=== PATIENT | male | born 1945 | race Caucasian/White ===

== ENCOUNTER 2020-06-10 10:07 | Outpatient (CLI) | payer MEDICARE, SELFPAY ==
--- NOTE | ~2020-06-10 | MR_ITS ---
EXAMINATION: MR lumbar spine wo [facility] EXAM DATE: 06/10/2020 11:27 INDICATION: Chronic low back pain down right hip and leg. TECHNIQUE: Multi-sequential, multiplanar MR images of the lumbar spine were obtained without contrast . Sagittal T1, T2, T2 fat saturation images. Axial T2 weighted images. Comparison is made to prior examination from 06/20/2016. FINDINGS: There is moderate to severe disc disease at L4-5. Congenitally narrow L5-S1 disc height. Mo derate disc disease L1-L4. Mild compression fracture at the inferior endplate of L1, new compared to previous study. Could be subacute given the mild edema present. There is 2 mm retrolisthesis L1 on L2 , 3 mm retrolisthesis L2 on L3, 4 mm anterolisthesis L3 on L4. The conus medullaris terminates at the T12-L1 level and has normal signal intensity and morphology. Paraspinal soft tissue is unremarkable . Level by level evaluation: T12-L1: Disc does not extend beyond the endplate margin. Facet arthropathy: None. Neural foraminal stenosis: No stenosis. Central canal stenosis: No stenosis. L1-L2: There is a mild diffuse disc bulge. Facet arthropathy: Mild. Neural foraminal stenosis: Mild bilateral. Central canal stenosis: No stenosis. L2-L3: There is a moderate diffuse disc bulge. Facet arthropathy: Moderate . Ligamentum flavum enlargement. Neural foraminal stenosis: Mild to moderate bilateral. Central canal stenosis: Mild to moderate. L3-L4: There is a moderate diffuse disc bulge. Facet arthropathy: Severe . Ligamentum flavum enlargement. Neural foraminal stenosis: Mild to moderate right, mild left. Central canal stenosis: Severe. L4-L5: There is a mild to moderate diffuse disc bulge. Facet arthropathy: Mild to moderate. Neural foraminal stenosis: Mild to moderate left, mild right. Central canal stenosis: Mild. L5-S1: Disc does not extend beyond the endplate margin. Facet arthropathy: Mild. Neural foraminal stenosis: No stenosis. Central canal stenosis: No stenosis. There is mild interval progression in spondylosis compared to 2016. IMPRESSION: 1. L3-4 grade 1 anterolisthesis, severe facet arthropathy, moderate to severe central canal stenosis . 2. Lesser spondylosis at other levels. 3. Mild compression inferior endplate L1, could be subacute. Reviewed, dictated and finalized at location A. IMPRESSION: 1. L3-4 grade 1 anterolisthesis, severe facet arthropathy, moderate to severe central canal stenosis. 2. Lesser spondylosis at other levels. 3. Mild compression inferior endplate L1, could be subacute.
== END 2020-06-10 10:08 | disposition home or self-care (01) ==
PROVIDERS: PCP Internal Medicine; Visit Provider Orthopaedic Surgery
DX: M54.5 Low back pain (principal)
CPT/HCPCS: 72148

== ENCOUNTER 2021-02-01 07:58 | Outpatient (CLI) | payer MEDICARE, SELFPAY | END 2021-02-01 07:59 | disposition home or self-care (01) | LOC: ANHBWCAUD 08:01 | PROVIDERS: PCP Internal Medicine; Visit Provider Internal Medicine | DX: H91.93 Unspecified hearing loss, bilateral (principal) | CPT/HCPCS: 92557; 92567 ==

== ENCOUNTER 2021-03-01 10:00 | Outpatient (RCR) | payer SELFPAY | END 2021-05-16 23:59 | disposition home or self-care (01) | LOC: ANHBWCAUD 10:00 | PROVIDERS: PCP Internal Medicine; Visit Provider Internal Medicine | DX: Z46.1 Encounter for fitting and adjustment of hearing aid (principal) | CPT/HCPCS: 99199; V5255 ==

== ENCOUNTER 2022-06-27 14:30 | Outpatient (RCR) | payer MEDICARE, SELFPAY | END 2022-08-17 23:59 | disposition home or self-care (01) | LOC: ANHBWCAUD 14:30 | PROVIDERS: PCP Internal Medicine; Visit Provider Internal Medicine | DX: Z46.1 Encounter for fitting and adjustment of hearing aid (principal) | CPT/HCPCS: 99199 ==

== ENCOUNTER 2024-03-04 08:30 | Outpatient (RCR) | payer MEDICARE, SELFPAY | END 2024-05-13 23:59 | disposition home or self-care (01) | LOC: ANHBWCAUD 08:30 | PROVIDERS: PCP Internal Medicine; Visit Provider Internal Medicine | DX: Z46.1 Encounter for fitting and adjustment of hearing aid (principal) | CPT/HCPCS: 92579 ==

== ENCOUNTER 2024-03-21 11:51 | Outpatient (CLI) | payer MEDICARE, SELFPAY ==
--- NOTE | ~2024-03-21 | XR_ITS ---
Right Knee Technique: AP, lateral, and sunrise views were obtained. Clinical History: Osteoarthritis Findings: No fracture or dislocation is seen. There is lateral compartment narrowing. There is mild t o moderate patellar spurring. There is mild spurring throughout the remainder of the knee.. Soft tiss ues are unremarkable. No joint effusion is seen. Impression: Moderate tricompartmental degenerative change, worse in the lateral compartment. Reviewed, dictated and finalized at location M. Impression: Moderate tricompartmental degenerative change, worse in the lateral compartment .
--- NOTE | ~2024-03-21 | XR_ITS ---
Left Knee Technique: AP, lateral, and sunrise views were obtained. Clinical History: Osteoarthritis Findings: No fracture or dislocation is seen. Osseous alignment is anatomic. There is mild degenerati ve change of the knee. Soft tissues are unremarkable. No joint effusion is seen. Impression: Mild degenerative changes. Reviewed, dictated and finalized at location . Impression: Mild degenerative changes.
== END 2024-03-21 11:52 | disposition home or self-care (01) ==
PROVIDERS: PCP Internal Medicine; Visit Provider Physician Assistant Surgical
DX: M17.0 Bilateral primary osteoarthritis of knee (principal)
CPT/HCPCS: 73564

== ENCOUNTER 2024-05-07 10:51 | Outpatient (CLI) | payer MEDICARE, SELFPAY ==
--- NOTE | ~2024-05-07 | XR_ITS ---
XR hand LT min 3V Ordering provider: Tony Wilkinson MD History: . M79.642 - Pain in left hand . Comparison: None. FINDINGS: BONES: No acute fracture or dislocation. JOINT SPACES: Distal interphalangeal joint narrowing. Osteoarthritic changes of the second metacarpop halangeal joint. SOFT TISSUES: Unremarkable. IMPRESSION: No acute osseous abnormality left hand. Osteoarthritic changes in multiple joints. Reviewed, dictated and finalized at location A.
--- NOTE | ~2024-05-07 | XR_ITS ---
EXAMINATION: XR hand RT min 3V DATE: 05/07/2024 11:10 INDICATION: Left hand pain and trigger finger of the right fifth digit. TECHNIQUE: 1. Posteroanterior, oblique and lateral views of the left hand were obtained. 2. Posteroanterior, oblique and lateral views of the right hand were obtained. COMPARISON: None. FINDINGS: There is mild palmar subluxation at the bilateral second metacarpophalangeal joints with severe assoc iated osteoarthritis. Slight radial angulation at the right third distal interphalangeal joint with a dditional severe osteoarthritis. Bone alignment is otherwise normal at the bilateral hands and wrists . No fractures. Additional moderate severity osteoarthritis at the right distal radioulnar, right thi rd metacarpophalangeal, bilateral first interphalangeal and left second and third and right second di stal interphalangeal joints. Mild osteoarthritis at the left distal radioulnar, bilateral radiocarpal , triscaphe, first carpometacarpal and majority the remaining metacarpophalangeal and interphalangeal joints. No erosions to suggest inflammatory arthritis. IMPRESSION: 1. Moderate to severe polyarticular osteoarthritis at the bilateral hands and wrists. The prominence of the osteoarthritis at the second and third metacarpophalangeal joints raising possibility of secon [place] osteoarthritis related to calcium pyrophosphate deposition (CPPD) disease. Reviewed, dictated and finalized at location B. IMPRESSION: 1. Moderate to severe polyarticular osteoarthritis at the bilateral hands and w rists. The prominence of the osteoarthritis at the second and third metacarpoph alangeal joints raising possibility of secondary osteoarthritis related to calc ium pyrophosphate deposition (CPPD) disease.
== END 2024-05-07 10:52 | disposition home or self-care (01) ==
PROVIDERS: PCP Internal Medicine; Visit Provider Orthopaedic Surgery
DX: M65.351 Trigger finger, right little finger (principal); M19.042 Primary osteoarthritis, left hand; M19.041 Primary osteoarthritis, right hand; M19.032 Primary osteoarthritis, left wrist; M19.031 Primary osteoarthritis, right wrist
CPT/HCPCS: 73130

== ENCOUNTER 2024-06-10 09:44 | Outpatient (CLI) | payer MEDICARE, SELFPAY ==
--- NOTE | ~2024-06-10 | CT_ITS ---
EXAMINATION: CT LE RT wo con DATE: 06/10/2024 10:53 INDICATION: Unilateral primary osteoarthritis, right knee. TECHNIQUE: Computed tomography (CT) of the right lower limb was performed without intravenous contras t. Automated exposure control and iterative reconstruction technique were employed. The dose-length p roduct was 1956.10 mGy-cm. COMPARISON: Right knee radiographs 03/21/2024 FINDINGS: There is moderate right hip osteoarthritis. Right knee demonstrates severe osteoarthritis o f the lateral compartment and moderate osteoarthritis of the medial and patellofemoral compartments. There is a small knee joint effusion. There is a large Tracy's cyst. IMPRESSION: 1. Severe right knee osteoarthritis. 2. Small right knee joint effusion. 3. Large Tracy's cyst. 4. Moderate right hip osteoarthritis. Reviewed, dictated and finalized at location A.
== END 2024-06-10 09:45 | disposition home or self-care (01) ==
PROVIDERS: PCP Internal Medicine; Visit Provider Orthopaedic Surgery
DX: M17.11 Unilateral primary osteoarthritis, right knee (principal); M25.461 Effusion, right knee; M71.21 Synovial cyst of popliteal space [Baker], right knee; M16.11 Unilateral primary osteoarthritis, right hip
CPT/HCPCS: 73700

== ENCOUNTER 2024-08-27 10:03 | Outpatient (CLI) | payer MEDICARE, SELFPAY ==
--- NOTE | 2024-08-27 10:15 | ECG_ITS ---
Test Date: 2024-08-27 10:26:23 Measurements Intervals Ramsay Rate: 89 P: 93 WY: 156 QRS: 105 QRSD: 139 T: -6 QT: 364 QTc: 443 Interpretive Statements ELECTRONIC ATRIAL PACEMAKER ELECTRONIC VENTRICULAR PACEMAKER ATYPICAL ECG No previous ECG available for comparison Electronically Signed On 08-27-2024 13:48:22 CDT by Nathaniel Stahl M.D.
[2024-08-27 10:57] LABS: Albumin Level 4.3 g/dL (3.5-5.1); Estimated Glomerular Filt Rate 36
== END 2024-08-27 10:04 | disposition home or self-care (01) ==
LOC: ANHLAB 10:07
PROVIDERS: PCP Internal Medicine; Visit Provider Orthopaedic Surgery
DX: M17.11 Unilateral primary osteoarthritis, right knee (principal)
CPT/HCPCS: 36415; 82040; 82565; 93005

== ENCOUNTER 2024-12-03 09:49 | Outpatient (CLI) | payer MEDICARE, SELFPAY ==
--- NOTE | ~2024-12-03 | XR_ITS ---
EXAMINATION: XR knee RT min 4V DATE: 12/03/2024 10:27 INDICATION: Bilateral primary osteoarthritis of knee. Right knee pain. TECHNIQUE: 4 views of right knee including standing views were obtained. COMPARISON: Right knee radiographs 03/21/2024 FINDINGS: Alignment is normal. No fracture. There is severe osteoarthritis of lateral compartment and moderate osteoarthritis of medial and patellofemoral compartments. There is a small knee joint effus ion. IMPRESSION: 1. Severe right knee osteoarthritis. 2. Small right knee joint effusion. Reviewed, dictated and finalized at location A. [facility] [employer]
--- NOTE | ~2024-12-03 | XR_ITS ---
EXAMINATION: XR knee LT min 4V DATE: 12/03/2024 10:27 INDICATION: Unilateral primary osteoarthritis, left knee. TECHNIQUE: 4 views of left knee including standing views were obtained. COMPARISON: Left knee radiographs 03/21/2024 FINDINGS: Alignment is normal. No fracture. There is severe osteoarthritis of medial and lateral comp artments and mild osteoarthritis of patellofemoral compartment. No knee joint effusion. IMPRESSION: 1. Severe left knee osteoarthritis. Reviewed, dictated and finalized at location A. CHARGER
--- OUTSIDE RECORDS SUMMARY | 2024-12-03 10:42 | XMS_ITS | Referral Summary ---
Author Organization [facility] Address [address] [place] [address] Care Team Providers Care Shirt Finisher Name Role Phone Star Singh MD Primary Care Provider [phone] Source Comments [facility],non-owned Affiliates and Associated Physician Practices is amultiple site organization consisting of ambulatory clinics and hospital sitesin [place], [place], [place] and [place]. This disclosure is being madepursuant to the Care Everywhere program and may not contain all information available regarding this patient. Last updated 18.[facility] [employer] Allergies Active Allergy Reactions Criticality Noted Date Comments Hmg-Coa-R Inhibitors Myalgias 12/05/2022 locks my muscles up Medications * Be aware that medications may not be up to date on this document. Alwaysverify current medications with the patient. Medication Sig Dispensed Refills Start Date End Date Status irbesartan-hydroCHLORO thiazide (Avalide) 150-12.5 MG tablet Take 1 (one) tablet by mouth once daily Active ezetimibe (Zetia) 10 MG tablet Take 1 (one) tablet by mouth once daily Active Rivaroxaban (XARELTO PO) Take 1.5 mg by mouth at bedtime Active fenofibrate (Tricor) 145 MG tablet Take 1 (one) tablet by mouth once daily Active BUPROPION HCL PO Take 300 mg by mouth Active dicyclomine (Bentyl) 10 MG capsule Take 1 (one) capsule by mouth as needed Active Polyethylene Glycol 3350 (MIRALAX PO) Active loratadine (Claritin) 10 MG tablet Take 1 (one) tablet by mouth once daily Active GLUCOSAMINE-CHONDROITI N PO Active Multiple Vitamins-Minerals (MULTIVITAL [place] SILVER PO) Active clopidogrel (plaVIX) 75 MG tablet Take 1 (one) tablet by mouth once daily Active apixaban (Eliquis) 5 MG tablet Active rOPINIRole (Requip) 2 MG tablet Take 1 (one) tablet by mouth 3 times daily Active vitamin D3 (Cholecalciferol) 10 MCG (400 UNIT) tablet Take 1 (one) tablet by mouth once daily Active aspirin EC (Ecotrin) 81 MG tablet Take 1 (one) tablet by mouth once daily Active Social History Tobacco Use Types Packs/Day Years Used Date Smoking Tobacco: Former Cigarettes Smokeless Tobacco: Never Tobacco Cessation:Counseling Given: Not Answered Alcohol Use Standard Drinks/Week Comments Yes 1 (1 standard drink = 0.6 oz pur e alcohol) 1x month AUDIT-C Answer Date Recorded Q1: How often do you have a drink containing alc ohol? Monthly or less 07/08/2024 Q2: How many drinks containi ng alcohol do you have on a typical day when you are drinking? 1 or 2 07/08/2024 Q3: How often do you have si x or more drinks on one occasion? Never 07/08/2024 Sex and Gender Information Value Date Recorded Sex Assigned at Not on file Gender Identity Not on file Sexual Orientation Not on file Last Filed Vital Signs Vital Sign Reading Time Taken Comments Blood Pressure 141/70 07/08/2024 10:30 AM CDT Pulse 67 07/08/2024 10:35 AM CDT Temperature 36 ??C (96.8 ??F) 07/08/2024 9:54 AM CDT Respiratory Rate 18 07/08/2024 10:35 AM CDT Oxygen Saturation 99% 07/08/2024 10:35 AM CDT Inhaled Oxygen Concentration - - Weight 106.1 kg (234 lb) 07/08/2024 7:35 AM CDT Height 177.8 cm (5' 10 ) 07/01/2024 11:48 AM CDT Body Mass Index 33.58 07/01/2024 11:48 AM CDT Plan of Treatment Not on file Care Teams Shirt Finisher Relationship Specialty Start Date End Date Star Singh MD [address] [place] [address] PCP - General Internal Medicine 11/16/22
--- OUTSIDE RECORDS SUMMARY | 2024-12-03 10:42 | XMS_ITS | Patient Health Summary ---
Author Organization [facility] Address [address] [place] [address] Care Team Providers Care Extras Casting Director Name Role Phone Star Singh MD Primary Care Provider [phone] Note from [facility],non-owned Affiliates and Associated Physician Practices is amultiple site organization consisting of ambulatory clinics and hospital sitesin [place], [place], [place] and [place]. This disclosure is being madepursuant to the Care Everywhere program and may not contain all information available regarding this patient. Last updated 18.[facility] Allergies * Hmg-Coa-R Inhibitors(Myalgias) Medications * Be aware that medications may not be up to date on this document. Alwaysverify current medications with the patient. * irbesartan-hydroCHLOROthiazide (Avalide) 150-12.5 MG tablet Take 1 (one) tablet by mouth once daily * ezetimibe (Zetia) 10 MG tablet Take 1 (one) tablet by mouth once daily * Rivaroxaban (XARELTO PO) Take 1.5 mg by mouth at bedtime * fenofibrate (Tricor) 145 MG tablet Take 1 (one) tablet by mouth once daily * BUPROPION HCL PO Take 300 mg by mouth * dicyclomine (Bentyl) 10 MG capsule Take 1 (one) capsule by mouth as needed * Polyethylene Glycol 3350 (MIRALAX PO) * loratadine (Claritin) 10 MG tablet Take 1 (one) tablet by mouth once daily * GLUCOSAMINE-CHONDROITIN PO * Multiple Vitamins-Minerals (MULTIVITAL [place] SILVER PO) * clopidogrel (plaVIX) 75 MG tablet Take 1 (one) tablet by mouth once daily * apixaban (Eliquis) 5 MG tablet * rOPINIRole (Requip) 2 MG tablet Take 1 (one) tablet by mouth 3 times daily * vitamin D3 (Cholecalciferol) 10 MCG (400 UNIT) tablet Take 1 (one) tablet by mouth once daily * aspirin EC (Ecotrin) 81 MG tablet Take 1 (one) tablet by mouth once daily Social History Tobacco Use Types Packs/Day Years [...] Mass Index 33.58 07/01/2024 11:48 AM CDT Procedures * [place] PART REMV PHALANX OF TOE(Performed 07/08/2024) Performed for Osteophyte of left foot, Hammer toe of left foot * [place] INCISION SUBCUT TOE TENDON,>1(Performed 07/08/2024) Performed for Osteophyte of left foot, Hammer toe of left foot * [place] PART REMV PHALANX OF TOE(Performed 12/05/2022) Performed for Osteophyte of left foot Care Teams Extras Casting Director Relationship Specialty Start Date End Date Star Singh MD [facility] [address] [address] PCP - General Internal Medicine 11/16/22
--- OUTSIDE RECORDS SUMMARY | 2024-12-03 10:43 | XMS_ITS | Encounter Summary ---
Author Organization [facility] Address [address] [address] Care Team Providers Care Auto Clutch Rebuilder Name Role Phone Star Singh MD Primary Care Provider [phone] Chepe Hinton MD Unavailable [phone] Lizy Cai RN Unavailable [phone] Dada Morris MD Unavailable [phone] Encounter Details Date Type Department Care Team (Late st Contact Info) Description 03/13/2017 Orders Only [facility] ProviderJuan MD [address] [place] [address] Social History Tobacco Use Types Packs/Day Years Used Date Smoking Tobacco: Some Days Cigarettes Last attempted to quit: 11/05/1979 Alcohol Use Standard Drinks/Week Comments Yes 0 (1 standard drink = 0.6 oz pur e alcohol) Sex and Gender Information Value Date Recorded Sex Assigned at Not on file Legal Sex Male 11:56 PM STRIPPING CUTTER AND WINDER Gender Identity Not on file Sexual Orientation Not on file documented as of this encounter Plan of Treatment Upcoming Encounters Date Type Department Care Team (Latest Contact Info) Description 02/03/2025 7:30 AM CDT Hospital Encounter [facility] [address] [place] [address] [place] [address] [facility] [place] [address] 02/03/2025 7:30 AM CDT Anesthesia Event [facility] [id number] [place] [address] [place] [address] [facility] [address] [place] [address] 02/03/2025 7:30 AM CDT - 02/03/2025 11:00 AM CDT Surgery [facility] [address] [place] [address] [place] [address] [facility] [address] [place] [address] INSPIRE HYPOGLOSSAL NERVE STIMULATOR IMPLANT - INSERTION/150min Scheduled Procedures Name Priority Associated Diagnoses Date/Ti me INSPIRE HYPOGLOSSAL NERVE STIMULATOR IMPLANT - INSERTION CHLOE (obstructive sleep apnea) 02/03/2025 7:30 AM CDT INSERTION CHEST WALL RESPIRATORY SENSOR ELECTRODE ARRAY AND PULSE GENERATOR CHLOE (obstructive sleep apnea) 02/03/2025 7:30 AM CDT documented as of this encounter Procedures Procedure Name Priority Date/Time Associated Diagnosis Comments CARDIOLOGY REPORT 03/13/2017 documented in this encounter Results * CARDIOLOGY REPORT (03/13/2017) Anatomical Region Laterality Modality Other Narrative 03/13/2017 Ordered by an unspecified provider. us Historical Provider [facility] Final Result documented in this encounter Visit Diagnoses Not on filedocumented in this encounter Additional Health Concerns Infection Onset Date Last Indicated Resolved Time COVID: Suspected 02/10/2022 02/10/2022 02/10/2022 2:52 PM CDT COVID: Suspected 03/16/2022 03/17/2022 03/17/2022 3:05 AM CDT COVID: Suspected 01/05/2023 01/05/2023 01/05/2023 9:31 AM STRIPPING CUTTER AND WINDER COVID: Suspected 01/09/2023 01/09/2023 01/09/2023 2:34 PM STRIPPING CUTTER AND WINDER COVID: Suspected 10/25/2023 10/25/2023 10/25/2023 4:10 PM STRIPPING C[employer]TER AND WINDER documented as of this encounter Care Teams Auto Clutch Rebuilder Relationship Specialty Start Date End Date Star Singh MD PCP - General 02/05/17 Chepe Hinton MD Consulting Physician Cardiology 07/19/18 Lizy Cai, RN [address] [place] [address] Junction [employer] 07/22/18 08/28/18 Dada Morris MD [address] [place] [address] Anesthesiologist Pain Management 10/13/22 documented as of this encounter
--- OUTSIDE RECORDS SUMMARY | 2024-12-03 10:43 | XMS_ITS | Clinical Summary ---
Author Organization [facility] Address [address] [place] [address] Care Team Providers Care Apple Packing Header Name Role Phone Star Singh MD Primary Care Provider [phone] Source Comments [facility],non-owned Affiliates and Associated Physician Practices is amultiple site organization consisting of ambulatory clinics and hospital sitesin [place], [place], [place] and [place]. This disclosure is being madepursuant to the Care Everywhere program and may not contain all information available regarding this patient. Last updated 18.[facility] Allergies Active Allergy Reactions Criticality Noted Date [...] GLUCOSAMINE-CHONDROITI N PO Active Multiple Vitamins-Minerals (MULTIVITAL [place] SILVER PO) Active clopidogrel (plaVIX) 75 MG [...] 07/01/2024 11:48 AM CDT Plan of Treatment Health Maintenance Due Date Last Done Comments MEDICARE AWV ? 12 MONTHS 1945 DTAP/TDAP/TD VACCINES (1 - Tdap) 1963 PNEUMOCOCCAL VACCINE 50+ (1 of 1 - PCV) 1994 ZOSTER VACCINE (1 of 2) 1994 Respiratory Syncytial Virus (RSV) Vaccine Pt: or over 60 yrs (1 - 1-dose 75+ series) 2019 COVID-19 VACCINE ( season) 2024 08/15/2022, 11/21/2021 DEPRESSION SCREENING 11/05/2024 INFLUENZA VACCINE Completed 07/15/2024, , 08/01/2019, Additional history exists HEPATITIS B VACCINE Aged Out No longe r eligible based on patient's age to complete this topic HIB VACCINE Aged Out No longer eligi ble based on patient's age to complete this topic HPV VACCINE Aged Out No longer eligi ble based on patient's age to complete this topic MENINGOCOCCAL (Group B) VACCINE Aged Out No longer eligible based on patient's age to complete this topic MENINGOCOCCAL VACCINE Aged Out No vivien peter eligible based on patient's age to complete this topic Care Teams Apple Packing Header Relationship Specialty Start Date End Date Star Singh MD [address] [place] [id number] PCP - General Internal Medicine 11/16/22
--- OUTSIDE RECORDS SUMMARY | 2024-12-03 10:43 | XMS_ITS ---
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 Is my 1st hearing of this. I am going to proceed in get an ultrasound of his testicle and refer to Urology Muscle spasm of left lower extremity 01/09/2024 Assessment & Plan (01/09/2024 1:02 PM NATIONAL SALES EXECUTIVE): Patient is having a cramping feeling posterior approximal left thigh going on about a week is reproducible when going from sitting to standing getting better causes limp very briefly for the 1st 2-3 steps and resolves. Minimal tenderness on palpating. Recommendation observation at this time x-rays not clinically indicated. Patient's advised to give me a progress report in 1 week no improvement will get an x-ray of his thigh. He has not had any trauma to explain this pain. Benign skin lesion 12/28/2023 Assessment & Plan (12/28/2023 9:53 AM NATIONAL SALES EXECUTIVE): Lesion consistent with sebaceous cyst noted to left occiputal area just above hairline. No acute signs of infection. Will likely resolve on it's own. Keep skin clean and dry, no not squeeze or pick at it. Weak 10/28/2023 Assessment & Plan (10/28/2023 7:32 PM NATIONAL SALES EXECUTIVE): Patient tested COVID as well as flu results were negative mi respiratory symptoms I suggest utilizing Zyrtec. No fever no chills Tylenol p.r.n.. 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 See plan above. Open wound of right lower leg 06/20/2023 Assessment & Plan (06/20/2023 3:47 PM CDT): Wound present for approx 1 month, developed blister and started draining last week. Assessment as noted above with surrounding cellulitis. Rxd Keflex as directed. Keep follow with wound center next week. Personal history of colonic polyps 06/11/2023 Family history of colon cancer 06/11/2023 Lumbosacral radiculopathy 05/16/2023 Cellulitis of right lower extremity 04/04/2023 Assessment & Plan (09/14/2024 4:17 PM NATIONAL SALES EXECUTIVE): Sinusitis right lower leg is now resolved Assessment & Plan (04/16/2023 5:31 PM CDT): Patient's right leg is wrapped he has a follow-up visit with the wound clinic tomorrow 04/17/2023 Assessment & Plan (04/04/2023 12:17 PM CDT): Care facility was placed on back open wound in his right leg he complains of abdominal pain since starting Bactrim discontinuing this and replacing with Keflex has significant edema which is improving having him to follow-up with the wound clinic ensure this wound heals increase in diuretics patient's is very symptomatic in his blood pressure. Gait difficulty 02/01/2023 Assessment & Plan (03/12/2023 6:28 PM CDT): Patient completed physical therapy and gait training in his him much better in terms ability ambulate feels more confident he hears a cane when he is going to be away from the home and walking longer unusual distances Assessment & Plan (02/01/2023 6:46 PM CDT): Patient feels a bit insecure in his walking he uses a cane rarely referred him to [facility] physical therapy for further evaluation gait and balance Asthma 01/12/2023 Assessment & Plan (01/12/2023 4:39 PM NATIONAL SALES EXECUTIVE): Asthma not improving occasionally he will get some relief from albuterol does not last very long he feels like that the mucus has his blocking lost some of his inhalation.. Patient ambulating office without difficulty feel short of breath O2 saturation 97% patient talks in complete sentences no accessory muscle use wheezing over upper lobes bilaterally poor technique on trying to get a peak flow he did get a 300 on his best. Patient is given a nebulizer treatment here in office he felt much better and he has in 2 weeks plans made arrangements for him to get a nebulizer from the pharmacy here in the building as well as albuterol a solution and was given a sample of trilogy and taught how to use it. Been injection of Kenalog 80 mg and prednisone to start tomorrow patient is advised specifically if he gets worse he has to go to the emergency room have reached maximum therapy that can offer him on outpatient basis SOB (shortness of breath) 01/09/2023 Assessment & Plan (07/31/2023 6:43 PM CDT): Seems to be correlated to his atrial fibrillation he is had a discussion with this log operations coordinator. On recent visit Assessment & Plan (03/12/2023 6:30 PM CDT): Patient visit with Pulmonary he is breathing much better less shortness of breath improved/ comfortable at this time Assessment & Plan (02/01/2023 6:44 PM CDT): Patient is improved using albuterol through the nebulizer machine. He should be out of trilogy at this time I did not refill it. A follow-up appointment in 6 weeks or so with Pulmonary. Recently diagnosed with pneumonia at [facility] Emergency Room and is improving Assessment & Plan (01/09/2023 4:05 PM NATIONAL SALES EXECUTIVE): Patient continues to have some shortness of breath despite aggressive cardiac therapy Silvia consult with Pulmonary which is very reasonable he has atrial fibrillation hypertension sleep apnea he is a very large man which all may be contributing factors to his progressive dyspnea CHLOE (obstructive sleep apnea) 01/09/2023 Assessment & Plan (03/10/2024 9:36 AM CDT): Patient continues use CPAP and benefits followed by the sleep Clinic Assessment & Plan (01/09/2023 4:04 PM NATIONAL SALES EXECUTIVE): Patient uses CPAP machine for many years with benefits once he retired no longer worked he start using his CPAP machine. Having shortness of breath some fatigue he would like resume treatment for sleep apnea. Patient is 77 years old he is referred to sleep Clinic for further evaluation including asleep study. Paroxysmal atrial fibrillation (CMS/HCC) 023 Assessment & Plan (07/31/2023 6:42 PM CDT): Has been in his last visit with Cardiology he will be referred to Dr. Jean-Baptiste at [facility] treatment for atrial fibrillation Assessment & Plan (12/01/2022 1:03 PM NATIONAL SALES EXECUTIVE): Recent atrial fibrillation managed by Cardiology he is now on Xarelto TIA (transient ischemic attack) 11/16/2022 Assessment & Plan (12/01/2022 12:44 PM NATIONAL SALES EXECUTIVE): No further symptoms of TIA /temporary vision change. This is thought to be secondary to recent onset of atrial fibrillation. Patient is now on Xarelto Assessment & Plan (11/16/2022 6:05 PM NATIONAL SALES EXECUTIVE): Patient recently had a TIA expressed in the form of loss of vision right eye for several minutes. 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 Monitor comes off on . Patient is asymptomatic. Patient's visit was scheduled for today preoperative clearance. He has foot surgery coming up 05 of November. I will see this patient back on December 01 review the monitor results. Results very good proceed with foot surgery not will need to have further evaluation by Cardiology. 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 Rx sent for tablets 11 refill Major depressive disorder with single episode Assessment & Plan (09/14/2024 4:12 PM NATIONAL SALES EXECUTIVE): Patient's mood is excellent with medication no complaints of side effects patient would like to remain on medications Assessment & Plan (01/30/2024 5:59 PM CDT): Patient is here to discuss depression and mood enjoys life . He is concerned he has lots of things to do which he does complete task other things he does not complete or feel like completing. The jobs are that he fails to complete are absolutely essential harmful if did not completed by deadlines.. Has some guilt in question whether not he is depressed because he has not as active he is was years ago. Advised patient I thought he was doing excellent given his age of 78 no dementia his pain levels of being controlled well and he still has interested in things I would recommend he remain on his Wellbutrin is working effectively for him Assessment & Plan (03/12/2023 6:31 PM CDT): Mood is stable continue Wellbutrin 300 mg daily Assessment & Plan (09/06/2021 12:20 PM CDT): Patient has noticed improvement with the Wellbutrin 300 mg. Patient's had an accident a fall broke her hip intracerebral bleed she is now on hospice anticipation that she will not survive the next 10 days. Patient requested anti anxiety medicine is needed around the time. He was given Xanax 0.25 mg t.i.d. p.r.n. total 12 tablets Assessment & Plan (08/18/2021 10:48 AM CDT): Patient has noticed some improvement with the Wellbutrin. Is uncertain how much is a of his improvement from Medicaid versus S in circumstance regarding his 's illness. This time I am going to increase his Wellbutrin to 300 mg daily . He has an appointment in 2 weeks will see if he is having any side effects from the increased dose. He has an appetite sleep patterns about the same is been for several years. He does have interest in doing things Assessment & Plan (05/12/2021 6:09 PM CDT): Patient's major depression is been talking with a counselor lays out that his advised Tena to his speak with this primary care physician regarding medication. He has been seeing a counselor at [facility] psychological services.. He has 3 relatives/daughters who in the medical fill also advised to seek help on her depression.. Patient PHQ-9 score was 10. Patient's has Alzheimer's disease schizoaffective disorder.. Patient started on Wellbutrin 100 mg once a day I will see him back in 1 month. Discussed side effects in anticipation for the medications. 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 Left hip pain 05/27/2020 Assessment & Plan (05/27/2020 4:26 PM CDT): Patient complains of right hip pain is getting progressively worse for the past several weeks he has to walk several miles a day NyQuil walk 1/4 mi he has pain. Also gets pain going from sitting to standing. Pain is in the posterior hip and lateral hip. X-rays a shows evidence of hip impingement. Patient patient notified he can follow-up with his orthopedic surgeon did place him on prednisone temporarily. He takes meloxicam routinely he is going to hold that at this time Chronic renal failure, stage 3 (moderate) 2019 Assessment & Plan (09/11/2024 12:54 PM NATIONAL SALES EXECUTIVE): Will refer this patient to nephrology orthopedic surgeon would like to do a total knee on this gentleman. Patient has been advised by his orthopedic surgeon Dr. Wilkinson has requested a Nephrology consult prior to surgery. Patient is 79 years old 20+ year history of hypertension known atherosclerotic heart disease and peripheral vascular disease. For last 4 years his EGFR has been mid 33-52. Referral was made eGFR Latest Ref Rng mL/min/1.73 m2 04/05/2020 46 10/08/2020 46 03/18/2021 35 09/06/2021 38 03/09/2022 40 09/11/2022 52 04/24/2023 37 05/17/2023 37 09/25/2023 33 01/04/2024 42 Assessment & Plan (09/12/2022 5:22 PM NATIONAL SALES EXECUTIVE): Non steroidal anti-inflammatory/meloxicam discontinued patient utilizing Tylenol at this time. Patient's EGFR has improved. Will continue to monitor no change in therapy. Component eGFR Latest Ref Rng & Units mL/min/1.73 m2 03/25/2019 56 04/05/2020 46 10/08/2020 46 03/18/2021 35 09/06/2021 38 03/09/2022 40 09/11/2022 52 Assessment & Plan (03/09/2022 5:09 PM CDT): Discontinue meloxicam patient advised to try arthritis Tylenol will get an updated arm BMP today Assessment & Plan (10/04/2020 6:15 PM NATIONAL SALES EXECUTIVE): Laboratory results from is almost 6 months ago reviewed GFR was 50. Update lipid profile and BMP today. Assessment & Plan (03/30/2020 6:34 PM CDT): Patient is in flor[place] considering get a knee replacement he had preop lab done and his creatinine came back at 1.38 and his estimated GFR was 58. This is consistent with chronic renal failure stage IIIA. This lab was done in December 2019 estimated GFR was above 60. Patient is 74 years old and has hypertension 20+ years. Plans at this time repeat BMP/creatinine and estimated GFR within the next 3-7 days. Hypertension 10/14/2019 Assessment & Plan (09/14/2024 4:11 PM NATIONAL SALES EXECUTIVE): Blood pressure remains well controlled patient takes Avalide HCTZ 150/12.51 tablet daily tolerates the medications. Assessment & Plan (07/31/2023 6:42 PM CDT): Pressure well controlled patient is tolerating medications no change in therapy Assessment & Plan (12/01/2022 1:03 PM NATIONAL SALES EXECUTIVE): Blood pressure well control no change in therapy Medicare annual wellness visit, subsequent 10/03 Assessment & Plan (03/10/2024 6:16 PM CDT): History and physical completed patient's health risk assessment health maintenance reviewed in addressed. Patient has not had any hospitalizations since his last annual exam. Continues follow-up with nephrology chronic renal failure stage III, cardiology atrial fibula pain clinic because of chronic osteoarthritis problems all his conditions stable including his depression. Immunizations laboratory studies are monitored on a frequent basis as indicated Assessment & Plan (03/12/2023 6:29 PM CDT): History and physical completed patient's health risk assessment health maintenance reviewed in addressed. Patient has had 2 hospitalizations in the past year he is recovered from recent pneumonias feeling much better. He is also followed by Pulmonary for his chronic lung disease. 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 Patient advised me that he had his shingles shot July 09, 2021 Assessment & Plan (03/09/2022 5:09 PM CDT): History and physical completed patient's health risk assessment health maintenance reviewed in addressed. Patient has no new health problems since his last visit. Acute bronchitis has resolved Assessment & Plan (09/06/2021 12:13 PM CDT): History and physical completed patient's health risk assessment health maintenance reviewed in addressed. Patient advised me he has had his shingles vaccine at [facility]. This is not recorded in our records at this time he is aware of her need for Tdap. Flu vaccine is current have within the past few days. Assessment & Plan (06/13/2021 11:34 AM CDT): Month follow-up visit regarding depression. Patient has noticed improved sleep with medication. Still has sadness in grieving. No adverse response to medication increase Wellbutrin to 150 mg. Progress report in 3-4 weeks see him back in 2 months. Assessment & Plan (10/04/2020 6:14 PM NATIONAL SALES EXECUTIVE): Health risk assessment health maintenance reviewed in addressed. Patient aware of immunization recommendations. Patient continues in the care of Pain Clinic he recently had evaluation regarding is back per Neurosurgery recommendations continue physical therapy. Assessment & Plan (10/03/2019 5:06 PM NATIONAL SALES EXECUTIVE): Patient is a history and physical completed on abnormalities a pain and in limping secondary to his right knee pain. Patient may me aware to fact he has completed his shingles vaccine through his local pharmacy will get a release of records to document this in his electronic medical records. Other components with health risk assessment health maintenance reviewed in addressed. Lipids are excellent is keeping his appointments Cardiology. Chronic pain of right knee 06/23/2019 Assessment & Plan (10/03/2019 5:02 PM NATIONAL SALES EXECUTIVE): Patient continues to have significant knee pain is 90% certain he is going to go ahead and follow through with knee replacement which is been rib suggestive eyes orthopedic surgeon in the past. Assessment & Plan (06/23/2019 12:31 PM CDT): Patient's osteoarthritis multiple sites has had his right knee to given pain when going from standing to sitting. Contact his orthopedic surgeon were unable to see him this morning and referred him to his primary care physician.. Patient has pain over the proximal fibula. Some posterior knee pain no fluid present no redness no swelling.. He has had this experience 4 to times this summer. His exam otherwise unremarkable. He cannot get in to see his orthopedic surgeon to late July.. Possible get an injection week of July. At this time I am going to give him a trial of prednisone 20 mg twice a day x5 days. X-ray of right knee requested. Restless leg 06/23/2019 Assessment & Plan (06/23/2019 12:30 PM CDT): Patient describing restless leg symptoms have been present for years less than once a week sometimes less than once a month for several years recently he has been getting 2 more times per week. Patient was started on Requip/ropinirole 0.5 mg 1-2 to 3 hours prior to bedtime. He is advised how to titrate himself up to 3 tablets before bedtime if he does not get relief. He is to contact me after reaching 3 tablets if it has not worked. Chronic low back pain without sciatica 7 Assessment & Plan (07/31/2023 6:41 PM CDT): Patient advised me the pain clinic at has discussed with him getting a implant controlling his pain in his back putting a temporary implant at 1st which is standard procedure he is willing to have this done. Every wants to get his cardiac problems taken care 1st Assessment & Plan (09/12/2022 5:23 PM NATIONAL SALES EXECUTIVE): Patient continues with the pain clinic and benefits from the therapy. Assessment & Plan (10/03/2019 5:02 PM NATIONAL SALES EXECUTIVE): Patient's notice has knee pain gets worse he needs just to walking his back pain is gives him more pain. This may be an overuse syndrome causing his back pain to increase. Assessment & Plan (02/19/2018 10:12 AM CDT): Low back pain continues to be a problem meloxicam did help however he is on blood thinners at this time which she cannot take the meloxicam. Assessment & Plan (09/01/2017 3:14 PM CDT): Patient has been going to pain clinic also given physical therapy is improved in his symptoms and stents is a chronic disorder least appears to be satisfied with his progress. Essential hypertension, benign 08/21/2017 Assessment & Plan (01/30/2024 6:00 PM CDT): Blood pressure is acceptable patient is doing well no change in therapy Assessment & Plan (12/28/2023 9:53 AM NATIONAL SALES EXECUTIVE): BP stable in office today on current therapy. No acute findings on exam. Continue current regimen and low salt diet. Assessment & Plan (10/28/2023 7:32 PM NATIONAL SALES EXECUTIVE): Pressure is excellent continue present therapy Assessment & Plan (04/16/2023 5:31 PM CDT): Flour Broker notes reviewed. His back on a diuretic Lasix 40 mg daily blood pressure is well controlled at this time he is not having adverse reactions to the medication. I will see him in the fall no changes added Assessment & Plan (04/04/2023 12:33 PM CDT): Hypertension well controlled patient does have some edema . He is on irbesartan hydrochlorothiazide 150/12.5. Attempts to give him additional diuretics for edema is not is benefit. Patient's not feel well when his blood pressure drops any lower even though it may be in therapeutic range. Assessment & Plan (01/09/2023 4:09 PM NATIONAL SALES EXECUTIVE): Blood pressure reasonably control no change in therapy Assessment & Plan (09/12/2022 5:20 PM NATIONAL SALES EXECUTIVE): Hypertension remains very well controlled patient is tolerating medications no change in therapy Assessment & Plan (05/22/2022 6:24 PM CDT): Blood pressure remains very well controlled patient tolerating medications no change in therapy Assessment & Plan (09/06/2021 12:13 PM CDT): Hypertension remains well control no change in therapy Assessment & Plan (06/13/2021 11:38 AM CDT): Blood pressure remains well controlled patient is tolerating medications no change in therapy. Assessment & Plan (03/09/2021 8:39 AM CDT): Attention remains well controlled patient is tolerating medications. No symptoms referable to his hypertension at this time will continue present therapy. Update patient's BMP as well as fasting lipid profile. Assessment & Plan (03/30/2020 6:34 PM CDT): Hypertension remains well controlled patient is tolerating medications no change in therapy. Assessment & Plan (10/03/2019 5:02 PM NATIONAL SALES EXECUTIVE): Blood pressure well controlled patient tolerating medications no change in therapy Assessment & Plan (04/01/2019 9:47 AM CDT): Time patient's medicine Avapro and hydrochlorothiazide is now going to take Avalide 150/12.51 tablet daily. Back patient tells me takes a half a tablet. When he is taking the Avapro and HCTZ because his blood pressure go too low.. Go to do the same with Avalide. Assessment & Plan (10/06/2018 6:02 PM NATIONAL SALES EXECUTIVE): Blood pressure 148/80 on this visit blood pressures away from the office have been much better he has no symptoms referable to his hypertension. No change in therapy at this time Assessment & Plan (07/27/2018 6:40 PM CDT): Patient was taken off his blood pressure medications while in the hospital as blood pressures running low. Blood pressure today is 132/84 this is 1 of his higher blood pressure readings since being home. Patient is on no blood pressure medicine he will continue to monitor his blood pressure. He understands if he starts running blood pressure consistently elevated above 150 systolic or 90 diastolic he is to resume his medications and contact me. Assessment & Plan (02/19/2018 10:13 AM CDT): Hypertension is unchanged. Continue current treatment regimen. Dietary sodium restriction. Weight loss. Regular aerobic exercise. Continue current medications. Blood pressure will be reassessed at the next regular appointment. Patient lost 30 lb on purpose the blood pressure is well controlled. Body mass index remains at 34.58 Assessment & Plan (09/01/2017 3:07 PM CDT): Hypertension is unchanged. Continue current treatment regimen. Dietary sodium restriction. Weight loss. Regular aerobic exercise. Continue current medications. Blood pressure will be reassessed at the next regular appointment. Coronary artery disease involving capitan grande coronar y artery 06/28/2017 Assessment & Plan (09/06/2021 12:13 PM CDT): Flour Broker notes reviewed Assessment & Plan (06/13/2021 11:39 AM CDT): Flour Broker notes reviewed. Patient remains asymptomatic with respect coronary artery disease. Assessment & Plan (03/09/2021 8:42 AM CDT): Estimated GFR remains stable BMP on this visit. 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 Assessment & Plan (03/30/2020 6:35 PM CDT): Patient is stable at this time he has a follow-up visit with Cardiology in the next 10-20 days. Lipid profile is requested today and BMP will be available log operations coordinator reviewed Assessment & Plan (10/03/2019 5:04 PM NATIONAL SALES EXECUTIVE): Patient free of chest pain no evidence of congestive heart failure patient is under care cardiology he will have a follow-up visit in the next 30 days lipid profile ordered today to have available for his next cardiology visit. Assessment & Plan (04/01/2019 9:47 AM CDT): . Patient is doing well is no chest pain no significant shortness of breath he has appointment Cardiology in the next 30-60 days. Assessment & Plan (10/06/2018 6:13 PM NATIONAL SALES EXECUTIVE): Coronary artery disease is unchanged. Continue current treatment regimen. Dietary sodium restriction. Weight loss. Regular aerobic exercise. Continue current medications. Cardiac status will be reassessed in 6 months. Patient sees log operations coordinator once a twice per year. 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 Will continues routine medications for his heart. Assessment & Plan (02/19/2018 10:12 AM CDT): . Patient's appointment Cardiology next week will give fasting lipid profile performed care to his log operations coordinator patient is asymptomatic at this time. Status post stent placement. Assessment & Plan (06/29/2017 10:23 AM CDT): Coronary artery disease is improving with treatment. Continue current treatment regimen. Regular aerobic exercise. Continue current medications. Cardiac status will be reassessed in 6 months. Patient had stent placement in the last 90 days at [facility]. Doing very well. He will follow up with log operations coordinator in next 3 months. He is on the medicine Effient. Irritable bowel syndrome 03/21/2014 Overview (02/09/2017): IBS (irritable bowel syndrome) Assessment & Plan (10/06/2018 6:04 PM NATIONAL SALES EXECUTIVE): Patient has not had any recent problems with irritable bowel in the past 12 months. Hyperlipidemia 03/21/2014 Overview (02/09/2017): Hyperlipidemia Assessment & Plan (10/03/2019 5:03 PM NATIONAL SALES EXECUTIVE): Current lipid profile is very good no change in therapy patient is tolerating medications. Assessment & Plan (04/01/2019 9:46 AM CDT): Lipid profile excellent results HDL however is 39 a discuss the the patient he was concerned a regarding the meaning of this. History in getting injections of the cholesterol medicine referring to the medication Repatha which was discussed with his log operations coordinator the year ago.. His appointment Cardiology coming up in the near future. Assessment & Plan (10/06/2018 6:03 PM NATIONAL SALES EXECUTIVE): Patient's lipid profile up in within therapeutic range his medications Zetia he is intolerant to statins. Will do a follow-up lipid profile on this visit. Assessment & Plan (02/19/2018 10:14 AM CDT): Repeat lipid profile today patient has lost 30 lb in past year. be interesting to see how much more improvement he has made with the weight loss. Assessment & Plan (09/01/2017 3:11 PM CDT): Lipid abnormalities are unchanged. Pharmacotherapy as ordered. Lipids will be reassessed in 6 months. Patient's lipid profile is running in the 180s previously running around 258. Recheck a refill lipid profile today. No change in medications. Reason status post stent placement. Osteoarthritis 03/21/2014 Overview (02/09/2017): Osteoarthritis Assessment & Plan (03/09/2021 8:42 AM CDT): Arthritis no progression symptoms patient reasonably stable. In terms of level pain as as well as mobility no change in therapy Assessment & Plan (04/01/2019 9:48 AM CDT): No change osteoarthritis. Patient has no significant limitations on his routine activities. Assessment & Plan (10/06/2018 6:11 PM NATIONAL SALES EXECUTIVE): Patient osteoarthritis seems to be doing better he does go to pain clinic for his back pain. He has been maintain on meloxicam 15 mg daily. His knee pain has improved Assessment & Plan (06/29/2017 10:24 AM CDT): Patient goes to pain clinic at [facility]. He has been treated Mobic/meloxicam several years which helps back pain. I had been prescribed meloxicam. At this time does have risk factors with any non steroidal anti-inflammatory medication and the blood thinner Effient. Patient is advised this is unavoidable potential drug interaction. Patient does not want to be on narcotic will continue Tylenol as needed and continue with the pain clinic with injections as indicated. Abdominal aortic aneurysm without rupture 2011 Current Oncology Plans No current plan information found. Past Plans No past plan information found. Radiation Treatments * No radiation treatments are documented for this patient in [facility]. Treatments may have been administered in another system. Lifetime Dose Tracking * Chemical Lifetime Dose Automatic Entry Manual Entr y Fluoro Time 118.983 minutes 118.983 minutes 0 minutes Air kerma at the reference point (Ka,r) 572.403 mGy 5 72.403 mGy 0 mGy Resolved Problems Problem Noted Date Diagnosed Date Resolved Date Morbid (severe) obesity due to excess calories 02/16/2023 09/14/2024 Community acquired pneumonia 02/01/2023 03/12/2023 Assessment & Plan (02/01/2023 6:45 PM CDT): Seen [facility] room few days ago because of increased shortness of breath at night he was diagnosed with pneumonia based on CT scan results. Patient was paced on a Z-Clint and he is improving. Has pretty much returned to baseline he has no fever no chills no chest pain and he is in no distress at this time Preoperative clearance 12/01/202201/09 Assessment & Plan (12/01/2022 1:04 PM NATIONAL SALES EXECUTIVE): Patient is stable doing well he feels well vitals excellent. Scheduled for excision of his 2nd on 12/05 2022. Will stop Xarelto this evening he is clear for surgery. He however cardiovascular clearance is still pending. Incisional hernia 10/02/2022 07/31/2023 Hermann of toe 03/27/2022 01/09/2023 Upper respiratory tract infection 03/17/2022 07/31/2023 Assessment & Plan (01/09/2023 4:06 PM NATIONAL SALES EXECUTIVE): Patient now is feeling much better in the past 18 hours he is using the albuterol inhaler with correct technique feeling much better he still having wheezing still having some shortness of breath. I have no additional changes to make. He is to follow-up pulmonary in the future at his request he has chronic components of dyspnea. Assessment & Plan (01/05/2023 9:29 AM NATIONAL SALES EXECUTIVE): Acute problem, present times about 3-4 days Physical examination as documented - no signs/symptoms of serious illness noted COVID 19 and influenza A/B in office - ALL negative Suspect likely viral etiology Recommended steroids and albuterol for the wheezing and shortness of breath and continued symptoms monitoring/management - patient agreeable to plan Orders for AMS STAFF to arrange None at this time Orders for Chepe Cervantes to arrange Start prednisone as prescribed - complete course, take with food in the morning to prevent stomach upset and insomnia Start albuterol inhaler as prescribed for cough, wheezing, shortness of breath, chest tightness Continue Mucinex and saline nasal spray Consider adding daily allergy medication - cetirizine (Zyrtec), fexofenadine (Edna), or loratadine (Claritin) Consider adding intranasal steroid - Flonase or Nasacort Stay hydrated, eat well, rest as needed Continue monitoring symptoms - report persistent or worsening symptoms to the office or go to ER Follow up as scheduled with Dr. Singh or sooner if necessary Assessment & Plan (03/17/2022 5:09 PM CDT): Patient returns with sinus congestion, post nasal drip and cough. He did a sinus rinse yesterday and felt much better after. He was tested for flu and covid which were negative. No acute exam findings suggestive of bacterial infection. Symptom management encouraged as outlined in AVS. Patient is to call or return with worsening or persistent symptoms. Cough 03/17/2022 07/31/2023 Assessment & Plan (05/22/2022 6:23 PM CDT): Patient cough is considerably better than was a few months ago.. Talking with him he has occasional wheezing with the coughing. He is absolutely not short of breath and not in distress when he has a coughing at this time. PFT results reviewed . Abnormalities on the results could suggest could be secondary to asthma.. Given the patient's level comfort no medications prescribed at this time for asthma. Is very comfortable coughing is 80-90% improved. Assessment & Plan (03/17/2022 5:06 PM CDT): Patient is reporting persistent cough since February of this year after being treated for acute bronchitis. He reports cough is associated with wheezing and occasional SOB. On exam today lungs are clear and oxygen saturation in 99%. Cough may be related to post nasal drip which we will manage with sinus care. I am however, concerned that may be another underlying etiology as it persists. He has history of tobacco abuse and workplace exposure. He did have a CXR last month that was reviewed with Dr. Singh. It did show some suggestion of scarring. We will have him do PFT to r/o any reversible or obstructive airway disease. Will follow up post testing or sooner if needed. Right leg swelling 10/14/2021 Assessment & Plan (10/14/2021 2:31 PM NATIONAL SALES EXECUTIVE): Patient concerned about right leg swelling on exam his right leg is large in the left not on the calf but also on the thigh. Asked patient to look at his hand and his right hand is larger than left.. Has no pain or discomfort in any extremity. My opinion is a matter of of asymmetry of his body right legs is low bit larger than left his right hand on arms low bit larger than left no treatment indicated. Finger pain, left 07/04/2021 05/22/2022 Assessment & Plan (07/04/2021 2:05 PM CDT): Hx of old injury with trauma to left pointer fingerpad over this past summer. Possible foreign body, cyst or scar tissue that has formed on the fingerpad now. He would like this removed as it is causing him pain. Offered both x-ray and/or sonogram of the fingerpad so we have a reason for the pain, but patient prefers to wait and see the surgeon before doing any tests. Refer to gen surgery--pt would like Dr. Wright. Boil of buttock 05/19/2021 10/14/2021 Assessment & Plan (05/19/2021 4:00 PM CDT): Patient is a pollen buttocks started in the past 12 hours.. This is an aggravation to him similar problem several years ago did not requiring antibiotics.. On exam is about a boil on his buttocks is tender to touch is red. This time warts T2 area patient's advised him calling in a prescription in the event he develops more problems with we can Keflex 500 mg t.i.d. x5 days this time I do not think he needs antibiotics. Adjustment disorder with depressed mood 04/14/2021 01/29/2024 Hospital discharge follow-up 07/27/2018 04/01/2019 Assessment & Plan (07/27/2018 6:39 PM CDT): Patient admitted to hospital on July 17 for abdominal pain. His evaluation showed a small bowel obstruction. Patient did not need any surgical intervention. He is not return to full diet but he is not total on a liquid diet he is feeling better he is eating slower is some pain about 0.5 hr after eating this pain is less than 15 min in duration . This pain is improving he has a follow-up appointment with Gastroenterology on August 07, 2018 exam of his abdomen day mild tenderness in right upper quadrant. Otherwise unremarkable exam. Acute bronchitis 04/05/2018 03/09/2022 Assessment & Plan (02/10/2022 3:28 PM CDT): The patient came in today for cough and wheezing. He was diagnosed with acute bronchitis in [place] and was given an antibiotic, steroid, and cough medication for which he has since completed. Upon assessment the patient has bilateral lower lobe wheezing. The patient was given an albuterol treatment in office, with improvement in wheezing. He will complete a CXR today to rule out pneumonia or any other acute cardiopulmonary process. He will be prescribed an albuterol inhaler to use at home for the cough and wheezing as well as another round of steroids. He will follow up in one to two weeks to make sure his symptoms are improving or sooner if needed Assessment & Plan (04/05/2018 10:03 AM CDT): Patient seen on 03/05/2018 for bronchitis symptoms and head congestion going on for few weeks. No fever no chills no night sweats no nausea vomiting. Patient is treated with Xyzal or congestion. Diverticulitis of colon 10/23/201409/06 Overview (02/09/2017): DVRTCLI COLON W/O HMRHG Lesion of tongue 10/22/2014 02/24/2018 Overview (02/09/2017): Tongue lesion Diverticulitis of intestine 03/21/2014 01/30/2024 Overview (02/09/2017): Diverticulitis Male erectile disorder 03/21/201410/14 Overview (02/10/2017): Erectile dysfunction Abdominal mass 04/09/2012 10/06/2018 Overview (02/09/2017): ABDMNAL MASS UNSPCF SITE Small bowel obstruction, partial (CMS/HCC) 09/30/2019 Assessment & Plan (10/06/2018 6:12 PM NATIONAL SALES EXECUTIVE): Patient appears to have recovered from his his small-bowel obstructions not had any further problems since being discharged from hospital. Acute kidney injury 10/06/20 18
--- OUTSIDE RECORDS SUMMARY | 2024-12-03 10:43 | XMS_ITS | Referral Summary ---
Author Organization [facility] Address [address] [place] [address] Care Team Providers Care Payroll Director Name Role Phone Star Singh MD Primary Care Provider [phone] Chepe Hinton MD Unavailable [phone] Dada Morris MD Unavailable [phone] Encounters Date Type Department Care Team Description 11/19/2024 10:11 AM 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 Anesthesia Event [address] [id number] Deepak Castillo MD 11/19/2024 9:30 AM 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 - 11/19/2024 10:00 AM 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 Surgery [address] [address] Imtiaz Reyez MD COLON REMOVAL SNARE 11/19/2024 8:29 AM 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 - 11/19/2024 11:27 AM 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 Hospital Encounter [address] [address] Imtiaz Reyez MD Personal history of colonic polyps; Family history of colon cancer in father; Encounter for screening colonoscopy; History of colonic polyps Discharge Disposition: Discharge to home or self care 11/13/2024 9:15 AM 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 Office Visit [facility] Surgery [address] [facility] [address] [place] [address] Dixie Parra NP Squamous cell carcinoma in situ (Primary Dx); Skin nodule; Hand arthritis 10/13/2024 Telephone [facility] [address] [place] [address] Star Singh MD 09/15/2024 Telephone [facility]) - [facility] ENT [address] [facility] 11th [place] [address] [place] [address] [place], [place], 09/11/2024 9:30 AM 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 Office Visit [facility] [address] [place] [address] Star Singh MD Skin cancer, basal cell (Primary Dx); Primary osteoarthritis of right knee; Chronic renal failure, stage 3 (moderate), unspecified whether stage 3a or 3b CKD (HCC); CHLOE (obstructive sleep apnea); Cellulitis of right lower extremity; Primary hypertension; Current mild episode of major depressive disorder without prior episode (HCC); Class 2 severe obesity due to excess calories with serious comorbidity in adult, unspecified BMI (HCC); Spinal stenosis of lumbar region without neurogenic claudication 09/09/2024 9:30 AM 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 Office Visit [facility] Surgery [address] [place] [address] [address] [place] [address] Dixie Parra NP Squamous cell carcinoma in situ (Primary Dx); Skin neoplasm from Last 3 Months Allergies Active Allergy Reactions Criticality Noted Date Comments Atorvastatin Other (See comments) Low Muscles lock up Sulfamethoxazole-Trimeth oprim Stomach upset Low 04/03/2023 Pravastatin Other (See comments) Low Muscles lock up Rosuvastatin Other (See comments) Low Muscles lock up Vdviihz-Fec-Vih Reductase Inhibitors Other (See comments) Low Muscles lock up Sulfa (Sulfonamide Antibiotics) Other (See comments) Low 04/16/2023 Stomach pain Medications glucosamine-chondroi tn sulf.Na 750-600 mg tablet take 2 daily. 0 0 10/26/20 14 Active qbugyqknbhrm-zavo-yz lic acid (MULTI-YVONNE) 18-400 mg-mcg tablet take 1 tablet by oral route every day with food 0 0 10/26/20 14 Active loratadine 10 mg capsule Take 1 capsule by mouth daily. Active cholecalciferol (VITAMIN D-3) 2000 unit tablet Take 2 tablets (4,000 Units total) by mouth daily Active fluticasone propionate (FLONASE) 50 mcg/actuation nasal sprayIndications:Vir al URI with cough Administer 2 sprays into each nostril daily 3 each 4 03/17/20 22 Active albuterol HFA (PROVENTIL HFA,VENTOLIN HFA,PROAIR HFA) 90 mcg/actuation inhalerIndications:U pper respiratory tract infection, unspecified type Inhale 2 puffs every 6 (six) hours as needed for wheezing 1 each 2 01/06/20 23 Active albuterol 2.5 mg /3 mL (0.083 %) nebulizer solutionIndications: Acute Asthma Attack Take 3 mL (2.5 mg total) by nebulization every 4 (four) hours as needed for wheezing DX J45.909 360 mL 01/27/20 23 Active cyclobenzaprine (FLEXERIL) 10 mg tablet Take 1 tablet (10 mg total) by mouth daily as needed for muscle spasms 30 tablet 2 07/31/20 23 Active polyethylene glycol (MIRALAX) 17 gram/dose bulk powder Take 17 g by mouth daily Active albuterol-budesonide 90-80 mcg/actuation HFA aerosol inhaler Inhale 1 Inhalation as needed (as needed) 10 g 04/03/20 24 Active apixaban (Eliquis) 5 mg tablet TAKE 1 TABLET BY MOUTH TWICE A DAY 60 tablet 11 04/07/20 24 Active ezetimibe (ZETIA) 10 mg tablet TAKE 1 TABLET BY MOUTH EVERY DAY 90 tablet 3 04/10/20 24 Active fenofibrate nanocrystallized (TRICOR) 145 mg tablet TAKE 1 TABLET BY MOUTH EVERY DAY 90 tablet 3 06/04/20 24 Active clopidogreL (PLAVIX) 75 mg tablet Take 1 tablet (75 mg total) by mouth daily 90 tablet 3 06/25/20 24 025 Active irbesartan-hydrochlo rothiazide (AVALIDE) 150-12.5 mg per tablet TAKE 1 TABLET BY MOUTH EVERY DAY 90 tablet 3 07/10/20 24 Active buPROPion XL (WELLBUTRIN XL) 300 mg 24 hr tabletIndications:Cu rrent mild episode of major depressive disorder without prior episode (HCC) TAKE 1 TABLET (300 MG TOTAL) BY MOUTH EVERY MORNING. 90 tablet 1 08/18/20 24 Active dicyclomine (BENTYL) 20 mg tabletIndications:Ir ritable bowel syndrome with diarrhea TAKE 1 TABLET BY MOUTH EVERY DAY 90 tablet 1 10/27/20 24 Active Additional Information Patient taking differently:20 mg oralDaily PRN, Reported on 11/18/2024 Hospital, Clinic, or Other Facility Administered Medication Ordered Dose Route Frequency Start Date End Date Status lidocaine (XYLOCAINE) 10 mg/mL (1 %) injection 10 mgIndications:Administ ration of Local Anesthesia 10 mg infiltrate Once 11/13/2024 11/13/2024 Ended triamcinolone (KENALOG) 40 mg/mL injection 40 mgIndications:Hand arthritis 40 mg OTHER Once 11/13/2024 11/13/2024 Ended Active Problems Problem Noted Date Diagnosed Date Class 2 severe obesity due t o excess calories with serious comorbidity in adult 09/14/2024 Assessment & Plan (09/14/2024 4:15 PM 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): Patient no longer has a BMI 40 [...] 01/09/2024 Assessment & Plan (01/09/2024 1:03 PM 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): Recurrent pain in his testicles getting progressively worse. Is my 1st hearing of this. I am going to proceed in get an ultrasound of his testicle and refer to Urology Muscle spasm of left lower extremity 01/09/2024 Assessment & Plan (01/09/2024 1:02 PM 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): Patient is having a cramping feeling posterior [...] 12/28/2023 Assessment & Plan (12/28/2023 9:53 AM 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): Lesion consistent with sebaceous cyst noted to left occiputal area just above hairline. No acute signs of infection. Will likely resolve on it's own. Keep skin clean and dry, no not squeeze or pick at it. Weak 10/28/2023 Assessment & Plan (10/28/2023 7:32 PM 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): Patient tested COVID as well as flu results were negative mi respiratory symptoms I suggest utilizing Zyrtec. No fever no chills Tylenol p.r.n.. 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 06/29/2023 Cellulitis 06/20/2023 Assessment & Plan (10/28/2023 7:32 PM 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): Cellulitis resolved his right lower extremity no [...] 04/04/2023 Assessment & Plan (09/14/2024 4:17 PM 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): Sinusitis right lower leg is now resolved [...] uses a cane rarely referred him to [facility] physical therapy for further evaluation gait and balance Asthma 01/12/2023 Assessment & Plan (01/12/2023 4:39 PM 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): Asthma not improving occasionally he will get [...] he is had a discussion with this distillery manager. On recent visit Assessment & Plan (03/12/2023 [...] with Pulmonary. Recently diagnosed with pneumonia at [facility] and is improving Assessment & Plan (01/09/2023 4:05 PM 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): Patient continues to have some shortness of [...] Clinic Assessment & Plan (01/09/2023 4:04 PM 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): Patient uses CPAP machine for many years [...] will be referred to [facility] Jean[facility]Baptiste at [facility] for [facility] treatment for atrial fibrillation Assessment & Plan (12/01/2022 1:03 PM 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): Recent atrial fibrillation managed by Cardiology he is now on Xarelto TIA (transient ischemic attack) 11/16/2022 Assessment & Plan (12/01/2022 12:44 PM 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): No further symptoms of TIA /temporary vision change. This is thought to be secondary to recent onset of atrial fibrillation. Patient is now on Xarelto Assessment & Plan (11/16/2022 6:05 PM 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): Patient recently had a TIA expressed in the form of loss of vision right eye for several minutes. He did see his social media editor 1st exam was benign he followed up with Cardiology who now has him on a 2 week chrome polisher. Monitor comes off on . Patient is [...] request Assessment & Plan (10/14/2021 2:29 PM 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): 76-year-old gentleman who was given medication Viagra in the past he never tried it is now he would like to try consider using this I discussed with the side effects. Rx sent for tablets 11 refill Major depressive disorder with single episode Assessment & Plan (09/14/2024 4:12 PM 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): Patient's mood is excellent with medication no [...] He has been seeing a counselor at [facility] psychological services.. He has 3 relatives/daughters who [...] 10/12/20 20 Degenerative lumbar spinal stenosis 10/12/2020 shelter current use of anticoagulant 0 Lumbar radiculopathy [...] 2019 Assessment & Plan (09/11/2024 12:54 PM 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): Will refer this patient to nephrology orthopedic [...] 41 Assessment & Plan (09/12/2022 5:22 PM 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): Non steroidal anti-inflammatory/meloxicam discontinued patient utilizing Tylenol [...] today Assessment & Plan (10/04/2020 6:15 PM 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): Laboratory results from is almost 6 months [...] 10/14/2019 Assessment & Plan (09/14/2024 4:11 PM 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): Blood pressure remains well controlled patient takes Avalide HCTZ 150/12.51 tablet daily tolerates the medications. Assessment & Plan (07/31/2023 6:42 PM CDT): Pressure well controlled patient is tolerating medications no change in therapy Assessment & Plan (12/01/2022 1:03 PM 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): Blood pressure well control no change in [...] by Pulmonary for his chronic lung disease. [place] for coronary artery disease in his very [...] he has had his shingles vaccine at [facility]. This is not recorded in our records [...] months. Assessment & Plan (10/04/2020 6:14 PM 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): Health risk assessment health maintenance reviewed in addressed. Patient aware of immunization recommendations. Patient continues in the care of Pain Clinic he recently had evaluation regarding is back per Neurosurgery recommendations continue physical therapy. Assessment & Plan (10/03/2019 5:06 PM 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): Patient is a history and physical completed [...] 06/23/2019 Assessment & Plan (10/03/2019 5:02 PM 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): Patient continues to have significant knee pain [...] to late July.. Possible get an injection 1st week of July. At this time I [...] 1st Assessment & Plan (09/12/2022 5:23 PM 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): Patient continues with the pain clinic and benefits from the therapy. Assessment & Plan (10/03/2019 5:02 PM 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): Patient's notice has knee pain gets worse [...] therapy Assessment & Plan (12/28/2023 9:53 AM 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): BP stable in office today on current therapy. No acute findings on exam. Continue current regimen and low salt diet. Assessment & Plan (10/28/2023 7:32 PM 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): Pressure is excellent continue present therapy Assessment & Plan (04/16/2023 5:31 PM CDT): [place] notes reviewed. His back on a diuretic [...] range. Assessment & Plan (01/09/2023 4:09 PM 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): Blood pressure reasonably control no change in therapy Assessment & Plan (09/12/2022 5:20 PM 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): Hypertension remains very well controlled patient is [...] therapy. Assessment & Plan (10/03/2019 5:02 PM 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): Blood pressure well controlled patient tolerating medications [...] Avalide. Assessment & Plan (10/06/2018 6:02 PM 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): Blood pressure 148/80 on this visit blood [...] next regular appointment. Coronary artery disease involving [place] coronar y artery 06/28/2017 Assessment & Plan (09/06/2021 12:13 PM CDT): [place] notes reviewed Assessment & Plan (06/13/2021 11:39 AM CDT): [place] notes reviewed. Patient remains asymptomatic with respect coronary artery disease. Assessment & Plan (03/09/2021 8:42 AM CDT): Estimated GFR remains stable BMP on this visit. Assessment & Plan (10/04/2020 6:14 PM 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): Patient's keeping his current appointments with cardiology stable no new health problems identified with respect to cardiology. Assessment & Plan (03/30/2020 6:35 PM CDT): Patient is stable at this time he has a follow-up visit with Cardiology in the next 10-20 days. Lipid profile is requested today and BMP will be available distillery manager reviewed Assessment & Plan (10/03/2019 5:04 PM 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): Patient free of chest pain no evidence [...] days. Assessment & Plan (10/06/2018 6:13 PM 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): Coronary artery disease is unchanged. Continue current treatment regimen. Dietary sodium restriction. Weight loss. Regular aerobic exercise. Continue current medications. Cardiac status will be reassessed in 6 months. Patient sees distillery manager once a twice per year. 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 Will continues routine medications for his heart. Assessment & Plan (02/19/2018 10:12 AM CDT): . Patient's appointment Cardiology next week will give fasting lipid profile performed care to his distillery manager patient is asymptomatic at this time. Status post stent placement. Assessment & Plan (06/29/2017 10:23 AM CDT): Coronary artery disease is improving with treatment. Continue current treatment regimen. Regular aerobic exercise. Continue current medications. Cardiac status will be reassessed in 6 months. Patient had stent placement in the last 90 days at [facility]. Doing very well. He will follow up with distillery manager in next 3 months. He is on the medicine Effient. Irritable bowel syndrome 03/21/2014 Overview (02/09/2017): IBS (irritable bowel syndrome) Assessment & Plan (10/06/2018 6:04 PM 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): Patient has not had any recent problems with irritable bowel in the past 12 months. Hyperlipidemia 03/21/2014 Overview (02/09/2017): Hyperlipidemia Assessment & Plan (10/03/2019 5:03 PM 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): Current lipid profile is very good no change in therapy patient is tolerating medications. Assessment & Plan (04/01/2019 9:46 AM CDT): Lipid profile excellent results HDL however is 39 a discuss the the patient he was concerned a regarding the meaning of this. History in getting injections of the cholesterol medicine referring to the medication Repatha which was discussed with his distillery manager the year ago.. His appointment Cardiology coming up in the near future. Assessment & Plan (10/06/2018 6:03 PM 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): Patient's lipid profile up in within therapeutic [...] activities. Assessment & Plan (10/06/2018 6:11 PM 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): Patient osteoarthritis seems to be doing better he does go to pain clinic for his back pain. He has been maintain on meloxicam 15 mg daily. His knee pain has improved Assessment & Plan (06/29/2017 10:24 AM CDT): Patient goes to pain clinic at [facility]. He has been treated Mobic/meloxicam several years [...] indicated. Abdominal aortic aneurysm without rupture 2011 Resolved Problems Problem Noted Date Diagnosed Date Resolved Date Morbid (severe) obesity due to excess calories 02/16/2023 09/14/2024 Community acquired pneumonia 02/01/2023 03/12/2023 Assessment & Plan (02/01/2023 6:45 PM CDT): Seen [facility] room few days ago because of [...] 12/01/202201/09 Assessment & Plan (12/01/2022 1:04 PM 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): Patient is stable doing well he feels well vitals excellent. Scheduled for excision of his 2nd on 12/05 2022. Will stop Xarelto this evening he is clear for surgery. He however cardiovascular clearance is still pending. Incisional hernia 10/02/2022 07/31/2023 [place] of toe 03/27/2022 01/09/2023 Upper respiratory tract infection 03/17/2022 07/31/2023 Assessment & Plan (01/09/2023 4:06 PM 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): Patient now is feeling much better in the past 18 hours he is using the albuterol inhaler with correct technique feeling much better he still having wheezing still having some shortness of breath. I have no additional changes to make. He is to follow-up pulmonary in the future at his request he has chronic components of dyspnea. Assessment & Plan (01/05/2023 9:29 AM 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): Acute problem, present times about 3-4 days [...] arrange None at this time Orders for Pepe Cervantes to arrange Start prednisone as prescribed [...] 10/14/2021 Assessment & Plan (10/14/2021 2:31 PM 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): Patient concerned about right leg swelling on [...] He was diagnosed with acute bronchitis in [place] and was given an antibiotic, steroid, and [...] 09/30/2019 Assessment & Plan (10/06/2018 6:12 PM 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): Patient appears to have recovered from his his small-bowel obstructions not had any further problems since being discharged from hospital. Acute kidney injury 10/06/20 18 Immunizations Name Administration Dates Next Due COVID-19 mRNA (SecureNet) 0.3 m L (30 mcg) vaccine (12 years and up) 07/15/2024,09/26/2023 DTP 10/06/2008 Influenza, Quad, Adjuvantate d, Intramuscular 07/19/2023,08/06/2020 Influenza, Quadrivalent, Hig h Dose, Preservative Free, Intrr 07/15/2022,07/12/2021 Influenza, Trivalent, High D ose, Split, Preservative Free, Intramuscular 08/01/2019,08/08/2018,08/07/2018,07/29,08/02/2016 Influenza, Unspecified 07/15/2024,2021,08/01/2019,08/08 Moderna SARS-CoV-2 Monovalen t Vaccination (12+ YRS) 11/21/2021 Moderna Sars-cov-2 Bivalent Vaccine 50 Mcg/0.5 mL (12+ YRS)-Blue/Licea 08/15/2022 Pneumococcal Conjugate PCV 13 03/13/2017 Pneumococcal Polysaccharide PPV23 09/30/2018 RSV Vaccine, Pref, Recombina nt, Subunit, Adjuvanted, PF, IM (Arexvy) 09/26/2023 Tdap 03/26/2024 ZOSTER Recombinant 07/21/2021,07/09/2021, 021 Social History Tobacco Use Types Packs/Day Years Used Date Smoking Tobacco: Former Cigarettes 3 15 1 963 - 1977 Smokeless Tobacco: Never Tobacco Cessation:Counseling Given: Not Answered Alcohol Use Standard Drinks/Week Comments Yes 0 (1 standard drink = 0.6 oz pur e alcohol) very occassionally AUDIT-C Answer Date Recorded Q1: How often do you have a drink containing alc ohol? Monthly or less 11/18/2024 Q2: How many drinks containi ng alcohol do you have on a typical day when you are drinking? 1 or 2 11/18/2024 Q3: How often do you have si x or more drinks on one occasion? Never 11/18/2024 PHQ-2 Answer Date Recorded PHQ-2 Total Score (If total score is 3 or more points, staff should administer the PHQ-9) 0 03/10/2024 Personal Safety Answer Date Recorded Have you ever been in or are you currently in a harmful physical or emotional relationship or is someone making you feel afraid or unsafe? Denies 11/19/2024 Sex and Gender Information Value Date Recorded Sex Assigned at Not on file Legal Sex Male 11:56 PM 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 Gender Identity Not on file Sexual Orientation Not on file Last Filed Vital Signs Vital Sign Reading Time Taken Comments Blood Pressure 129/78 11/19/2024 11:13 AM 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 Pulse 71 11/19/2024 11:13 AM 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 Temperature 36.8 ??C (98.2 ??F) 11/19/2024 11:[address] Respiratory Rate 16 11/19/2024 11:13 AM 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 Oxygen Saturation 98% 11/19/2024 11:13 AM 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 Inhaled Oxygen Concentration - - Weight 102.1 kg (225 lb) 11/19/2024 9:03 AM 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 Height 177.8 cm (5' 10 ) 11/19/2024 9:03 AM 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 Body Mass Index 32.28 11/19/2024 9:03 AM 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 Plan of Treatment Upcoming Encounters Date Type Department Care Team (Latest Contact Info) Description 02/03/2025 7:30 AM CDT Hospital Encounter [facility] Operating Room [address] [place] [address] [place] [id number] [facility] [address] [place] [address] 02/03/2025 7:30 AM CDT Anesthesia Event [facility] Operating Room [address] [place] [address] [place] [address] [facility] [address] [place] [address] 02/03/2025 7:30 AM CDT - 02/03/2025 11:00 AM CDT Surgery [facility] Operating Room [address] [place] [address] [place] [address] [facility] [address] [place] [address] INSPIRE HYPOGLOSSAL NERVE STIMULATOR IMPLANT - INSERTION/150min Scheduled Procedures Name Priority Associated Diagnoses Date/Ti ia INSPIRE HYPOGLOSSAL NERVE STIMULATOR IMPLANT - INSERTION CHLOE (obstructive sleep apnea) 02/03/2025 7:30 AM CDT INSERTION CHEST WALL RESPIRATORY SENSOR ELECTRODE ARRAY AND PULSE GENERATOR CHLOE (obstructive sleep apnea) 02/03/2025 7:30 AM CDT Goals Goal Patient Goal Type Associated Problems Recent Progress Patient-Stated? Author [facility] No Reyna Colón RN Note: Patient will establish a comfort-function goal and identify the pain level that will allow the patient to perform desired activities and achieve an acceptable quality of life. Medical Devices Implanted Type Area Supervisor Typesetting Device Identifier Shelf Expiration Date Model / Serial / Lot TerTUKZ Undergarments Angio-Seal Vip 6fr Closere Device [id number] - [id number] Implanted:Qty: 1 on 12/04/2022 by Farooq Astudillo MD at [facility] [employer] Alessandro 09/04/2023 [id number] / / [id number] [employer] Vectris 5mm 60cm 1x8 Electrode Mri Lead Neurostimulator [id number] - [id number] Implanted:Qty: 1 on 10/16/2023 by William Jay MD at [facility] Left: Back [employer] 09/04/2027 [id number] / / [id number] [employer] Vectris 5mm 60cm 1x8 Electrode Mri Lead Neurostimulator [id number] - [id number] Implanted:Qty: 1 on 10/16/2023 by William Jay MD at [facility] Left: Back [employer] 09/04/2027 [id number] / / [id number] [employer] Envelope Absrb 2.7x2.5in Antibacterial Tyrx Medium Strl [id number] - [id number] Implanted:Qty: 1 on 10/16/2023 by William Jay MD at [facility] Left: Back [employer] 07/07/2024 [id number] / / [id number] [employer] Neurostimulator Implantable Chronic Pain [id number] - [id number] - [id number] Implanted:Qty: 1 on 10/16/2023 by William Jay MD at [facility] Left: Back [employer] 08/02/2024 [id number] / [id number] / [employer] Zilver Ptx 8mm 60mm 125cm Otw Drug Elute Delivery System [id number] - [id number] Implanted:Qty: 1 on 06/25/2024 at [facility] [employer] [id number] 10/16/2025 [id number] / / [id number] [employer] Device 6fr Closure Celt Acd Vascular Sterile Latex Free Disposable Carrie Kclt-06 - [id number] Implanted:Qty: 1 on 06/25/2024 at [facility] [employer] 01/15/2027 KCLT-06 / / [id number] Procedures Procedure Name Priority Date/Time Associated Diagnosis Comments SURGICAL PATHOLOGY STAT 11/19/2024 1: 43 PM 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 History of colonic polyps Family history of colon cancer in father Encounter for screening colonoscopy ENDO ADD ON COLON BIOPSY 11/19/2024 9:57 AM 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 Personal history of colonic polyps Family history of colon cancer in father Encounter for screening colonoscopy COLON REMOVAL SNARE 11/19/2024 9 :57 AM 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 Personal history of colonic polyps Family history of colon cancer in father Encounter for screening colonoscopy COLONOSCOPY 11/19/2024 8:31 AM 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 CTA ABDOMINAL AORTA AND BILATERAL ILIOFEMORAL RUNOFF Schedule Routine, Read Routine (OP Routine) 11/30/2022 3:51 PM 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 PAD (peripheral artery disease) (CMS/HCC) (HCC) from Last 3 Months or Most Recently Relevant to Health Maintenance Results * Surgical pathology (11/19/2024 1:43 PM 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) Tissue (Polyp(s), colon/colorectal, esophageal, gastric) 11/19/2024 10:36 AM 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 Tissue (Polyp(s), colon/colorectal, esophageal, gastric) 11/19/2024 10:36 AM 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 Narrative PATHOLOGY [facility] - 11/20/2024 2:49 PM 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 EPIC results best viewed via link to PDF [facility] Department of Pathology [address] [place] [address] Note to Patients: This report may contain a detailed description of human tissue sent by a health care provider to the laboratory for pathologic evaluation. The content of this report is essential for diagnosis and may provide important critical findings. This information may be unfamiliar to patients to review without a medical professional present. It is advised that the patient review this report in the presence of a health care provider who can answer questions and explain the details. Final Report Patient Name: ??PEPE CERVANTESAlfreda Address: ??[facility] [address] [facility], ??[place], [place] ??[address] Gender: ??M : ??1945 (Age: 79) Service: ??Gastro Location: ??[facility] Hospital #: ??[id number] Patient Type: ??[facility] Accession # ?[id number] Taken: ??11/19/2024 Received: ??11/19/2024 Accessioned: ??11/19/2024 Reported: ??11/20/2024 Physician(s):Dr. Imtiaz Reyez M.D. Diagnosis: A. ??Ascending colon polyp x4, biopsy: ? - Tubular adenoma x3; negative for high-grade dysplasia. ? - Hyperplastic polyp x1. B. ??Sigmoid colon polyp x2, biopsy: ? - Hyperplastic polyp. Rasheed Brewer M.D. Report Electronically Reviewed and Signed Out By ??Rasheed Brewer M.D. ??11/20/2024 14:49:30 Specimen(s) Received: A: Ascending polyp x 4 B: Sigmoid polyp x 2 Microscopic Description: A. Sections show a tubular adenoma x3 and a hyperplastic polyp x1. ??There is no evidence of high-grade dysplasia or invasive carcinoma. B. Sections show a hyperplastic polyp. ??No features of a sessile serrated adenoma are seen. ??There is no evidence of dysplasia or malignancy. Clinical History: Personal history of colonic polyps. ??Family history of colon cancer in father. ??Screening colonoscopy. Gross Description: The specimen is submitted in two formalin containers labeled PEPE CERVANTES . A. ??The first container is labeled ascending polyp x4 . It is 4 fragments of manrique tissue between 2 and 4 mm. All in A. B. ??The second container is labeled sigmoid polyp x2 . It is one manrique 2 mm fragment. All in B. T.A. Shanta Ledesma., P.Keven./Liana Sy M.D. REPORT IMAGES AND SCANNED DOCUMENTS, IF INCLUDED, ONLY VIEWABLE IN PDF VERSION OF REPORT The performance characteristics of some immunohistochemical stains, fluorescence in-situ hybridization tests and immunophenotyping by flow cytometry cited in this report (if any) were determined by the Surgical Pathology Department at [facility] as part of an ongoing quality assurance clerk program and in compliance with federally mandated regulations drawn from the Clinical Laboratory Improvement Act of 1988 (CLIA '88). ??Some of these tests rely on the use of analyte specific reagents and are subject to specific labeling requirements by the US Food and Drug Administration. ??Such diagnostic tests may only be performed in a facility that is certified by the Department of Health and Human Services as a high complexity laboratory under CLIA '88. The FDA has determined that such clearance or approval is not necessary. ??This test is used for clinical purposes. ??It should not be regarded as investigational or for research. ??Nevertheless, federal rules concerning the medical use of analyte specific reagents require that the following disclaimer be attached to the report: This test was developed and its performance characteristics determined by the Surgical Pathology Department [facility]. ??It has not been cleared or approved by the U. S. Food and Drug Administration. Note for decalcified specimens: This assay has not been validated on decalcified tissues. Results should be interpreted with caution given the possibility of false negativity on decalcified specimens Imtiaz Reyez MD LAB PATHOLOGY ORDERABLES F inal Result PATHOLOGY [facility]) [address] [place] [address] * Colonoscopy (11/19/2024 8:31 AM 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) Anatomical Region Laterality Modality Other Narrative Procedure Note Imtiaz Reyez MD - 11/19/2024 8:31 AM CST [facility] Patient Name: Pepe Cervantes Procedure Date: 11/19/2024 8:31 AM Date of : 1945 Admit Type: Outpatient Age: 79 Gender: Male Attending MD: Imtiaz Reyez M.D. Room: [facility] ENDOSCOPY ROOM 1 Note Status: Finalized Patient Profile: This is an 79 year old male. History of colonpolyps. Father had colon cancer Procedure: Colonoscopy Indications: Screening in patient at increased risk: Familyhistory of 1st-degree relative with colorectal cancer, High risk colon cancer surveillance: Personal history of colonic polyps, Last colonoscopy: September 2023 Referring MD: Star Singh M.D. Providers: Imtiaz Reyez M.D. Impression: - Four 4 to 6 mm polyps in the ascending colon, removed with a cold snare. Resected andretrieved. - Diverticulosis in the entire examined colon. - Two 2 to 3 mm polyps in the sigmoid colon,removed with a jumbo cold forceps. Resected andretrieved. - Internal hemorrhoids. Recommendation: - Await pathology results. - Repeat colonoscopy in 3 years for surveillance. - Continue present medications. Medicines: Monitored Anesthesia Care Complications: No immediate complications. Estimated Blood Loss: Estimated blood loss: none. Procedure: Pre-Anesthesia Assessment: - Prior to the procedure, a History and Physicalwas performed, and patient medications and allergieswere reviewed. The patient's tolerance of previous anesthesia was also reviewed. The risks andbenefits of the procedure and the sedation options and risks were discussed with the patient. All questions were answered, and informed consent was obtained. Prior Anticoagulants: The patient has taken noanticoagulant or antiplatelet agents. ASA Grade Assessment: Per anesthesia note and evaluation. After reviewing the risks and benefits, the patient was deemed in satisfactory condition to undergo the procedure. The benefits, risks and alternatives of theprocedure and sedation were discussed and informed consentwas obtained. All questions were answered. Please referto the signed informed consent document in the medical record. The bowel preparation used was Miralax and bisacodyl tablets via split dose instruction. The scope was passed under direct vision. The Pediatric Colonoscope PCF-[id number] was introducedthrough the anus and advanced to the the ileocecal valve.The quality of the bowel preparation was good. Bowelprep was administered using a split dose. Findings: The perianal and digital rectal examinations were normal. The cecum appeared normal. Four sessile polyps were found in the ascending colon. The polypswere 4 to 6 mm in size. These polyps were removed with a cold snare.Resection and retrieval were complete. The transverse colon and ascending colon appeared unremarkable withno polyps Many small and large-mouthed diverticula were found in the entirecolon. Two semi-sessile polyps were found in the sigmoid colon. The polypswere 2 to 3 mm in size. These polyps were removed with a jumbo coldforceps. Resection and retrieval were complete. Internal hemorrhoids were found during retroflexion. The hemorrhoids were medium-sized. Electronically signed by Imtiaz Reyez M.D. Imtiaz Reyez M.D. 11/19/2024 10:52:38 AM Number of Addenda: 0 Note Initiated On: 11/19/2024 8:31 AM Procedure Code(s): --- Professional --- 50128, Colonoscopy, flexible; with removal of tumor(s), polyp(s), or other lesion(s) by snare technique 50517, 59, Colonoscopy, flexible; with biopsy, single or multiple Diagnosis Code(s): --- Professional --- Z80.0, Family history of malignant neoplasm of digestive organs Z86.010, Personal history of colonic polyps K64.8, Other hemorrhoids D12.2, Benign neoplasm of ascending colon D12.5, Benign neoplasm of sigmoid colon K57.30, Diverticulosis of large intestine without perforation orabscess without bleeding CPT copyright 2020 [employer]. All rights reserved. The codes documented in this report are preliminary and upon technical support associate reviewmay be revised to meet current compliance requirements. Recognized by the [employer] for promoting quality in endoscopy Imtiaz Reyez MD ENDOSCOPY PROCEDURES Final Result * CTA Abdominal Aorta And Bilateral Iliofemoral Runoff (11/30/2022 3:51 PM 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) Anatomical Region Laterality Modality Body Bilateral Computed Tomogra phy 11/30/2022 4:02 PM 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 Impressions 11/30/2022 4:02 PM 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 1. ??ATHEROSCLEROTIC CHANGES IN THE ABDOMINAL AORTA WITHOUT ANEURYSM, DISSECTION OR STENOSIS. 2. ??BRANCHES OF THE ABDOMINAL AORTA ARE WIDELY PATENT. 3. ??THE COMMON ILIAC, EXTERNAL ILIAC AND COMMON FEMORAL ARTERIES ARE WIDELY PATENT BILATERALLY. 4. ??THE SUPERFICIAL FEMORAL AND POPLITEAL ARTERIES ARE DIFFUSELY DISEASED BUT PATENT. ??THERE IS A MILD STENOSIS OF THE DISTAL LEFT SFA.. 5. ??TWO-VESSEL RUNOFF IN BOTH CALVES. 6. ??BILATERAL POPLITEAL CYSTS, LARGER ON THE RIGHT. Electronically signed by: Uziel Roger M.D. Narrative 11/30/2022 4:02 PM 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 EXAMINATION: CTA ABDOMINAL AORTA AND BILATERAL ILIOFEMORAL RUNOFF DATE: 11/30/2022 2:30 PM HISTORY: Peripheral arterial disease. ??Claudication or ischemia. COMPARISON: CT abdomen/pelvis from 07/17/2018. TECHNIQUE: Transaxial computed tomographic images of the abdomen, pelvis, and lower extremities were obtained after the administration of 100 mL Optiray 350 intravenously using an AIF protocol. Multiplanar coronal and sagittal images were reformatted. 3D volumetric analysis with VRT and MIP images were created on a dedicated workstation. FINDINGS: Vascular Findings: There are atherosclerotic changes in the abdominal aorta. ??No evidence of an aneurysm or dissection. ??Branches of the abdominal aorta are widely patent. ??The common iliac, external iliac and common femoral arteries are widely patent bilaterally. Right Lower Extremity: The superficial femoral and popliteal arteries are diffusely diseased without focal stenosis.. ??There is two-vessel runoff in the calf with patent posterior tibial and peroneal arteries. Left Lower Extremity: The superficial femoral and popliteal arteries are diffusely diseased. ??There is a mild stenosis in the distal superficial femoral artery. ??There is two-vessel runoff in the calf with patent posterior tibial and peroneal arteries. Nonvascular Findings: The liver, gallbladder, spleen, pancreas and adrenal glands appear normal within the limits of this angiographic examination. ??There are bilateral renal cysts. ??No evidence of bowel obstruction. ??No inflammatory lesion is seen. ??The urinary bladder is normal. ??There are bilateral popliteal cysts, right larger than left. Procedure Note Uziel Roger MD - 11/30/2022 EXAMINATION: CTA ABDOMINAL AORTA AND BILATERAL ILIOFEMORAL RUNOFF DATE: 11/30/2022 2:30 PM HISTORY: Peripheral arterial disease. Claudication or ischemia. COMPARISON: CT abdomen/pelvis from 07/17/2018. TECHNIQUE: Transaxial computed tomographic images of the abdomen, pelvis, and lower extremities were obtained after the administration of 100 mL Optiray 350 intravenously using an AIF protocol. Multiplanar coronal and sagittal images were reformatted. 3D volumetric analysis with VRT and MIP images were created on a dedicated workstation. FINDINGS: Vascular Findings: There are atherosclerotic changes in the abdominal aorta. No evidence of an aneurysm or dissection. Branches of the abdominal aorta are widely patent. The common iliac, external iliac and common femoral arteries are widely patent bilaterally. Right Lower Extremity: The superficial femoral and popliteal arteries are diffusely diseased without focal stenosis.. There is two-vessel runoff in the calf with patent posterior tibial and peroneal arteries. Left Lower Extremity: The superficial femoral and popliteal arteries are diffusely diseased. There is a mild stenosis in the distal superficial femoral artery. There is two-vessel runoff in the calf with patent posterior tibial and peroneal arteries. Nonvascular Findings: The liver, gallbladder, spleen, pancreas and adrenal glands appear normal within the limits of this angiographic examination. There are bilateral renal cysts. No evidence of bowel obstruction. No inflammatory lesion is seen. The urinary bladder is normal. There are bilateral popliteal cysts, right larger than left. IMPRESSION: 1. ATHEROSCLEROTIC CHANGES IN THE ABDOMINAL AORTA WITHOUT ANEURYSM, DISSECTION OR STENOSIS. 2. BRANCHES OF THE ABDOMINAL AORTA ARE WIDELY PATENT. 3. THE COMMON ILIAC, EXTERNAL ILIAC AND COMMON FEMORAL ARTERIES ARE WIDELY PATENT BILATERALLY. 4. THE SUPERFICIAL FEMORAL AND POPLITEAL ARTERIES ARE DIFFUSELY DISEASED BUT PATENT. THERE IS A MILD STENOSIS OF THE DISTAL LEFT SFA.. 5. TWO-VESSEL RUNOFF IN BOTH CALVES. 6. BILATERAL POPLITEAL CYSTS, LARGER ON THE RIGHT. Electronically signed by: Uziel Roger M.D. Farooq Astudillo MD IMG CT PROCEDURES Final Result from Last 3 Months or Most Recently Relevant to Health Maintenance [place] [address] [employer] [facility] [email or web address] [address] MEDICARE [employer] Advance Directives For more information, please contact: [phone] * Full Code (Latest Code Status on File) Date Activated Date Inactivated Comments 11/19/2024 8:44 AM 11/19/2024 3:27 PM * Full Code Date Activated Date Inactivated Comments 11/19/2024 8:44 AM 11/19/2024 8:44 AM * Full Code Date Activated Date Inactivated Comments 09/05/2023 7:29 AM 09/05/2023 2:09 PM * Full Code Date Activated Date Inactivated Comments 09/05/2023 7:29 AM 09/05/2023 7:29 AM * Full Code Date Activated Date Inactivated Comments 08/07/2018 9:33 AM 08/07/2018 1:33 PM Care Teams Payroll Director Relationship Specialty Start Date End Date Star Singh MD PCP - General 02/05/17 Chepe Hinton MD Consulting Physician Cardiology 07/19/18 Dada Morris MD [address] [place] [address] [address] Anesthesiologist Pain Management 10/13/22
--- OUTSIDE RECORDS SUMMARY | 2024-12-03 10:43 | XMS_ITS | Data Portability ---
Author Organization [employer], [facility] Address [address] [address] Assessment No assessment recorded. Plan of Treatment Reminders Order Date Submit Date Provider Last Modified By Organization Details Last Modified Time Details Appointments None recorded. Lab PSA, serum or plasma 2020 021 [email or web address] Not available 16:33:59 CBC w/ auto diff 2020 021 [email or web address] Not available 16:33:59 vitamin D, 25-hydroxy, total, serum 2020 021 [email or web address] Not available 16:33:59 testosteron e, free, serum 2020 021 Not available 16:33:59 testosteron e, total, serum 2020 021 [email or web address] Not available 16:33:59 HbA1c (hemoglobin A1c), blood 2020 021 Not available 16:33:59 CRP, high sensitivity , serum or plasma 2020 021 [email or web address] Not available 16:33:59 Referral None recorded. Procedures None recorded. Surgeries None recorded. Imaging None recorded. Medication Orders cephalexin 500 mg capsule 2020 021 Not available 16:33:59 Patient TargetsNo targets recorded. Patient InstructionsNo instructions recorded. Reason for Referral None Reported. Results Created Date Observation Date Name Description Value Unit Range Abnormal Flag Note LastModifiedBy Organization Detail LastModifiedTime Result Notes None recorded. Problems No Known Problems Procedures Surgical History Date Name Laterality Status Provider Name and Address Organization Details Recorded Time 1 Generic Procedure completed LINH ESCOBAR [address] [facility] [address], [place], [address], [facility], [facility] 07/07/2021 10:46:05 7 Heart Surgery completed Lester Lozano [facility], [facility] 07/06/2021 15:17:37 4 Hernia Repair completed Lester Lozano [facility] 07/06/2021 15:18:46 2 Hernia Repair completed Lester Lozano [facility], [facility] 07/06/2021 15:18:38 2 Hernia Repair completed Lester Lozano [facility], [facility] 07/06/2021 15:18:41 1 partial resection of colon completed Lesterjazzy Lozano [facility], [facility] 07/06/2021 15:18:26 5 Xcapsl ctrc rmvl cplx wo ecp completed Lester [facility] 07/06/2021 15:18:08 Imaging Results None recorded. Procedure Notes None recorded. Medical Equipment None Reported. Allergies Allergen ID Allergen Name Allergen Category Reaction Reaction Severity Criticality Documentation Date Start Date Code Code System Note Provider Name and Address Organization Details Recorded Time 08409 Product containin g 3-hydroxy -3-methyl glutaryl- coenzyme A reductase inhibitor (product) medicatio n Not available Not available Not available 07/06/2021 84838 009 SNOMED Lester Lozano [facility], [facility] 15:16:58 Medications Name Sig Start Date Stop Date Status Note LastModified by Organization Details LastModified Time hydrocodon e 5 mg-acetami nophen 325 mg tablet Take 1 tablet every 6 hours by oral route as needed for 7 days. 2021 active Not Available Not Available Not Avai lable cephalexin 500 mg capsule Take 4 capsules (total of 2g) po one hour prior to procedure . One time dose. 2021 active DO NOT use if PCN and Cephalosp eulalia Allergies are indicated . Not Available Not Available Not Available diazepam 10 mg tablet Take 1 tablet(s) 30 mins PRIOR to appointme nt PRN and repeat as directed by physician . 2021 active Not Available Not Available Not Avai lable meloxicam active Not Available Not Georgette ilable Not Available ropinirole active Not Available Not Av ailable Not Available irbesartan active Not Available Not Av ailable Not Available dicyclomin e active Not Available Not Available Not Available Zetia active Not Available Not Availa ble Not Available fenofibrat e active Not Available Not Available Not Available bupropion HBr active Not Available Not Available Not Available Vitals Date Recorded Body height Body mass index (BMI) Body weight Heart rate Systolic blood pressure Diastolic blood pressure Provider Name and Address Organization Details Last Updated DateTime 1 177.8 cm 33 kg/m2 649677. 25 g 72 /min 164 mm[Hg] 75 mm[Hg] Lester Lozano [facility] [employer] [facility] [employer] [facility] 1 15:15:00 Social History None recorded. Functional Status None recorded. Mental Status None recorded. Family History Nothing Reported. Medical History Condition Response Arthritis Y High Cholesterol Y Heart Problems Y Heart Disease Y Hypertension Y Past Encounters Encounter ID Performer Location Encounter Start Date Encounter Closed Date Diagnosis/Indication Diagnosis SNOMED-CT Code Diagnosis ICD10 Code Diagnosis Note [id number] LINH ESCOBAR [facility] [address] [facility] [address] [place] [address] 07/06/2021 14:54:13 07/14/2021 12:04:29 Bilateral osteoarthritis of knees 2598240268 34151 M17.0 At today's office visit the patient's diagnosis and treatment options were discussed in great detail. The patient was provided with informatio n to make an informativ e decision on the next steps for treatment. The patient has tried several conservati ve measures including but not limited to PT, rest, ice, and NSAIDs with no beneficial relief. Given the imaging results and the duration of the patient's symptoms I would recommend BMAC with fat as they are an excellent candidate. We discussed the need for PRP at [facility] the 12-week jonathan. The risk and benefits were discussed with the patient as well as functional and pain improvemen t outcomes. The procedure was discussed in detail as well as the recovery period. We discussed screening with R3 and its importance . We also discussed obtaining labs to ensure the patient is optimized for maximal results. I also discussed other conservati ve options. The patients case and treatment plan were reviewed in detail with Dr. Mcnulty. PLAN: [facility]/fat to Both knees with decompress ion of the lateral and anterior compartmen t on the right and medial and anterior compartmen t on the left All questions were answered, the patient understood the treatment plan. Greater than 45 minutes face-to-fa ce visit with more than 50% of my time spent counseling the patient about their diagnosis including pathophysi ology and treatment options. Screening procedure 2012 5006 Z13.9 R53.83 M89.9 M94.9 Z12.5 Z01.812 E55.9 Z13.228 Z13.1 Antibiotic prophylaxis indicated [id number] Z78.9 Health Concerns Section Related Observation LastModified by Organization Detai ls LastModified Time None Recorded Concern Status LastModified by Organization Details LastModified Time None Recorded Advance Directives Directive None Recorded Payers Encounter Date Sequence Insurance Name Policy Number Policy Nogueira Covered Member ID Nogueira Member ID Guarantor Name 07/06/2021 1 [place] S Chepe Goodwin Helen [id number] Chepe Cervantes 07/06/2021 2 [employer] (MEDICARE SUPPLEMENT) Chepe Helen [id number] Chepe Cervantes Notes Date Note Type Note Provider Name and Address Organization Details Recorded Time 07/06/2021 text/html 76-year-old male who comes in today complaining of pain and discomfort in both of his knees right greater than left. It has been ongoing for years. His pain is progressively getting worse. He describes his pain as intermittent sharp. He has catching, popping and giving way. When working or walking he experiences pain the most. Rest does help. He has tried nonsteroidal anti-inflammatories corticosteroid injections and Synvisc injections. Patient states that his last HLA injection was 07/04/2021. he does get approximately 6 months relief out of HLA injections. He rates his pain anywhere from a 4 to 5/10 depending on his activity level. LINH ESCOBAR [address], [place], [address], [facility] 07/07/2021 10:46:10
--- OUTSIDE RECORDS SUMMARY | 2024-12-03 10:43 | XMS_ITS | Clinical Summary ---
Author Organization [facility] Address [address] [place] [address] Care Team Providers Care Rehabilitation Assistant Name Role Phone Star Singh MD Primary Care Provider [phone] Chepe Hinton MD Unavailable [phone] Dada Morris MD Unavailable [phone] Allergies Active Allergy Reactions Criticality Noted Date Comments Atorvastatin Other (See comments) Low Muscles lock up Sulfamethoxazole-Trimeth oprim Stomach upset Low 04/03/2023 Pravastatin Other (See comments) Low Muscles lock up Rosuvastatin Other (See comments) Low Muscles lock up Rmyecdt-Ucf-Lww Reductase Inhibitors Other (See comments) Low Muscles lock up Sulfa (Sulfonamide Antibiotics) Other (See comments) Low 04/16/2023 Stomach pain Medications glucosamine-chondroi tn sulf.Na 750-600 mg tablet take 2 daily. 0 0 10/26/20 14 Active hkirlyzprcgl-mbug-hy lic acid (MULTI-YVONNE) 18-400 mg-mcg tablet take [...] 09/14/2024 Assessment & Plan (09/14/2024 4:15 PM REAL ESTATE SALES MANAGER): Patient no longer has a BMI 40 [...] 01/09/2024 Assessment & Plan (01/09/2024 1:03 PM REAL ESTATE SALES MANAGER): Recurrent pain in his testicles getting progressively worse. Is my 1st hearing of this. I am going to proceed in get an ultrasound of his testicle and refer to Urology Muscle spasm of left lower extremity 01/09/2024 Assessment & Plan (01/09/2024 1:02 PM REAL ESTATE SALES MANAGER): Patient is having a cramping feeling posterior [...] 12/28/2023 Assessment & Plan (12/28/2023 9:53 AM REAL ESTATE SALES MANAGER): Lesion consistent with sebaceous cyst noted to left occiputal area just above hairline. No acute signs of infection. Will likely resolve on it's own. Keep skin clean and dry, no not squeeze or pick at it. Weak 10/28/2023 Assessment & Plan (10/28/2023 7:32 PM REAL ESTATE SALES MANAGER): Patient tested COVID as well as flu results were negative mi respiratory symptoms I suggest utilizing Zyrtec. No fever no chills Tylenol p.r.n.. 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 On recent visit Assessment & Plan (03/12/2023 [...] with Pulmonary. Recently diagnosed with pneumonia at [facility] and is improving Assessment & Plan (01/09/2023 4:05 PM REAL ESTATE SALES MANAGER): Patient continues to have some shortness of [...] Clinic Assessment & Plan (01/09/2023 4:04 PM REAL ESTATE SALES MANAGER): Patient uses CPAP machine for many years [...] referred to [facility] Jean[facility]Baptiste [facility] for [facility] Assessment & Plan (12/01/2022 1:03 PM REAL ESTATE SALES MANAGER): Recent atrial fibrillation managed by Cardiology he is now on Xarelto TIA (transient ischemic attack) 11/16/2022 Assessment & Plan (12/01/2022 12:44 PM REAL ESTATE SALES MANAGER): No further symptoms of TIA /temporary vision change. This is thought to be secondary to recent onset of atrial fibrillation. Patient is now on Xarelto Assessment & Plan (11/16/2022 6:05 PM REAL ESTATE SALES MANAGER): Patient recently had a TIA expressed in the form of loss of vision right eye for several minutes. He did see his apron trimmer 1st exam was benign he followed up with Cardiology who now has him on a 2 week jelly maker. Monitor comes off on . Patient is [...] request Assessment & Plan (10/14/2021 2:29 PM REAL ESTATE SALES MANAGER): 76-year-old gentleman who was given medication Viagra in the past he never tried it is now he would like to try consider using this I discussed with the side effects. Rx sent for tablets 11 refill Major depressive disorder with single episode Assessment & Plan (09/14/2024 4:12 PM REAL ESTATE SALES MANAGER): Patient's mood is excellent with medication no [...] He has been seeing a counselor at [facility] psychological services.. 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 0 Lumbar radiculopathy [...] 2019 Assessment & Plan (09/11/2024 12:54 PM REAL ESTATE SALES MANAGER): Will refer this patient to nephrology orthopedic [...] 41 Assessment & Plan (09/12/2022 5:22 PM REAL ESTATE SALES MANAGER): Non steroidal anti-inflammatory/meloxicam discontinued patient utilizing Tylenol [...] today Assessment & Plan (10/04/2020 6:15 PM REAL ESTATE SALES MANAGER): Laboratory results from is almost 6 months [...] 10/14/2019 Assessment & Plan (09/14/2024 4:11 PM REAL ESTATE SALES MANAGER): Blood pressure remains well controlled patient takes Avalide HCTZ 150/12.51 tablet daily tolerates the medications. Assessment & Plan (07/31/2023 6:42 PM CDT): Pressure well controlled patient is tolerating medications no change in therapy Assessment & Plan (12/01/2022 1:03 PM REAL ESTATE SALES MANAGER): Blood pressure well control no change in [...] by Pulmonary for his chronic lung disease. 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 This is not recorded in our records [...] months. Assessment & Plan (10/04/2020 6:14 PM REAL ESTATE SALES MANAGER): Health risk assessment health maintenance reviewed in addressed. Patient aware of immunization recommendations. Patient continues in the care of Pain Clinic he recently had evaluation regarding is back per Neurosurgery recommendations continue physical therapy. Assessment & Plan (10/03/2019 5:06 PM REAL ESTATE SALES MANAGER): Patient is a history and physical completed [...] 06/23/2019 Assessment & Plan (10/03/2019 5:02 PM REAL ESTATE SALES MANAGER): Patient continues to have significant knee pain [...] 1st Assessment & Plan (09/12/2022 5:23 PM REAL ESTATE SALES MANAGER): Patient continues with the pain clinic and benefits from the therapy. Assessment & Plan (10/03/2019 5:02 PM REAL ESTATE SALES MANAGER): Patient's notice has knee pain gets worse [...] therapy Assessment & Plan (12/28/2023 9:53 AM REAL ESTATE SALES MANAGER): BP stable in office today on current therapy. No acute findings on exam. Continue current regimen and low salt diet. Assessment & Plan (10/28/2023 7:32 PM REAL ESTATE SALES MANAGER): Pressure is excellent continue present therapy Assessment & Plan (04/16/2023 5:31 PM CDT): Homicide Squad Sergeant notes reviewed. His back on a diuretic [...] range. Assessment & Plan (01/09/2023 4:09 PM REAL ESTATE SALES MANAGER): Blood pressure reasonably control no change in therapy Assessment & Plan (09/12/2022 5:20 PM REAL ESTATE SALES MANAGER): Hypertension remains very well controlled patient is [...] therapy. Assessment & Plan (10/03/2019 5:02 PM REAL ESTATE SALES MANAGER): Blood pressure well controlled patient tolerating medications [...] Avalide. Assessment & Plan (10/06/2018 6:02 PM REAL ESTATE SALES MANAGER): Blood pressure 148/80 on this visit blood [...] appointment. Coronary artery disease involving capitan grande band coronar y artery 06/28/2017 Assessment & Plan (09/06/2021 12:13 PM CDT): Homicide Squad Sergeant notes reviewed Assessment & Plan (06/13/2021 11:39 AM CDT): Homicide Squad Sergeant notes reviewed. Patient remains asymptomatic with respect coronary artery disease. Assessment & Plan (03/09/2021 8:42 AM CDT): Estimated GFR remains stable BMP on this visit. Assessment & Plan (10/04/2020 6:14 PM REAL ESTATE SALES MANAGER): Patient's keeping his current appointments with cardiology stable no new health problems identified with respect to cardiology. Assessment & Plan (03/30/2020 6:35 PM CDT): Patient is stable at this time he has a follow-up visit with Cardiology in the next 10-20 days. Lipid profile is requested today and BMP will be available bat person reviewed Assessment & Plan (10/03/2019 5:04 PM REAL ESTATE SALES MANAGER): Patient free of chest pain no evidence [...] days. Assessment & Plan (10/06/2018 6:13 PM REAL ESTATE SALES MANAGER): Coronary artery disease is unchanged. Continue current treatment regimen. Dietary sodium restriction. Weight loss. Regular aerobic exercise. Continue current medications. Cardiac status will be reassessed in 6 months. Patient sees bat person once a twice per year. Assessment & Plan (07/27/2018 6:40 PM CDT): Patient having instrumentation technologist of cardiac discomfort with chest pain shortness of breath with tightness. Will continues routine medications for his heart. Assessment & Plan (02/19/2018 10:12 AM CDT): . Patient's appointment Cardiology next week will give fasting lipid profile performed care to his bat person patient is asymptomatic at this time. Status post stent placement. Assessment & Plan (06/29/2017 10:23 AM CDT): Coronary artery disease is improving with treatment. Continue current treatment regimen. Regular aerobic exercise. Continue current medications. Cardiac status will be reassessed in 6 months. Patient had stent placement in the last 90 days at [facility]. Doing very well. He will follow up with bat person in next 3 months. He is on the medicine Effient. Irritable bowel syndrome 03/21/2014 Overview (02/09/2017): IBS (irritable bowel syndrome) Assessment & Plan (10/06/2018 6:04 PM REAL ESTATE SALES MANAGER): Patient has not had any recent problems with irritable bowel in the past 12 months. Hyperlipidemia 03/21/2014 Overview (02/09/2017): Hyperlipidemia Assessment & Plan (10/03/2019 5:03 PM REAL ESTATE SALES MANAGER): Current lipid profile is very good no change in therapy patient is tolerating medications. Assessment & Plan (04/01/2019 9:46 AM CDT): Lipid profile excellent results HDL however is 39 a discuss the the patient he was concerned a regarding the meaning of this. History in getting injections of the cholesterol medicine referring to the medication Repatha which was discussed with his bat person the year ago.. His appointment Cardiology coming up in the near future. Assessment & Plan (10/06/2018 6:03 PM REAL ESTATE SALES MANAGER): Patient's lipid profile up in within therapeutic [...] activities. Assessment & Plan (10/06/2018 6:11 PM REAL ESTATE SALES MANAGER): Patient osteoarthritis seems to be doing better he does go to pain clinic for his back pain. He has been maintain on meloxicam 15 mg daily. His knee pain has improved Assessment & Plan (06/29/2017 10:24 AM CDT): Patient goes to pain clinic at [facility]. He has been treated Mobic/meloxicam several [...] 12/01/202201/09 Assessment & Plan (12/01/2022 1:04 PM REAL ESTATE SALES MANAGER): Patient is stable doing well he feels well vitals excellent. Scheduled for excision of his 2nd on 12/05 2022. Will stop Xarelto this evening he is clear for surgery. He however cardiovascular clearance is still pending. Incisional hernia 10/02/2022 07/31/2023 Lutz of toe 03/27/2022 01/09/2023 Upper respiratory tract infection 03/17/2022 07/31/2023 Assessment & Plan (01/09/2023 4:06 PM REAL ESTATE SALES MANAGER): Patient now is feeling much better in the past 18 hours he is using the albuterol inhaler with correct technique feeling much better he still having wheezing still having some shortness of breath. I have no additional changes to make. He is to follow-up pulmonary in the future at his request he has chronic components of dyspnea. Assessment & Plan (01/05/2023 9:29 AM REAL ESTATE SALES MANAGER): Acute problem, present times about 3-4 days [...] 10/14/2021 Assessment & Plan (10/14/2021 2:31 PM REAL ESTATE SALES MANAGER): Patient concerned about right leg swelling on [...] He was diagnosed with acute bronchitis in [place] and was given an antibiotic, steroid, and [...] 09/30/2019 Assessment & Plan (10/06/2018 6:12 PM REAL ESTATE SALES MANAGER): Patient appears to have recovered from his his small-bowel obstructions not had any further problems since being discharged from hospital. Acute kidney injury 10/06/20 18 Encounters Date Type Department Care Team Description 11/19/2024 10:11 AM REAL ESTATE SALES MANAGER Anesthesia Event [address] [address] Deepak Castillo MD 11/19/2024 9:30 AM REAL ESTATE SALES MANAGER - 11/19/2024 10:00 AM REAL ESTATE SALES MANAGER Surgery [address] [address] Imtiaz Reyez MD COLON REMOVAL SNARE 11/19/2024 8:29 AM REAL ESTATE SALES MANAGER - 11/19/2024 11:27 AM REAL ESTATE SALES MANAGER Hospital Encounter [address] [address] Imtiaz Reyez MD Personal history of colonic polyps; Family history of colon cancer in father; Encounter for screening colonoscopy; History of colonic polyps Discharge Disposition: Discharge to home or self care 11/13/2024 9:15 AM REAL ESTATE SALES MANAGER Office Visit [facility] [address] [facility] [address] [place] [address] Dixie Parra NP Squamous cell carcinoma in situ (Primary Dx); Skin nodule; Hand arthritis 10/13/2024 Telephone [facility] [address] [place] [address] Star Singh MD 09/15/2024 Telephone [facility] ([facility] - [facility]NT [address] [facility] Advanced Medicine 11th [place] [address] [place] [address] Orquidea Pulido, 09/11/2024 9:30 AM REAL ESTATE SALES MANAGER [facility] [address] [place] [address] Star Singh MD Skin cancer, basal cell [...] region without neurogenic claudication 09/09/2024 9:30 AM REAL ESTATE SALES MANAGER Office Visit [facility] [address] [place] [address] [address] [place] [address] Dixie Parra, DIMA Squamous cell carcinoma in situ (Primary Dx); Skin neoplasm from Last 3 Months Immunizations Name Administration Dates Next Due COVID-19 mRNA ([employer]) 0.3 m L (30 mcg) vaccine (12 [...] 09/26/2023 Tdap 03/26/2024 ZOSTER Recombinant 07/21/2021,07/09/2021, 021 Surgical History Surgery Date Site/Laterality Comments CATARACT EXTRACTION Cataract extraction OTHER SURGICAL HISTORY surgery / left thumb OTHER SURGICAL HISTORY 11/05/2010 - 11/04/2011 sig. colectomy / repair epigastric ventral hernia OTHER SURGICAL HISTORY 11/05/2011 - 11/04/2012 repair incisional ventral hernia with mesh OTHER SURGICAL HISTORY 11/05/2011 - 11/04/2012 repair recurrent incisional ventral hernia COLONOSCOPY 05/02/2012 POLYPECTOMY COLON SURGERY resection HERNIA REPAIR ESOPHAGOGASTRODUODENOSCOPY COLONOSCOPY 05/05/2018 - 06/04/2018 COLONOSCOPY 09/05/2023 FLUORO GUIDED ASPIRATION OR INJECTION INTERMEDIATE JOINT RIGHT 09/18/2023 Right CARDIAC PACEMAKER PLACEMENT CORONARY ANGIOPLASTY WITH ST ENT PLACEMENT OTHER SURGICAL HISTORY 07/08/2024 RIGHT NUMBER FIVE TOE PERCUTANEOUS TENOTOMY, RIGHT NUMBER FIVE TOE EXOSTECTOMY LUMBAR NERVE STIMLATOR INSERTION nerve stimulator CARDIAC STENT PLACEMENT 11/05/2016 - 11/04/2017 states has 5 stents FOOT SURGERY Bilateral bone spur surgery COLONOSCOPY 11/19/2024 Medical History Medical History Date Comments Hx Other Medical diverticulitis Hx Other Medical colon resection Colon polyp Arthritis Hypertension Abdominal pain GERD (gastroesophageal reflux disease) Sleep apnea Arrhythmia A-fib (CMS/HCC) (HCC) Skin cancer Delayed emergence from general anesthesia Hyperlipidemia Family History Medical History Relation Name Comments Colon cancer Father Cancer, colon; /Cancer, colon; Cause of : Cancer, colon Cancer Mother Relation Name Status Comments Father (Age 65) Mother Social History Tobacco Use Types Packs/Day Years Used Date Smoking Tobacco: Former Cigarettes 3 15 1 1977 Smokeless Tobacco: Never Tobacco Cessation:Counseling Given: [...] on file Legal Sex Male 11:56 PM REAL ESTATE SALES MANAGER Gender Identity Not on file Sexual Orientation Not on file Obstetrics History Last Filed Vital Signs Vital Sign Reading Time Taken Comments Blood Pressure 129/78 11/19/2024 11:13 AM REAL ESTATE SALES MANAGER Pulse 71 11/19/2024 11:13 AM REAL ESTATE SALES MANAGER Temperature 36.8 ??C (98.2 ??F) 11/19/2024 11:[address] Respiratory Rate 16 11/19/2024 11:13 AM REAL ESTATE SALES MANAGER Oxygen Saturation 98% 11/19/2024 11:13 AM REAL ESTATE SALES MANAGER Inhaled Oxygen Concentration - - Weight 102.1 kg (225 lb) 11/19/2024 9:03 AM REAL ESTATE SALES MANAGER Height 177.8 cm (5' 10 ) 11/19/2024 9:03 AM REAL ESTATE SALES MANAGER Body Mass Index 32.28 11/19/2024 9:03 AM REAL ESTATE SALES MANAGER Plan of Treatment Upcoming Encounters Date Type Department Care Team (Latest Contact Info) Description 02/03/2025 7:30 AM CDT Hospital Encounter [facility] [address] [place] [address] [place] [address] [address] 02/03/2025 7:30 AM CDT Anesthesia Event [facility] [address] [place] [address] [place] [address] [address] 02/03/2025 7:30 AM CDT - 02/03/2025 11:00 AM CDT Surgery [facility] [address] [place] [address] [place] [address] [address] INSPIRE HYPOGLOSSAL NERVE STIMULATOR IMPLANT - INSERTION/150min Scheduled Procedures Name Priority Associated Diagnoses Date/Ti ca INSPIRE HYPOGLOSSAL NERVE STIMULATOR IMPLANT - INSERTION CHLOE (obstructive sleep apnea) 02/03/2025 7:30 AM CDT INSERTION CHEST WALL RESPIRATORY SENSOR ELECTRODE ARRAY AND PULSE GENERATOR CHLOE (obstructive sleep apnea) 02/03/2025 7:30 AM CDT Health Maintenance Due Date Last Done Comments Depression Screening 03/10/2025 03/10/2024, 03/06/2024, 03/06/2024, Additional history exists Well Visit 65+ 03/10/2025 03/10/2024, 06/2023, 03/09/2022, Additional history exists Fall Risk Assessment 11/19/2025 11/19/2024, 03/10/2024, 03/12/2023, Additional history exists DTaP/Tdap/Td Vaccine (3 - Td or Tdap) 03/26/2034 03/26/2024, 10/06/2008 Pneumococcal vaccine 65+ Completed 09/30/2018, 0 07/2017 Zoster Vaccine Discontinued 07/21/2021, 02/2021, 05/20/2021 Abdominal Aortic Aneurysm (A AA) Screen Completed 11/09/2023, 07/18/2023, 04/11/2023, Additional history exists Covid-19 Vaccine Completed 07/15/2024, , 08/15/2022, Additional history exists Influenza Vaccine Completed 07/15/2024, , 07/16/2022, Additional history exists Hepatitis B Screening Discontinued Goals Goal Patient Goal Type Associated Problems Recent Progress Patient-Stated? Author [facility] No Reyna Colón, NAIN Note: Patient will establish a comfort-function goal and identify the pain level that will allow the patient to perform desired activities and achieve an acceptable quality of life. Medical Devices Implanted Type Area Funeral Director/Embalmer Device Identifier Shelf Expiration Date Model / Serial / Lot viaCycle Alessandro Angio-Seal Vip 6fr Closere Device [id number] - [id number] Implanted:Qty: 1 on 12/04/2022 by Farooq Astudillo MD at [facility] viaCycle Alessandro 09/04/2023 [id number] / / [id number] Medtronic Inc Vectris 5mm 60cm 1x8 Electrode Mri Lead Neurostimulator [id number] - [id number] Implanted:Qty: 1 on 10/16/2023 by William Jay MD at [facility] Left: Back Med[employer]onic Inc 09/04/2027 [id number] / / [id number] Med[employer]onic Inc Vectris 5mm 60cm 1x8 Electrode Mri Lead Neurostimulator [id number] - [id number] Implanted:Qty: 1 on 10/16/2023 by William Jay MD at [facility] Left: Back Med[employer] Inc 09/04/2027 [id number] / / [id number] Medtronic Inc Envelope Absrb 2.7x2.5in Antibacterial Tyrx Medium Strl [id number] - [id number] Implanted:Qty: 1 on 10/16/2023 by William Jay MD at [facility] Left: Back Med[employer]onic Inc 07/07/2024 [id number] / / [id number] Med[employer]onic Inc Neurostimulator Implantable Chronic Pain Rs2 [id number] - [id number] - [id number] Implanted:Qty: 1 on 10/16/2023 by William Jay MD at [facility] Left: Back Medtronic Inc 08/02/2024 [id number] / [id number] / [employer] Zilver Ptx 8mm 60mm 125cm Otw Drug Elute Delivery System [id number] - [id number] Implanted:Qty: 1 on 06/25/[address] [facility] [employer] [id number] 10/16/2025 [id number] / / [id number] [employer] Device 6fr Closure Celt Acd Vascular Sterile Latex Free Disposable Carrie Kclt-06 - [id number] Implanted:Qty: 1 on 06/25/[address] [facility] [employer] 01/15/2027 [facility] / [id number] Procedures Procedure Name Priority Date/Time Associated Diagnosis Comments SURGICAL PATHOLOGY STAT 11/19/2024 1: 43 PM REAL ESTATE SALES MANAGER History of colonic polyps Family history of colon cancer in father Encounter for screening colonoscopy ENDO ADD ON COLON BIOPSY 11/19/2024 9:57 AM REAL ESTATE SALES MANAGER Personal history of colonic polyps Family history of colon cancer in father Encounter for screening colonoscopy COLON REMOVAL SNARE 11/19/2024 9 :57 AM REAL ESTATE SALES MANAGER Personal history of colonic polyps Family history of colon cancer in father Encounter for screening colonoscopy COLONOSCOPY 11/19/2024 8:31 AM REAL ESTATE SALES MANAGER CTA ABDOMINAL AORTA AND BILATERAL ILIOFEMORAL RUNOFF Schedule Routine, Read Routine (OP Routine) 11/30/2022 3:51 PM REAL ESTATE SALES MANAGER PAD (peripheral artery disease) (CMS/HCC) (HCC) from Last 3 Months or Most Recently Relevant to Health Maintenance Results * Surgical pathology (11/19/2024 1:43 PM REAL ESTATE SALES MANAGER) Tissue (Polyp(s), colon/colorectal, esophageal, gastric) 11/19/2024 10:36 AM REAL ESTATE SALES MANAGER Tissue (Polyp(s), colon/colorectal, esophageal, gastric) 11/19/2024 10:36 AM REAL ESTATE SALES MANAGER Narrative PATHOLOGY [facility] - 11/20/2024 2:49 PM REAL ESTATE SALES MANAGER EPIC results best viewed via link to PDF [facility] Department of Pathology [address] [place] [address] Note to Patients: This report may contain [...] Final Report Patient Name: ??PEPE CERVANTESAlfreda Address: ??[address] [place] [address], ??[place], [place] ??[address] Gender: ??M : ??1945 (Age: 79) Service: ??Gastro Location: ??[facility] Hospital #: ??[id number] Patient Type: ??[facility] Accession # ?[id number] Taken: ??11/19/2024 Received: ??11/19/2024 Accessioned: ??11/19/2024 Reported: [...] fragment. All in B. T.A. Shanta Ledesma., P.A./Liana Sy M.D. REPORT IMAGES AND SCANNED DOCUMENTS, IF INCLUDED, ONLY VIEWABLE IN PDF VERSION OF REPORT The performance characteristics of some immunohistochemical stains, fluorescence in-situ hybridization tests and immunophenotyping by flow cytometry cited in this report (if any) were determined by the Surgical Pathology Department at [facility] as part of an ongoing quality compliance coordinator program and in compliance with federally mandated [...] characteristics determined by the Surgical Pathology Department [facility]. ??It has not been cleared or approved by the U. S. Food and Drug Administration. Note for decalcified specimens: This assay has not been validated on decalcified tissues. Results should be interpreted with caution given the possibility of false negativity on decalcified specimens Imtiaz Reyez MD LAB PATHOLOGY ORDERABLES F inal Result PATHOLOGY [facility] [place]) [address] [place] [address] * Colonoscopy (11/19/2024 8:31 AM REAL ESTATE SALES MANAGER) Anatomical Region Laterality Modality Other Narrative Procedure Note Imtiaz Reyez MD - 11/19/2024 8:31 AM CST [facility] Patient Name: Pepe Cervantes Procedure Date: 11/19/2024 8:31 AM Date of : 1945 Admit Type: Outpatient Age: 79 Gender: Male Attending MD: Imtiaz Reyez M.D. Room: [facility] ENDOSCOPY ROOM 1 Note Status: Finalized Patient [...] under direct vision. The Pediatric Colonoscope [id number]-H190L [id number] was introducedthrough the anus and advanced to [...] 8:31 AM Procedure Code(s): --- Professional --- 55491, Colonoscopy, flexible; with removal of tumor(s), polyp(s), or other lesion(s) by snare technique 59662, 59, Colonoscopy, flexible; with biopsy, single or multiple Diagnosis Code(s): --- Professional --- Z80.0, Family history of malignant neoplasm of digestive organs Z86.010, Personal history of colonic polyps K64.8, Other hemorrhoids D12.2, Benign neoplasm of ascending colon D12.5, Benign neoplasm of sigmoid colon K57.30, Diverticulosis of large intestine without perforation orabscess without bleeding CPT copyright 2020 [employer]. All rights reserved. The codes documented in this report are preliminary and upon information coder reviewmay be revised to meet current compliance requirements. Recognized by the [employer] for promoting quality in endoscopy us Imtiaz Reyez MD ENDOSCOPY PROCEDURES Final Result * CTA Abdominal Aorta And Bilateral Iliofemoral Runoff (11/30/2022 3:51 PM REAL ESTATE SALES MANAGER) Anatomical Region Laterality Modality Body Bilateral Computed Tomogra phy 11/30/2022 4:02 PM REAL ESTATE SALES MANAGER Impressions 11/30/2022 4:02 PM REAL ESTATE SALES MANAGER 1. ??ATHEROSCLEROTIC CHANGES IN THE ABDOMINAL AORTA [...] Uziel Roger M.D. Narrative 11/30/2022 4:02 PM REAL ESTATE SALES MANAGER EXAMINATION: CTA ABDOMINAL AORTA AND BILATERAL ILIOFEMORAL [...] by: Uziel Roger M.D. Farooq Astudillo MD IM CT PROCEDURES Final Result from Last 3 Months or Most Recently Relevant to Health Maintenance Insurance MEDICARE linkedFA linkedFA MEDICARE MEDICARE linkedFA MEDICARE linkedFA Advance Directives For more information, please contact: [phone] * Full Code (Latest Code Status on [...] 9:33 AM 08/07/2018 1:33 PM Care Teams Rehabilitation Assistant Relationship Specialty Start Date End Date Star Singh MD PCP - General 02/05/17 Chepe Hinton MD Consulting Physician Cardiology 07/19/18 Dada Morris MD [address] [place] [address] DR DUVALL [address] [place] [id number] Anesthesiologist Pain Management 10/13/22
--- OUTSIDE RECORDS SUMMARY | 2024-12-03 10:43 | XMS_ITS | Encounter Summary ---
Author Organization [facility] Address [address] [place] [address] Care Team Providers Care Refrigerator Cabinetmaker Name Role Phone Star Singh MD Primary Care Provider [phone] Chepe Hinton MD Unavailable [phone] Dada Morris MD Unavailable [phone] Encounter Details Date Type Department Care Team (Late st Contact Info) Description 12/01/2022 Telephone [facility] [address] [place] [id number] Macey Pascual, RT Social History Tobacco Use Types Packs/Day Years Used Date Smoking Tobacco: Former Smokeless Tobacco: Never Alcohol Use Standard Drinks/Week Comments Yes 0 (1 standard drink = 0.6 oz pur e alcohol) very occassionally AUDIT-C Answer Date Recorded Q1: How often do you have a drink containing alc ohol? Monthly or less 12/04/2022 Q2: How many drinks containi ng alcohol do you have on a typical day when you are drinking? 1 or 2 12/04/2022 Q3: How often do you have si x or more drinks on one occasion? Never 12/04/2022 PHQ-2 Answer Date Recorded PHQ-2 Total Score (If total score is 3 or more points, staff should administer the PHQ-9) 0 03/09/2022 Sex and Gender Information Value Date Recorded Sex Assigned at Not on file Legal Sex Male 11:56 PM LEATHER STRETCHER Gender Identity Not on file Sexual Orientation Not on file documented as of this encounter Plan of Treatment Upcoming Encounters Date Type Department Care Team (Latest Contact Info) Description 02/03/2025 7:30 AM CDT Hospital Encounter [facility] Operating Room [id number] [place] [id number] [place] [address] [facility] [address] [place] [address] 02/03/2025 7:30 AM CDT Anesthesia Event [facility] Operating Room [address] [place] [id number] [place] [phone] [facility] [address] [place] [address] 02/03/2025 7:30 AM CDT - 02/03/2025 11:00 AM CDT Surgery [facility] Operating Room [address] [place] [address] [place] [id number] [id number] INSPIRE HYPOGLOSSAL NERVE STIMULATOR IMPLANT - INSERTION/150min Scheduled Procedures Name Priority Associated Diagnoses Date/Ti ma INSPIRE HYPOGLOSSAL NERVE STIMULATOR IMPLANT - INSERTION CHLOE (obstructive sleep apnea) 02/03/2025 7:30 AM CDT INSERTION CHEST WALL RESPIRATORY SENSOR ELECTRODE ARRAY AND PULSE GENERATOR CHLOE (obstructive sleep apnea) 02/03/2025 7:30 AM CDT documented as of this encounter Goals Goal Patient Goal Type Associated Problems Recent Progress Patient-Stated? Author [facility] Reyna Jimenez, NAIN Note: Patient will establish a comfort-function goal and identify the pain level that will allow the patient to perform desired activities and achieve an acceptable quality of life. documented as of this encounter Visit Diagnoses Not on filedocumented in this encounter Additional Health Concerns Infection Onset Date Last Indicated Resolved Time COVID: Suspected 01/05/2023 01/05/2023 01/05/2023 9:31 AM LEATHER STRETCHER COVID: Suspected 01/09/2023 01/09/2023 01/09/2023 2:34 PM LEATHER STRETCHER COVID: Suspected 10/25/2023 10/25/2023 10/25/2023 4:10 PM LEATHER STRETCHER documented as of this encounter Care Teams Refrigerator Cabinetmaker Relationship Specialty Start Date End Date Star Singh MD PCP - General 02/05/17 Chepe Hinton MD Consulting Physician Cardiology 07/19/18 Dada Morris MD [address] [place] [address] Anesthesiologist Pain Management 10/13/22 documented as of this encounter
--- OUTSIDE RECORDS SUMMARY | 2024-12-03 10:43 | XMS_ITS | Clinical Summary ---
Author Organization [facility] Address [address] [place] [address] Phone Care Team Providers Care Clinical Laboratory Aide Name Role Phone Star Singh MD Primary Care Provider [phone] Allergies Active Allergy Reactions Criticality Noted Date Comments Bqacawz-Pkq-Mnn Reductase Inhibitors Unknown 01/09/2023 Medications irbesartan (AVAPRO) 150 mg tablet Take 150 mg by mouth daily at bedtime. Active ezetimibe (ZETIA) 10 mg tablet Take 10 mg by mouth daily. Active fenofibrate nanocrystallized (TRICOR) 145 mg tablet Take 145 mg by mouth daily. Active meloxicam (MOBIC) 15 mg tablet Take 15 mg by mouth daily. Active dicyclomine (BENTYL) 20 mg tablet Take 20 mg by mouth 4 times daily. Active rOPINIRole (REQUIP) 0.5 mg tablet Take 0.5 mg by mouth 3 times daily. Active polyethylene glycol 3350 (MIRALAX) 17 gram/dose Powder Take 17 Grams by mouth daily. Dissolve in 8 ounces of fluid and drink entire liquid Active calcium carbonate (CALCIUM 600 ORAL) Take 1 Tablet by mouth daily. Active loratadine (CLARITIN) 10 mg tablet Take 10 mg by mouth daily. Active glucosamine HCl/chondroitin tierney (glucosamine-chondro itin) 750-600 mg Tablet, Chewable Take 2 Tablets by mouth daily. Active aspirin (ECOTRIN EC) 81 mg Tablet, Delayed Release (E.C.) Take 81 mg by mouth daily. Active Potassium 99 mg Tablet Take 1 Tablet by mouth daily. Active multivitamin (DAILY-YVONNE) tablet Take 1 Tablet by mouth daily. Active cholecalciferol, vitamin D3, 5,000 unit Take 400 Units by mouth daily. Active irbesartan-hydroCHLO ROthiazide (AVALIDE) 150-12.5 mg tablet TAKE 1 TABLET BY MOUTH EVERY DAY 0 Active rivaroxaban (XARELTO ORAL) Take by mouth. Active amiodarone (CORDARONE) 200 mg tablet Take 200 mg by mouth daily. 2 a day Active clopidogreL (PLAVIX) 75 mg Tablet Take 75 mg by mouth. 8 Active buPROPion HCL (WELLBUTRIN XL) 300 mg Extended Release 24 hour tablet Take 300 mg by mouth daily in the morning. Active multivitamins-minera ls-lutein (Centrum Silver) Tablet Indications: once a day Active HYDROcodone 5 mg-acetaminophen 325 mg tablet Take 1 Tablet by mouth every 4 hours as needed for Pain, Moderate. Active apixaban 5 mg tablet Take by mouth 2 times daily. Active Active Problems No known active problems Family History Medical History Relation Name Comments Colon Cancer Father Other Father tobacco use Other Mother tobacco use Colon Cancer Sister Other Sister tobacco use Relation Name Status Comments Father Mother Sister Social History Tobacco Use Types Packs/Day Years Used Date Smoking Tobacco: Former Cigarettes Q uit: 1979 Smokeless Tobacco: Never Tobacco Cessation:Counseling Given: Not Answered Alcohol Use Standard Drinks/Week Comments Yes 0 (1 standard drink = 0.6 oz pur e alcohol) Sex and Gender Information Value Date Recorded Sex Assigned at Not on file Legal Sex Male 1:15 PM BAT LATHE OPERATOR Gender Identity Not on file Sexual Orientation Not on file Last Filed Vital Signs Vital Sign Reading Time Taken Comments Blood Pressure 144/79 03/13/2023 8:54 AM CDT Pulse 67 03/13/2023 8:54 AM CDT Temperature 36.2 ??C (97.2 ??F) 03/13/2023 8:54 AM CD T Respiratory Rate - - Oxygen Saturation - - Inhaled Oxygen Concentration - - Weight 110.2 kg (243 lb) 03/13/2023 8:54 AM CDT Height 177.8 cm (5' 10 ) 03/13/2023 8:54 AM CDT Body Mass Index 34.87 03/13/2023 8:54 AM CDT Plan of Treatment Health Maintenance Due Date Last Done Comments DTAP/TDAP/TD VACCINES (2 - Tdap) 10/06/2018 10/06/20 08 RSV VACCINE (60+ or ) (1 - 1-dose 75+ series) 2019 ZOSTER VACCINE (2 of 2) 09/03/2021 07/09/2021 INFLUENZA VACCINE (#1) 2024 0, 08/01/2019, 08/08/2018, Additional history exists COVID-19 Vaccine (3 - 2023-2 5 season) 2024 08/15/2022, 11/21/2021 COLORECTAL SCREENING Discontinued 05/14/2018, 05/02/20 12 Colorectal Cancer Screening Discontinued PNEUMOCOCCAL VACCINE 65+ YEARS Completed 09/30/2018 , 03/13/2017 FIT-DNA Q 3 years Discontinued FIT/FOBT Q 1 year Discontinued Flex Sig/CT Colonography Q 5 years Discontinued Insurance MEDICARE PART A AND B [employer] Care Teams Clinical Laboratory Aide Relationship Specialty Start Date End Date Star Singh MD [address] [place] [address] PCP - General Internal Medicine 09/24/20
--- OUTSIDE RECORDS SUMMARY | 2024-12-03 10:43 | XMS_ITS | Clinical Summary ---
Author Organization [facility] Address [address] [place] [address] Phone Care Team Providers Care Emc Storage Architect Name Role Phone Star Singh MD Primary Care Provider [phone] Allergies Active Allergy Reactions Criticality Noted Date Comments Fentanyl Unknown Medications aspirin (ASPIRIN CHILDRENS) 81 MG Chewable TabletIndication s:once a day Indications : once a day Active multiple vitamin with minerals (CENTRUM SILVER) TabletIndication s:once a day Indications : once a day Active Chelated Potassium 99 MG TabletIndication s:once a day Indications : once a day Active Cholecalciferol ([employer] VITAMIN D) 2000 UNIT CapsuleIndicatio ns:once a day Indications : once a day Active Glucosamine Sulfate 750 MG Capsule 2 Caps daily. Active loratadine (CLARITIN) 10 MG TabletIndication s:once a day Indications : once a day Active irbesartan-hydro CHLOROthiazide (AVALIDE) 150-12.5 MG Tablet Take 1 Tab by mouth daily. Active clopidogrel (PLAVIX) 75 MG Tablet Take 75 mg by mouth daily. Active ezetimibe (ZETIA) 10 MG Tablet Take 10 mg by mouth daily. Active fenofibrate (TRICOR) 145 MG Tablet Take 145 mg by mouth daily. Active rOPINIRole (REQUIP) 0.5 MG Tablet Take 0.5 mg by mouth daily. Active Calcium Carbonate (CALCIUM 600 PO) Take by mouth. Active Active Problems Problem Noted Date Diagnosed Date Adjustment disorder with depressed mood 04/14/20 21 Hyperlipidemia 10/16/2019 Osteoarthritis 10/16/2019 CAD (coronary artery disease) 10/16/2019 Partial small bowel obstruction 10/14/2019 Acute renal failure (ARF) 10/14/2019 Hypertension 10/14/2019 Incisional hernia, recurrent Family History Relation Name Status Comments Father Mother Social History Tobacco Use Types Packs/Day Years Used Date Smoking Tobacco: Former Cigarettes Smokeless Tobacco: Never Alcohol Use Standard Drinks/Week Comments Not Currently 0 (1 standard drink = 0.6 oz pur e alcohol) rare PHQ-2 Answer Date Recorded Total Score - Questions 1-9 0 07/07 Sexually Active Control Partners Comments Not Currently Female Sex and Gender Information Value Date Recorded Sex Assigned at Not on file Legal Sex Male 10:07 PM CDT Gender Identity Not on file Sexual Orientation Not on file Last Filed Vital Signs Vital Sign Reading Time Taken Comments Blood Pressure 161/86 01/27/2023 7:21 AM CDT Pulse 77 01/27/2023 7:21 AM CDT Temperature 36.8 ??C (98.2 ??F) 01/27/2023 7:21 AM CD T Respiratory Rate 18 01/27/2023 7:21 AM CDT Oxygen Saturation 94% 01/27/2023 7:21 AM CDT Inhaled Oxygen Concentration - - Weight 106.6 kg (235 lb) 01/27/2023 2:34 AM CDT Height 177.8 cm (5' 10 ) 01/27/2023 2:34 AM CDT Body Mass Index 33.72 01/27/2023 2:34 AM CDT Plan of Treatment Health Maintenance Due Date Last Done Comments Hepatitis C Virus (HCV) Screening 1945 TdaP Immunization 1945 Respiratory Syncytial Virus (RSV) Immunization (Adult) (1 - 1-dose 75+ series) 2019 Influenza Immunization (#1) 07/06/202407/06, 07/15/2022, 07/12/2021, Additional history exists SARS-COV-2 Immunization ( season) 2024 08/15/2022, 11/21/2021, 02/09/2021, Additional history exists DTaP/Tdap/Td Immunization Discontinued 10/06/2008 Pneumococcal Immunization (50+ years) Completed 09/30/2018, 03/13/2017 Pneumococcal Immunization Combined Discontinued 09/30/2018, 03/13/2017 Zoster Immunization Completed 07/21/2021, 07/09/2021, 05/20/2021 Hepatitis B Immunization Aged Out No longer eligible based on patient's age to complete this topic Meningococcal Immunization (ACWY) Aged Out No longer eligible based on patient's age to complete this topic Rotavirus Immunization Aged Out No lo nger eligible based on patient's age to complete this topic Goals Goal Patient Goal Type Associated Problems Recent Progress Patient-Stated? Author Behavioral Health Behavioral Health On track(2020 11:09 AM BOX PULLER) Yes Colt Locke LCSW Note: I want to be able to have less guilt and more acceptance of my situation with my , within the next six months Goal Reviewed today with: patient Readiness to change: Ready to change Department associated with goal: [facility] Steps to achieve goal: Patient counseled on caring for the caregiver. during his 30-45 min individual therapy sessions, 1-2 times per month Patient counseled on recognizing and challenging unrealistic guilt during his 30-45 min individual therapy sessions, 1-2 times per month Behavioral Health Behavioral Health On track(2020 11:09 AM BOX PULLER) No Colt Locke LCSW Note: Goal: Patient will be able to report improve mood/adjustment to spouse's jail placement and their changed relationship, to an acceptable level, within the next six months Goal Reviewed today with: patient Readiness to change: Ready to change Department associated with goal: [facility] Steps to achieve goal: Patient counseled on heathy self-care, including importance of a healthy daily routine during his 30-45 min individual therapy sessions, 1-2 times per month Patient counseled on importance of exercise and socialization during his 30-45 min individual therapy sessions, 1-2 times per month Insurance MEDICARE [facility] & FIN isotope hydrologist Advance Directives * Full Code (Latest Code Status on File) Date Activated Date Inactivated Comments 10/13/2019 11:31 PM 10/16/2019 1:56 PM CPR-Full T reatment: FULL ARREST: Attempt Resuscitation/CPR wit intubation and mechanical ventilation. PRE-ARREST: Use entire range of life support measures to stabilize the patient. Care Teams Emc Storage Architect Relationship Specialty Start Date End Date Star Singh MD [address] [place] [address] PCP - General Internal Medicine 10/13/19
--- OUTSIDE RECORDS SUMMARY | 2024-12-03 10:43 | XMS_ITS | Encounter Summary ---
Author Organization [facility] Address [address] [facility] [place] [place] [address] Phone Care Team Providers Care Paper Guillotine Operator Name Role Phone Star Singh MD Primary Care Provider [phone] Encounter Details Date Type Department Care Team (Late st Contact Info) Description 06/16/2021 Lab Requisition [facility] Laboratory Services [address] [place] [address] Uziel Cifuentes MD [address] [place] [address] Encounter for screening for malignant neoplasm of prostate Social History Tobacco Use Types Packs/Day Years Used Date Smoking Tobacco: Former Cigarettes Smokeless Tobacco: Never Alcohol Use Standard Drinks/Week Comments Not Currently 0 (1 standard drink = 0.6 oz pur e alcohol) rare PHQ-2 Answer Date Recorded Total Score - Questions 1-9 0 04/05 Sexually Active Control Partners Comments Not Currently Female Sex and Gender Information Value Date Recorded Sex Assigned at Not on file Legal Sex Male 10:07 PM CDT Gender Identity Not on file Sexual Orientation Not on file COVID-19 Exposure Response Date Recorded In the last month, have you been in contact with someone who was confirmed or suspected to have Coronavirus / COVID-19? No / Unsure 06/03/2021 11:02 AM CDT documented as of this encounter Plan of Treatment Not on file documented as of this encounter Goals Goal Patient Goal Type Associated Problems Recent Progress Patient-Stated? Author Behavioral Health Behavioral Health On track(2020 11:09 AM CHILD CARE ASSOCIATE TEACHER) Yes Colt Locke LCSW Note: I want to be able to have less guilt and more acceptance of my situation with my , within the next six months Goal Reviewed today with: patient Readiness to change: Ready to change Department associated with goal: [facility] Steps to achieve goal: Patient counseled on caring for the caregiver. during his 30-45 min individual therapy sessions, 1-2 times per month Patient counseled on recognizing and challenging unrealistic guilt during his 30-45 min individual therapy sessions, 1-2 times per month Behavioral Health Behavioral Health On track(2020 11:09 AM CHILD CARE ASSOCIATE TEACHER) No Colt Locke LCSW Note: Goal: Patient will be able to report improve mood/adjustment to spouse's retirement placement and their changed relationship, to an acceptable level, within the next six months Goal Reviewed today with: patient Readiness to change: Ready to change Department associated with goal: [facility] Steps to achieve goal: Patient counseled on heathy self-care, including importance of a healthy daily routine during his 30-45 min individual therapy sessions, 1-2 times per month Patient counseled on importance of exercise and socialization during his 30-45 min individual therapy sessions, 1-2 times per month documented as of this encounter Procedures Procedure Name Priority Date/Time Associated Diagnosis Comments PSA SCREEN Routine 06/16/2021 4:00 PM CDT Encounter for screening for malignant neoplasm of prostate documented in this encounter Results * PSA SCREEN (06/16/2021 4:00 PM CDT) PSA SCREEN, TOTAL 1.06 <=4.00 ng/mL 06/16/2021 6:01 PM CDT [facility] Blood Venipuncture / Unknown 06/16/2021 4:00 PM CDT 06/16/2021 5:31 PM CDT Narrative [facility] - 06/16/2021 6:01 PM CDT PSA NOTE: The PSA value should be used in conjunction with information available from clinical evaluation and other diagnostic procedures. us Uziel Cifuentes MD CHEMISTRY ORDERABLES Fi nal Result [facility] [address] [facility] [place] [address] documented in this encounter Visit Diagnoses Diagnosis Encounter for screening for malignant neoplasm of prostate Special screening for malignant neoplasm of prostate documented in this encounter Additional Health Concerns Infection Onset Date Last Indicated Resolved Time COVID - 19 01/27/2023 01/27/2023 02/06/2023 12:1 6 AM CDT Assessment Noted Time PHQ-9 Depression Total Score: 0 04/22/20 21 11:00 AM CDT documented as of this encounter Care Teams Paper Guillotine Operator Relationship Specialty Start Date End Date Star Singh MD [address] [place] [address] PCP - General Internal Medicine 10/13/19 documented as of this encounter
--- OUTSIDE RECORDS SUMMARY | 2024-12-03 10:43 | XMS_ITS | Encounter Summary ---
Author Organization [facility] Address [address] [place] [address] Phone Care Team Providers Care Dairy Bar Manager Name Role Phone Star Singh MD Primary Care Provider [phone] Chepe Hinton MD Unavailable [phone] Dada Morris MD Unavailable [phone] Encounter Details Date Type Department Care Team (Late st Contact Info) Description 06/27/2021 Orders Only [facility] [address] [place] [address] Scanning, Provider Social History Tobacco Use Types Packs/Day Years Used Date Smoking Tobacco: Former Smokeless Tobacco: Never Alcohol Use Standard Drinks/Week Comments Yes 0 (1 standard drink = 0.6 oz pur e alcohol) very occassionally PHQ-2 Answer Date Recorded PHQ-2 Total Score (If total score is 3 or more points, staff should administer the PHQ-9) 4 05/12/2021 Sex and Gender Information Value Date Recorded Sex Assigned at Not on file Legal Sex Male 11:56 PM DATA COMMUNICATIONS TECHNICIAN Gender Identity Not on file Sexual Orientation Not on file documented as of this encounter Plan of Treatment Upcoming Encounters Date Type Department Care Team (Latest Contact Info) Description 02/03/2025 7:30 AM CDT Hospital Encounter [facility] Operating Room [address] [place] [address] [place] [address] [facility] [address] [place] [address] 02/03/2025 7:30 AM CDT Anesthesia Event [facility] Operating Room [address] [place] [address] [place] [address] [facility] [address] [place] [address] 02/03/2025 7:30 AM CDT - 02/03/2025 11:00 AM CDT Surgery [facility] Operating Room [address] [place] [address] [place] [address] [facility] [address] [place] [address] INSPIRE HYPOGLOSSAL NERVE STIMULATOR IMPLANT - INSERTION/150min Scheduled Procedures Name Priority Associated Diagnoses Date/Ti me INSPIRE HYPOGLOSSAL NERVE STIMULATOR IMPLANT - INSERTION CHLOE (obstructive sleep apnea) 02/03/2025 7:30 AM CDT INSERTION CHEST WALL RESPIRATORY SENSOR ELECTRODE ARRAY AND PULSE GENERATOR CHLOE (obstructive sleep apnea) 02/03/2025 7:30 AM CDT documented as of this encounter Procedures Procedure Name Priority Date/Time Associated Diagnosis Comments SCAN - RADIOLOGY/IMAGING 06/27/2021 documented in this encounter Results * SCAN - RADIOLOGY/IMAGING (06/27/2021) Anatomical Region Laterality Modality Other us Provider Scanning Final Result documented in this encounter Visit Diagnoses Not on filedocumented in this encounter Additional Health Concerns Infection Onset Date Last Indicated Resolved Time COVID: Suspected 02/10/2022 02/10/2022 02/10/2022 2:52 PM CDT COVID: Suspected 03/16/2022 03/17/2022 03/17/2022 3:05 AM CDT COVID: Suspected 01/05/2023 01/05/2023 01/05/2023 9:31 AM DATA COMMUNICATIONS TECHNICIAN COVID: Suspected 01/09/2023 01/09/2023 01/09/2023 2:34 PM DATA COMMUNICATIONS TECHNICIAN COVID: Suspected 10/25/2023 10/25/2023 10/25/2023 4:10 PM DATA COMMUNICATIONS TECHNICIAN documented as of this encounter Care Teams Dairy Bar Manager Relationship Specialty Start Date End Date Star Singh MD PCP - General 02/05/17 Chepe Hinton MD Consulting Physician Cardiology 07/19/18 Dada Morris MD [address] [place] [address] Anesthesiologist Pain Management 10/13/22 documented as of this encounter
== END 2024-12-03 09:50 | disposition home or self-care (01) ==
PROVIDERS: PCP Internal Medicine; Visit Provider Physician Assistant Surgical
DX: Z01.818 Encounter for other preprocedural examination (principal); M17.0 Bilateral primary osteoarthritis of knee
CPT/HCPCS: 73564

== ENCOUNTER 2024-12-10 12:47 | Outpatient (CLI) | payer MEDICARE, SELFPAY ==
--- OUTSIDE RECORDS SUMMARY | 2024-12-10 13:43 | XMS_ITS | Referral Summary ---
Author Organization [facility] Address [address] [place] [address] Care Team Providers Care Returned Goods Sorter Name Role Phone Star Singh MD Primary Care Provider [phone] [facility],non-owned Affiliates and Associated Physician Practices is amultiple site organization consisting of ambulatory clinics and hospital sitesin [place], [place], [place] and [place]. This disclosure is being madepursuant to the Care Everywhere program and may not contain all information available regarding this patient. Last updated 18.[facility] [employer] Allergies Active Allergy Reactions Criticality Noted Date [...] GLUCOSAMINE-CHONDROITI N PO Active Multiple Vitamins-Minerals (MULTIVITAL [place] SILVER PO) Active clopidogrel (plaVIX) 75 MG [...] 67 07/08/2024 10:35 AM CDT Temperature 36 C (96.8 F) 07/08/2024 9:54 AM CDT Respiratory Rate 18 07/08/2024 10:35 AM CDT Oxygen Saturation 99% 07/08/2024 10:35 AM CDT Inhaled Oxygen Concentration - - Weight 106.1 kg (234 lb) 07/08/2024 7:35 AM CDT Height 177.8 cm (5' 10 ) 07/01/2024 11:48 AM CDT Body Mass Index 33.58 07/01/2024 11:48 AM CDT Plan of Treatment Not on file Care Teams Returned Goods Sorter Relationship Specialty Start Date End Date Star Singh MD [address] [place] [address] PCP - General Internal Medicine 11/16/22
--- OUTSIDE RECORDS SUMMARY | 2024-12-10 13:43 | XMS_ITS | Encounter Summary ---
Author Organization [facility] Address [address] [place] [address] Care Team Providers Care Banking Attorney Name Role Phone Star Singh MD Primary Care Provider [phone] Chepe Hinton MD Unavailable [phone] Dada Morris MD Unavailable [phone] Encounter Details Date Type Department Care Team (Late st Contact Info) Description 12/01/2022 Telephone [facility] [address] [place] [address] Macey Pascual, RT Social History Tobacco [...] on file Legal Sex Male 11:56 PM SCALLOPER Gender Identity Not on file Sexual Orientation Not on file documented as of this encounter Plan of Treatment Upcoming Encounters Date Type Department Care Team (Latest Contact Info) Description 02/03/2025 7:30 AM CDT Hospital Encounter [facility] Operating Room [address] [place] [address] [place] [address] [address] 02/03/2025 7:30 AM CDT Anesthesia Event [facility] Operating Room [address] [place] [address] [place] [address] [facility] [address] [place] [address] 02/03/2025 7:30 AM CDT - 02/03/2025 10:30 AM CDT Surgery [facility] Operating Room [address] [place] [address] [place] [address] [id number] INSPIRE HYPOGLOSSAL NERVE STIMULATOR IMPLANT - INSERTION/150min [...] COVID: Suspected 01/05/2023 01/05/2023 01/05/2023 9:31 AM SCALLOPER COVID: Suspected 01/09/2023 01/09/2023 01/09/2023 2:34 PM SCALLOPER COVID: Suspected 10/25/2023 10/25/2023 10/25/2023 4:10 PM SCALLOPER documented as of this encounter Care Teams Banking Attorney Relationship Specialty Start Date End Date Star Singh MD PCP - General 02/05/17 Chepe Hinton MD Consulting Physician Cardiology 07/19/18 Dada Morris MD [address] [place] [address] [address] Anesthesiologist Pain Management 10/13/22 documented as of this encounter
--- OUTSIDE RECORDS SUMMARY | 2024-12-10 13:43 | XMS_ITS | Patient Health Summary ---
Author Organization [facility] Address [address] [place] [address] Care Team Providers Care Steam Tunnel Feeder Name Role Phone Star Singh MD Primary Care Provider [phone] Note from [facility],non-owned Affiliates and Associated Physician Practices is amultiple site organization consisting of ambulatory clinics and hospital sitesin [place], [place], [place] and [place]. This disclosure is being madepursuant to the Care Everywhere program and may not contain all information available regarding this patient. Last updated 18.[facility] Allergies * Hmg-Coa-R Inhibitors(Myalgias) Medications * Be [...] * GLUCOSAMINE-CHONDROITIN PO * Multiple Vitamins-Minerals (MULTIVITAL [place] SILVER PO) * clopidogrel (plaVIX) 75 MG [...] 33.58 07/01/2024 11:48 AM CDT Procedures * NC PART REMV PHALANX OF TOE(Performed 07/08/2024) Performed for Osteophyte of left foot, Hammer toe of left foot * NC INCISION SUBCUT TOE TENDON,>1(Performed 07/08/2024) Performed for Osteophyte of left foot, Hammer toe of left foot * NC PART REMV PHALANX OF TOE(Performed 12/05/2022) Performed for Osteophyte of left foot Care Teams Steam Tunnel Feeder Relationship Specialty Start Date End Date Star Singh MD [address] [phone] PCP - General Internal Medicine 11/16/22
--- OUTSIDE RECORDS SUMMARY | 2024-12-10 13:43 | XMS_ITS | Clinical Summary ---
Author Organization [facility] Address [address] [place] [address] Care Team Providers Care Side Stitching Machine Operator Name Role Phone Star Singh MD Primary Care Provider [phone] Source Comments [facility],non-owned Affiliates and Associated Physician Practices is amultiple site organization consisting of ambulatory clinics and hospital sitesin [place], [place], [place] and [place]. This disclosure is being madepursuant to the Care Everywhere program and may not contain all information available regarding this patient. Last updated 18.[facility] [employer] Allergies Active Allergy Reactions Criticality Noted Date [...] GLUCOSAMINE-CHONDROITI N PO Active Multiple Vitamins-Minerals (MULTIVITAL [place] SILVER PO) Active clopidogrel (plaVIX) 75 MG [...] Due Date Last Done Comments MEDICARE AWV 12 MONTHS 1945 DTAP/TDAP/TD VACCINES (1 - [...] age to complete this topic Care Teams Side Stitching Machine Operator Relationship Specialty Start Date End Date Star Singh MD [address] [place] [address] PCP - General Internal Medicine 11/16/22
--- OUTSIDE RECORDS SUMMARY | 2024-12-10 13:43 | XMS_ITS | Encounter Summary ---
Author Organization [facility] Address [address] [place] [address] Phone Care Team Providers Care Yardage Caller Name Role Phone Star Singh MD Primary Care Provider [phone] Chepe Hinton MD Unavailable [phone] Dada Morris MD Unavailable [phone] Encounter Details Date Type Department Care Team (Late st Contact Info) Description 06/27/2021 Orders Only [facility] [address] [place] [address] Scanning, Provider Social History Tobacco [...] on file Legal Sex Male 11:56 PM DISTRIBUTED ENERGY SYSTEMS CONSULTANT Gender Identity Not on file Sexual Orientation Not on file documented as of this encounter Plan of Treatment Upcoming Encounters Date Type Department Care Team (Latest Contact Info) Description 02/03/2025 7:30 AM CDT Hospital Encounter [facility] Operating Room [address] [place] [address] [place] [address] [facility] [address] [place] [address] 02/03/2025 7:30 AM CDT Anesthesia Event [facility] Operating Room [address] [place] [address] [place] [address] [facility] [address] [place] [address] 02/03/2025 7:30 AM CDT - 02/03/2025 10:30 AM CDT Surgery [facility] Operating Room [address] [place] [address] [place] [address] [facility] [address] [place] [address] INSPIRE HYPOGLOSSAL NERVE STIMULATOR IMPLANT - INSERTION/150min [...] COVID: Suspected 01/05/2023 01/05/2023 01/05/2023 9:31 AM DISTRIBUTED ENERGY SYSTEMS CONSULTANT COVID: Suspected 01/09/2023 01/09/2023 01/09/2023 2:34 PM DISTRIBUTED ENERGY SYSTEMS CONSULTANT COVID: Suspected 10/25/2023 10/25/2023 10/25/2023 4:10 PM DISTRIBUTED ENERGY SYSTEMS CONSULTANT documented as of this encounter Care Teams Yardage Caller Relationship Specialty Start Date End Date Star Singh MD PCP - General 02/05/17 Chepe Hinton MD Consulting Physician Cardiology 07/19/18 Dada Morris MD [address] [facility] [address] [address] Anesthesiologist Pain Management 10/13/22 documented as of this encounter
--- OUTSIDE RECORDS SUMMARY | 2024-12-10 13:44 | XMS_ITS | Encounter Summary ---
Author Organization [facility] Address [address] [address] Care Team Providers Care Order Filler Name Role Phone Star Singh MD Primary Care Provider [phone] Chepe Hinton MD Unavailable [phone] Lizy Cai RN Unavailable [phone] Dada Morris MD Unavailable Encounter Details Date Type Department Care Team (Late st Contact Info) Description 03/13/2017 Orders Only [facility] ProviderJuan MD [address] [place] [address] Social History Tobacco Use Types Packs/Day Years Used Date Smoking Tobacco: Some Days Cigarettes Last attempted to quit: 11/05/1979 Alcohol Use Standard Drinks/Week Comments Yes 0 (1 standard drink = 0.6 oz pur e alcohol) Sex and Gender Information Value Date Recorded Sex Assigned at Not on file Legal Sex Male 11:56 PM WANT AD CLERK Gender Identity Not on file Sexual Orientation Not on file documented as of this encounter Plan of Treatment Upcoming Encounters Date Type Department Care Team (Latest Contact Info) Description 02/03/2025 7:30 AM CDT Hospital Encounter [facility] Operating Room [address] [place] [address] [place] [address] [facility] [address] [place] [address] 02/03/2025 7:30 AM CDT Anesthesia Event [facility] Operating Room [address] [place] [address] [place] [address] [facility] [address] [place] [address] 02/03/2025 7:30 AM CDT - 02/03/2025 10:30 AM CDT Surgery [facility] Operating Room [address] [place] [address] [place] [address] [facility] [address] [place] [address] INSPIRE HYPOGLOSSAL NERVE STIMULATOR IMPLANT - INSERTION/150min [...] Narrative 03/13/2017 Ordered by an unspecified provider. Historical Provider [facility] Final Result documented in this encounter Visit Diagnoses Not on filedocumented in this encounter Additional Health Concerns Infection Onset Date Last Indicated Resolved Time COVID: Suspected 02/10/2022 02/10/2022 02/10/2022 2:52 PM CDT COVID: Suspected 03/16/2022 03/17/2022 03/17/2022 3:05 AM CDT COVID: Suspected 01/05/2023 01/05/2023 01/05/2023 9:31 AM WANT AD CLERK COVID: Suspected 01/09/2023 01/09/2023 01/09/2023 2:34 PM WANT AD CLERK COVID: Suspected 10/25/2023 10/25/2023 10/25/2023 4:10 PM WANT AD CLERK documented as of this encounter Care Teams Order Filler Relationship Specialty Start Date End Date Star Singh MD PCP - General 02/05/17 Chepe Hinton MD Consulting Physician Cardiology 07/19/18 Lizy Cai, RN [address] [place] [address] Upsetter Helper 07/22/18 08/28/18 Dada Morris MD [address] [place] [address] [address] Anesthesiologist Pain Management 10/13/22 documented as of this encounter
--- OUTSIDE RECORDS SUMMARY | 2024-12-10 13:44 | XMS_ITS | Clinical Summary ---
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 Name Role Phone Star Singh MD Primary Care Provider [phone] Chepe Hinton MD Unavailable [phone] Dada Morris MD Unavailable Allergies Active Allergy Reactions Criticality Noted Date Comments Atorvastatin Other (See comments) Low Muscles lock up Sulfamethoxazole-Trimeth oprim Stomach upset Low 04/03/2023 Pravastatin Other (See comments) Low Muscles lock up Rosuvastatin Other (See comments) Low Muscles lock up Gcessyl-Bso-Hmg Reductase Inhibitors Other (See comments) Low Muscles lock up Sulfa (Sulfonamide Antibiotics) Other (See comments) Low 04/16/2023 Stomach pain Medications glucosamine-chondroi tn sulf.Na 750-600 mg tablet take 2 daily. 0 0 10/26/20 14 Active yfcsnogdbjxa-mgqs-ha lic acid (MULTI-YVONNE) 18-400 mg-mcg tablet take [...] 09/14/2024 Assessment & Plan (09/14/2024 4:15 PM DAY TRADER): Patient no longer has a BMI 40 [...] 01/09/2024 Assessment & Plan (01/09/2024 1:03 PM DAY TRADER): Recurrent pain in his testicles getting progressively worse. Is my 1st hearing of this. I am going to proceed in get an ultrasound of his testicle and refer to Urology Muscle spasm of left lower extremity 01/09/2024 Assessment & Plan (01/09/2024 1:02 PM DAY TRADER): Patient is having a cramping feeling posterior [...] 12/28/2023 Assessment & Plan (12/28/2023 9:53 AM DAY TRADER): Lesion consistent with sebaceous cyst noted to left occiputal area just above hairline. No acute signs of infection. Will likely resolve on it's own. Keep skin clean and dry, no not squeeze or pick at it. Weak 10/28/2023 Assessment & Plan (10/28/2023 7:32 PM DAY TRADER): Patient tested COVID as well as flu results were negative mi respiratory symptoms I suggest utilizing Zyrtec. No fever no chills Tylenol p.r.n.. 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 On recent visit Assessment & Plan (03/12/2023 [...] with Pulmonary. Recently diagnosed with pneumonia at [facility] and is improving Assessment & Plan (01/09/2023 4:05 PM DAY TRADER): Patient continues to have some shortness of [...] Clinic Assessment & Plan (01/09/2023 4:04 PM DAY TRADER): Patient uses CPAP machine for many years [...] will be referred to [facility] Assessment & Plan (12/01/2022 1:03 PM DAY TRADER): Recent atrial fibrillation managed by Cardiology he is now on Xarelto TIA (transient ischemic attack) 11/16/2022 Assessment & Plan (12/01/2022 12:44 PM DAY TRADER): No further symptoms of TIA /temporary vision change. This is thought to be secondary to recent onset of atrial fibrillation. Patient is now on Xarelto Assessment & Plan (11/16/2022 6:05 PM DAY TRADER): Patient recently had a TIA expressed in the form of loss of vision right eye for several minutes. He did see his intake rn 1st exam was benign he followed up with Cardiology who now has him on a 2 week clinical research monitor. Monitor comes off on . Patient is [...] request Assessment & Plan (10/14/2021 2:29 PM DAY TRADER): 76-year-old gentleman who was given medication Viagra in the past he never tried it is now he would like to try consider using this I discussed with the side effects. Rx sent for tablets 11 refill Major depressive disorder with single episode Assessment & Plan (09/14/2024 4:12 PM DAY TRADER): Patient's mood is excellent with medication no [...] He has been seeing a counselor at [facility] psychological services.. He has 3 relatives/daughters [...] 10/12/20 20 Degenerative lumbar spinal stenosis 10/12/2020 long term care pharmacist current use of anticoagulant 0 Lumbar radiculopathy [...] 2019 Assessment & Plan (09/11/2024 12:54 PM DAY TRADER): Will refer this patient to nephrology orthopedic surgeon would like to do a total knee on this gentleman. Patient has been advised by his orthopedic surgeon Dr. iWlkinson has requested a Nephrology consult prior to [...] 41 Assessment & Plan (09/12/2022 5:22 PM DAY TRADER): Non steroidal anti-inflammatory/meloxicam discontinued patient utilizing Tylenol [...] today Assessment & Plan (10/04/2020 6:15 PM DAY TRADER): Laboratory results from is almost 6 months [...] 10/14/2019 Assessment & Plan (09/14/2024 4:11 PM DAY TRADER): Blood pressure remains well controlled patient takes Avalide HCTZ 150/12.51 tablet daily tolerates the medications. Assessment & Plan (07/31/2023 6:42 PM CDT): Pressure well controlled patient is tolerating medications no change in therapy Assessment & Plan (12/01/2022 1:03 PM DAY TRADER): Blood pressure well control no change in [...] by Pulmonary for his chronic lung disease. 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 This is not recorded in our [...] months. Assessment & Plan (10/04/2020 6:14 PM DAY TRADER): Health risk assessment health maintenance reviewed in addressed. Patient aware of immunization recommendations. Patient continues in the care of Pain Clinic he recently had evaluation regarding is back per Neurosurgery recommendations continue physical therapy. Assessment & Plan (10/03/2019 5:06 PM DAY TRADER): Patient is a history and physical completed [...] 06/23/2019 Assessment & Plan (10/03/2019 5:02 PM DAY TRADER): Patient continues to have significant knee pain [...] 1st Assessment & Plan (09/12/2022 5:23 PM DAY TRADER): Patient continues with the pain clinic and benefits from the therapy. Assessment & Plan (10/03/2019 5:02 PM DAY TRADER): Patient's notice has knee pain gets worse [...] therapy Assessment & Plan (12/28/2023 9:53 AM DAY TRADER): BP stable in office today on current therapy. No acute findings on exam. Continue current regimen and low salt diet. Assessment & Plan (10/28/2023 7:32 PM DAY TRADER): Pressure is excellent continue present therapy Assessment & Plan (04/16/2023 5:31 PM CDT): Vacuum Repairer notes reviewed. His back on a diuretic [...] range. Assessment & Plan (01/09/2023 4:09 PM DAY TRADER): Blood pressure reasonably control no change in therapy Assessment & Plan (09/12/2022 5:20 PM DAY TRADER): Hypertension remains very well controlled patient is [...] therapy. Assessment & Plan (10/03/2019 5:02 PM DAY TRADER): Blood pressure well controlled patient tolerating medications [...] Avalide. Assessment & Plan (10/06/2018 6:02 PM DAY TRADER): Blood pressure 148/80 on this visit blood [...] next regular appointment. Coronary artery disease involving [facility] coronar y artery 06/28/2017 Assessment & Plan (09/06/2021 12:13 PM CDT): Vacuum Repairer notes reviewed Assessment & Plan (06/13/2021 11:39 AM CDT): Vacuum Repairer notes reviewed. Patient remains asymptomatic with respect coronary artery disease. Assessment & Plan (03/09/2021 8:42 AM CDT): Estimated GFR remains stable BMP on this visit. Assessment & Plan (10/04/2020 6:14 PM DAY TRADER): Patient's keeping his current appointments with cardiology stable no new health problems identified with respect to cardiology. Assessment & Plan (03/30/2020 6:35 PM CDT): Patient is stable at this time he has a follow-up visit with Cardiology in the next 10-20 days. Lipid profile is requested today and BMP will be available survey engineer reviewed Assessment & Plan (10/03/2019 5:04 PM DAY TRADER): Patient free of chest pain no evidence [...] days. Assessment & Plan (10/06/2018 6:13 PM DAY TRADER): Coronary artery disease is unchanged. Continue current treatment regimen. Dietary sodium restriction. Weight loss. Regular aerobic exercise. Continue current medications. Cardiac status will be reassessed in 6 months. Patient sees survey engineer once a twice per year. Assessment & Plan (07/27/2018 6:40 PM CDT): Patient having sprue knocker of cardiac discomfort with chest pain shortness of breath with tightness. Will continues routine medications for his heart. Assessment & Plan (02/19/2018 10:12 AM CDT): . Patient's appointment Cardiology next week will give fasting lipid profile performed care to his survey engineer patient is asymptomatic at this time. Status post stent placement. Assessment & Plan (06/29/2017 10:23 AM CDT): Coronary artery disease is improving with treatment. Continue current treatment regimen. Regular aerobic exercise. Continue current medications. Cardiac status will be reassessed in 6 months. Patient had stent placement in the last 90 days at [facility]. Doing very well. He will follow up with survey engineer in next 3 months. He is on the medicine Effient. Irritable bowel syndrome 03/21/2014 Overview (02/09/2017): IBS (irritable bowel syndrome) Assessment & Plan (10/06/2018 6:04 PM DAY TRADER): Patient has not had any recent problems with irritable bowel in the past 12 months. Hyperlipidemia 03/21/2014 Overview (02/09/2017): Hyperlipidemia Assessment & Plan (10/03/2019 5:03 PM DAY TRADER): Current lipid profile is very good no change in therapy patient is tolerating medications. Assessment & Plan (04/01/2019 9:46 AM CDT): Lipid profile excellent results HDL however is 39 a discuss the the patient he was concerned a regarding the meaning of this. History in getting injections of the cholesterol medicine referring to the medication Repatha which was discussed with his survey engineer the year ago.. His appointment Cardiology coming up in the near future. Assessment & Plan (10/06/2018 6:03 PM DAY TRADER): Patient's lipid profile up in within therapeutic [...] activities. Assessment & Plan (10/06/2018 6:11 PM DAY TRADER): Patient osteoarthritis seems to be doing better he does go to pain clinic for his back pain. He has been maintain on meloxicam 15 mg daily. His knee pain has improved Assessment & Plan (06/29/2017 10:24 AM CDT): Patient goes to pain clinic at [facility]. He has been treated Mobic/meloxicam several [...] 12/01/202201/09 Assessment & Plan (12/01/2022 1:04 PM DAY TRADER): Patient is stable doing well he feels well vitals excellent. Scheduled for excision of his 2nd on 12/05 2022. Will stop Xarelto this evening he is clear for surgery. He however cardiovascular clearance is still pending. Incisional hernia 10/02/2022 07/31/2023 Widen of toe 03/27/2022 01/09/2023 Upper respiratory tract infection 03/17/2022 07/31/2023 Assessment & Plan (01/09/2023 4:06 PM DAY TRADER): Patient now is feeling much better in the past 18 hours he is using the albuterol inhaler with correct technique feeling much better he still having wheezing still having some shortness of breath. I have no additional changes to make. He is to follow-up pulmonary in the future at his request he has chronic components of dyspnea. Assessment & Plan (01/05/2023 9:29 AM DAY TRADER): Acute problem, present times about 3-4 days [...] 10/14/2021 Assessment & Plan (10/14/2021 2:31 PM DAY TRADER): Patient concerned about right leg swelling on [...] He was diagnosed with acute bronchitis in [place] and was given an antibiotic, steroid, and [...] 09/30/2019 Assessment & Plan (10/06/2018 6:12 PM DAY TRADER): Patient appears to have recovered from his his small-bowel obstructions not had any further problems since being discharged from hospital. Acute kidney injury 10/06/20 18 Encounters Date Type Department Care Team Description 12/04/2024 9:20 AM DAY TRADER Lab [address] [address] 12/03/2024 Telephone [facility] [address] [facility] [address] [place] [address] Star Singh MD Referral Request 11/19/2024 10:11 AM DAY TRADER Anesthesia Event [address] [address] Deepak Castillo MD 11/19/2024 9:30 AM DAY TRADER - 11/19/2024 10:00 AM DAY TRADER Surgery [address] [address] Imtiaz Reyez MD COLON REMOVAL SNARE 11/19/2024 8:29 AM DAY TRADER - 11/19/2024 11:27 AM DAY TRADER Hospital Encounter [address] [address] Imtiaz Reyez MD Personal history of colonic polyps; Family history of colon cancer in father; Encounter for screening colonoscopy; History of colonic polyps Discharge Disposition: Discharge to home or self care 11/13/2024 9:15 AM DAY TRADER Office Visit [facility] Surgery [address] [facility] [address] [place] [address] Dixie Parra, DIMA Squamous cell carcinoma in situ (Primary Dx); Skin nodule; Hand arthritis 10/13/2024 Telephone [facility] [address] [facility] [address] [place] [address] Star Singh MD 09/15/2024 Telephone [facility] ENT [address] [facility] 11th [place] [address] [place] [address] Orquidea Pulido [place] 09/11/2024 9:30 AM DAY TRADER Office Visit [facility] [address] [facility] [address] [place] [phone] Star Singh MD Skin cancer, basal cell [...] region without neurogenic claudication 09/09/2024 9:30 AM DAY TRADER Office Visit [facility] Surgery [address] [place] [address] [address] [place] [address] Dixie Parra, DIMA Squamous cell carcinoma in situ (Primary Dx); Skin neoplasm from Last 3 Months Immunizations Name Administration Dates Next Due COVID-19 mRNA ([employer]) 0.3 m L (30 mcg) vaccine (12 [...] on file Legal Sex Male 11:56 PM DAY TRADER Gender Identity Not on file Sexual Orientation Not on file Obstetrics History Last Filed Vital Signs Vital Sign Reading Time Taken Comments Blood Pressure 129/78 11/19/2024 11:13 AM DAY TRADER Pulse 71 11/19/2024 11:13 AM DAY TRADER Temperature 36.8 C (98.2 F) 11/19/2024 11:13 AM DAY TRADER Respiratory Rate 16 11/19/2024 11:13 AM DAY TRADER Oxygen Saturation 98% 11/19/2024 11:13 AM DAY TRADER Inhaled Oxygen Concentration - - Weight 102.1 kg (225 lb) 11/19/2024 9:03 AM DAY TRADER Height 177.8 cm (5' 10 ) 11/19/2024 9:03 AM DAY TRADER Body Mass Index 32.28 11/19/2024 9:03 AM DAY TRADER Plan of Treatment Upcoming Encounters Date Type Department Care Team (Latest Contact Info) Description 02/03/2025 7:30 AM CDT Hospital Encounter [facility] Operating Room [address] [place] [address] [place] [address] [place] [id number] 02/03/2025 7:30 AM CDT Anesthesia Event [facility] Operating Room [address] [place] [address] [place] [address] [address] 02/03/2025 7:30 AM CDT - 02/03/2025 10:30 AM CDT Surgery [facility] Operating Room [address] [place] [address] [place] [id number] [address] INSPIRE HYPOGLOSSAL NERVE STIMULATOR IMPLANT - INSERTION/150min Scheduled Procedures Name Priority Associated Diagnoses Date/Ti ks INSPIRE HYPOGLOSSAL NERVE STIMULATOR IMPLANT - INSERTION [...] 03/26/2024, 10/06/2008 Pneumococcal vaccine 65+ Completed 09/30/2018, 07/2017 Zoster Vaccine Discontinued 07/21/2021, 02/2021, 05/20/2021 Abdominal Aortic Aneurysm (A AA) Screen Completed 11/09/2023, 07/18/2023, 04/11/2023, Additional history exists Covid-19 Vaccine Completed 07/15/2024, , 08/15/2022, Additional history exists Influenza Vaccine Completed 07/15/2024, , 07/16/2022, Additional history exists Hepatitis B Screening Discontinued Goals Goal Patient Goal Type Associated Problems Recent Progress Patient-Stated? Author [facility] No Reyna Colón, RN Note: Patient will establish a comfort-function goal and identify the pain level that will allow the patient to perform desired activities and achieve an acceptable quality of life. Medical Devices Implanted Type Area Golf Course Manager Device Identifier Shelf Expiration Date Model / Serial / Lot Placeword Angio-Seal Vip 6fr Closere Device [id number] - [id number] Implanted:Qty: 1 on 12/04/2022 by Farooq Astudillo MD at [facility] Place[employer] 09/04/2023 [id number] / / [id number] Med[employer] Vectris 5mm 60cm 1x8 Electrode Mri Lead Neurostimulator [id number] - [id number] Implanted:Qty: 1 on 10/16/2023 by William Jay MD at [facility] Left: Back [employer] 09/04/2027 [id number] / / [id number] [employer] Inc Vectris 5mm 60cm 1x8 Electrode Mri Lead Neurostimulator [id number] - [id number] Implanted:Qty: 1 on 10/16/2023 by William Jay MD at [facility] Left: Back [employer] 09/04/2027 [id number] / / [id number] [employer] Inc Envelope Absrb 2.7x2.5in Antibacterial Tyrx Medium Strl [id number] - [id number] Implanted:Qty: 1 on 10/16/2023 by William Jay MD at [facility] Left: Back Med[employer] Inc 07/07/2024 [id number] / / [id number] Med[employer]onic Inc Neurostimulator Implantable Chronic Pain Rs2 [id number] - [id number] - [id number] Implanted:Qty: 1 on 10/16/2023 by William Jay MD at [facility] Left: Back Med[employer]onic Inc 08/02/2024 [id number] / [id number] / [employer] Zilver Ptx 8mm 60mm 125cm Otw Drug Elute Delivery System [id number] - [id number] Implanted:Qty: 1 on 06/25/2024 at [facility] [employer] [id number] 10/16/2025 [id number] / / [id number] [employer] Device 6fr Closure Celt Acd Vascular Sterile Latex Free Disposable Carrie Kclt-06 - [id number] Implanted:Qty: 1 on 06/25/2024 at [facility] [employer] 01/15/2027 [id number]-06 / / [id number] Procedures Procedure Name Priority Date/Time Associated Diagnosis Comments EGFR Routine 12/04/2024 9:42 AM DAY TRADER DIFFERENTIAL AUTO Routine 12/04/2024 9:4 2 AM DAY TRADER CBC WITH AUTO DIFFERENTIAL Routine 12/04/2024 9:42 AM DAY TRADER BASIC METABOLIC PANEL Routine 12/04/2024 9:42 AM DAY TRADER SURGICAL PATHOLOGY STAT 11/19/2024 1: 43 PM DAY TRADER History of colonic polyps Family history of colon cancer in father Encounter for screening colonoscopy ENDO ADD ON COLON BIOPSY 11/19/2024 9:57 AM DAY TRADER Personal history of colonic polyps Family history of colon cancer in father Encounter for screening colonoscopy COLON REMOVAL SNARE 11/19/2024 9 :57 AM DAY TRADER Personal history of colonic polyps Family history of colon cancer in father Encounter for screening colonoscopy COLONOSCOPY 11/19/2024 8:31 AM DAY TRADER CTA ABDOMINAL AORTA AND BILATERAL ILIOFEMORAL RUNOFF Schedule Routine, Read Routine (OP Routine) 11/30/2022 3:51 PM DAY TRADER PAD (peripheral artery disease) (CMS/HCC) (HCC) from Last 3 Months or Most Recently Relevant to Health Maintenance Results * (ABNORMAL) eGFR (12/04/2024 9:42 AM DAY TRADER) eGFR 52(L) >=60 mL/min/1. 73 m2 Comment: Interpretive Data Reference Interval Normal >/= 90 mL/min/1.73m2 Mildly decreased* 60 - 89 mL/min/1.73m2 Mildly to moderately decreased 45 - 59 mL/min/1.73m2 Moderately to severely decreased 30 - 44 mL/min/1.73m2 Severely decreased 15 - 29 mL/min/1.73m2 Kidney Failure < 15 mL/min/1.73m2 *Relative to young adult level Estimated glomerular filtration rate is determined by the 2020 CKD-EPI equation recommended by the National Kidney Foundation (A Unifying Approach to GFR Estimation: Recommendations of the NKF-ASK Task Force on Reassessing the Inclusion of Race in Diagnosing Kidney Disease, JASN 2020). The CKD-EPI equation should not be used for patients with unstable renal function and has not been validated in children and those over 70. Current interpretive data was last reviewed 2021. Blood 12/04/2024 9:42 AM DAY TRADER 12/04/2024 10:04 AM DAY TRADER us Bruce Jean-Baptiste MD LAB BLOOD ORDERABLES Fi nal Result [facility] ([place] [address] [facility] [place] [address] * Differential, auto (12/04/2024 9:42 AM DAY TRADER) Neutrophil abs 4.6 1.5 - 6.5 K/cumm Imm gran abs 0.0 0.0 - 0.1 K/cumm [facility] Lymphocyte abs 1.2 0.8 - 3.3 K/cumm [facility] Monocyte abs 0.6 0.2 - 0.8 K/cumm [facility] Eosinophil abs 0.1 0.0 - 0.5 K/cumm [facility] Basophil abs 0.1 0.0 - 0.1 K/cumm [facility] Neutrophil pct 70.1 % [facility] Comment: Interpretive Data Percent cell count reference ranges are not reported, since discordance with absolute values may lead to misinterpretation of CBC data. Current Interpretive Data was last revised on 2018. Imm gran pct 0.3 % [facility] Comment: Interpretive Data Percent cell count reference ranges are not reported, since discordance with absolute values may lead to misinterpretation of CBC data. Current Interpretive Data was last revised on 2018. Lymphocyte pct 18.8 % [facility] Comment: Interpretive Data Percent cell count reference ranges are not reported, since discordance with absolute values may lead to misinterpretation of CBC data. Current Interpretive Data was last revised on 2018. Monocyte pct 8.8 % [facility] Comment: Interpretive Data Percent cell count reference ranges are not reported, since discordance with absolute values may lead to misinterpretation of CBC data. Current Interpretive Data was last revised on 2018. Eosinophil pct 1.2 % [facility] Comment: Interpretive Data Percent cell count reference ranges are not reported, since discordance with absolute values may lead to misinterpretation of CBC data. Current Interpretive Data was last revised on 2018. Basophil pct 0.8 % [facility] Comment: Interpretive Data Percent cell count reference ranges are not reported, since discordance with absolute values may lead to misinterpretation of CBC data. Current Interpretive Data was last revised on 2018. Blood 12/04/2024 9:42 AM DAY TRADER 12/04/2024 10:04 AM DAY TRADER Bruce Jean-Baptiste MD LAB BLOOD ORDERABLES Fi nal Result Performing Organization Address City/[facility]/ZIP Co de Phone Number [facility] [address] [facility] [place] [address] * (ABNORMAL) CBC with auto differential (12/04/2024 9:42 AM DAY TRADER) WBC 6.6 3.8 - 9.9 K/cumm Hgb 12.8(L) 13.0 - 17.5 g/dL [facility] Hct 39.1 38.9 - 50.3 % [facility] Plt 175 150 - 400 K/cumm [facility] MPV 9.7 9.1 - 12.3 fL [facility] RBC 4.41 4.30 - 5.80 M/cumm [facility] MCV 88.7 81.3 - 96.4 fL [facility] MCH 29.0 27.1 - 33.3 pg [facility] MCHC 32.7 32.3 - 35.7 g/dL [facility] RDW CV 13.7 11.1 - 14.9 % [facility] RDW SD 44.8 35.7 - 48.1 fL [facility] NRBC abs 0.00 0.00 - 0.01 K/cumm [facility] Blood 12/04/2024 9:42 AM DAY TRADER 12/04/2024 10:04 AM DAY TRADER us Bruce Jean-Baptiste MD LAB BLOOD ORDERABLES Fi nal Result [facility] [place] [address] * (ABNORMAL) Basic metabolic panel (12/04/2024 9:42 AM DAY TRADER) Sodium 141 135 - 145 mmol/L Potassium, pl 4.1 3.3 - 4.9 mmol/L [facility] Chloride 104 97 - 110 mmol/L [facility] CO2 28 22 - 32 mmol/L [facility] Anion gap 9 2 - 15 mmol/L [facility] BUN 29(H) 6 - 25 mg/dL [facility] Creatinine 1.38(H) 0.80 - 1.30 mg/dL [facility] Glucose 98 70 - 199 mg/dL [facility] Comment: Interpretive Data Fasting glucose >/= 126 mg/dl is diagnostic for diabetes. Fasting is defined as no caloric intake for at least 8 hours. Fasting glucose between 100 mg/dl to 125 mg/dl is diagnostic of prediabetes. In a patient with classic symptoms of hyperglycemia or hyperglycemic crisis, a random glucose >/= 200 mg/dl is diagnostic for diabetes. In the absence of unequivocal hyperglycemia, results should be confirmed by repeat testing. The classification and Diagnosis of Diabetes Diabetes Care 202; 46: S19-S40. Current interpretive data was last revised 2022. Calcium 10.3 8.5 - 10.3 mg/dL [facility] ([facility]) Blood 12/04/2024 9:42 AM DAY TRADER 12/04/2024 10:04 AM DAY TRADER us Bruce Jean-Baptiste MD LAB BLOOD ORDERABLES Fi nal Result BRODY JOSHI (ARLEEN) 1 [facility] [place] [address] * Surgical pathology (11/19/2024 1:43 PM DAY TRADER) Tissue (Polyp(s), colon/colorectal, esophageal, gastric) 11/19/2024 10:36 AM DAY TRADER Tissue (Polyp(s), colon/colorectal, esophageal, gastric) 11/19/2024 10:36 AM DAY TRADER Narrative PATHOLOGY [facility] - 11/20/2024 2:49 PM DAY TRADER EPIC results best viewed via link to PDF [facility] Department of Pathology [address] [place] [address] Note to Patients: This report may contain [...] explain the details. Final Report Patient Name: PEPE CERVANTES Address: [address] [place] [id number] Gender: M : 1945 (Age: 79) Service: Gastro Location: [facility] Hospital #: [id number] Patient Type: [facility] Taken: 11/19/2024 Received: 11/19/2024 Accessioned: 11/19/2024 Reported: 11/20/2024 Physician(s):Dr. Imtiaz Reyez M.D. Diagnosis: A. Ascending colon polyp x4, biopsy: - Tubular adenoma x3; negative for high-grade dysplasia. - Hyperplastic polyp x1. B. Sigmoid colon polyp x2, biopsy: - Hyperplastic polyp. Rasheed Brewer M.D. Report Electronically Reviewed and Signed Out By Rasheed Brewer M.D. 11/20/2024 14:49:30 Specimen(s) Received: A: Ascending polyp x 4 B: Sigmoid polyp x 2 Microscopic Description: A. Sections show a tubular adenoma x3 and a hyperplastic polyp x1. There is no evidence of high-grade dysplasia or invasive carcinoma. B. Sections show a hyperplastic polyp. No features of a sessile serrated adenoma are seen. There is no evidence of dysplasia or malignancy. Clinical History: Personal history of colonic polyps. Family history of colon cancer in father. Screening colonoscopy. Gross Description: The specimen is submitted in two formalin containers labeled PEPE CERVANTES . A. The first container is labeled ascending polyp x4 . It is 4 fragments of manrique tissue between 2 and 4 mm. All in A. B. The second container is labeled sigmoid polyp x2 . It is one manrique 2 mm fragment. All in B. T.A. Shanta Ledesma., PAllyson./Liana Sy M.D. REPORT IMAGES AND SCANNED DOCUMENTS, IF INCLUDED, ONLY VIEWABLE IN PDF VERSION OF REPORT The performance characteristics of some immunohistochemical stains, fluorescence in-situ hybridization tests and immunophenotyping by flow cytometry cited in this report (if any) were determined by the Surgical Pathology Department at [facility] as part of an ongoing software quality test engineer program and in compliance with federally mandated regulations drawn from the Clinical Laboratory Improvement Act of 1988 (CLIA '88). Some of these tests rely on the use of analyte specific reagents and are subject to specific labeling requirements by the US Food and Drug Administration. Such diagnostic tests may only be performed in a facility that is certified by the Department of Health and Human Services as a high complexity laboratory under CLIA '88. The FDA has determined that such clearance or approval is not necessary. This test is used for clinical purposes. It should not be regarded as investigational or for research. Nevertheless, federal rules concerning the medical use of analyte specific reagents require that the following disclaimer be attached to the report: This test was developed and its performance characteristics determined by the Surgical Pathology Department [facility]. It has not been cleared or approved by the U. S. Food and Drug Administration. Note for decalcified specimens: This assay has not been validated on decalcified tissues. Results should be interpreted with caution given the possibility of false negativity on decalcified specimens us Imtiaz Reyez MD LAB PATHOLOGY ORDERABLES F inal Result PATHOLOGY [facility] [place] [address] [place] [address] * Colonoscopy (11/19/2024 8:31 AM DAY TRADER) Anatomical Region Laterality Modality Other Narrative Procedure Note Imtiaz Reyez MD - 11/19/2024 8:31 AM CST [facility] Patient Name: Pepe Cervantes Procedure Date: 11/19/2024 8:31 AM Date of : 1945 Admit Type: Outpatient Age: 79 Gender: Male Attending MD: Imtiaz Reyez M.D. Room: [facility] ENDOSCOPY ROOM 1 Note Status: Finalized Patient [...] under direct vision. The Pediatric Colonoscope PCF-H190L [id number] was introducedthrough the anus and advanced to [...] 8:31 AM Procedure Code(s): --- Professional --- 73457, Colonoscopy, flexible; with removal of tumor(s), polyp(s), or other lesion(s) by snare technique 43386, 59, Colonoscopy, flexible; with biopsy, single or multiple Diagnosis Code(s): --- Professional --- Z80.0, Family history of malignant neoplasm of digestive organs Z86.010, Personal history of colonic polyps K64.8, Other hemorrhoids D12.2, Benign neoplasm of ascending colon D12.5, Benign neoplasm of sigmoid colon K57.30, Diverticulosis of large intestine without perforation orabscess without bleeding CPT copyright 2020 [employer]. All rights reserved. The codes documented in this report are preliminary and upon technical operations manager reviewmay be revised to meet current compliance requirements. Recognized by the [employer] for promoting quality in endoscopy Imtiaz Reyez MD ENDOSCOPY PROCEDURES Final Result * CTA Abdominal Aorta And Bilateral Iliofemoral Runoff (11/30/2022 3:51 PM DAY TRADER) Anatomical Region Laterality Modality Body Bilateral Computed Tomogra phy 11/30/2022 4:02 PM DAY TRADER Impressions 11/30/2022 4:02 PM DAY TRADER 1. ATHEROSCLEROTIC CHANGES IN THE ABDOMINAL AORTA [...] Uziel Roger M.D. Narrative 11/30/2022 4:02 PM DAY TRADER EXAMINATION: CTA ABDOMINAL AORTA AND BILATERAL ILIOFEMORAL [...] Recently Relevant to Health Maintenance Insurance [place]IC[place] [address] MEDICARE MEDICARE [place] MED[place]ARE [place] Advance Directives For more information, please contact: [phone] * Full Code (Latest Code Status on [...] 9:33 AM 08/07/2018 1:33 PM Care Teams Boil Off Machine Operator Cloth Relationship Specialty Start Date End Date Star Singh MD PCP - General 02/05/17 Chepe Hinton MD Consulting Physician Cardiology 07/19/18 Dada Morris MD [address] [place] [id number] Anesthesiologist Pain Management 10/13/22
--- OUTSIDE RECORDS SUMMARY | 2024-12-10 13:44 | XMS_ITS | Clinical Summary ---
Author Organization [facility] Address [address] [place] [address] Phone Care Team Providers Care Program Manufacturing Leader Name Role Phone Star Singh MD Primary Care Provider [phone] Allergies Active Allergy Reactions Criticality Noted Date [...] 77 01/27/2023 7:21 AM CDT Temperature 36.8 C (98.2 F) 01/27/2023 7:21 AM CDT Respiratory Rate 18 01/27/2023 7:21 AM CDT [...] Health Behavioral Health On track(2020 11:09 AM QUARRY SUPERVISOR DIMENSION STONE) Yes Colt Locke LCSW Note: I want to be able to have less guilt and more acceptance of my situation with my , within the next six months Goal Reviewed today with: patient Readiness to change: Ready to change Department associated with goal: [facility] Steps to achieve goal: Patient counseled on caring for the caregiver. during his 30-45 min individual therapy sessions, 1-2 times per month Patient counseled on recognizing and challenging unrealistic guilt during his 30-45 min individual therapy sessions, 1-2 times per month Behavioral Health Behavioral Health On track(2020 11:09 AM QUARRY SUPERVISOR [employer]IMENSION STONE) No Colt oLcke LCSW Note: Goal: Patient will be able to report improve mood/adjustment to spouse's senior care placement and their changed relationship, to an acceptable level, within the next six months Goal Reviewed today with: patient Readiness to change: Ready to change Department associated with goal: [facility] Steps to achieve goal: Patient counseled on heathy self-care, including importance of a healthy daily routine during his 30-45 min individual therapy sessions, 1-2 times per month Patient counseled on importance of exercise and socialization during his 30-45 min individual therapy sessions, 1-2 times per month Insurance MEDICARE [facility] [employer] part maker Advance Directives * Full Code (Latest Code Status on File) Date Activated Date Inactivated Comments 10/13/2019 11:31 PM 10/16/2019 1:56 PM CPR-Full T reatment: FULL ARREST: Attempt Resuscitation/CPR wit intubation and mechanical ventilation. PRE-ARREST: Use entire range of life support measures to stabilize the patient. Care Teams Program Manufacturing Leader Relationship Specialty Start Date End Date Star Singh MD [address] [place] [address] PCP - General Internal Medicine 10/13/19
--- OUTSIDE RECORDS SUMMARY | 2024-12-10 13:44 | XMS_ITS ---
Author Organization [facility] Address [address] [place] [address] Care Team Providers Care Director Statistical Programming Name Role Phone Star Singh MD Primary Care Provider [phone] Chepe Hinton MD Unavailable [phone] Dada Morris MD Unavailable [phone] Active Problems Problem Noted Date Diagnosed Date Class 2 severe obesity due t o excess calories with serious comorbidity in adult 09/14/2024 Assessment & Plan (09/14/2024 4:15 PM INSULATION BOARD CALENDER OPERATOR): Patient no longer has a BMI 40 [...] 01/09/2024 Assessment & Plan (01/09/2024 1:03 PM INSULATION BOARD CALENDER OPERATOR): Recurrent pain in his testicles getting progressively worse. Is my 1st hearing of this. I am going to proceed in get an ultrasound of his testicle and refer to Urology Muscle spasm of left lower extremity 01/09/2024 Assessment & Plan (01/09/2024 1:02 PM INSULATION BOARD CALENDER OPERATOR): Patient is having a cramping feeling posterior [...] 12/28/2023 Assessment & Plan (12/28/2023 9:53 AM INSULATION BOARD CALENDER OPERATOR): Lesion consistent with sebaceous cyst noted to left occiputal area just above hairline. No acute signs of infection. Will likely resolve on it's own. Keep skin clean and dry, no not squeeze or pick at it. Weak 10/28/2023 Assessment & Plan (10/28/2023 7:32 PM INSULATION BOARD CALENDER OPERATOR): Patient tested COVID as well as flu results were negative mi respiratory symptoms I suggest utilizing Zyrtec. No fever no chills Tylenol p.r.n.. 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 06/29/2023 Cellulitis 06/20/2023 Assessment & Plan (10/28/2023 7:32 PM INSULATION BOARD CALENDER OPERATOR): Cellulitis resolved his right lower extremity no [...] 04/04/2023 Assessment & Plan (09/14/2024 4:17 PM INSULATION BOARD CALENDER OPERATOR): Sinusitis right lower leg is now resolved [...] a cane rarely referred him to [facility] physical therapy for further evaluation gait and balance Asthma 01/12/2023 Assessment & Plan (01/12/2023 4:39 PM INSULATION BOARD CALENDER OPERATOR): Asthma not improving occasionally he will get [...] he is had a discussion with this informix developer. On recent visit Assessment & Plan (03/12/2023 [...] Recently diagnosed with pneumonia at [facility] and is improving Assessment & Plan (01/09/2023 4:05 PM INSULATION BOARD CALENDER OPERATOR): Patient continues to have some shortness of [...] Clinic Assessment & Plan (01/09/2023 4:04 PM INSULATION BOARD CALENDER OPERATOR): Patient uses CPAP machine for many years [...] will be referred to Dr. Jean-Baptiste at [facility] for [facility] treatment for atrial fibrillation Assessment & Plan (12/01/2022 1:03 PM INSULATION BOARD CALENDER OPERATOR): Recent atrial fibrillation managed by Cardiology he is now on Xarelto TIA (transient ischemic attack) 11/16/2022 Assessment & Plan (12/01/2022 12:44 PM INSULATION BOARD CALENDER OPERATOR): No further symptoms of TIA /temporary vision change. This is thought to be secondary to recent onset of atrial fibrillation. Patient is now on Xarelto Assessment & Plan (11/16/2022 6:05 PM INSULATION BOARD CALENDER OPERATOR): Patient recently had a TIA expressed in the form of loss of vision right eye for several minutes. He did see his computer tape librarian 1st exam was benign he followed up with Cardiology who now has him on a 2 week radiation monitor. Monitor comes off on . Patient [...] request Assessment & Plan (10/14/2021 2:29 PM INSULATION BOARD CALENDER OPERATOR): 76-year-old gentleman who was given medication Viagra in the past he never tried it is now he would like to try consider using this I discussed with the side effects. Rx sent for tablets 11 refill Major depressive disorder with single episode Assessment & Plan (09/14/2024 4:12 PM INSULATION BOARD CALENDER OPERATOR): Patient's mood is excellent with medication no [...] He has been seeing a counselor at [facility] psychological services.. 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 operator current use of anticoagulant 0 Lumbar radiculopathy [...] 2019 Assessment & Plan (09/11/2024 12:54 PM INSULATION BOARD CALENDER OPERATOR): Will refer this patient to nephrology orthopedic [...] 41 Assessment & Plan (09/12/2022 5:22 PM INSULATION BOARD CALENDER OPERATOR): Non steroidal anti-inflammatory/meloxicam discontinued patient utilizing Tylenol [...] today Assessment & Plan (10/04/2020 6:15 PM INSULATION BOARD CALENDER OPERATOR): Laboratory results from is almost 6 months [...] 10/14/2019 Assessment & Plan (09/14/2024 4:11 PM INSULATION BOARD CALENDER OPERATOR): Blood pressure remains well controlled patient takes Avalide HCTZ 150/12.51 tablet daily tolerates the medications. Assessment & Plan (07/31/2023 6:42 PM CDT): Pressure well controlled patient is tolerating medications no change in therapy Assessment & Plan (12/01/2022 1:03 PM INSULATION BOARD CALENDER OPERATOR): Blood pressure well control no change in [...] by Pulmonary for his chronic lung disease. Inspector Watch Parts for coronary artery disease in his very [...] he has had his shingles vaccine at [facility]. This is not recorded in our [...] months. Assessment & Plan (10/04/2020 6:14 PM INSULATION BOARD CALENDER OPERATOR): Health risk assessment health maintenance reviewed in addressed. Patient aware of immunization recommendations. Patient continues in the care of Pain Clinic he recently had evaluation regarding is back per Neurosurgery recommendations continue physical therapy. Assessment & Plan (10/03/2019 5:06 PM INSULATION BOARD CALENDER OPERATOR): Patient is a history and physical completed [...] 06/23/2019 Assessment & Plan (10/03/2019 5:02 PM INSULATION BOARD CALENDER OPERATOR): Patient continues to have significant knee pain [...] 1st Assessment & Plan (09/12/2022 5:23 PM INSULATION BOARD CALENDER OPERATOR): Patient continues with the pain clinic and benefits from the therapy. Assessment & Plan (10/03/2019 5:02 PM INSULATION BOARD CALENDER OPERATOR): Patient's notice has knee pain gets worse [...] therapy Assessment & Plan (12/28/2023 9:53 AM INSULATION BOARD CALENDER OPERATOR): BP stable in office today on current therapy. No acute findings on exam. Continue current regimen and low salt diet. Assessment & Plan (10/28/2023 7:32 PM INSULATION BOARD CALENDER OPERATOR): Pressure is excellent continue present therapy Assessment & Plan (04/16/2023 5:31 PM CDT): Inspector Watch [employer] notes reviewed. His back on a diuretic [...] range. Assessment & Plan (01/09/2023 4:09 PM INSULATION BOARD CALENDER OPERATOR): Blood pressure reasonably control no change in therapy Assessment & Plan (09/12/2022 5:20 PM INSULATION BOARD CALENDER OPERATOR): Hypertension remains very well controlled patient is [...] therapy. Assessment & Plan (10/03/2019 5:02 PM INSULATION BOARD CALENDER OPERATOR): Blood pressure well controlled patient tolerating medications [...] Avalide. Assessment & Plan (10/06/2018 6:02 PM INSULATION BOARD CALENDER OPERATOR): Blood pressure 148/80 on this visit blood [...] next regular appointment. Coronary artery disease involving bishop paiute coronar y artery 06/28/2017 Assessment & Plan (09/06/2021 12:13 PM CDT): Inspector Watch [employer] notes reviewed Assessment & Plan (06/13/2021 11:39 AM CDT): Inspector Watch [employer] notes reviewed. Patient remains asymptomatic with respect coronary artery disease. Assessment & Plan (03/09/2021 8:42 AM CDT): Estimated GFR remains stable BMP on this visit. Assessment & Plan (10/04/2020 6:14 PM INSULATION BOARD CALENDER OPERATOR): Patient's keeping his current appointments with cardiology stable no new health problems identified with respect to cardiology. Assessment & Plan (03/30/2020 6:35 PM CDT): Patient is stable at this time he has a follow-up visit with Cardiology in the next 10-20 days. Lipid profile is requested today and BMP will be available informix developer reviewed Assessment & Plan (10/03/2019 5:04 PM INSULATION BOARD CALENDER OPERATOR): Patient free of chest pain no evidence [...] days. Assessment & Plan (10/06/2018 6:13 PM INSULATION BOARD CALENDER OPERATOR): Coronary artery disease is unchanged. Continue current treatment regimen. Dietary sodium restriction. Weight loss. Regular aerobic exercise. Continue current medications. Cardiac status will be reassessed in 6 months. Patient sees informix developer once a twice per year. Assessment & Plan (07/27/2018 6:40 PM CDT): Patient having medical imaging technologist of cardiac discomfort with chest pain shortness of breath with tightness. Will continues routine medications for his heart. Assessment & Plan (02/19/2018 10:12 AM CDT): . Patient's appointment Cardiology next week will give fasting lipid profile performed care to his informix developer patient is asymptomatic at this time. Status post stent placement. Assessment & Plan (06/29/2017 10:23 AM CDT): Coronary artery disease is improving with treatment. Continue current treatment regimen. Regular aerobic exercise. Continue current medications. Cardiac status will be reassessed in 6 months. Patient had stent placement in the last 90 days at [facility]. Doing very well. He will follow up with informix developer in next 3 months. He is on the medicine Effient. Irritable bowel syndrome 03/21/2014 Overview (02/09/2017): IBS (irritable bowel syndrome) Assessment & Plan (10/06/2018 6:04 PM INSULATION BOARD CALENDER OPERATOR): Patient has not had any recent problems with irritable bowel in the past 12 months. Hyperlipidemia 03/21/2014 Overview (02/09/2017): Hyperlipidemia Assessment & Plan (10/03/2019 5:03 PM INSULATION BOARD CALENDER OPERATOR): Current lipid profile is very good no change in therapy patient is tolerating medications. Assessment & Plan (04/01/2019 9:46 AM CDT): Lipid profile excellent results HDL however is 39 a discuss the the patient he was concerned a regarding the meaning of this. History in getting injections of the cholesterol medicine referring to the medication Repatha which was discussed with his informix developer the year ago.. His appointment Cardiology coming up in the near future. Assessment & Plan (10/06/2018 6:03 PM INSULATION BOARD CALENDER OPERATOR): Patient's lipid profile up in within therapeutic [...] activities. Assessment & Plan (10/06/2018 6:11 PM INSULATION BOARD CALENDER OPERATOR): Patient osteoarthritis seems to be doing better he does go to pain clinic for his back pain. He has been maintain on meloxicam 15 mg daily. His knee pain has improved Assessment & Plan (06/29/2017 10:24 AM CDT): Patient goes to pain clinic at [facility]. He has been treated Mobic/meloxicam several [...] treatments are documented for this patient in [facility]. Treatments may have been administered in another [...] & Plan (02/01/2023 6:45 PM CDT): Seen [facility] Emergency room few days ago because of [...] 12/01/202201/09 Assessment & Plan (12/01/2022 1:04 PM INSULATION BOARD CALENDER OPERATOR): Patient is stable doing well he feels well vitals excellent. Scheduled for excision of his 2nd on 12/05 2022. Will stop Xarelto this evening he is clear for surgery. He however cardiovascular clearance is still pending. Incisional hernia 10/02/2022 07/31/2023 [place] of toe 03/27/2022 01/09/2023 Upper respiratory tract infection 03/17/2022 07/31/2023 Assessment & Plan (01/09/2023 4:06 PM INSULATION BOARD CALENDER OPERATOR): Patient now is feeling much better in the past 18 hours he is using the albuterol inhaler with correct technique feeling much better he still having wheezing still having some shortness of breath. I have no additional changes to make. He is to follow-up pulmonary in the future at his request he has chronic components of dyspnea. Assessment & Plan (01/05/2023 9:29 AM INSULATION BOARD CALENDER OPERATOR): Acute problem, present times about 3-4 days [...] 10/14/2021 Assessment & Plan (10/14/2021 2:31 PM INSULATION BOARD CALENDER OPERATOR): Patient concerned about right leg swelling on [...] He was diagnosed with acute bronchitis in [place] and was given an antibiotic, steroid, and [...] 09/30/2019 Assessment & Plan (10/06/2018 6:12 PM INSULATION BOARD CALENDER OPERATOR): Patient appears to have recovered from his his small-bowel obstructions not had any further problems since being discharged from hospital. Acute kidney injury 10/06/20 18
--- OUTSIDE RECORDS SUMMARY | 2024-12-10 13:44 | XMS_ITS | Referral Summary ---
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 [address] [facility] [address] [place] [phone] Star Singh MD Referral Request 11/19/2024 10:11 AM EXCEL VBA DEVELOPER Anesthesia Event [address] [address] Deepak Castillo MD 11/19/2024 9:30 AM EXCEL VBA DEVELOPER - 11/19/2024 10:00 AM EXCEL VBA DEVELOPER Surgery [address] [address] Imtiaz Reyez MD COLON REMOVAL SNARE 11/19/2024 8:29 AM EXCEL VBA DEVELOPER - 11/19/2024 11:27 AM EXCEL VBA DEVELOPER Hospital Encounter [facility] [address] [place] [address] Imtiaz Reyez MD Personal history of colonic polyps; Family history of colon cancer in father; Encounter for screening colonoscopy; History of colonic polyps Discharge Disposition: Discharge to home or self care 11/13/2024 9:15 AM EXCEL VBA DEVELOPER Office Visit [facility] [address] [facility] [address] [place] [address] Dixie Parra NP Squamous cell carcinoma in situ (Primary Dx); Skin nodule; Hand arthritis 10/13/2024 Telephone [facility] [address] [place] [address] Star Singh MD 09/15/2024 Telephone [facility]) - [facility] ENT [address] [facility] 11th [place] [address] [place] [address] Orquidea Pulido PA 09/11/2024 9:30 AM EXCEL VBA DEVELOPER Office Visit [facility] [address] [place] [address] Star Singh MD Skin cancer, basal cell [...] region without neurogenic claudication 09/09/2024 9:30 AM EXCEL VBA DEVELOPER Office Visit [facility] Surgery [address] [place] [address] [address] [place] [address] Dixie Parra NP Squamous cell carcinoma in situ (Primary Dx); Skin neoplasm from Last 3 Months Allergies Active Allergy Reactions Criticality Noted Date Comments Atorvastatin Other (See comments) Low Muscles lock up Sulfamethoxazole-Trimeth oprim Stomach upset Low 04/03/2023 Pravastatin Other (See comments) Low Muscles lock up Rosuvastatin Other (See comments) Low Muscles lock up Xkaoxez-Oml-Pbj Reductase Inhibitors Other (See comments) Low Muscles lock up Sulfa (Sulfonamide Antibiotics) Other (See comments) Low 04/16/2023 Stomach pain Medications glucosamine-chondroi tn sulf.Na 750-600 mg tablet take 2 daily. 0 0 10/26/20 14 Active fiazpcrbujlt-tgln-pn lic acid (MULTI-YVONNE) 18-400 mg-mcg tablet take [...] 09/14/2024 Assessment & Plan (09/14/2024 4:15 PM EXCEL VBA DEVELOPER): Patient no longer has a BMI 40 [...] 01/09/2024 Assessment & Plan (01/09/2024 1:03 PM EXCEL VBA DEVELOPER): Recurrent pain in his testicles getting progressively worse. Is my 1st hearing of this. I am going to proceed in get an ultrasound of his testicle and refer to Urology Muscle spasm of left lower extremity 01/09/2024 Assessment & Plan (01/09/2024 1:02 PM EXCEL VBA DEVELOPER): Patient is having a cramping feeling posterior [...] 12/28/2023 Assessment & Plan (12/28/2023 9:53 AM EXCEL VBA DEVELOPER): Lesion consistent with sebaceous cyst noted to left occiputal area just above hairline. No acute signs of infection. Will likely resolve on it's own. Keep skin clean and dry, no not squeeze or pick at it. Weak 10/28/2023 Assessment & Plan (10/28/2023 7:32 PM EXCEL VBA DEVELOPER): Patient tested COVID as well as flu results were negative mi respiratory symptoms I suggest utilizing Zyrtec. No fever no chills Tylenol p.r.n.. 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 On recent visit Assessment & Plan (03/12/2023 [...] with Pulmonary. Recently diagnosed with pneumonia at [facility] Room and is improving Assessment & Plan (01/09/2023 4:05 PM EXCEL VBA DEVELOPER): Patient continues to have some shortness of [...] Clinic Assessment & Plan (01/09/2023 4:04 PM EXCEL VBA DEVELOPER): Patient uses CPAP machine for many years [...] will be referred to Dr. Jean-Baptiste at [facility] treatment for atrial fibrillation Assessment & Plan (12/01/2022 1:03 PM EXCEL VBA DEVELOPER): Recent atrial fibrillation managed by Cardiology he is now on Xarelto TIA (transient ischemic attack) 11/16/2022 Assessment & Plan (12/01/2022 12:44 PM EXCEL VBA DEVELOPER): No further symptoms of TIA /temporary vision change. This is thought to be secondary to recent onset of atrial fibrillation. Patient is now on Xarelto Assessment & Plan (11/16/2022 6:05 PM EXCEL VBA DEVELOPER): Patient recently had a TIA expressed in the form of loss of vision right eye for several minutes. 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 Monitor comes off on . Patient is [...] request Assessment & Plan (10/14/2021 2:29 PM EXCEL VBA DEVELOPER): 76-year-old gentleman who was given medication Viagra in the past he never tried it is now he would like to try consider using this I discussed with the side effects. Rx sent for tablets 11 refill Major depressive disorder with single episode Assessment & Plan (09/14/2024 4:12 PM EXCEL VBA DEVELOPER): Patient's mood is excellent with medication no [...] He has been seeing a counselor at [facility] psychological services.. 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 0 Lumbar radiculopathy [...] 2019 Assessment & Plan (09/11/2024 12:54 PM EXCEL VBA DEVELOPER): Will refer this patient to nephrology orthopedic [...] 41 Assessment & Plan (09/12/2022 5:22 PM EXCEL VBA DEVELOPER): Non steroidal anti-inflammatory/meloxicam discontinued patient utilizing Tylenol [...] today Assessment & Plan (10/04/2020 6:15 PM EXCEL VBA DEVELOPER): Laboratory results from is almost 6 months [...] 10/14/2019 Assessment & Plan (09/14/2024 4:11 PM EXCEL VBA DEVELOPER): Blood pressure remains well controlled patient takes Avalide HCTZ 150/12.51 tablet daily tolerates the medications. Assessment & Plan (07/31/2023 6:42 PM CDT): Pressure well controlled patient is tolerating medications no change in therapy Assessment & Plan (12/01/2022 1:03 PM EXCEL VBA DEVELOPER): Blood pressure well control no change in [...] by Pulmonary for his chronic lung disease. Cafeteria Aide for coronary artery disease in his very [...] he has had his shingles vaccine at [facility]. This is not recorded in our [...] months. Assessment & Plan (10/04/2020 6:14 PM EXCEL VBA DEVELOPER): Health risk assessment health maintenance reviewed in addressed. Patient aware of immunization recommendations. Patient continues in the care of Pain Clinic he recently had evaluation regarding is back per Neurosurgery recommendations continue physical therapy. Assessment & Plan (10/03/2019 5:06 PM EXCEL VBA DEVELOPER): Patient is a history and physical completed [...] 06/23/2019 Assessment & Plan (10/03/2019 5:02 PM EXCEL VBA DEVELOPER): Patient continues to have significant knee pain [...] 1st Assessment & Plan (09/12/2022 5:23 PM EXCEL VBA DEVELOPER): Patient continues with the pain clinic and benefits from the therapy. Assessment & Plan (10/03/2019 5:02 PM EXCEL VBA DEVELOPER): Patient's notice has knee pain gets worse [...] therapy Assessment & Plan (12/28/2023 9:53 AM EXCEL VBA DEVELOPER): BP stable in office today on current therapy. No acute findings on exam. Continue current regimen and low salt diet. Assessment & Plan (10/28/2023 7:32 PM EXCEL VBA DEVELOPER): Pressure is excellent continue present therapy Assessment & Plan (04/16/2023 5:31 PM CDT): Cafeteria Aide notes reviewed. His back on a diuretic [...] range. Assessment & Plan (01/09/2023 4:09 PM EXCEL VBA DEVELOPER): Blood pressure reasonably control no change in therapy Assessment & Plan (09/12/2022 5:20 PM EXCEL VBA DEVELOPER): Hypertension remains very well controlled patient is [...] therapy. Assessment & Plan (10/03/2019 5:02 PM EXCEL VBA DEVELOPER): Blood pressure well controlled patient tolerating medications [...] Avalide. Assessment & Plan (10/06/2018 6:02 PM EXCEL VBA DEVELOPER): Blood pressure 148/80 on this visit blood [...] next regular appointment. Coronary artery disease involving [place] coronar y artery 06/28/2017 Assessment & Plan (09/06/2021 12:13 PM CDT): Cafeteria Aide notes reviewed Assessment & Plan (06/13/2021 11:39 AM CDT): Cafeteria Aide notes reviewed. Patient remains asymptomatic with respect coronary artery disease. Assessment & Plan (03/09/2021 8:42 AM CDT): Estimated GFR remains stable BMP on this visit. Assessment & Plan (10/04/2020 6:14 PM EXCEL VBA DEVELOPER): Patient's keeping his current appointments with cardiology stable no new health problems identified with respect to cardiology. Assessment & Plan (03/30/2020 6:35 PM CDT): Patient is stable at this time he has a follow-up visit with Cardiology in the next 10-20 days. Lipid profile is requested today and BMP will be available assistant drafter reviewed Assessment & Plan (10/03/2019 5:04 PM EXCEL VBA DEVELOPER): Patient free of chest pain no evidence [...] days. Assessment & Plan (10/06/2018 6:13 PM EXCEL VBA DEVELOPER): Coronary artery disease is unchanged. Continue current treatment regimen. Dietary sodium restriction. Weight loss. Regular aerobic exercise. Continue current medications. Cardiac status will be reassessed in 6 months. Patient sees assistant drafter once a twice per year. 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 Will continues routine medications for his heart. Assessment & Plan (02/19/2018 10:12 AM CDT): . Patient's appointment Cardiology next week will give fasting lipid profile performed care to his assistant drafter patient is asymptomatic at this time. Status post stent placement. Assessment & Plan (06/29/2017 10:23 AM CDT): Coronary artery disease is improving with treatment. Continue current treatment regimen. Regular aerobic exercise. Continue current medications. Cardiac status will be reassessed in 6 months. Patient had stent placement in the last 90 days at [facility]. Doing very well. He will follow up with assistant drafter in next 3 months. He is on the medicine Effient. Irritable bowel syndrome 03/21/2014 Overview (02/09/2017): IBS (irritable bowel syndrome) Assessment & Plan (10/06/2018 6:04 PM EXCEL VBA DEVELOPER): Patient has not had any recent problems with irritable bowel in the past 12 months. Hyperlipidemia 03/21/2014 Overview (02/09/2017): Hyperlipidemia Assessment & Plan (10/03/2019 5:03 PM EXCEL VBA DEVELOPER): Current lipid profile is very good no change in therapy patient is tolerating medications. Assessment & Plan (04/01/2019 9:46 AM CDT): Lipid profile excellent results HDL however is 39 a discuss the the patient he was concerned a regarding the meaning of this. History in getting injections of the cholesterol medicine referring to the medication Repatha which was discussed with his assistant drafter the year ago.. His appointment Cardiology coming up in the near future. Assessment & Plan (10/06/2018 6:03 PM EXCEL VBA DEVELOPER): Patient's lipid profile up in within therapeutic [...] activities. Assessment & Plan (10/06/2018 6:11 PM EXCEL VBA DEVELOPER): Patient osteoarthritis seems to be doing better he does go to pain clinic for his back pain. He has been maintain on meloxicam 15 mg daily. His knee pain has improved Assessment & Plan (06/29/2017 10:24 AM CDT): Patient goes to pain clinic at [facility]. He has been treated Mobic/meloxicam several [...] & Plan (02/01/2023 6:45 PM CDT): Seen [facility] few days ago because of [...] 12/01/202201/09 Assessment & Plan (12/01/2022 1:04 PM EXCEL VBA DEVELOPER): Patient is stable doing well he feels well vitals excellent. Scheduled for excision of his 2nd on 12/05 2022. Will stop Xarelto this evening he is clear for surgery. He however cardiovascular clearance is still pending. Incisional hernia 10/02/2022 07/31/2023 [place] of toe 03/27/2022 01/09/2023 Upper respiratory tract infection 03/17/2022 07/31/2023 Assessment & Plan (01/09/2023 4:06 PM EXCEL VBA DEVELOPER): Patient now is feeling much better in the past 18 hours he is using the albuterol inhaler with correct technique feeling much better he still having wheezing still having some shortness of breath. I have no additional changes to make. He is to follow-up pulmonary in the future at his request he has chronic components of dyspnea. Assessment & Plan (01/05/2023 9:29 AM EXCEL VBA DEVELOPER): Acute problem, present times about 3-4 days [...] 10/14/2021 Assessment & Plan (10/14/2021 2:31 PM EXCEL VBA DEVELOPER): Patient concerned about right leg swelling on [...] He was diagnosed with acute bronchitis in [place] and was given an antibiotic, steroid, and [...] 09/30/2019 Assessment & Plan (10/06/2018 6:12 PM EXCEL VBA DEVELOPER): Patient appears to have recovered from his his small-bowel obstructions not had any further problems since being discharged from hospital. Acute kidney injury 10/06/20 18 Immunizations Name Administration Dates Next Due COVID-19 mRNA (Purkinje) 0.3 m L (30 mcg) vaccine (12 [...] on file Legal Sex Male 11:56 PM EXCEL VBA DEVELOPER Gender Identity Not on file Sexual Orientation Not on file Last Filed Vital Signs Vital Sign Reading Time Taken Comments Blood Pressure 129/78 11/19/2024 11:13 AM EXCEL VBA DEVELOPER Pulse 71 11/19/2024 11:13 AM EXCEL VBA DEVELOPER Temperature 36.8 C (98.2 F) 11/19/2024 11:13 AM EXCEL VBA DEVELOPER Respiratory Rate 16 11/19/2024 11:13 AM EXCEL VBA DEVELOPER Oxygen Saturation 98% 11/19/2024 11:13 AM EXCEL VBA DEVELOPER Inhaled Oxygen Concentration - - Weight 102.1 kg (225 lb) 11/19/2024 9:03 AM EXCEL VBA DEVELOPER Height 177.8 cm (5' 10 ) 11/19/2024 9:03 AM EXCEL VBA DEVELOPER Body Mass Index 32.28 11/19/2024 9:03 AM EXCEL VBA DEVELOPER Plan of Treatment Upcoming Encounters Date Type Department Care Team (Latest Contact Info) Description 02/03/2025 7:30 AM CDT Hospital Encounter [facility] Operating Room [address] [place] [address] [place] [address] [address] 02/03/2025 7:30 AM CDT Anesthesia Event [facility] Operating Room [address] [place] [address] [place] [address] [facility] [address] [place] [address] 02/03/2025 7:30 AM CDT - 02/03/2025 10:30 AM CDT Surgery [facility] Operating Room [address] [place] [address] [place] [address] [facility] [address] [place] [address] INSPIRE HYPOGLOSSAL NERVE STIMULATOR IMPLANT - INSERTION/150min Scheduled Procedures Name Priority Associated Diagnoses Date/Ti nh INSPIRE HYPOGLOSSAL NERVE STIMULATOR IMPLANT - INSERTION CHLOE (obstructive sleep apnea) 02/03/2025 7:30 AM CDT Goals Goal Patient Goal Type Associated Problems Recent Progress Patient-Stated? Author -Pain Behavioral Health Reyna Colón RN Note: Patient will establish a comfort-function goal and identify the pain level that will allow the patient to perform desired activities and achieve an acceptable quality of life. Medical Devices Implanted Type Area Bleacher Pulp Device Identifier Shelf Expiration Date Model / Serial / Lot FITiST Angio-Seal Vip 6fr Closere Device [id number] - [id number] Implanted:Qty: 1 on 12/04/2022 by Farooq Astudillo MD at [facility] [employer] Alessandro 09/04/2023 [id number] / / [id number] Med[employer]onic Inc Vectris 5mm 60cm 1x8 Electrode Mri Lead Neurostimulator [id number] - [id number] Implanted:Qty: 1 on 10/16/2023 by William Jay MD at [facility] Left: Back Med[employer] Inc 09/04/2027 [id number] / / [id number] Med[employer]onic Inc Vectris 5mm 60cm 1x8 Electrode Mri Lead Neurostimulator [id number] - [id number] Implanted:Qty: 1 on 10/16/2023 by William Jay MD at [facility] Left: Back Med[employer]onic Inc 09/04/2027 [id number] / / [id number] [employer]onic Inc Envelope Absrb 2.7x2.5in Antibacterial Tyrx Medium Strl [id number] - [id number] Implanted:Qty: 1 on 10/16/2023 by William Jay MD at [facility] Left: Back [employer] Inc 07/07/2024 [id number] / / [id number] Medtronic Inc Neurostimulator Implantable Chronic Pain Rs2 [id number] - [id number] - [id number] Implanted:Qty: 1 on 10/16/2023 by William Jay MD at [facility] Left: Back Med[employer]onic Inc 08/02/2024 [id number] / [id number] / [employer] Zilver Ptx 8mm 60mm 125cm Otw Drug Elute Delivery System [id number] - [id number] Implanted:Qty: 1 on 06/25/2024 at [facility] [employer] [id number] 10/16/2025 [id number] / / [id number] [employer] Device 6fr Closure Celt Acd Vascular Sterile Latex Free Disposable Carrie Kclt-06 - [id number] Implanted:Qty: 1 on 06/25/2024 at [facility] [employer] 01/15/2027 [facility] / / [id number] Procedures Procedure Name Priority Date/Time Associated Diagnosis Comments EGFR Routine 12/04/2024 9:42 AM EXCEL VBA DEVELOPER DIFFERENTIAL AUTO Routine 12/04/2024 9:4 2 AM EXCEL VBA DEVELOPER CBC WITH AUTO DIFFERENTIAL Routine 12/04/2024 9:42 AM EXCEL VBA DEVELOPER BASIC METABOLIC PANEL Routine 12/04/2024 9:42 AM EXCEL VBA DEVELOPER SURGICAL PATHOLOGY STAT 11/19/2024 1: 43 PM EXCEL VBA DEVELOPER History of colonic polyps Family history of colon cancer in father Encounter for screening colonoscopy ENDO ADD ON COLON BIOPSY 11/19/2024 9:57 AM EXCEL VBA DEVELOPER Personal history of colonic polyps Family history of colon cancer in father Encounter for screening colonoscopy COLON REMOVAL SNARE 11/19/2024 9 :57 AM EXCEL VBA DEVELOPER Personal history of colonic polyps Family history of colon cancer in father Encounter for screening colonoscopy COLONOSCOPY 11/19/2024 8:31 AM EXCEL VBA DEVELOPER CTA ABDOMINAL AORTA AND BILATERAL ILIOFEMORAL RUNOFF Schedule Routine, Read Routine (OP Routine) 11/30/2022 3:51 PM EXCEL VBA DEVELOPER PAD (peripheral artery disease) (CMS/HCC) (HCC) from Last 3 Months or Most Recently Relevant to Health Maintenance Results * (ABNORMAL) eGFR (12/04/2024 9:42 AM EXCEL VBA DEVELOPER) eGFR 52(L) >=60 mL/min/1. 73 m2 Comment: [...] last reviewed 2021. Blood 12/04/2024 9:42 AM EXCEL VBA DEVELOPER 12/04/2024 10:04 AM EXCEL VBA DEVELOPER us Bruce Jean-Baptiste MD LAB BLOOD ORDERABLES Fi nal Result [facility] Department [place] [address] * Differential, auto (12/04/2024 9:42 AM EXCEL VBA DEVELOPER) Neutrophil abs 4.6 1.5 - 6.5 K/cumm [...] revised on 2018. Blood 12/04/2024 9:42 AM EXCEL VBA DEVELOPER 12/04/2024 10:04 AM EXCEL VBA DEVELOPER Bruce Jean-Baptiste MD LAB BLOOD ORDERABLES Fi nal Result [facility] ([facility]) 1 [facility] Department [place] [address] * (ABNORMAL) CBC with auto differential (12/04/2024 9:42 AM EXCEL VBA DEVELOPER) WBC 6.6 3.8 - 9.9 K/cumm Hgb [...] [facility] ([place]) Blood 12/04/2024 9:42 AM EXCEL VBA DEVELOPER 12/04/2024 10:04 AM EXCEL VBA DEVELOPER Bruce Jean-Baptiste MD LAB BLOOD ORDERABLES Fi nal Result [facility] ([place]) 1 [facility] Department [place] [address] * (ABNORMAL) Basic metabolic panel (12/04/2024 9:42 AM EXCEL VBA DEVELOPER) Sodium 141 135 - 145 mmol/L Potassium, pl 4.1 3.3 - 4.9 mmol/L [facility] ([place]) Chloride 104 97 - 110 mmol/L [facility] ([place]) CO2 28 22 - 32 mmol/L [facility] ([place]) Anion gap 9 2 - 15 mmol/L [facility] ([place]) BUN 29(H) 6 - 25 mg/dL [facility] ([place]) Creatinine 1.38(H) 0.80 - 1.30 mg/dL [facility] ([place]) Glucose 98 70 - 199 mg/dL [facility] ([place]) Comment: Interpretive Data Fasting glucose >/= [...] classification and Diagnosis of Diabetes Diabetes Care 2021; 46: S19-S40. Current interpretive data was last revised 2022. Calcium 10.3 8.5 - 10.3 mg/dL [facility] ([facility]) Blood 12/04/2024 9:42 AM EXCEL VBA DEVELOPER 12/04/2024 10:04 AM EXCEL VBA DEVELOPER Bruce Jean-Baptiste MD LAB BLOOD ORDERABLES Fi nal Result [facility]) [address] [place] [address] Department [place] [address] * Surgical pathology (11/19/2024 1:43 PM EXCEL VBA DEVELOPER) Tissue (Polyp(s), colon/colorectal, esophageal, gastric) 11/19/2024 10:36 AM EXCEL VBA DEVELOPER Tissue (Polyp(s), colon/colorectal, esophageal, gastric) 11/19/2024 10:36 AM EXCEL VBA DEVELOPER Narrative PATHOLOGY [facility] ([facility]) - 11/20/2024 2:49 PM EXCEL VBA DEVELOPER EPIC results best viewed via link to PDF [facility] Department of Pathology [address] [place] [id number] Note to Patients: This report may contain [...] Final Report Patient Name: PEPE CERVANTES [address]: [address] [place] [address] [place] [id number] Gender: M : 1945 (Age: 79) Service: Gastro Location: [facility] Hospital #: [id number] Patient Type: [facility] Taken: 11/19/2024 Received: 11/19/2024 Accessioned: 11/19/2024 Reported: [...] All in B. T.A. Shanta Ledesma., P.A./Liana Sy, M.D. REPORT IMAGES AND SCANNED DOCUMENTS, IF INCLUDED, ONLY VIEWABLE IN PDF VERSION OF REPORT The performance characteristics of some immunohistochemical stains, fluorescence in-situ hybridization tests and immunophenotyping by flow cytometry cited in this report (if any) were determined by the Surgical Pathology Department at [facility] as part of an ongoing air quality instrument specialist program and in compliance with federally mandated [...] characteristics determined by the Surgical Pathology Department [facility]. It has not been cleared or approved by the U. S. Food and Drug Administration. Note for decalcified specimens: This assay has not been validated on decalcified tissues. Results should be interpreted with caution given the possibility of false negativity on decalcified specimens Imtiaz Reyez MD LAB PATHOLOGY ORDERABLES F inal Result PATHOLOGY [address] [address] * Colonoscopy (11/19/2024 8:31 AM EXCEL VBA DEVELOPER) Anatomical Region Laterality Modality Other Narrative Procedure Note Imtiaz Reyez MD - 11/19/2024 8:31 AM CST [facility] Patient Name: Pepe Cervantes Procedure Date: 11/19/2024 8:31 AM Date of : 1945 Admit Type: Outpatient Age: 79 Gender: Male Attending MD: Imtiaz Reyez M.D. Room: [facility] ENDOSCOPY ROOM 1 Note Status: Finalized Patient [...] under direct vision. The Pediatric Colonoscope PCF-H190L [id number] was introducedthrough the anus and advanced to [...] 8:31 AM Procedure Code(s): --- Professional --- 67918, Colonoscopy, flexible; with removal of tumor(s), polyp(s), or other lesion(s) by snare technique 57550, 59, Colonoscopy, flexible; with biopsy, single or multiple Diagnosis Code(s): --- Professional --- Z80.0, Family history of malignant neoplasm of digestive organs Z86.010, Personal history of colonic polyps K64.8, Other hemorrhoids D12.2, Benign neoplasm of ascending colon D12.5, Benign neoplasm of sigmoid colon K57.30, Diverticulosis of large intestine without perforation orabscess without bleeding CPT copyright 2020 [employer]. All rights reserved. The codes documented in this report are preliminary and upon extractor loader and unloader reviewmay be revised to meet current compliance requirements. Recognized by the [employer] for promoting quality in endoscopy Imtiaz Reyez MD ENDOSCOPY PROCEDURES Final Result * CTA Abdominal Aorta And Bilateral Iliofemoral Runoff (11/30/2022 3:51 PM EXCEL VBA DEVELOPER) Anatomical Region Laterality Modality Body Bilateral Computed Tomogra phy 11/30/2022 4:02 PM EXCEL VBA DEVELOPER Impressions 11/30/2022 4:02 PM EXCEL VBA DEVELOPER 1. ATHEROSCLEROTIC CHANGES IN THE ABDOMINAL AORTA [...] Uziel Roger M.D. Narrative 11/30/2022 4:02 PM EXCEL VBA DEVELOPER EXAMINATION: CTA ABDOMINAL AORTA AND BILATERAL ILIOFEMORAL [...] Recently Relevant to Health Maintenance Insurance MEDICARE [facility] Address: [address] [address] [place] [address] [employer] MEDICARE MEDICARE [employer] MED[employer]ARE [employer] Advance Directives For more information, please contact: [phone] * Full Code (Latest Code Status on [...] 9:33 AM 08/07/2018 1:33 PM Care Teams Straw Hat Brim Cutter Operator Relationship Specialty Start Date End Date Star Singh MD PCP - General 02/05/17 Chepe Hinton MD Consulting Physician Cardiology 07/19/18 Dada Morris MD [address] [place] [address] [place] [address] Anesthesiologist Pain Management 10/13/22
--- OUTSIDE RECORDS SUMMARY | 2024-12-10 13:44 | XMS_ITS | Encounter Summary ---
Author Organization [facility] Address [address] 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 during his 30-45 min individual therapy sessions, 1-2 times per month Patient counseled on recognizing and challenging unrealistic guilt during his 30-45 min individual therapy sessions, 1-2 times per month Behavioral Health Behavioral Health On track(2020 11:09 AM PROGRESSIVE DIE MAKER) No Colt Locke LCSW Note: Goal: Patient will be able to report improve mood/adjustment to spouse's care home placement and their changed relationship, to an acceptable level, within the next six months Goal Reviewed today with: patient Readiness to change: Ready to change Department associated with goal: [facility] Steps to achieve goal: [...] 1.06 <=4.00 ng/mL 06/16/2021 6:01 PM CDT [facility] Blood Venipuncture / Unknown 06/16/2021 4:00 PM CDT 06/16/2021 5:31 PM CDT Narrative [facility] - 06/16/2021 6:01 PM CDT PSA NOTE: The PSA value should be used in conjunction with information available from clinical evaluation and other diagnostic procedures. us Uziel Cifuentes MD CHEMISTRY ORDERABLES Fi nal Result [facility] [address] [facility] [place] [address] documented in this encounter Visit Diagnoses Diagnosis [...] documented as of this encounter Care Teams Intellectual Property Counsel Relationship Specialty Start Date End Date Star Singh MD [address] [place] [address] PCP - General Internal Medicine 10/13/19 documented as of this encounter
--- OUTSIDE RECORDS SUMMARY | 2024-12-10 13:44 | XMS_ITS | Clinical Summary ---
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
== END 2024-12-10 12:48 | disposition home or self-care (01) ==
LOC: ANHBWCAUD 12:47
PROVIDERS: PCP Internal Medicine; Visit Provider Internal Medicine
DX: H90.3 Sensorineural hearing loss, bilateral (principal); H74.8X1 Other specified disorders of right middle ear and mastoid; Z01.10 Encounter for examination of ears and hearing without abnormal findings
CPT/HCPCS: 92557; 92567

== ENCOUNTER 2024-12-31 12:00 | Outpatient (RCR) | payer SELFPAY | END 2025-03-16 23:59 | disposition home or self-care (01) | LOC: ANHBWCAUD 12:00 | PROVIDERS: PCP Internal Medicine; Visit Provider Internal Medicine | DX: Z46.1 Encounter for fitting and adjustment of hearing aid (principal) | CPT/HCPCS: 99199; V5014 ==

== ENCOUNTER 2025-05-13 13:51 | Outpatient (CLI) | payer MEDICARE, SELFPAY ==
--- OUTSIDE RECORDS SUMMARY | 2025-05-13 14:10 | XMS_ITS | Clinical Summary ---
Author Organization [facility] Address [address] [place] [address] Care Team Providers Care Bpm Developer Name Role Phone Star Singh MD Primary Care Provider [phone] Chepe Hinton MD Unavailable [phone] Dada Morris MD Unavailable [phone] Allergies Active Allergy Reactions Criticality Noted Date Comments Atorvastatin Other (See comments) Low Muscles lock up Sulfamethoxazole-Trimeth oprim Stomach upset Low 04/03/2023 Pravastatin Other (See comments) Low Muscles lock up Rosuvastatin Other (See comments) Low Muscles lock up Bugxvre-Umu-Vgw Reductase Inhibitors Other (See comments) Low Muscles lock up Sulfa (Sulfonamide Antibiotics) Other (See comments) Low 04/16/2023 Stomach pain Medications glucosamine-chondroi tn sulf.Na 750-600 mg tablet take 2 daily. 0 0 10/26/20 14 Active jukehrrshtuw-jjcx-wq lic acid (MULTI-YVONNE) 18-400 mg-mcg tablet take [...] DX J45.909 360 mL 01/27/20 23 Active polyethylene glycol (MIRALAX) 17 gram/dose bulk powder Take 17 g by mouth daily Active albuterol-budesonide 90-80 mcg/actuation HFA aerosol inhaler Inhale 1 Inhalation as needed (as needed) 10 g 04/03/20 24 Active apixaban (Eliquis) 5 mg tablet TAKE 1 TABLET BY MOUTH TWICE A DAY 60 tablet 11 04/07/20 24 Active fenofibrate nanocrystallized (TRICOR) 145 mg tablet TAKE 1 TABLET BY MOUTH EVERY DAY 90 tablet 3 06/04/20 24 Active irbesartan-hydrochlo rothiazide (AVALIDE) 150-12.5 mg per tablet TAKE 1 TABLET BY MOUTH EVERY DAY 90 tablet 3 07/10/20 24 Active dicyclomine (BENTYL) 20 mg tabletIndications:Ir ritable bowel syndrome with diarrhea TAKE 1 TABLET BY MOUTH EVERY DAY 90 tablet 1 10/27/20 24 Active Additional Information Patient taking differently:20 mg oralDaily PRN, Reported on 05/05/2025 oxyCODONE (ROXICODONE) 5 mg immediate release tabletIndications:Pa in Take 1 tablet (5 mg total) by mouth every 4 (four) hours as needed (Intolerable pain that is unresponsive to other medications) 12 tablet 02/04/20 25 Active Additional Information Patient not taking.Reported on 05/05/2025 docusate sodium (COLACE) 100 mg capsuleIndications:c onstipation Take 1 capsule (100 mg total) by mouth 2 (two) times a day as needed (use while taking narcotic medication to avoid opioid-induced constipation) 28 capsule 02/04/20 25 Active Additional Information Patient not taking.Reported on 05/05/2025 acetaminophen (TYLENOL) 500 mg tablet Take 2 tablets (1,000 mg total) by mouth every 6 (six) hours as needed for pain or headaches 240 tablet 02/04/20 25 Active ezetimibe (ZETIA) 10 mg tablet TAKE 1 TABLET BY MOUTH EVERY DAY 90 tablet 3 03/16/20 25 Active cyclobenzaprine (FLEXERIL) 10 mg tablet Take 1 tablet (10 mg total) by mouth daily as needed for muscle spasms 30 tablet 2 03/16/20 25 Active traMADoL (ULTRAM) 50 mg tabletIndications:Ch ronic left-sided low back pain without sciatica Take 1 tablet (50 mg total) by mouth every 6 (six) hours as needed for pain 20 tablet 03/16/20 25 Active Additional Information Patient not taking.Reported on 05/05/2025 clopidogreL (PLAVIX) 75 mg tablet 03/16/20 25 Active buPROPion XL (WELLBUTRIN XL) 300 mg 24 hr tabletIndications:Cu rrent mild episode of major depressive disorder without prior episode TAKE 1 TABLET (300 MG TOTAL) BY MOUTH EVERY MORNING. 90 tablet 1 03/25/20 25 Active Active Problems Problem Noted Date Diagnosed Date Hyperplastic polyp of descending colon Assessment & Plan (12/29/2024 2:28 PM PROFESSOR OF VEGETABLE SCIENCE): Colonoscopy November 19 tubular adenoma benign Class 2 severe obesity due t o excess calories with serious comorbidity in adult 09/14/2024 Assessment & Plan (09/14/2024 4:15 PM PROFESSOR OF VEGETABLE SCIENCE): Patient no longer has a BMI 40 or greater effect his BMI is 33.6 he has lost 44 lb in the last 6 years on purpose not at goal comorbidities hypertension heart failure diabetes osteoarthritis Skin cancer, basal cell 09/11/2024 Family history of colon cancer in father 024 Encounter for screening colonoscopy 07/28/2024 Osteoarthritis of right knee 03/06/2024 Assessment & Plan (12/29/2024 2:37 PM PROFESSOR OF VEGETABLE SCIENCE): Patient is aware of the that he qualifies for total knee he plans to get this done probably in the next 6 months. Patient walks with a cane because of knee pain. Myalgia, other site 01/30/2024 Pain in both testicles 01/09/2024 Assessment & Plan (01/09/2024 1:03 PM PROFESSOR OF VEGETABLE SCIENCE): Recurrent pain in his testicles getting progressively worse. Is my 1st hearing of this. I am going to proceed in get an ultrasound of his testicle and refer to Urology Muscle spasm of left lower extremity 01/09/2024 Assessment & Plan (01/09/2024 1:02 PM PROFESSOR OF VEGETABLE SCIENCE): Patient is having a cramping feeling posterior [...] 12/28/2023 Assessment & Plan (12/28/2023 9:53 AM PROFESSOR OF VEGETABLE SCIENCE): Lesion consistent with sebaceous cyst noted to left occiputal area just above hairline. No acute signs of infection. Will likely resolve on it's own. Keep skin clean and dry, no not squeeze or pick at it. Weak 10/28/2023 Assessment & Plan (10/28/2023 7:32 PM PROFESSOR OF VEGETABLE SCIENCE): Patient tested COVID as well as flu results were negative mi respiratory symptoms I suggest utilizing Zyrtec. No fever no chills Tylenol p.r.n.. 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 See plan above. Personal history of colonic polyps 06/11/2023 Family history of colon cancer 06/11/2023 Lumbosacral radiculopathy 05/16/2023 Cellulitis of right lower extremity 04/04/2023 Assessment & Plan (09/14/2024 4:17 PM PROFESSOR OF VEGETABLE SCIENCE): Sinusitis right lower leg is now resolved [...] uses a cane rarely referred him to [facility] physical therapy for further evaluation gait and balance Asthma 01/12/2023 Assessment & Plan (01/12/2023 4:39 PM PROFESSOR OF VEGETABLE SCIENCE): Asthma not improving occasionally he will get [...] he is had a discussion with this tube test technician. On recent visit Assessment & Plan (03/12/2023 [...] with Pulmonary. Recently diagnosed with pneumonia at [facility] and is improving Assessment & Plan (01/09/2023 4:05 PM PROFESSOR OF VEGETABLE SCIENCE): Patient continues to have some shortness of breath despite aggressive cardiac therapy Silvia consult with Pulmonary which is very reasonable he has atrial fibrillation hypertension sleep apnea he is a very large man which all may be contributing factors to his progressive dyspnea CHLOE (obstructive sleep apnea) 01/09/2023 Assessment & Plan (12/29/2024 2:29 PM PROFESSOR OF VEGETABLE SCIENCE): Patient is scheduled for hypoglossal inspire nerve stimulator implantation on 02/03/2025 Assessment & Plan (03/10/2024 9:36 AM CDT): Patient continues use CPAP and benefits followed by the sleep Clinic Assessment & Plan (01/09/2023 4:04 PM PROFESSOR OF VEGETABLE SCIENCE): Patient uses CPAP machine for many years with benefits once he retired no longer worked he start using his CPAP machine. Having shortness of breath some fatigue he would like resume treatment for sleep apnea. Patient is 77 years old he is referred to sleep Clinic for further evaluation including asleep study. Paroxysmal atrial fibrillation 11/27/2022 Assessment & Plan (12/29/2024 2:35 PM PROFESSOR OF VEGETABLE SCIENCE): Cardiac ablation completed December 18, 2024 Dr. Jean[facility]Baptiste [facility]. No complication with the procedure patient is feeling well. Assessment & Plan (07/31/2023 6:42 PM CDT): Has been in his last visit with Cardiology he will be referred to Dr. Jean-Baptiste at [facility] for [facility] treatment for atrial fibrillation Assessment & Plan (12/01/2022 1:03 PM PROFESSOR OF VEGETABLE SCIENCE): Recent atrial fibrillation managed by Cardiology he is now on Xarelto TIA (transient ischemic attack) 11/16/2022 Assessment & Plan (12/01/2022 12:44 PM PROFESSOR OF VEGETABLE SCIENCE): No further symptoms of TIA /temporary vision change. This is thought to be secondary to recent onset of atrial fibrillation. Patient is now on Xarelto Assessment & Plan (11/16/2022 6:05 PM PROFESSOR OF VEGETABLE SCIENCE): Patient recently had a TIA expressed in the form of loss of vision right eye for several minutes. He did see his collections assistant 1st exam was benign he followed up with Cardiology who now has him on a 2 week surveillance monitor. Monitor comes off on . Patient [...] request Assessment & Plan (10/14/2021 2:29 PM PROFESSOR OF VEGETABLE SCIENCE): 76-year-old gentleman who was given medication Viagra in the past he never tried it is now he would like to try consider using this I discussed with the side effects. Rx sent for tablets 11 refill Major depressive disorder with single episode Assessment & Plan (12/29/2024 2:36 PM PROFESSOR OF VEGETABLE SCIENCE): Mood is excellent continue present therapy Wellbutrin 300 mg daily Assessment & Plan (09/14/2024 4:12 PM PROFESSOR OF VEGETABLE SCIENCE): Patient's mood is excellent with medication no [...] He has been seeing a counselor at [facility] psychological [facility].. He has 3 relatives/daughters who [...] 10/12/20 20 Degenerative lumbar spinal stenosis 10/12/2020 detention current use of anticoagulant 0 Lumbar radiculopathy [...] stage 3 (moderate) 2019 Assessment & Plan (12/29/2024 2:24 PM PROFESSOR OF VEGETABLE SCIENCE): Patient did see Nephrology at [facility]. Was advised that his renal results was consistent with his age and dx of 20+ years of hypertension. Patient EGFR was 52 on December 04, 2024 on September EGFR 33 no action indicated. Continue to control blood pressure Assessment & Plan (09/11/2024 12:54 PM PROFESSOR OF VEGETABLE SCIENCE): Will refer this patient to nephrology orthopedic [...] 41 Assessment & Plan (09/12/2022 5:22 PM PROFESSOR OF VEGETABLE SCIENCE): Non steroidal anti-inflammatory/meloxicam discontinued patient utilizing Tylenol [...] today Assessment & Plan (10/04/2020 6:15 PM PROFESSOR OF VEGETABLE SCIENCE): Laboratory results from is almost 6 months [...] 3-7 days. Hypertension 10/14/2019 Assessment & Plan (05/05/2025 3:54 PM CDT): Chronic stable problem patient goal 132/86 no change in therapy patient is tolerating medications Avalide 150/125 once daily Assessment & Plan (09/14/2024 4:11 PM PROFESSOR OF VEGETABLE SCIENCE): Blood pressure remains well controlled patient takes Avalide HCTZ 150/12.51 tablet daily tolerates the medications. Assessment & Plan (07/31/2023 6:42 PM CDT): Pressure well controlled patient is tolerating medications no change in therapy Assessment & Plan (12/01/2022 1:03 PM PROFESSOR OF VEGETABLE SCIENCE): Blood pressure well control no change in therapy Medicare annual wellness visit, subsequent 10/03 Assessment & Plan (05/05/2025 3:53 PM CDT): History and physical completed patient's health risk assessment health maintenance reviewed and addressed. Since his last annual exam he has had the inspire see him because of sleep apnea and this is working well for him. Patient is scheduled to get a right total knee done in the next 30 days. He has had a defibrillator several years in his working well without any consequences. Assessment & Plan (03/10/2024 6:16 PM CDT): [...] by Pulmonary for his chronic lung disease. Travel Journalist for coronary artery disease in his very [...] he has had his shingles vaccine at [facility]. This is not recorded in our [...] months. Assessment & Plan (10/04/2020 6:14 PM PROFESSOR OF VEGETABLE SCIENCE): Health risk assessment health maintenance reviewed in addressed. Patient aware of immunization recommendations. Patient continues in the care of Pain Clinic he recently had evaluation regarding is back per Neurosurgery recommendations continue physical therapy. Assessment & Plan (10/03/2019 5:06 PM PROFESSOR OF VEGETABLE SCIENCE): Patient is a history and physical completed [...] 06/23/2019 Assessment & Plan (10/03/2019 5:02 PM PROFESSOR OF VEGETABLE SCIENCE): Patient continues to have significant knee pain [...] 1st Assessment & Plan (09/12/2022 5:23 PM PROFESSOR OF VEGETABLE SCIENCE): Patient continues with the pain clinic and benefits from the therapy. Assessment & Plan (10/03/2019 5:02 PM PROFESSOR OF VEGETABLE SCIENCE): Patient's notice has knee pain gets worse [...] Essential hypertension, benign 08/21/2017 Assessment & Plan (12/29/2024 2:25 PM PROFESSOR OF VEGETABLE SCIENCE): Blood pressure goal 130/84 patient is tolerating medications no symptoms referable to his hypertension continue Avalide 150/12.5 daily Assessment & Plan (01/30/2024 6:00 PM CDT): Blood pressure is acceptable patient is doing well no change in therapy Assessment & Plan (12/28/2023 9:53 AM PROFESSOR OF VEGETABLE SCIENCE): BP stable in office today on current therapy. No acute findings on exam. Continue current regimen and low salt diet. Assessment & Plan (10/28/2023 7:32 PM PROFESSOR OF VEGETABLE SCIENCE): Pressure is excellent continue present therapy Assessment & Plan (04/16/2023 5:31 PM CDT): Travel Journalist notes reviewed. His back on a diuretic [...] range. Assessment & Plan (01/09/2023 4:09 PM PROFESSOR OF VEGETABLE SCIENCE): Blood pressure reasonably control no change in therapy Assessment & Plan (09/12/2022 5:20 PM PROFESSOR OF VEGETABLE SCIENCE): Hypertension remains very well controlled patient is [...] therapy. Assessment & Plan (10/03/2019 5:02 PM PROFESSOR OF VEGETABLE SCIENCE): Blood pressure well controlled patient tolerating medications [...] Avalide. Assessment & Plan (10/06/2018 6:02 PM PROFESSOR OF VEGETABLE SCIENCE): Blood pressure 148/80 on this visit blood [...] next regular appointment. Coronary artery disease involving little traverse coronar y artery 06/28/2017 Assessment & Plan (09/06/2021 12:13 PM CDT): Travel Journalist notes reviewed Assessment & Plan (06/13/2021 11:39 AM CDT): Travel Journalist notes reviewed. Patient remains asymptomatic with respect coronary artery disease. Assessment & Plan (03/09/2021 8:42 AM CDT): Estimated GFR remains stable BMP on this visit. Assessment & Plan (10/04/2020 6:14 PM PROFESSOR OF VEGETABLE SCIENCE): Patient's keeping his current appointments with cardiology stable no new health problems identified with respect to cardiology. Assessment & Plan (03/30/2020 6:35 PM CDT): Patient is stable at this time he has a follow-up visit with Cardiology in the next 10-20 days. Lipid profile is requested today and BMP will be available tube test technician reviewed Assessment & Plan (10/03/2019 5:04 PM PROFESSOR OF VEGETABLE SCIENCE): Patient free of chest pain no evidence [...] days. Assessment & Plan (10/06/2018 6:13 PM PROFESSOR OF VEGETABLE SCIENCE): Coronary artery disease is unchanged. Continue current treatment regimen. Dietary sodium restriction. Weight loss. Regular aerobic exercise. Continue current medications. Cardiac status will be reassessed in 6 months. Patient sees tube test technician once a twice per year. Assessment & Plan (07/27/2018 6:40 PM CDT): Patient having diagnostic assistant of cardiac discomfort with chest pain shortness of breath with tightness. Will continues routine medications for his heart. Assessment & Plan (02/19/2018 10:12 AM CDT): . Patient's appointment Cardiology next week will give fasting lipid profile performed care to his tube test technician patient is asymptomatic at this time. Status post stent placement. Assessment & Plan (06/29/2017 10:23 AM CDT): Coronary artery disease is improving with treatment. Continue current treatment regimen. Regular aerobic exercise. Continue current medications. Cardiac status will be reassessed in 6 months. Patient had stent placement in the last 90 days at [facility]. Doing very well. He will follow up with tube test technician in next 3 months. He is on the medicine Effient. Irritable bowel syndrome 03/21/2014 Overview (02/09/2017): IBS (irritable bowel syndrome) Assessment & Plan (10/06/2018 6:04 PM PROFESSOR OF VEGETABLE SCIENCE): Patient has not had any recent problems with irritable bowel in the past 12 months. Hyperlipidemia 03/21/2014 Overview (02/09/2017): Hyperlipidemia Assessment & Plan (05/05/2025 4:05 PM CDT): LDL 93 total cholesterol 174 continue Zetia 10 mg. Assessment & Plan (10/03/2019 5:03 PM PROFESSOR OF VEGETABLE SCIENCE): Current lipid profile is very good no change in therapy patient is tolerating medications. Assessment & Plan (04/01/2019 9:46 AM CDT): Lipid profile excellent results HDL however is 39 a discuss the the patient he was concerned a regarding the meaning of this. History in getting injections of the cholesterol medicine referring to the medication Repatha which was discussed with his tube test technician the year ago.. His appointment Cardiology coming up in the near future. Assessment & Plan (10/06/2018 6:03 PM PROFESSOR OF VEGETABLE SCIENCE): Patient's lipid profile up in within therapeutic [...] activities. Assessment & Plan (10/06/2018 6:11 PM PROFESSOR OF VEGETABLE SCIENCE): Patient osteoarthritis seems to be doing better he does go to pain clinic for his back pain. He has been maintain on meloxicam 15 mg daily. His knee pain has improved Assessment & Plan (06/29/2017 10:24 AM CDT): Patient goes to pain clinic at [facility]. He has been treated Mobic/meloxicam several [...] Problem Noted Date Diagnosed Date Resolved Date Open wound of right lower leg 06/20/2023 12/29/2024 Assessment & Plan (06/20/2023 3:47 PM CDT): Wound present for approx 1 month, developed blister and started draining last week. Assessment as noted above with surrounding cellulitis. Rxd Keflex as directed. Keep follow with wound center next week. Morbid (severe) obesity due to excess calories 02/16/2023 09/14/2024 Community acquired pneumonia 02/01/2023 03/12/2023 Assessment & Plan (02/01/2023 6:45 PM CDT): Seen [place] room few days ago because of [...] 12/01/202201/09 Assessment & Plan (12/01/2022 1:04 PM PROFESSOR OF VEGETABLE SCIENCE): Patient is stable doing well he feels well vitals excellent. Scheduled for excision of his 2nd on 12/05 2022. Will stop Xarelto this evening he is clear for surgery. He however cardiovascular clearance is still pending. Incisional hernia 10/02/2022 07/31/2023 [place] of toe 03/27/2022 01/09/2023 Upper respiratory tract infection 03/17/2022 07/31/2023 Assessment & Plan (01/09/2023 4:06 PM PROFESSOR OF VEGETABLE SCIENCE): Patient now is feeling much better in the past 18 hours he is using the albuterol inhaler with correct technique feeling much better he still having wheezing still having some shortness of breath. I have no additional changes to make. He is to follow-up pulmonary in the future at his request he has chronic components of dyspnea. Assessment & Plan (01/05/2023 9:29 AM PROFESSOR OF VEGETABLE SCIENCE): Acute problem, present times about 3-4 days [...] 10/14/2021 Assessment & Plan (10/14/2021 2:31 PM PROFESSOR OF VEGETABLE SCIENCE): Patient concerned about right leg swelling on [...] He was diagnosed with acute bronchitis in [place] and was given an antibiotic, steroid, and [...] MASS UNSPCF SITE Small bowel obstruction, partial 09/30/2019 Assessment & Plan (10/06/2018 6:12 PM PROFESSOR OF VEGETABLE SCIENCE): Patient appears to have recovered from his his small-bowel obstructions not had any further problems since being discharged from hospital. Acute kidney injury 10/06/20 18 Encounters Date Type Department Care Team Description 05/05/2025 10:30 AM CDT Lab [facility] [address] [place] [address] Essential hypertension, benign 05/05/2025 9:30 AM CDT Office Visit [facility] [place] [facility] [address] [facility] [address] [place] [address] Star Singh MD Essential hypertension, benign (Primary Dx); Medicare annual wellness visit, subsequent; Mixed hyperlipidemia 04/27/2025 8:40 AM CDT Office Visit [facility]) - [facility] [id number] [facility] Medical Office [address] [place] [address] Mili Cisneros MD 04/14/2025 1:00 PM CDT Office Visit [facility] Medicine at [place] [address] [facility] [address] [place] [address] Roxanne Velasquez MD CHLOE (obstructive sleep apnea) (Primary Dx); Treatment-emergent central sleep apnea; Hypersomnia; Obesity, unspecified class, unspecified obesity type, unspecified whether serious comorbidity present 03/23/2025 Results Follow-Up [facility] Surgery [address] [facility] [address] [place] [address] Dixie Parra NP Surgical pathology 03/18/2025 Orders Only [facility] [address] [place] [address] Dixie Parra NP Skin neoplasm 03/17/2025 11:00 AM CDT Office Visit [facility] [address] [facility] [address] [place] [address] Dixie Parra NP Skin neoplasm (Primary Dx); Arthritis of both hands 03/16/2025 1:30 PM CDT Office Visit [facility] [place] [place] [facility] [address] [facility] [address] [place] [address] Daisy Garcia NP Chronic left-sided low back pain without sciatica (Primary Dx); Spinal stenosis of lumbar region without neurogenic claudication 03/03/2025 2:30 PM CDT Office Visit [facility] Sleep Medicine at [place] [address] [facility] [address] [place] [phone] Roxanne Velasquez MD CHLOE (obstructive sleep apnea) (Primary Dx); Treatment-emergent central sleep apnea; Hypersomnia; Obesity, unspecified class, unspecified obesity type, unspecified whether serious comorbidity present 02/19/2025 8:00 AM CDT Office Visit [facility] E[facility] [address] [facility] Medical Office [address] [place] [address] Mili Cisneros MD CHLEO (obstructive sleep apnea) (Primary Dx); S/P insertion of hypoglossal nerve stimulator from Last 3 Months Immunizations Immunization Administration Dates Next Due COVID-19 mRNA (VISENZE) 0.3 m L (30 mcg) vaccine (12 [...] History Surgery Date Site/Laterality Comments CATARACT EXTRACTION Bilateral Cataract extraction OTHER SURGICAL HISTORY surgery / left thumb OTHER SURGICAL HISTORY 11/05/2010 - 11/04/2011 sig. colectomy / repair epigastric ventral hernia OTHER SURGICAL HISTORY 11/05/2011 - 11/04/2012 repair incisional ventral hernia with mesh OTHER SURGICAL HISTORY 11/05/2011 - 11/04/2012 repair recurrent incisional ventral hernia COLONOSCOPY 05/02/2012 POLYPECTOMY COLON SURGERY resection HERNIA REPAIR x3 ESOPHAGOGASTRODUODENOSCOPY COLONOSCOPY 05/05/2018 - 06/04/2018 COLONOSCOPY 09/05/2023 FLUORO GUIDED ASPIRATION OR INJECTION INTERMEDIATE JOINT RIGHT 09/18/2023 Right CARDIAC PACEMAKER PLACEMENT [facility] CORONARY ANGIOPLASTY WITH ST ENT PLACEMENT OTHER SURGICAL HISTORY 07/08/2024 RIGHT NUMBER FIVE TOE PERCUTANEOUS TENOTOMY, RIGHT NUMBER FIVE TOE EXOSTECTOMY LUMBAR NERVE STIMLATOR INSERTION nerve stimulator, [employer] CARDIAC STENT PLACEMENT 11/05/2016 - 11/04/2017 states has 5 stents, and 2 in lower legs FOOT SURGERY Bilateral bone spur surgery COLONOSCOPY 11/19/2024 SKIN CANCER EXCISION Medical History Medical History Date Comments Hx Other Medical diverticulitis Hx Other Medical colon resection Colon polyp Arthritis Hypertension Abdominal pain GERD (gastroesophageal reflux disease) Sleep apnea Arrhythmia A-fib (HCC) Skin cancer Delayed emergence from general anesthesia Hyperlipidemia S/P placement of cardiac pacemaker Cordon S/P placement of nerve stimulator Medtronic Cataract Diverticulitis of colon [place] (hard of hearing) Does use hearing aid Wears glasses Abdominal aortic aneurysm without rupture 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 Monthly or less 12/31/2024 Q2: How many drinks containi ng alcohol do you have on a typical day when you are drinking? 1 or 2 12/31/2024 Q3: How often do you have si x or more drinks on one occasion? Never 12/31/2024 PHQ-2 Answer Date Recorded PHQ-2 Total Score (If total score is 3 or more points, staff should administer the PHQ-9) 0 05/05/2025 PHQ-9 Answer Date Recorded PHQ-9 Total Score 2 05/05/2025 Personal Safety Answer Date Recorded Have you ever been in or are you currently in a harmful physical or emotional relationship or is someone making you feel afraid or unsafe? 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 Gender Identity Not on file Sexual Orientation Not on file Obstetrics History Last Filed Vital Signs Vital Sign Reading Time Taken Comments Blood Pressure 132/86 05/05/2025 9:40 AM CDT Pulse 82 05/05/2025 9:40 AM CDT Temperature 36.7 C (98 F) 05/05/2025 9:40 AM CDT Respiratory Rate 16 05/05/2025 9:40 AM CDT Oxygen Saturation 96% 05/05/2025 9:40 AM CDT Inhaled Oxygen Concentration - - Weight 107.5 kg (237 lb) 05/05/2025 9:40 AM CDT Height 177.8 cm (5' 10) 05/05/2025 9:40 AM CDT Body Mass Index 34.01 05/05/2025 9:40 AM CDT Plan of Treatment Health Maintenance Due Date Last Done Comments Covid-19 Vaccine (2023- 5 season) 2025 07/15/2024, 09/26/2023, 08/15/2022, Additional history exists Influenza Vaccine (#1) 2025 , 07/19/2023, 07/16/2022, Additional history exists Depression Screening 05/05/2026 05/05/2025, 05/05/2025, 03/16/2025, Additional history exists Fall Risk Assessment 05/05/2026 05/05/2025, 02/03/2025, 03/10/2024, Additional history exists Well Visit 65+ 05/05/2026 05/05/2025, 04/2024, 03/12/2023, Additional history exists DTaP/Tdap/Td Vaccine (3 - Td or Tdap) 03/26/2034 03/26/2024, 10/06/2008 Pneumococcal vaccine 65+ Completed 09/30/2018, 050 07/2017 Zoster Vaccine Discontinued 07/21/2021, 02/2021, 05/20/2021 Abdominal Aortic Aneurysm (A AA) Screen Completed 11/09/2023, 07/18/2023, 04/11/2023, Additional history exists Hepatitis B Screening Discontinued Goals Goal Patient Goal Type Associated Problems Recent Progress Patient-Stated? Author [facility] Reyna Jimenez, RN Note: Patient will establish a comfort-function goal and identify the pain level that will allow the patient to perform desired activities and achieve an acceptable quality of life. Medical Devices Implanted Type Area Cardiology Teacher Device Identifier Shelf Expiration Date Model / Serial / Lot Givit Angio-Seal Vip 6fr Closere Device [id number] - [id number] Implanted:Qty: 1 on 12/04/2022 by Farooq Astudillo MD at [facility] PanelClaw [facility] 09/04/2023 [id number] / / [id number] Medtronic Inc Vectris 5mm 60cm 1x8 Electrode Mri Lead Neurostimulator [id number] - [id number] Implanted:Qty: 1 on 10/16/2023 by Willaim Jay MD at [facility] Left: Back Medtronic Inc 09/04/2027 [id number] / / [id number] Medtronic Inc Vectris 5mm 60cm 1x8 Electrode Mri Lead Neurostimulator [id number] - [id number] Implanted:Qty: 1 on 10/16/2023 by William Jay MD at [facility] Left: Back Medtronic Inc 09/04/2027 [id number] / / [id number] Medtronic Inc Envelope Absrb 2.7x2.5in Antibacterial Tyrx Medium Strl [id number] - [id number] Implanted:Qty: 1 on 10/16/2023 by William Jay MD at [facility] Left: Back Medtronic Inc 07/07/2024 [id number] / / [id number] Medtronic Inc Neurostimulator Implantable Chronic Pain Rs2 90828 - [id number] - [id number] Implanted:Qty: 1 on 10/16/2023 by William Jay MD at [facility] Left: Back Medtronic Inc 08/02/2024 [id number] / [id number] / Interlace [employer] Zilver Ptx 8mm 60mm 125cm Otw Drug Elute Delivery System [id number] - [id number] Implanted:Qty: 1 on 06/25/2024 at [facility] [employer] [id number] 10/16/2025 [id number] / / [id number] [employer] Device 6fr Closure Celt Acd Vascular Sterile Latex Free Disposable Carrie Kclt-06 - [id number] Implanted:Qty: 1 on 06/25/2024 at [facility] [employer] LTD 01/15/2027 KCLT-06 / / [id number] Insp[employer] Inc Inspire Generator 3028 - [id number] - [id number] Implanted:Qty: 1 on 02/03/2025 by Mili Cisneros MD at [facility] Right: Chest [employer] 08/25/2027 3028 / [id number] / [employer] Inc Lead Neurostimulator Sleep Apnea Thoracic Permanent Respiratory Sensing Inspire 43cm 4340 - [id number] - [id number] Implanted:Qty: 1 on 02/03/2025 by Mili Cisneros MD at [facility] Right: Chest [employer] [id number] 09/08/2027 4340 / [id number] / Insp[employer] Inc Inspire 3 Electrode Cuff Tunnel Christiano Lead Neurostimulator Sterile 4063 - [id number] - [id number] Implanted:Qty: 1 on 02/03/2025 by Mili Cisneros MD at [facility] Right: Chest [employer] [id number] 04/12/2027 4063 / [id number] / Procedures Procedure Name Priority Date/Time Associated Diagnosis Comments EGFR Routine 05/05/2025 10:38 AM CDT Essential hypertension, benign COMPREHENSIVE METABOLIC PANEL Routine 05/05/2025 10:38 AM CDT Essential hypertension, benign LIPID PANEL Routine 05/05/2025 10:38 AM CDT Essential hypertension, benign SURGICAL PATHOLOGY Routine 03/17/2025 12 :00 AM CDT Skin neoplasm CTA ABDOMINAL AORTA AND BILATERAL ILIOFEMORAL RUNOFF Schedule Routine, Read Routine (OP Routine) 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 73 m2 Comment: Interpretive Data [...] interpretive data was last reviewed 2021. Blood 05/05/2025 10:3 8 AM CDT 05/05/2025 11:22 AM CDT Star Singh MD LAB BLOOD ORDERABLES Final Result [facility] ([place]) 1 [facility] [place] [address] * (ABNORMAL) Lipid panel (05/05/2025 10:38 AM CDT) Cholesterol 178 30 - 199 mg/dL Comment: Interpretive Data Ages < or = 19 years Acceptable: <170 mg/dL Borderline high: 170-199 mg/dL High: >or= 200 mg/dL Ages > or = 20 years Desirable: <200 mg/dL Borderline high: 200-239 mg/dL High: >or= 240 mg/dL Literature References: 1. Expert Panel on Integrated Guidelines for Cardiovascular Health and Risk Reduction in Children and Adolescents. Pediatrics 2011;128:S213 2. NCEP Expert Panel. Circulation 2004;110:227 Current Interpretive Data was last revised on 2018. Triglycerides 245(H) <=149 mg/dL [facility] ([place]) Comment: Interpretive Data Ages < or = 9 years Acceptable: <75 mg/dL Borderline high: 75-99 mg/dL High: >or= 100 mg/dL Ages 10 to 20 years Acceptable: <90 mg/dL Borderline high: 90-129 mg/dL High: >or= 130 mg/dL Ages > or = 20 years Desirable: <150 mg/dL Borderline high: 150-199 mg/dL High: 200-499 mg/dL Very high: >or= 499 mg/dL Literature References: 1. Expert Panel on Integrated Guidelines for Cardiovascular Health and Risk Reduction in Children and Adolescents. Pediatrics 2011;128:S213 2. NCEP Expert Panel. Circulation 2004;110:227 Current Interpretive Data was last revised on 2018. HDL 44 >=40 mg/dL [facility] ([place]) Comment: Interpretive Data Ages < or = 19 years Acceptable: >45 mg/dL Borderline low: 40-45 mg/dL Low: <40 mg/dL Ages > or = 20 years Desirable: >or= 60 mg/dL Low: <40 mg/dL Literature References: 1. Expert Panel on Integrated Guidelines for Cardiovascular Health and Risk Reduction in Children and Adolescents. Pediatrics 2011;128:S213 2. NCEP Expert Panel. Circulation 2004;110:227 Current Interpretive Data was last revised on 2018. LDL, calculated 93 <=129 mg/dL [facility] ([place]) Comment: Interpretive Data Ages < or = 19 years Acceptable: <110 mg/dL Borderline high: 110-129 mg/dL High: >or= 130 mg/dL Ages > or = 20 years Optimal: <100 mg/dL Near optimal: 100-129 mg/dL Borderline high: 130-159 mg/dL High: >160 mg/dL Calculated using the Antwon LDL-C estimating equation. This equation was implemented on 2024. Prior to this date LDL-C was estimated using the Friedewald equation. Literature References: 1. Expert Panel on Integrated Guidelines for Cardiovascular Health and Risk Reduction in Children and Adolescents. Pediatrics 2011;128:S213 2. NCEP Expert Panel. Circulation 2004;110:227 3. Antwon Dash al. PEDRO Cardiol. 2020 March 05;5(5):540-548. doi: 10.1001/jamacardio.2020.0013 Current Interpretive Data was last revised on 2024. Non-HDL Cholesterol 134 mg/dL [facility] ([place]) Comment: Interpretive Data Ages < or = 19 years Acceptable: <120 mg/dL Borderline high: 120-144 mg/dL High: >145 mg/dL Ages > or = 20 years When triglycerides are >200 mg/dL, Non-HDL cholesterol is a secondary target of therapy with treatment goals that are 30 mg/dL greater than the LDL cholesterol target. Literature References: 1. Expert Panel on Integrated Guidelines for Cardiovascular Health and Risk Reduction in Children and Adolescents. Pediatrics 2011;128:S213 2. NCEP Expert Panel. Circulation 2004;110:227 Current Interpretive Data was last revised on 2018. Chol/HDL ratio 4 [facility] ([place]) Blood 05/05/2025 10:3 8 AM CDT 05/05/2025 11:22 AM CDT Star Singh MD LAB BLOOD ORDERABLES Final Result [facility] ([place]) 1 [facility] [place] [address] * (ABNORMAL) Comprehensive metabolic panel (05/05/2025 10:38 AM CDT) Sodium 140 135 - 145 mmol/L Potassium, pl 4.4 3.3 - 4.9 mmol/L [facility] ([place]) Chloride 102 97 - 110 mmol/L [facility] ([place]) CO2 28 22 - 32 mmol/L [facility] ([place]) Anion gap 11 2 - 15 mmol/L [facility] ([place]) BUN 21 6 - 25 mg/dL [facility] ([place]) Creatinine 1.49(H) 0.80 - 1.30 mg/dL [facility] ([place]) Glucose 96 70 - 199 mg/dL [facility] ([place]) [...] interpretive data was last revised 2022. Calcium 10.0 8.5 - 10.3 mg/dL [facility] ([place]) Bilirubin, total 0.3 0.1 - 1.2 mg/dL [facility] ([place]) Protein, pl 6.5 6.5 - 8.5 g/dL [facility] ([place]) Albumin 4.2 3.5 - 5.0 g/dL [facility] ([place]) Alk phos 62 40 - 130 Units/L [facility] ([place]) ALT 23 7 - 55 Units/L [facility] ([place]) AST 23 10 - 50 Units/L [facility] ([place]) Blood 05/05/2025 10:3 8 AM CDT 05/05/2025 11:22 AM CDT Star Singh MD LAB BLOOD ORDERABLES Final Result [facility] ([place]) 1 [facility] [place] [address] * Surgical pathology (03/17/2025 12:00 AM CDT) Tissue (Skin, shave biopsy) 03/17/2025 03/18/2025 8:33 AM CDT Narrative [facility] - 03/19/2025 12:55 PM CDT EPIC results best viewed via link to PDF [facility] [address] [place] [address], [address], [place] [address] [email or web address] Note to Patients: This report may contain [...] can answer questions and explain the details. FINAL REPORT Patient Information: PATIENT NAME: PEPE CERVANTES SEX: M : 1945 (Age: 79) Specimen Information: COLLECTED: 03/17/2025 RECEIVED: 03/18/2025 REPORTED: 03/19/2025 Submitting Physician Information: Dixie Parra, [address], Medical Office Building [address], [address] [place] [address], DERMATOPATHOLOGY REPORT RESULTS DIAGNOSIS: SKIN, RIGHT MEDIAL BREAST, SHAVE BIOPSY: VERRUCA VULGARIS, INFLAMED sxt/lac By this signature, I attest that the above diagnosis is based upon my personal examination of the slides(and/or other material indicated in the diagnosis). Corrina Hastings M.D. Report Electronically Reviewed and Signed Out By Corrina Hastings M.D. 03/19/2025 12:55:22 CLINICAL INFORMATION R/O AK, BCC, DN, SCC, SK SPECIMEN DATA MICROSCOPIC DESCRIPTION: There is hyperkeratosis, digitated epidermal hyperplasia and an inflammatory cell infiltrate. (B07.9) GROSS DESCRIPTION: Received in a formalin-containing bottle is a superficial fragment of manrique, verrucous and flaky skin measuring 0.7 by 0.5 by 0.3 cm. The surgical margin is inked blue. The specimen is sectioned into 2 pieces and submitted entirely in a single cassette. Due to shrinkage, measurements may be different than those at time of procedure. exr/anc ICD-9 A; ZSD.1646 ZSD.232 Clerical Data A; 65835 The characteristics of special, immunohistochemical, and immunofluorescence stains and in-situ hybridization tests performed by the [facility] were deemed acceptable in ongoing quality assurance engineer measures and in compliance with regulations drawn from the Clinical Laboratory Improvement Act de5234 (CLIA '88). Control reactions for all stains performed were deemed adequate and appropriate by a pathologist prior to evaluation of patient tissue. Some diagnoses were rendered with the assistance of laboratory-developed tests utilizing analyte-specific reagents; the performance characteristic of these tests were determined by [facility] and are not cleared or approved by the [place] Food an Drug administration. Laboratory developed test may only be performed in a facility that is certified by the [facility] as a high-complexity laboratory under CLIA '88. These tests are used for clinical purposes and are not investigational. 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 ATHEROSCLEROTIC CHANGES IN THE ABDOMINAL AORTA [...] Uziel Roger M.D. Narrative 11/30/2022 4:02 PM PROFESSOR OF VEGETABLE SCIENCE EXAMINATION: CTA ABDOMINAL AORTA AND BILATERAL ILIOFEMORAL [...] Recently Relevant to Health Maintenance Insurance MEDICARE [employer] MEDICARE MEDICARE [employer] MEDICARE [employer] Advance Directives For more information, please contact: [phone] * Full Code (Latest Code Status on [...] 9:33 AM 08/07/2018 1:33 PM Care Teams Bpm Developer Relationship Specialty Start Date End Date Star Singh MD PCP - General 02/05/17 Chepe Hinton MD Consulting Physician Cardiology 07/19/18 Dada Morris MD [address] [place] [address] DR DUVALL [address] [place], [place] [address], [place] [address] Anesthesiologist Pain Management 10/13/22
--- OUTSIDE RECORDS SUMMARY | 2025-05-13 14:10 | XMS_ITS | Clinical Summary ---
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 Gender Identity Not on file Sexual [...] 8:54 AM CDT Height 177.8 cm (5' 10) 03/13/2023 8:54 AM CDT Body Mass Index 34.87 03/13/2023 8:54 AM CDT Plan of Treatment Health Maintenance Due Date Last Done Comments DTAP/TDAP/TD VACCINES (2 - Tdap) 10/06/2018 10/06/20 08 RSV VACCINE (60+ or ) (1 - 1-dose 75+ series) 2019 ZOSTER VACCINE (2 of 2) 09/03/2021 07/09/2021 COVID-19 Vaccine (3 - 2023-2 5 season) 2024 08/15/2022, 11/21/2021 INFLUENZA VACCINE (#1) 2025 0, 08/01/2019, 08/08/2018, Additional history exists COLORECTAL SCREENING Discontinued 05/14/2018, 05/02/20 12 Colorectal Cancer Screening Discontinued PNEUMOCOCCAL VACCINE 50+ YEARS Completed 09/30/2018 , 03/13/2017 FIT-DNA Q 3 years Discontinued FIT/FOBT Q 1 year Discontinued Flex Sig/CT Colonography Q 5 years Discontinued Insurance MEDICARE PART A AND B [facility] Care Teams Entry Level Civil Engineer Relationship Specialty Start Date End Date Star Singh MD [address] [place] [address] PCP - General Internal Medicine 09/24/20
--- OUTSIDE RECORDS SUMMARY | 2025-05-13 14:10 | XMS_ITS | Referral Summary ---
Author Organization [facility] Address [address] [place] [address] Care Team Providers Care Youth Minister Name Role Phone Star Singh MD Primary Care Provider [phone] Chepe Hinton MD Unavailable [phone] Dada Morris MD Unavailable [phone] Encounters Date Type Department Care Team Description 05/05/2025 10:30 AM CDT Lab [facility] [address] [place] [address] Essential hypertension, benign 05/05/2025 9:30 AM CDT Office Visit [facility] [address] [place] [id number] Star Singh MD Essential hypertension, benign (Primary Dx); Medicare annual wellness visit, subsequent; Mixed hyperlipidemia 04/27/2025 8:40 AM CDT Office Visit [facility] [address] [facility] Medical Office Building [address] [place] [address] Mili Cisneros MD 04/14/2025 1:00 PM CDT Office Visit [facility] Sleep Medicine at [address] [place] [address] Roxanne Velasquez MD CHLOE (obstructive sleep apnea) (Primary Dx); Treatment-emergent central sleep apnea; Hypersomnia; Obesity, unspecified class, unspecified obesity type, unspecified whether serious comorbidity present 03/23/2025 Results Follow-Up [facility] [address] [facility] [address] [place] [address] Dixie Parra NP Surgical pathology 03/18/2025 Orders Only [facility] [address] [place] [address] Dixie Parra NP Skin neoplasm 03/17/2025 11:00 AM CDT Office Visit [facility] [address] [place] [address] A [address] [place] [address] Dixie Parra NP Skin neoplasm (Primary Dx); Arthritis of both hands 03/16/2025 1:30 PM CDT Office Visit [facility] [address] [facility] [address] [place] [address] Daisy Garcia NP Chronic left-sided low back pain without sciatica (Primary Dx); Spinal stenosis of lumbar region without neurogenic claudication 03/03/2025 2:30 PM CDT Office Visit [facility] Sleep Medicine at [address] [place] [address] Roxanne Velasquez MD CHLOE (obstructive sleep apnea) (Primary Dx); Treatment-emergent central sleep apnea; Hypersomnia; Obesity, unspecified class, unspecified obesity type, unspecified whether serious comorbidity present 02/19/2025 8:00 AM CDT Office Visit [facility] [address] [facility] Medical Office Building [address] [place] [address] Mili Cisneros MD CHLOE (obstructive sleep apnea) (Primary Dx); S/P insertion of hypoglossal nerve stimulator from Last 3 Months Allergies Active Allergy Reactions Criticality Noted Date Comments Atorvastatin Other (See comments) Low Muscles lock up Sulfamethoxazole-Trimeth oprim Stomach upset Low 04/03/2023 Pravastatin Other (See comments) Low Muscles lock up Rosuvastatin Other (See comments) Low Muscles lock up Pklanxo-Cuy-Gfe Reductase Inhibitors Other (See comments) Low Muscles lock up Sulfa (Sulfonamide Antibiotics) Other (See comments) Low 04/16/2023 Stomach pain Medications glucosamine-chondroi tn sulf.Na 750-600 mg tablet take 2 daily. 0 0 10/26/20 14 Active htewqlxubwcg-ihuj-zw lic acid (MULTI-YVONNE) 18-400 mg-mcg tablet take [...] colon Assessment & Plan (12/29/2024 2:28 PM APPLE CHECKER): Colonoscopy November 19 tubular adenoma benign Class 2 severe obesity due t o excess calories with serious comorbidity in adult 09/14/2024 Assessment & Plan (09/14/2024 4:15 PM APPLE CHECKER): Patient no longer has a BMI 40 [...] 03/06/2024 Assessment & Plan (12/29/2024 2:37 PM APPLE CHECKER): Patient is aware of the that he qualifies for total knee he plans to get this done probably in the next 6 months. Patient walks with a cane because of knee pain. Myalgia, other site 01/30/2024 Pain in both testicles 01/09/2024 Assessment & Plan (01/09/2024 1:03 PM APPLE CHECKER): Recurrent pain in his testicles getting progressively worse. Is my 1st hearing of this. I am going to proceed in get an ultrasound of his testicle and refer to Urology Muscle spasm of left lower extremity 01/09/2024 Assessment & Plan (01/09/2024 1:02 PM APPLE CHECKER): Patient is having a cramping feeling posterior [...] 12/28/2023 Assessment & Plan (12/28/2023 9:53 AM APPLE CHECKER): Lesion consistent with sebaceous cyst noted to left occiputal area just above hairline. No acute signs of infection. Will likely resolve on it's own. Keep skin clean and dry, no not squeeze or pick at it. Weak 10/28/2023 Assessment & Plan (10/28/2023 7:32 PM APPLE CHECKER): Patient tested COVID as well as flu results were negative mi respiratory symptoms I suggest utilizing Zyrtec. No fever no chills Tylenol p.r.n.. 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 On recent visit Assessment & Plan (03/12/2023 [...] with Pulmonary. Recently diagnosed with pneumonia at [facility] and is improving Assessment & Plan (01/09/2023 4:05 PM APPLE CHECKER): Patient continues to have some shortness of breath despite aggressive cardiac therapy Silvia consult with Pulmonary which is very reasonable he has atrial fibrillation hypertension sleep apnea he is a very large man which all may be contributing factors to his progressive dyspnea CHLOE (obstructive sleep apnea) 01/09/2023 Assessment & Plan (12/29/2024 2:29 PM APPLE CHECKER): Patient is scheduled for hypoglossal inspire nerve stimulator implantation on 02/03/2025 Assessment & Plan (03/10/2024 9:36 AM CDT): Patient continues use CPAP and benefits followed by the sleep Clinic Assessment & Plan (01/09/2023 4:04 PM APPLE CHECKER): Patient uses CPAP machine for many years with benefits once he retired no longer worked he start using his CPAP machine. Having shortness of breath some fatigue he would like resume treatment for sleep apnea. Patient is 77 years old he is referred to sleep Clinic for further evaluation including asleep study. Paroxysmal atrial fibrillation 11/27/2022 Assessment & Plan (12/29/2024 2:35 PM APPLE CHECKER): Cardiac ablation completed December 18, 2024 Dr. Jean-Baptiste at [facility]. No complication with the procedure patient is feeling well. Assessment & Plan (07/31/2023 6:42 PM CDT): Has been in his last visit with Cardiology he will be referred to Dr. Jean-Baptiste at [facility] for atrial fibrillation Assessment & Plan (12/01/2022 1:03 PM APPLE CHECKER): Recent atrial fibrillation managed by Cardiology he is now on Xarelto TIA (transient ischemic attack) 11/16/2022 Assessment & Plan (12/01/2022 12:44 PM APPLE CHECKER): No further symptoms of TIA /temporary vision change. This is thought to be secondary to recent onset of atrial fibrillation. Patient is now on Xarelto Assessment & Plan (11/16/2022 6:05 PM APPLE CHECKER): Patient recently had a TIA expressed in the form of loss of vision right eye for several minutes. 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 Monitor comes off on . Patient [...] request Assessment & Plan (10/14/2021 2:29 PM APPLE CHECKER): 76-year-old gentleman who was given medication Viagra in the past he never tried it is now he would like to try consider using this I discussed with the side effects. Rx sent for tablets 11 refill Major depressive disorder with single episode Assessment & Plan (12/29/2024 2:36 PM APPLE CHECKER): Mood is excellent continue present therapy Wellbutrin 300 mg daily Assessment & Plan (09/14/2024 4:12 PM APPLE CHECKER): Patient's mood is excellent with medication no [...] He has been seeing a counselor at [facility].. He has 3 relatives/daughters who [...] 10/12/20 20 Degenerative lumbar spinal stenosis 10/12/2020 group home current use of anticoagulant 0 Lumbar radiculopathy [...] 2019 Assessment & Plan (12/29/2024 2:24 PM APPLE CHECKER): Patient did see Nephrology at [facility]. Was advised that his renal results was consistent with his age and dx of 20+ years of hypertension. Patient EGFR was 52 on December 04, 2024 on September,023 EGFR 33 no action indicated. Continue to control blood pressure Assessment & Plan (09/11/2024 12:54 PM APPLE CHECKER): Will refer this patient to nephrology orthopedic [...] 41 Assessment & Plan (09/12/2022 5:22 PM APPLE CHECKER): Non steroidal anti-inflammatory/meloxicam discontinued patient utilizing Tylenol [...] today Assessment & Plan (10/04/2020 6:15 PM APPLE CHECKER): Laboratory results from is almost 6 months [...] daily Assessment & Plan (09/14/2024 4:11 PM APPLE CHECKER): Blood pressure remains well controlled patient takes Avalide HCTZ 150/12.51 tablet daily tolerates the medications. Assessment & Plan (07/31/2023 6:42 PM CDT): Pressure well controlled patient is tolerating medications no change in therapy Assessment & Plan (12/01/2022 1:03 PM APPLE CHECKER): Blood pressure well control no change in [...] by Pulmonary for his chronic lung disease. Manager Quality Compliance for coronary artery disease in his very [...] has had his shingles vaccine at [facility]. This is not recorded in our [...] months. Assessment & Plan (10/04/2020 6:14 PM APPLE CHECKER): Health risk assessment health maintenance reviewed in addressed. Patient aware of immunization recommendations. Patient continues in the care of Pain Clinic he recently had evaluation regarding is back per Neurosurgery recommendations continue physical therapy. Assessment & Plan (10/03/2019 5:06 PM APPLE CHECKER): Patient is a history and physical completed [...] 06/23/2019 Assessment & Plan (10/03/2019 5:02 PM APPLE CHECKER): Patient continues to have significant knee pain [...] 1st Assessment & Plan (09/12/2022 5:23 PM APPLE CHECKER): Patient continues with the pain clinic and benefits from the therapy. Assessment & Plan (10/03/2019 5:02 PM APPLE CHECKER): Patient's notice has knee pain gets worse [...] 08/21/2017 Assessment & Plan (12/29/2024 2:25 PM APPLE CHECKER): Blood pressure goal 130/84 patient is tolerating medications no symptoms referable to his hypertension continue Avalide 150/12.5 daily Assessment & Plan (01/30/2024 6:00 PM CDT): Blood pressure is acceptable patient is doing well no change in therapy Assessment & Plan (12/28/2023 9:53 AM APPLE CHECKER): BP stable in office today on current therapy. No acute findings on exam. Continue current regimen and low salt diet. Assessment & Plan (10/28/2023 7:32 PM APPLE CHECKER): Pressure is excellent continue present therapy Assessment & Plan (04/16/2023 5:31 PM CDT): Manager Quality Compliance notes reviewed. His back on a diuretic [...] range. Assessment & Plan (01/09/2023 4:09 PM APPLE CHECKER): Blood pressure reasonably control no change in therapy Assessment & Plan (09/12/2022 5:20 PM APPLE CHECKER): Hypertension remains very well controlled patient is [...] therapy. Assessment & Plan (10/03/2019 5:02 PM APPLE CHECKER): Blood pressure well controlled patient tolerating medications [...] Avalide. Assessment & Plan (10/06/2018 6:02 PM APPLE CHECKER): Blood pressure 148/80 on this visit blood [...] next regular appointment. Coronary artery disease involving otoe-missou[place] coronar y artery 06/28/2017 Assessment & Plan (09/06/2021 12:13 PM CDT): Manager Quality Compliance notes reviewed Assessment & Plan (06/13/2021 11:39 AM CDT): Manager Quality Compliance notes reviewed. Patient remains asymptomatic with respect coronary artery disease. Assessment & Plan (03/09/2021 8:42 AM CDT): Estimated GFR remains stable BMP on this visit. Assessment & Plan (10/04/2020 6:14 PM APPLE CHECKER): Patient's keeping his current appointments with cardiology stable no new health problems identified with respect to cardiology. Assessment & Plan (03/30/2020 6:35 PM CDT): Patient is stable at this time he has a follow-up visit with Cardiology in the next 10-20 days. Lipid profile is requested today and BMP will be available tube dispatcher reviewed Assessment & Plan (10/03/2019 5:04 PM APPLE CHECKER): Patient free of chest pain no evidence [...] days. Assessment & Plan (10/06/2018 6:13 PM APPLE CHECKER): Coronary artery disease is unchanged. Continue current treatment regimen. Dietary sodium restriction. Weight loss. Regular aerobic exercise. Continue current medications. Cardiac status will be reassessed in 6 months. Patient sees tube dispatcher once a twice per year. 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 Will continues routine medications for his heart. Assessment & Plan (02/19/2018 10:12 AM CDT): . Patient's appointment Cardiology next week will give fasting lipid profile performed care to his tube dispatcher patient is asymptomatic at this time. Status post stent placement. Assessment & Plan (06/29/2017 10:23 AM CDT): Coronary artery disease is improving with treatment. Continue current treatment regimen. Regular aerobic exercise. Continue current medications. Cardiac status will be reassessed in 6 months. Patient had stent placement in the last 90 days at [facility]. Doing very well. He will follow up with tube dispatcher in next 3 months. He is on the medicine Effient. Irritable bowel syndrome 03/21/2014 Overview (02/09/2017): IBS (irritable bowel syndrome) Assessment & Plan (10/06/2018 6:04 PM APPLE CHECKER): Patient has not had any recent problems with irritable bowel in the past 12 months. Hyperlipidemia 03/21/2014 Overview (02/09/2017): Hyperlipidemia Assessment & Plan (05/05/2025 4:05 PM CDT): LDL 93 total cholesterol 174 continue Zetia 10 mg. Assessment & Plan (10/03/2019 5:03 PM APPLE CHECKER): Current lipid profile is very good no change in therapy patient is tolerating medications. Assessment & Plan (04/01/2019 9:46 AM CDT): Lipid profile excellent results HDL however is 39 a discuss the the patient he was concerned a regarding the meaning of this. History in getting injections of the cholesterol medicine referring to the medication Repatha which was discussed with his tube dispatcher the year ago.. His appointment Cardiology coming up in the near future. Assessment & Plan (10/06/2018 6:03 PM APPLE CHECKER): Patient's lipid profile up in within therapeutic [...] activities. Assessment & Plan (10/06/2018 6:11 PM APPLE CHECKER): Patient osteoarthritis seems to be doing better he does go to pain clinic for his back pain. He has been maintain on meloxicam 15 mg daily. His knee pain has improved Assessment & Plan (06/29/2017 10:24 AM CDT): Patient goes to pain clinic at [facility]. He has been treated Mobic/meloxicam several [...] & Plan (02/01/2023 6:45 PM CDT): Seen [facility] room few days ago because of [...] 12/01/202201/09 Assessment & Plan (12/01/2022 1:04 PM APPLE CHECKER): Patient is stable doing well he feels well vitals excellent. Scheduled for excision of his 2nd on 12/05 2022. Will stop Xarelto this evening he is clear for surgery. He however cardiovascular clearance is still pending. Incisional hernia 10/02/2022 07/31/2023 [place] of toe 03/27/2022 01/09/2023 Upper respiratory tract infection 03/17/2022 07/31/2023 Assessment & Plan (01/09/2023 4:06 PM APPLE CHECKER): Patient now is feeling much better in the past 18 hours he is using the albuterol inhaler with correct technique feeling much better he still having wheezing still having some shortness of breath. I have no additional changes to make. He is to follow-up pulmonary in the future at his request he has chronic components of dyspnea. Assessment & Plan (01/05/2023 9:29 AM APPLE CHECKER): Acute problem, present times about 3-4 days [...] 10/14/2021 Assessment & Plan (10/14/2021 2:31 PM APPLE CHECKER): Patient concerned about right leg swelling on [...] 09/30/2019 Assessment & Plan (10/06/2018 6:12 PM APPLE CHECKER): Patient appears to have recovered from his his small-bowel obstructions not had any further problems since being discharged from hospital. Acute kidney injury 10/06/20 18 Immunizations Immunization Administration Dates Next Due COVID-19 mRNA ([employer]) 0.3 m L (30 mcg) vaccine [...] Former Cigarettes 3 15 1 963 - 1978 Smokeless Tobacco: Never Tobacco Cessation:Counseling Given: Not [...] on file Legal Sex Male 11:56 PM APPLE CHECKER Gender Identity Not on file Sexual Orientation [...] 05/05/2025 9:40 AM CDT Plan of Treatment Not on file Goals Goal Patient Goal Type Associated Problems Recent Progress Patient-Stated? Author [facility] Reyna Jimenez RN Note: Patient will establish a comfort-function goal and identify the pain level that will allow the patient to perform desired activities and achieve an acceptable quality of life. Medical Devices Implanted Type Area Supervisor Prop Making Device Identifier Shelf Expiration Date Model / Serial / Lot Olery Angio-Seal Vip 6fr Closere Device [id number] - [id number] Implanted:Qty: 1 on 12/04/2022 by Farooq Astudillo MD at [facility] [email or web address] Alessandro 09/04/2023 [id number] / / [id number] Medtronic Inc Vectris 5mm 60cm 1x8 Electrode Mri Lead Neurostimulator [id number] - [id number] Implanted:Qty: 1 on 10/16/2023 by William Jay MD at [facility] Left: Back Medtronic Inc 09/04/2027 [id number] / / [id number] Medtronic Inc Vectris 5mm 60cm 1x8 Electrode Mri Lead Neurostimulator [id number] - [id number] Implanted:Qty: 1 on 10/16/2023 by William Jay MD at [facility] Left: Back Medtronic Inc 09/04/2027 [id number] / / [id number] Medtronic Inc Envelope Absrb 2.7x2.5in Antibacterial Tyrx Medium Strl [id number] - [id number] Implanted:Qty: 1 on 10/16/2023 by William Jay MD at [facility] Left: Back Medtronic Inc 07/07/2024 [id number] / / [id number] Medtronic Inc Neurostimulator Implantable Chronic Pain Rs2 72704 - [id number] - [id number] Implanted:Qty: 1 on 10/16/2023 by William Jay MD at [facility] Left: Back Medtronic Inc 08/02/2024 [id number] / [id number] / [employer] Zilver Ptx 8mm 60mm 125cm Otw Drug Elute Delivery System [id number] - [id number] Implanted:Qty: 1 on 06/25/2024 at [facility] [employer] [id number] 10/16/2025 [id number] / / [id number] Vas[employer] Device 6fr Closure Celt Acd Vascular Sterile Latex Free Disposable Carrie Kclt-06 - [id number] Implanted:Qty: 1 on 06/25/2024 at [facility] [employer] 01/15/2027 KCLT-06 / / [id number] Inspire [employer] Inc Inspire Generator 3028 - [id number] - [id number] Implanted:Qty: 1 on 02/03/2025 by Mili Cisneros MD at [facility] Right: Chest [employer] 08/25/2027 3028 / [id number] / Insp[employer] Inc Lead Neurostimulator Sleep Apnea Thoracic Permanent Respiratory Sensing Inspire 43cm 4340 - [id number] - [id number] Implanted:Qty: 1 on 02/03/2025 by Mili Cisneros MD at [facility] Right: Chest [employer] [id number] 09/08/2027 4340 / [id number] / Insp[employer], Inc Inspire 3 Electrode Cuff Tunnel Christiano Lead Neurostimulator Sterile 4063 - [id number] - [id number] Implanted:Qty: 1 on 02/03/2025 by Mili Cisneros MD at [facility] Right: Chest [employer] [id number] 04/12/2027 4063 / [id number] / Procedures Procedure Name Priority Date/Time Associated [...] Read Routine (OP Routine) 11/30/2022 3:51 PM APPLE CHECKER PAD (peripheral artery disease) from Last 3 [...] 8 AM CDT 05/05/2025 11:22 AM CDT us Star Singh MD LAB BLOOD ORDERABLES Final Result BRODY MADELYN ([facility]LE[facility]) 1 [facility] Department [place] [address] * (ABNORMAL) Lipid panel (05/05/2025 10:38 AM [...] 2018. LDL, calculated 93 <=129 mg/dL BRODY LOERA) Comment: Interpretive Data Ages < or = [...] NCEP Expert Panel. Circulation 2004;110:227 3. Antwon Elizalde et al. PEDRO Cardiol. 2019March 05;5(5):540-548. doi: 10.1001/jamacardio.2020.0013 Current Interpretive Data was [...] last revised on 2018. Chol/HDL ratio 4 RIGOBERTONE Dimitry JOSHI (ARLEEN) Blood 05/05/2025 10:3 8 AM CDT 05/05/2025 11:22 AM CDT us Star Singh MD LAB BLOOD ORDERABLES Final Result [facility] ([facility]) 1 [facility] Department [place] [address] * (ABNORMAL) Comprehensive metabolic panel (05/05/2025 10:38 AM CDT) Sodium 140 135 - 145 mmol/L Potassium, pl 4.4 3.3 - 4.9 mmol/L [facility] ([facility]) Chloride 102 97 - 110 mmol/L [facility] ([facility]) CO2 28 22 - 32 mmol/L [facility] ([facility]) Anion gap 11 2 - 15 mmol/L [facility] ([facility]) BUN 21 6 - 25 mg/dL [facility] ([facility]) Creatinine 1.49(H) 0.80 - 1.30 mg/dL CERNER [...] LAB BLOOD ORDERABLES Final Result BRODY JOSHI (IONIA) 1 [facility] [place] [address] * Surgical pathology (03/17/2025 12:00 AM CDT) Tissue (Skin, shave biopsy) 03/17/2025 03/18/2025 8:33 AM CDT [facility] - 03/19/2025 12:55 PM CDT EPIC results best viewed via link to PDF [facility] Dermatopathology [place] [address] [facility], [address], [place] [address] [email or web address] Note to Patients: This report may contain [...] REPORTED: 03/19/2025 Submitting Physician Information: Dixie Parra, ROBIN 2 [facility], Medical Office [address], [address] [place] [address], DERMATOPATHOLOGY REPORT RESULTS DIAGNOSIS: SKIN, RIGHT MEDIAL [...] ICD-9 A; ZSD.1646 ZSD.232 Clerical Data A; 10175 The characteristics of special, immunohistochemical, and immunofluorescence stains and in-situ hybridization tests performed by the [facility] Dermatopathology Center were deemed acceptable in ongoing supervisor quality control measures and in compliance with regulations drawn from the Clinical Laboratory Improvement Act uf8744 (CLIA '88). Control reactions for all stains performed were deemed adequate and appropriate by a pathologist prior to evaluation of patient tissue. Some diagnoses were rendered with the assistance of laboratory-developed tests utilizing analyte-specific reagents; the performance characteristic of these tests were determined by [facility] and are not cleared or approved by the [place] Food an Drug administration. Laboratory developed test may only be performed in a facility that is certified by the [facility] as a high-complexity laboratory under CLIA '88. These tests are used for clinical purposes and are not investigational. Dixie Parra NP LAB PATHOLOGY ORD ERABLES Final Result [facility] [address] [place] [phone] * CTA Abdominal Aorta And Bilateral Iliofemoral Runoff (11/30/2022 3:51 PM APPLE CHECKER) Anatomical Region Laterality Modality Body Bilateral Computed Tomogra phy 11/30/2022 4:02 PM APPLE CHECKER Impressions 11/30/2022 4:02 PM APPLE CHECKER 1. ATHEROSCLEROTIC CHANGES IN THE ABDOMINAL AORTA [...] Uziel Roger M.D. Narrative 11/30/2022 4:02 PM APPLE CHECKER EXAMINATION: CTA ABDOMINAL AORTA AND BILATERAL ILIOFEMORAL [...] Recently Relevant to Health Maintenance Insurance MEDICARE [email or web address] MEDICARE MEDICARE [email or web address] MEDICARE [email or web address] Advance Directives For more information, please contact: [phone] * Full Code (Latest Code Status on [...] 9:33 AM 08/07/2018 1:33 PM Care Teams Youth Minister Relationship Specialty Start Date End Date Star Singh MD PCP - General 02/05/17 Chepe Hinton MD Consulting Physician Cardiology 07/19/18 Dada Morris MD [address] [place] [address] [address] Anesthesiologist Pain Management 10/13/22
--- OUTSIDE RECORDS SUMMARY | 2025-05-13 14:10 | XMS_ITS | Encounter Summary ---
Author Organization [facility] Address [address] [facility] [place] [address] Phone Care Team Providers Care Hospital Cook Name Role Phone Star Singh MD Primary Care Provider [phone] Encounter Details Date Type Department Care Team (Late st Contact Info) Description 06/16/2021 Lab Requisition [facility] [address] [place] [address] Uziel Cifuentes MD [address] [place] [address] Encounter for screening for malignant neoplasm of [...] Health Behavioral Health On track(2020 11:09 AM SENIOR GENETIC COUNSELOR) Yes Colt Locke LCSW Note: I want to be able to have less guilt and more acceptance of my situation with my , within the next six months Goal Reviewed today with: patient Readiness to change: Ready to change Department associated with goal: [facility] Steps to achieve goal: Patient counseled on caring for the caregiver. during his 30-45 min individual therapy sessions, 1-2 times per month Patient counseled on recognizing and challenging unrealistic guilt during his 30-45 min individual therapy sessions, 1-2 times per month Behavioral Health Behavioral Health On track(2020 11:09 AM SENIOR GENETIC COUNSELOR) No Colt Locke LCSW Note: Goal: Patient will be able to report improve mood/adjustment to spouse's penitentiary placement and their changed relationship, to an acceptable level, within the next six months Goal Reviewed today with: patient Readiness to change: Ready to change Department associated with goal: [facility] Steps to [...] 1.06 <=4.00 ng/mL 06/16/2021 6:01 PM CDT [facility] Blood Venipuncture / Unknown 06/16/2021 4:00 PM CDT 06/16/2021 5:31 PM CDT Narrative [facility] - 06/16/2021 6:01 PM CDT PSA NOTE: The PSA value should be used in conjunction with information available from clinical evaluation and other diagnostic procedures. us Uziel Cifuentes MD CHEMISTRY ORDERABLES Fi nal Result [facility] [place] [address] documented in this encounter Visit Diagnoses Diagnosis [...] documented as of this encounter Care Teams Hospital Cook Relationship Specialty Start Date End Date Star Singh MD [address] [place] [address] PCP - General Internal Medicine 10/13/19 documented as of this encounter
--- OUTSIDE RECORDS SUMMARY | 2025-05-13 14:10 | XMS_ITS ---
Author Organization [facility] Address [address] [place] [address] Care Team Providers Care Behavioral Sciences Department Chair Name Role Phone Star Singh MD Primary Care Provider [phone] Chepe Hinton MD Unavailable [phone] Dada Morris MD Unavailable Active Problems Problem Noted Date Diagnosed Date Hyperplastic polyp of descending colon Assessment & Plan (12/29/2024 2:28 PM INFORMATION MANAGEMENT MANAGER): Colonoscopy November 19 tubular adenoma benign Class 2 severe obesity due t o excess calories with serious comorbidity in adult 09/14/2024 Assessment & Plan (09/14/2024 4:15 PM INFORMATION MANAGEMENT MANAGER): Patient no longer has a BMI [...] 03/06/2024 Assessment & Plan (12/29/2024 2:37 PM INFORMATION MANAGEMENT MANAGER): Patient is aware of the that he qualifies for total knee he plans to get this done probably in the next 6 months. Patient walks with a cane because of knee pain. Myalgia, other site 01/30/2024 Pain in both testicles 01/09/2024 Assessment & Plan (01/09/2024 1:03 PM INFORMATION MANAGEMENT MANAGER): Recurrent pain in his testicles getting progressively worse. Is my 1st hearing of this. I am going to proceed in get an ultrasound of his testicle and refer to Urology Muscle spasm of left lower extremity 01/09/2024 Assessment & Plan (01/09/2024 1:02 PM INFORMATION MANAGEMENT MANAGER): Patient is having a cramping feeling [...] 12/28/2023 Assessment & Plan (12/28/2023 9:53 AM INFORMATION MANAGEMENT MANAGER): Lesion consistent with sebaceous cyst noted to left occiputal area just above hairline. No acute signs of infection. Will likely resolve on it's own. Keep skin clean and dry, no not squeeze or pick at it. Weak 10/28/2023 Assessment & Plan (10/28/2023 7:32 PM INFORMATION MANAGEMENT MANAGER): Patient tested COVID as well as flu results were negative mi respiratory symptoms I suggest utilizing Zyrtec. No fever no chills Tylenol p.r.n.. 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 On recent visit Assessment & Plan (03/12/2023 [...] with Pulmonary. Recently diagnosed with pneumonia at [facility] and is improving Assessment & Plan (01/09/2023 4:05 PM INFORMATION MANAGEMENT MANAGER): Patient continues to have some shortness of breath despite aggressive cardiac therapy Silvia consult with Pulmonary which is very reasonable he has atrial fibrillation hypertension sleep apnea he is a very large man which all may be contributing factors to his progressive dyspnea CHLOE (obstructive sleep apnea) 01/09/2023 Assessment & Plan (12/29/2024 2:29 PM INFORMATION MANAGEMENT MANAGER): Patient is scheduled for hypoglossal inspire nerve stimulator implantation on 02/03/2025 Assessment & Plan (03/10/2024 9:36 AM CDT): Patient continues use CPAP and benefits followed by the sleep Clinic Assessment & Plan (01/09/2023 4:04 PM INFORMATION MANAGEMENT MANAGER): Patient uses CPAP machine for many years with benefits once he retired no longer worked he start using his CPAP machine. Having shortness of breath some fatigue he would like resume treatment for sleep apnea. Patient is 77 years old he is referred to sleep Clinic for further evaluation including asleep study. Paroxysmal atrial fibrillation 11/27/2022 Assessment & Plan (12/29/2024 2:35 PM INFORMATION MANAGEMENT MANAGER): Cardiac ablation completed December 18, 2024 Dr. Jean-Baptiste at [facility]. No complication with the procedure patient is feeling well. Assessment & Plan (07/31/2023 6:42 PM CDT): Has been in his last visit with Cardiology he will be referred to Dr. Jean-Baptiste at [facility] for [facility] treatment for atrial fibrillation Assessment & Plan (12/01/2022 1:03 PM INFORMATION MANAGEMENT MANAGER): Recent atrial fibrillation managed by Cardiology he is now on Xarelto TIA (transient ischemic attack) 11/16/2022 Assessment & Plan (12/01/2022 12:44 PM INFORMATION MANAGEMENT MANAGER): No further symptoms of TIA /temporary vision change. This is thought to be secondary to recent onset of atrial fibrillation. Patient is now on Xarelto Assessment & Plan (11/16/2022 6:05 PM INFORMATION MANAGEMENT MANAGER): Patient recently had a TIA expressed in the form of loss of vision right eye for several minutes. He did see his client care consultant 1st exam was benign he followed up with Cardiology who now has him on a 2 week monitoring analyst. Monitor comes off on . Patient is [...] request Assessment & Plan (10/14/2021 2:29 PM INFORMATION MANAGEMENT MANAGER): 76-year-old gentleman who was given medication Viagra in the past he never tried it is now he would like to try consider using this I discussed with the side effects. Rx sent for tablets 11 refill Major depressive disorder with single episode Assessment & Plan (12/29/2024 2:36 PM INFORMATION MANAGEMENT MANAGER): Mood is excellent continue present therapy Wellbutrin 300 mg daily Assessment & Plan (09/14/2024 4:12 PM INFORMATION MANAGEMENT MANAGER): Patient's mood is excellent with medication [...] He has been seeing a counselor at [facility] psychological services.. 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 Was advised that his renal results was consistent with his age and dx of 20+ years of hypertension. Patient EGFR was 52 on December 04, 2024 on September EGFR 33 no action indicated. Continue to control blood pressure Assessment & Plan (09/11/2024 12:54 PM INFORMATION MANAGEMENT MANAGER): Will refer this patient to nephrology [...] 41 Assessment & Plan (09/12/2022 5:22 PM INFORMATION MANAGEMENT MANAGER): Non steroidal anti-inflammatory/meloxicam discontinued patient utilizing [...] today Assessment & Plan (10/04/2020 6:15 PM INFORMATION MANAGEMENT MANAGER): Laboratory results from is almost 6 [...] daily Assessment & Plan (09/14/2024 4:11 PM INFORMATION MANAGEMENT MANAGER): Blood pressure remains well controlled patient takes Avalide HCTZ 150/12.51 tablet daily tolerates the medications. Assessment & Plan (07/31/2023 6:42 PM CDT): Pressure well controlled patient is tolerating medications no change in therapy Assessment & Plan (12/01/2022 1:03 PM INFORMATION MANAGEMENT MANAGER): Blood pressure well control no change [...] by Pulmonary for his chronic lung disease. Tool And Die Assembler for coronary artery disease in his very [...] he has had his shingles vaccine at [facility]. This is not recorded in our records [...] months. Assessment & Plan (10/04/2020 6:14 PM INFORMATION MANAGEMENT MANAGER): Health risk assessment health maintenance reviewed in addressed. Patient aware of immunization recommendations. Patient continues in the care of Pain Clinic he recently had evaluation regarding is back per Neurosurgery recommendations continue physical therapy. Assessment & Plan (10/03/2019 5:06 PM INFORMATION MANAGEMENT MANAGER): Patient is a history and physical [...] 06/23/2019 Assessment & Plan (10/03/2019 5:02 PM INFORMATION MANAGEMENT MANAGER): Patient continues to have significant knee [...] 1st Assessment & Plan (09/12/2022 5:23 PM INFORMATION MANAGEMENT MANAGER): Patient continues with the pain clinic and benefits from the therapy. Assessment & Plan (10/03/2019 5:02 PM INFORMATION MANAGEMENT MANAGER): Patient's notice has knee pain gets [...] 08/21/2017 Assessment & Plan (12/29/2024 2:25 PM INFORMATION MANAGEMENT MANAGER): Blood pressure goal 130/84 patient is tolerating medications no symptoms referable to his hypertension continue Avalide 150/12.5 daily Assessment & Plan (01/30/2024 6:00 PM CDT): Blood pressure is acceptable patient is doing well no change in therapy Assessment & Plan (12/28/2023 9:53 AM INFORMATION MANAGEMENT MANAGER): BP stable in office today on current therapy. No acute findings on exam. Continue current regimen and low salt diet. Assessment & Plan (10/28/2023 7:32 PM INFORMATION MANAGEMENT MANAGER): Pressure is excellent continue present therapy Assessment & Plan (04/16/2023 5:31 PM CDT): Tool And Die Assembler notes reviewed. His back on a diuretic [...] range. Assessment & Plan (01/09/2023 4:09 PM INFORMATION MANAGEMENT MANAGER): Blood pressure reasonably control no change in therapy Assessment & Plan (09/12/2022 5:20 PM INFORMATION MANAGEMENT MANAGER): Hypertension remains very well controlled patient [...] therapy. Assessment & Plan (10/03/2019 5:02 PM INFORMATION MANAGEMENT MANAGER): Blood pressure well controlled patient tolerating [...] Avalide. Assessment & Plan (10/06/2018 6:02 PM INFORMATION MANAGEMENT MANAGER): Blood pressure 148/80 on this visit [...] next regular appointment. Coronary artery disease involving agdaagux coronar y artery 06/28/2017 Assessment & Plan (09/06/2021 12:13 PM CDT): Tool And Die Assembler notes reviewed Assessment & Plan (06/13/2021 11:39 AM CDT): Tool And Die Assembler notes reviewed. Patient remains asymptomatic with respect coronary artery disease. Assessment & Plan (03/09/2021 8:42 AM CDT): Estimated GFR remains stable BMP on this visit. Assessment & Plan (10/04/2020 6:14 PM INFORMATION MANAGEMENT MANAGER): Patient's keeping his current appointments with cardiology stable no new health problems identified with respect to cardiology. Assessment & Plan (03/30/2020 6:35 PM CDT): Patient is stable at this time he has a follow-up visit with Cardiology in the next 10-20 days. Lipid profile is requested today and BMP will be available hub cutter apprentice reviewed Assessment & Plan (10/03/2019 5:04 PM INFORMATION MANAGEMENT MANAGER): Patient free of chest pain no [...] days. Assessment & Plan (10/06/2018 6:13 PM INFORMATION MANAGEMENT MANAGER): Coronary artery disease is unchanged. Continue current treatment regimen. Dietary sodium restriction. Weight loss. Regular aerobic exercise. Continue current medications. Cardiac status will be reassessed in 6 months. Patient sees hub cutter apprentice once a twice per year. Assessment & Plan (07/27/2018 6:40 PM CDT): Patient having technology intern of cardiac discomfort with chest pain shortness of breath with tightness. Will continues routine medications for his heart. Assessment & Plan (02/19/2018 10:12 AM CDT): . Patient's appointment Cardiology next week will give fasting lipid profile performed care to his hub cutter apprentice patient is asymptomatic at this time. Status post stent placement. Assessment & Plan (06/29/2017 10:23 AM CDT): Coronary artery disease is improving with treatment. Continue current treatment regimen. Regular aerobic exercise. Continue current medications. Cardiac status will be reassessed in 6 months. Patient had stent placement in the last 90 days at [facility]. Doing very well. He will follow up with hub cutter apprentice in next 3 months. He is on the medicine Effient. Irritable bowel syndrome 03/21/2014 Overview (02/09/2017): IBS (irritable bowel syndrome) Assessment & Plan (10/06/2018 6:04 PM INFORMATION MANAGEMENT MANAGER): Patient has not had any recent problems with irritable bowel in the past 12 months. Hyperlipidemia 03/21/2014 Overview (02/09/2017): Hyperlipidemia Assessment & Plan (05/05/2025 4:05 PM CDT): LDL 93 total cholesterol 174 continue Zetia 10 mg. Assessment & Plan (10/03/2019 5:03 PM INFORMATION MANAGEMENT MANAGER): Current lipid profile is very good no change in therapy patient is tolerating medications. Assessment & Plan (04/01/2019 9:46 AM CDT): Lipid profile excellent results HDL however is 39 a discuss the the patient he was concerned a regarding the meaning of this. History in getting injections of the cholesterol medicine referring to the medication Repatha which was discussed with his hub cutter apprentice the year ago.. His appointment Cardiology coming up in the near future. Assessment & Plan (10/06/2018 6:03 PM INFORMATION MANAGEMENT MANAGER): Patient's lipid profile up in within [...] activities. Assessment & Plan (10/06/2018 6:11 PM INFORMATION MANAGEMENT MANAGER): Patient osteoarthritis seems to be doing better he does go to pain clinic for his back pain. He has been maintain on meloxicam 15 mg daily. His knee pain has improved Assessment & Plan (06/29/2017 10:24 AM CDT): Patient goes to pain clinic at [facility]. He has been treated Mobic/meloxicam several years [...] Abdominal aortic aneurysm without rupture 2011 Current Treatment and Therapy Plans No current plan information found. Past Treatment and Therapy Plans No past plan information found. Lifetime Dose Tracking * Chemical Lifetime Dose [...] & Plan (02/01/2023 6:45 PM CDT): Seen [facility] few days ago because of [...] 12/01/202201/09 Assessment & Plan (12/01/2022 1:04 PM INFORMATION MANAGEMENT MANAGER): Patient is stable doing well he feels well vitals excellent. Scheduled for excision of his 2nd on 12/05 2022. Will stop Xarelto this evening he is clear for surgery. He however cardiovascular clearance is still pending. Incisional hernia 10/02/2022 07/31/2023 [place] of toe 03/27/2022 01/09/2023 Upper respiratory tract infection 03/17/2022 07/31/2023 Assessment & Plan (01/09/2023 4:06 PM INFORMATION MANAGEMENT MANAGER): Patient now is feeling much better [...] dyspnea. Assessment & Plan (01/05/2023 9:29 AM INFORMATION MANAGEMENT MANAGER): Acute problem, present times about 3-4 [...] 10/14/2021 Assessment & Plan (10/14/2021 2:31 PM INFORMATION MANAGEMENT MANAGER): Patient concerned about right leg swelling [...] He was diagnosed with acute bronchitis in [place] and was given an antibiotic, steroid, and [...] 09/30/2019 Assessment & Plan (10/06/2018 6:12 PM INFORMATION MANAGEMENT MANAGER): Patient appears to have recovered from his his small-bowel obstructions not had any further problems since being discharged from hospital. Acute kidney injury 10/06/20 18
--- OUTSIDE RECORDS SUMMARY | 2025-05-13 14:10 | XMS_ITS | Encounter Summary ---
Author Organization [facility] Address [address] [place] [address] Phone Care Team Providers Care Barrel Finisher Name Role Phone Star Singh MD Primary Care Provider [phone] Chepe Hinton MD Unavailable [phone] Dada Morris MD Unavailable Encounter Details Date Type Department Care Team (Late st Contact Info) Description 03/23/2025 Results Follow-Up [facility] Surgery 2 [facility] [address] [place] [id number] Dixie Parra NP 2 [facility] [address] [place] [address] Surgical pathology Social History Tobacco Use Types Packs/Day Years Used Date Smoking Tobacco: Former Cigarettes 3 15 1 - 1977 Smokeless Tobacco: Never Alcohol Use Standard Drinks/Week [...] points, staff should administer the PHQ-9) 0 03/16/2025 PHQ-9 Answer Date Recorded PHQ-9 Total Score 0 03/06/2024 Personal Safety Answer Date Recorded Have you ever been in or are you currently in a harmful physical or emotional relationship or is someone making you feel afraid or unsafe? Denies 02/03/2025 Sex and Gender Information Value Date Recorded Sex Assigned at Not on file Legal Sex Male 11:56 PM CODING MANAGER Gender Identity Not on file Sexual [...] Diagnoses Not on filedocumented in this encounter Care Teams Barrel Finisher Relationship Specialty Start Date End Date Star Singh MD PCP - General 02/05/17 Chepe Hinton MD Consulting Physician Cardiology 07/19/18 Dada Morris MD [address] [place] [address] [address] Anesthesiologist Pain Management 10/13/22 documented as of this encounter
--- OUTSIDE RECORDS SUMMARY | 2025-05-13 14:10 | XMS_ITS | Clinical Summary ---
Author Organization [facility] Address [address] [place] [address] Care Team Providers Care Rolls Mill Operator Name Role Phone Star Singh MD Primary Care Provider [phone] Source Comments [facility],non-owned Affiliates and Associated Physician Practices is amultiple site organization consisting of ambulatory clinics and hospital sitesin [place], [place]. This disclosure is being madepursuant to the Care Everywhere program and may not contain all information available regarding this patient. Last updated 18.[facility] [place] Allergies Active Allergy Reactions Criticality Noted Date Comments Hmg-Coa-R Inhibitors Myalgias 12/05/2022 locks my muscles up Medications * Be aware that medications may not be up to date on this document. Alwaysverify current medications with the patient. irbesartan-hydr oCHLOROthiazide (Avalide) 150-12.5 MG tablet Take 1 (one) [...] (one) tablet by mouth once daily Active GLUCOSAMINE-CHO NDROITIN PO Active Multiple Vitamins-Minera ls (MULTIVITAL [place] TRIBE SILVER PO) Active clopidogrel (plaVIX) 75 MG tablet Take 1 (one) tablet by mouth once daily Active apixaban (Eliquis) 5 MG tablet Active rOPINIRole (Requip) 2 MG tablet Take 1 (one) tablet by mouth 3 times daily Active vitamin D3 (Cholecalcifero l) 10 MCG (400 UNIT) tablet Take 1 [...] at Not on file Legal Sex Male 1:23 PM CAFETERIA HELPER Gender Identity Not on file Sexual Orientation [...] 7:35 AM CDT Height 177.8 cm (5' 10) 07/01/2024 11:48 AM CDT Body Mass Index [...] - 1-dose 75+ series) 2019 COVID-19 VACCINE (3 - season) 2024 08/15/2022, 11/21/2021 DEPRESSION SCREENING 11/05/2024 INFLUENZA VACCINE (#1) 2025 , 07/16/2022, 08/01/2019, Additional history exists HEPATITIS B VACCINE Aged Out No longe r eligible based on patient's age to complete this topic HIB VACCINE Aged Out No longer eligi ble based on patient's age to complete this topic HPV VACCINE Aged Out No longer eligi ble based on patient's age to complete this topic MENINGOCOCCAL (Group B) VACCINE SHARED DECISION-MAKING Aged Out No longer eligible based on patient's age to complete this topic MENINGOCOCCAL GROUPS A/C/Y/W VACCINE Aged Out No longer eligible based on patient's age to complete this topic Insurance MEDICARE MEDICARE COUNTRY LIFE INSURANCE MEDICARE SUPP Care Teams Rolls Mill Operator Relationship Specialty Start Date End Date Star Singh MD [employer] [address] [address] PCP - General Internal Medicine 11/16/22
--- OUTSIDE RECORDS SUMMARY | 2025-05-13 14:10 | XMS_ITS | Encounter Summary ---
Author Organization [facility] Address [address] [place] [address] Phone Care Team Providers Care School Child Care Attendant Name Role Phone Star Singh MD Primary Care Provider [phone] Chepe Hinton MD Unavailable [phone] Dada Morris MD Unavailable [phone] Encounter Details Date Type Department Care Team (Late st Contact Info) Description 06/27/2021 Orders Only [facility] [address] [place] [address] Scanning, Provider Social History Tobacco [...] on file Legal Sex Male 11:56 PM SENIOR BIOINFORMATICS SCIENTIST Gender Identity Not on file Sexual Orientation Not on file documented as of this encounter Plan of Treatment Not on file documented as of this encounter Procedures Procedure [...] COVID: Suspected 01/05/2023 01/05/2023 01/05/2023 9:31 AM SENIOR BIOINFORMATICS SCIENTIST COVID: Suspected 01/09/2023 01/09/2023 01/09/2023 2:34 PM SENIOR BIOINFORMATICS SCIENTIST COVID: Suspected 10/25/2023 10/25/2023 10/25/2023 4:10 PM SENIOR BIOINFORMATICS SCIENTIST documented as of this encounter Care Teams School Child Care Attendant Relationship Specialty Start Date End Date Star Singh MD PCP - General 02/05/17 Chepe Hinton MD Consulting Physician Cardiology 07/19/18 Dada Morris MD [address] [place] [address] [address] Anesthesiologist Pain Management 10/13/22 documented as of this encounter
--- OUTSIDE RECORDS SUMMARY | 2025-05-13 14:10 | XMS_ITS | Encounter Summary ---
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 Monthly or less 12/04/2022 7:40 AM Rebecca Llanes RT Q2: How many drinks containing alcohol do you have on a typical day when you are drinking? 1 or 2 12/04/2022 7:40 AM Parmjit Llanes RT Q3: How often do you have six or more drinks on one occasion? Never 12/04/2022 7:40 AM Rebecca Llanes RT documented as of this encounter Plan of Treatment Not on file documented as of this encounter Goals Goal Patient Goal Type Associated Problems Recent Progress Patient-Stated? Author -Pain Behavioral Health Reyna Jimenez, RN Note: Patient will establish a comfort-function goal and identify the pain level that will allow the patient to perform desired activities and achieve an acceptable quality of life. documented as of this encounter Visit Diagnoses Not on filedocumented in this encounter Additional Health Concerns Infection Onset Date Last Indicated Resolved Time COVID: Suspected 01/05/2023 01/05/2023 01/05/2023 9:31 AM FARM MANAGEMENT ADVISER COVID: Suspected 01/09/2023 01/09/2023 01/09/2023 2:34 PM FARM MANAGEMENT ADVISER COVID: Suspected 10/25/2023 10/25/2023 10/25/2023 4:10 PM FARM MANAGEMENT ADVISER documented as of this encounter Care Teams Ceiling Installer Relationship Specialty Start Date End Date Star Singh MD PCP - General 02/05/17 Chepe Hinton MD Consulting Physician Cardiology 07/19/18 Dada Morris MD [address] [facility] [address] [address] Anesthesiologist Pain Management 10/13/22 documented as of this encounter
--- OUTSIDE RECORDS SUMMARY | 2025-05-13 14:11 | XMS_ITS | Encounter Summary ---
Author Organization [facility] Address [address] [address] Care Team Providers Care Menu Planner Name Role Phone Star Singh MD Primary Care Provider [phone] Chepe Hinton MD Unavailable [phone] Lizy Cai RN Unavailable [phone] Dada Morris MD Unavailable Encounter Details Date Type Department Care Team (Late st Contact Info) Description 03/13/2017 Orders Only [facility] ProviderJuan MD [address] [place] [id number] Social History Tobacco Use Types Packs/Day Years Used Date Smoking Tobacco: Some Days Cigarettes Last attempted to quit: 11/05/1979 Alcohol Use Standard Drinks/Week Comments Yes 0 (1 standard drink = 0.6 oz pur e alcohol) Sex and Gender Information Value Date Recorded Sex Assigned at Not on file 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 Gender Identity Not on file Sexual Orientation [...] COVID: Suspected 01/05/2023 01/05/2023 01/05/2023 9:31 AM SCRAP BALLER COVID: Suspected 01/09/2023 01/09/2023 01/09/2023 2:34 PM SCRAP BALLER COVID: Suspected 10/25/2023 10/25/2023 10/25/2023 4:10 PM SCRAP BALLER documented as of this encounter Care Teams Menu Planner Relationship Specialty Start Date End Date Star Singh MD PCP - General 02/05/17 Chepe Hinton MD Consulting Physician Cardiology 07/19/18 Lizy Cai, RN [address] [place] [address] [place] [address] Marriage And Family Social Worker 07/22/18 08/28/18 Dada Morris MD [address] [place] [address] [address] DUVALL [address] [place], [place] [id number] Anesthesiologist Pain Management 10/13/22 documented as of this encounter
--- OUTSIDE RECORDS SUMMARY | 2025-05-13 14:11 | XMS_ITS | Clinical Summary ---
Author Organization [facility] Address [address] [place] [address] Phone Care Team Providers Care Sales Support Representative Name Role Phone Star Singh MD Primary Care Provider [phone] Allergies Active Allergy Reactions Criticality Noted Date [...] 2:34 AM CDT Height 177.8 cm (5' 10) 01/27/2023 2:34 AM CDT Body Mass Index 33.72 01/27/2023 2:34 AM CDT Plan of Treatment Health Maintenance Due Date Last Done Comments Hepatitis C Virus (HCV) Screening 1945 TdaP Immunization 1945 Respiratory Syncytial Virus (RSV) Immunization (Adult) (1 - 1-dose 75+ series) 2019 SARS-COV-2 Immunization (2023- season) 2024 08/15/2022, 11/21/2021, 02/09/2021, Additional history exists Influenza Immunization (#1) 07/06/202507/06, 07/15/2022, 07/12/2021, Additional history exists DTaP/Tdap/Td Immunization Discontinued 10/06/2008 Pneumococcal Immunization (50+ years) Completed 09/30/2018, 03/13/2017 Pneumococcal Immunization Combined Discontinued 09/30/2018, 03/13/2017 Zoster Immunization Completed 07/21/2021, 07/09/2021, 05/20/2021 Hepatitis B Immunization Aged Out No longer eligible based on patient's age to complete this topic Human Papillomavirus (HPV) Immunization Aged Out No longer eligible based [...] Health Behavioral Health On track(2020 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 during his 30-45 min individual therapy sessions, 1-2 times per month Patient counseled on recognizing and challenging unrealistic guilt during his 30-45 min individual therapy sessions, 1-2 times per month Behavioral Health Behavioral Health On track(2020 11:09 AM NAIL STICKER) No Colt Locke LCSW Note: Goal: Patient will be able to report improve mood/adjustment to spouse's penitentiary placement and their changed relationship, to an acceptable level, within the next six months Goal Reviewed today with: patient Readiness to change: Ready to change Department associated with goal: [facility] Steps to achieve goal: Patient counseled on heathy self-care, including importance of a healthy daily routine during his 30-45 min individual therapy sessions, 1-2 times per month Patient counseled on importance of exercise and socialization during his 30-45 min individual therapy sessions, 1-2 times per month Insurance 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 PRE-ARREST: Use entire range of life support measures to stabilize the patient. Care Teams Sales Support Representative Relationship Specialty Start Date End Date Star Singh MD [address] [place] [address] PCP - General Internal Medicine 10/13/19
[2025-05-13 15:24] LABS: Hematocrit 43.7 % (42.0-52.0); Hemoglobin 14.2 g/dL (14.0-18.0); Immature Granulocyte Percent A 0.6 % (0-0.5); Lymphocytes Absolute Auto 1.77 K/mm3 (0.9-3.2); Mean Corpuscular HGB Conc 32.5 g/dl (32-36); Mean Corpuscular Hemoglobin 29.8 pg (26-34); Mean Corpuscular Volume 91.8 fl (80-100); Nucleated Red Blood Cells Absolute Auto 0.000 K/mm3 (0.0-0.012); Nucleated Red Blood Cells Perc 0.0 % (0.0-0.2); Platelet Count Result 191 k/mm3 (150-375); Red Blood Count 4.76 M/mm3 (4.6-6.20); White Blood Count 7.3 K/mm3 (4.5-10.0)
[2025-05-13 15:44] LABS: Albumin Level 4.5 g/dL (3.5-5.1)
[2025-05-13 15:47] LABS: Anion Gap 8 mmol/L (4-12); Blood Urea Nitrogen 30 mg/dL (9-20); Calcium 10.1 mg/dL (8.4-10.2); Carbon Dioxide 28 mmol/L (22-30); Chloride 104 mmol/L (98-107); Estimated Glomerular Filt Rate 37; Glucose 97 mg/dL (65-110); Potassium 4.8 mmol/L (3.4-5.0); Sodium 140 mmol/L (137-145)
[2025-05-13 15:56] LABS: INR 1.1; Partial Thromboplastin Time 27.8 Seconds (22.3-36.8); Prothrombin Time 13.9 Seconds (11.1-14.7)
[2025-05-13 16:37] LABS: Hemoglobin A1C 5.6 % (<5.7)
== END 2025-05-13 13:52 | disposition home or self-care (01) ==
LOC: ANHSURGERY 14:00
PROVIDERS: Anesthesiology; PCP Internal Medicine; Visit Provider Orthopaedic Surgery
DX: M17.11 Unilateral primary osteoarthritis, right knee (principal); I12.9 Hypertensive chronic kidney disease with stage 1 through stage 4 chronic kidney disease, or unspecified chronic kidney disease; N18.32 Chronic kidney disease, stage 3b; Z01.818 Encounter for other preprocedural examination
CPT/HCPCS: 36415; 80048; 80307; 82040; 83036; 85025; 85610; 85730; 87081

== ENCOUNTER 2025-06-04 00:28 | Day surgery (SDC) | payer MEDICARE, SELFPAY ==
--- NOTE | 2025-05-13 13:57 | PC.NURSE ---
Report to the Outpatient Waiting Room, entrance under the green pavilion located off [facility], at time __6AM on date _06/04/25 . Planned Procedure Time: __7;30 AM .? Time changes happen often and if your time is changed the preop area will call you the afternoon before. - You and your visitor will be asked to self-screen and do not enter if you have any COVID symptoms. Please call surgeon if you need to reschedule. - A mask is optional within the hospital at this time. Patients may have clear liquids (water, carbonated beverages, clear teas, apple juice) until 3 hours prior to surgery ( 4:30 AM) with a maximum of 20 ounces. - No food from midnight until time of surgery and no smoking, or chewing tobacco (or any form of nicotine). No chewing gum, candy or mints. Take only the following medications with a SIP of water on the morning of surgery: __BUPROPION DO NOT STOP ANY OF YOUR OTHER PRESCRIPTION MEDICATIONS PRIOR TO SURGERY EXCEPT THE FOLLOWING Hold all vitamins and supplements for 3 days per anesthesiologist.LAST DOSE 05/31/25 Medications to discontinue per physician ____XARELTO HOLD 3 DAYS PRE OP PER DR BANDA LAST DOSE 05/31/25 Please no make-up, nail luxembourger, hairspray, perfume, deodorant, or body powder the day of surgery.? No jewelry (including any body piercings) or valuables the day of surgery, leave them at home.? Please take a shower or bath the night before, or the morning of, surgery with an antibacterial soap.? Wear comfortable, loose fitting clothing.? Children are encouraged to wear pajamas. - Jewelry must be removed prior to entering the operating room.? Rings and piercings that are not removed may be cut off. - The hospital will not accept responsibility for valuables.? - Please leave all valuables, including medications, at home the day of surgery. If you are going home after surgery, a licensed corrugated fastener driver must drive you home.? - NO public transportation without another adult if you receive anesthesia. - We recommend that an adult stay with you for 24 hours following discharge. - We also recommend that you do not drive, make important decision, drink alcoholic beverages, or take any drugs that were not prescribed by your health care provider for at least 24 hours after your discharge time. For Pediatric surgeries, we recommend two adults accompany the child home. Follow any additional instructions given to you from your surgeon. VERBAL AND WRITTEN instructions given to PATIENT and asked if any additional questions and then verbalized understanding. Patient advised to call surgeon office or pre surgery nurse liaison [phone] if any additional questions.
[2025-05-13 14:03] VITALS: BMI 32.9
[2025-05-13 14:57] VITALS: BP 115/67; PULSE 74; RESP 18; TEMP 37; O2SAT 98
[2025-06-04] VITALS (16 sets, daily range): BP systolic 128–156; BP diastolic 62–88; PULSE 62–75; RESP 10–18; TEMP 36–36.8; O2SAT 92–100
--- NOTE | ~2025-06-04 | XR_ITS ---
EXAMINATION: [id number] DATE: 06/04/2025 10:18 CDT INDICATION: Right knee arthroplasty TECHNIQUE: 2 views right knee FINDINGS: There is a right total knee arthroplasty in expected position. Subcutaneous gas with fluid and air in the joint are consistent with recent surgery. No evidence of periprosthetic fracture. IMPRESSION: 1. Recent right total knee arthroplasty. Reviewed, dictated and finalized at location B.
--- OUTSIDE RECORDS SUMMARY | 2025-06-04 00:32 | XMS_ITS | Clinical Summary ---
Author Organization [facility] Address [address] [place] [address] Care Team Providers Care Certified Physician'S Assistant Name Role Phone Star Singh MD Primary Care Provider [phone] Chepe Hinton MD Unavailable [phone] Dada Morris MD Unavailable Allergies Active Allergy Reactions Criticality Noted Date Comments Atorvastatin Other (See comments) Low Muscles lock up Sulfamethoxazole-Trimeth oprim Stomach upset Low 04/03/2023 Pravastatin Other (See comments) Low Muscles lock up Rosuvastatin Other (See comments) Low Muscles lock up Wjznnca-Qxp-Yjv Reductase Inhibitors Other (See comments) Low Muscles lock up Sulfa (Sulfonamide Antibiotics) Other (See comments) Low 04/16/2023 Stomach pain Medications glucosamine-chondro itn sulf.Na 750-600 mg tablet take 2 daily. 0 0 014 Active hqlblltbnndn-sozw-l olic acid (MULTI-YVONNE) 18-400 mg-mcg tablet take 1 tablet by oral route every day with food 0 0 014 Active loratadine 10 mg capsule Take 1 capsule by mouth daily. Active cholecalciferol (VITAMIN D-3) 2000 unit tablet Take 2 tablets (4,000 Units total) by mouth daily Active fluticasone propionate (FLONASE) 50 mcg/actuation nasal sprayIndications:Vi ral URI with cough Administer 2 sprays into each nostril daily 3 each 4 022 Active albuterol HFA (PROVENTIL HFA,VENTOLIN HFA,PROAIR HFA) 90 mcg/actuation inhalerIndications: Upper respiratory tract infection, unspecified type Inhale 2 puffs every 6 (six) hours as needed for wheezing 1 each 2 023 Active albuterol 2.5 mg /3 mL (0.083 %) nebulizer solutionIndications :Acute Asthma Attack Take 3 mL (2.5 mg total) by nebulization every 4 (four) hours as needed for wheezing DX J45.909 360 mL 023 Active polyethylene glycol (MIRALAX) 17 gram/dose bulk powder Take 17 g by mouth daily Active albuterol-budesonid e 90-80 mcg/actuation HFA aerosol inhaler Inhale 1 Inhalation as needed (as needed) 10 g 024 Active apixaban (Eliquis) 5 mg tablet TAKE 1 TABLET BY MOUTH TWICE A DAY 60 tablet 11 024 Active fenofibrate nanocrystallized (TRICOR) 145 mg tablet TAKE 1 TABLET BY MOUTH EVERY DAY 90 tablet 3 024 Active irbesartan-hydrochl orothiazide (AVALIDE) 150-12.5 mg per tablet TAKE 1 TABLET BY MOUTH EVERY DAY 90 tablet 3 024 Active dicyclomine (BENTYL) 20 mg tabletIndications:I rritable bowel syndrome with diarrhea TAKE 1 TABLET BY MOUTH EVERY DAY 90 tablet 1 024 Active Additional Information Patient taking differently:20 mg oralDaily PRN, Reported on 06/02/2025 docusate sodium (COLACE) 100 mg capsuleIndications: constipation Take 1 capsule (100 mg total) by mouth 2 (two) times a day as needed (use while taking narcotic medication to avoid opioid-induced constipation) 28 capsule 025 Active acetaminophen (TYLENOL) 500 mg tablet Take 2 tablets (1,000 mg total) by mouth every 6 (six) hours as needed for pain or headaches 240 tablet 025 Active ezetimibe (ZETIA) 10 mg tablet TAKE 1 TABLET BY MOUTH EVERY DAY 90 tablet 3 025 Active cyclobenzaprine (FLEXERIL) 10 mg tablet Take 1 tablet (10 mg total) by mouth daily as needed for muscle spasms 30 tablet 2 025 Active buPROPion XL (WELLBUTRIN XL) 300 mg 24 hr tabletIndications:C urrent mild episode of major depressive disorder without prior episode TAKE 1 TABLET (300 MG TOTAL) BY MOUTH EVERY MORNING. 90 tablet 1 025 Active oxyCODONE (ROXICODONE) 5 mg immediate release tabletIndications:P ain Take 1 tablet (5 mg total) by mouth every 4 (four) hours as needed (Intolerable pain that is unresponsive to other medications) 12 tablet 025 2024 Discontinued traMADoL (ULTRAM) 50 mg tabletIndications:C hronic left-sided low back pain without sciatica Take 1 tablet (50 mg total) by mouth every 6 (six) hours as needed for pain 20 tablet 025 2024 Discontinued clopidogreL (PLAVIX) 75 mg tablet 025 2024 Discontinued Hospital, Clinic, or Other Facility Administered Medication Ordered Dose Route Frequency Start Date End Date Status Tc-99m sestamibi unit dose injection 10.03 millicurieIndicatio ns:Diagnostic Radiography 10.03 millicurie IV Once in imaging 06/01/2025 06/01/2025 En ded regadenoson (LEXISCAN) 0.4 mg/5 mL injection 0.4 mgIndications:Myoca rdial Perfusion Imaging Adjunct 0.4 mg IV Once 06/01/2025 06/01/2025 Ended Tc-99m sestamibi unit dose injection 37.91 millicurieIndicatio ns:Diagnostic Radiography 37.91 millicurie IV Once in imaging 06/01/2025 06/01/2025 En ded Active Problems Problem Noted Date Diagnosed Date Hyperplastic polyp of descending colon Assessment & Plan (12/29/2024 2:28 PM TE[employer]): Colonoscopy Yvonne 15,25 tubular adenoma benign Class 2 severe obesity due t o excess calories with serious comorbidity in adult 09/14/2024 Assessment & Plan (09/14/2024 4:15 PM [employer]): Patient no longer has a BMI 40 [...] 03/06/2024 Assessment & Plan (12/29/2024 2:37 PM [employer]): Patient is aware of the that he qualifies for total knee he plans to get this done probably in the next 6 months. Patient walks with a cane because of knee pain. Myalgia, other site 01/30/2024 Pain in both testicles 01/09/2024 Assessment & Plan (01/09/2024 1:03 PM [employer]): Recurrent pain in his testicles getting progressively worse. Is my 1st hearing of this. I am going to proceed in get an ultrasound of his testicle and refer to Urology Muscle spasm of left lower extremity 01/09/2024 Assessment & Plan (01/09/2024 1:02 PM [employer]): Patient is having a cramping feeling posterior [...] 12/28/2023 Assessment & Plan (12/28/2023 9:53 AM [employer]): Lesion consistent with sebaceous cyst noted to left occiputal area just above hairline. No acute signs of infection. Will likely resolve on it's own. Keep skin clean and dry, no not squeeze or pick at it. Weak 10/28/2023 Assessment & Plan (10/28/2023 7:32 PM [employer]): Patient tested COVID as well as flu results were negative mi respiratory symptoms I suggest utilizing Zyrtec. No fever no chills Tylenol p.r.n.. 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 On recent visit Assessment & Plan (03/12/2023 [...] with Pulmonary. Recently diagnosed with pneumonia at [facility] and is improving Assessment & Plan (01/09/2023 4:05 PM [employer]): Patient continues to have some shortness of breath despite aggressive cardiac therapy Silvia consult with Pulmonary which is very reasonable he has atrial fibrillation hypertension sleep apnea he is a very large man which all may be contributing factors to his progressive dyspnea CHLOE (obstructive sleep apnea) 01/09/2023 Assessment & Plan (12/29/2024 2:29 PM [employer]): Patient is scheduled for hypoglossal inspire nerve stimulator implantation on 02/03/2025 Assessment & Plan (03/10/2024 9:36 AM CDT): Patient continues use CPAP and benefits followed by the sleep Clinic Assessment & Plan (01/09/2023 4:04 PM [employer]): Patient uses CPAP machine for many years with benefits once he retired no longer worked he start using his CPAP machine. Having shortness of breath some fatigue he would like resume treatment for sleep apnea. Patient is 77 years old he is referred to sleep Clinic for further evaluation including asleep study. Paroxysmal atrial fibrillation 11/27/2022 Assessment & Plan (12/29/2024 2:35 PM [employer]): Cardiac ablation completed December 18, 2024 Dr. Jean-Baptiste at [facility]. No complication with the procedure patient is feeling well. Assessment & Plan (07/31/2023 6:42 PM CDT): Has been in his last visit with Cardiology he will be referred to Dr. Jean-Baptiste at [facility] for [facility] treatment for atrial fibrillation Assessment & Plan (12/01/2022 1:03 PM [employer]): Recent atrial fibrillation managed by Cardiology he is now on Xarelto TIA (transient ischemic attack) 11/16/2022 Assessment & Plan (12/01/2022 12:44 PM [employer]): No further symptoms of TIA /temporary vision change. This is thought to be secondary to recent onset of atrial fibrillation. Patient is now on Xarelto Assessment & Plan (11/16/2022 6:05 PM [employer]): Patient recently had a TIA expressed in the form of loss of vision right eye for several minutes. 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 Monitor comes off on . Patient is [...] request Assessment & Plan (10/14/2021 2:29 PM [employer]): 76-year-old gentleman who was given medication Viagra in the past he never tried it is now he would like to try consider using this I discussed with the side effects. Rx sent for tablets 11 refill Major depressive disorder with single episode Assessment & Plan (12/29/2024 2:36 PM [employer]): Mood is excellent continue present therapy Wellbutrin 300 mg daily Assessment & Plan (09/14/2024 4:12 PM [employer]): Patient's mood is excellent with medication no [...] been seeing a counselor at [facility] psychological [facility].. He has 3 [...] has to walk several miles a day [email or web address] walk 1/4 mi he has pain. Also [...] 2019 Assessment & Plan (12/29/2024 2:24 PM TE[employer]): Patient did see Nephrology at [facility]. Was advised that his renal results was consistent with his age and dx of 20+ years of hypertension. Patient EGFR was 52 on December 04, 2024 on September EGFR 33 no action indicated. Continue to control blood pressure Assessment & Plan (09/11/2024 12:54 PM [employer]): Will refer this patient to nephrology orthopedic surgeon would like to do a total knee on this gentleman. Patient has been advised by his orthopedic surgeon Dr. Wilkisnon has requested a Nephrology consult prior to [...] 41 Assessment & Plan (09/12/2022 5:22 PM [employer]): Non steroidal anti-inflammatory/meloxicam discontinued patient utilizing Tylenol [...] today Assessment & Plan (10/04/2020 6:15 PM TE[employer]): Laboratory results from is almost 6 months [...] daily Assessment & Plan (09/14/2024 4:11 PM TE[employer]): Blood pressure remains well controlled patient takes Avalide HCTZ 150/12.51 tablet daily tolerates the medications. Assessment & Plan (07/31/2023 6:42 PM CDT): Pressure well controlled patient is tolerating medications no change in therapy Assessment & Plan (12/01/2022 1:03 PM [employer]): Blood pressure well control no change in [...] by Pulmonary for his chronic lung disease. Budget Assistant for coronary artery disease in his very [...] had his shingles vaccine at [facility]. This is not recorded in our records [...] months. Assessment & Plan (10/04/2020 6:14 PM TE[employer]): Health risk assessment health maintenance reviewed in addressed. Patient aware of immunization recommendations. Patient continues in the care of Pain Clinic he recently had evaluation regarding is back per Neurosurgery recommendations continue physical therapy. Assessment & Plan (10/03/2019 5:06 PM TE[employer]): Patient is a history and physical completed [...] 06/23/2019 Assessment & Plan (10/03/2019 5:02 PM TE[employer]): Patient continues to have significant knee pain [...] 1st Assessment & Plan (09/12/2022 5:23 PM [employer]): Patient continues with the pain clinic and benefits from the therapy. Assessment & Plan (10/03/2019 5:02 PM [employer]): Patient's notice has knee pain gets worse [...] 08/21/2017 Assessment & Plan (12/29/2024 2:25 PM TE[employer]): Blood pressure goal 130/84 patient is tolerating medications no symptoms referable to his hypertension continue Avalide 150/12.5 daily Assessment & Plan (01/30/2024 6:00 PM CDT): Blood pressure is acceptable patient is doing well no change in therapy Assessment & Plan (12/28/2023 9:53 AM [employer]): BP stable in office today on current therapy. No acute findings on exam. Continue current regimen and low salt diet. Assessment & Plan (10/28/2023 7:32 PM TE[employer]): Pressure is excellent continue present therapy Assessment & Plan (04/16/2023 5:31 PM CDT): Budget Assistant notes reviewed. His back on a diuretic [...] range. Assessment & Plan (01/09/2023 4:09 PM TE[employer]): Blood pressure reasonably control no change in therapy Assessment & Plan (09/12/2022 5:20 PM TE[employer]): Hypertension remains very well controlled patient is [...] therapy. Assessment & Plan (10/03/2019 5:02 PM TE[employer]): Blood pressure well controlled patient tolerating medications [...] Avalide. 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 Coronary artery disease involving nisqually coronar y artery 06/28/2017 Assessment & Plan (09/06/2021 12:13 PM CDT): Budget Assistant notes reviewed Assessment & Plan (06/13/2021 11:39 AM CDT): Budget Assistant notes reviewed. Patient remains asymptomatic with respect coronary artery disease. Assessment & Plan (03/09/2021 8:42 AM CDT): Estimated GFR remains stable BMP on this visit. Assessment & Plan (10/04/2020 6:14 PM TE[employer]): Patient's keeping his current appointments with cardiology stable no new health problems identified with respect to cardiology. Assessment & Plan (03/30/2020 6:35 PM CDT): Patient is stable at this time he has a follow-up visit with Cardiology in the next 10-20 days. Lipid profile is requested today and BMP will be available bag filler reviewed Assessment & Plan (10/03/2019 5:04 PM [employer]): Patient free of chest pain no evidence [...] days. Assessment & Plan (10/06/2018 6:13 PM TEACHER [employer]): Coronary artery disease is unchanged. Continue current treatment regimen. Dietary sodium restriction. Weight loss. Regular aerobic exercise. Continue current medications. Cardiac status will be reassessed in 6 months. Patient sees bag filler once a twice per year. 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 Will continues routine medications for his heart. Assessment & Plan (02/19/2018 10:12 AM CDT): . Patient's appointment Cardiology next week will give fasting lipid profile performed care to his bag filler patient is asymptomatic at this time. Status post stent placement. Assessment & Plan (06/29/2017 10:23 AM CDT): Coronary artery disease is improving with treatment. Continue current treatment regimen. Regular aerobic exercise. Continue current medications. Cardiac status will be reassessed in 6 months. Patient had stent placement in the last 90 days at [facility]. Doing very well. He will follow up with bag filler in next 3 months. He is on the medicine Effient. Irritable bowel syndrome 03/21/2014 Overview (02/09/2017): IBS (irritable bowel syndrome) Assessment & Plan (10/06/2018 6:04 PM TE[employer]ER [employer]): Patient has not had any recent problems with irritable bowel in the past 12 months. Hyperlipidemia 03/21/2014 Overview (02/09/2017): Hyperlipidemia Assessment & Plan (05/05/2025 4:05 PM CDT): LDL 93 total cholesterol 174 continue Zetia 10 mg. Assessment & Plan (10/03/2019 5:03 PM TEACHER [employer]): Current lipid profile is very good no change in therapy patient is tolerating medications. Assessment & Plan (04/01/2019 9:46 AM CDT): Lipid profile excellent results HDL however is 39 a discuss the the patient he was concerned a regarding the meaning of this. History in getting injections of the cholesterol medicine referring to the medication Repatha which was discussed with his bag filler the year ago.. His appointment Cardiology coming up in the near future. Assessment & Plan (10/06/2018 6:03 PM TE[employer]ER [employer]): Patient's lipid profile up in within therapeutic [...] activities. Assessment & Plan (10/06/2018 6:11 PM TEACHER [employer]): Patient osteoarthritis seems to be doing better he does go to pain clinic for his back pain. He has been maintain on meloxicam 15 mg daily. His knee pain has improved Assessment & Plan (06/29/2017 10:24 AM CDT): Patient goes to pain clinic at [facility]. He has been treated Mobic/meloxicam several [...] & Plan (02/01/2023 6:45 PM CDT): Seen [facility] few days ago because of [...] 12/01/202201/09 Assessment & Plan (12/01/2022 1:04 PM TEACHER [employer]): Patient is stable doing well he feels well vitals excellent. Scheduled for excision of his 2nd on 12/05 2022. Will stop Xarelto this evening he is clear for surgery. He however cardiovascular clearance is still pending. Incisional hernia 10/02/2022 07/31/2023 Chauncey of toe 03/27/2022 01/09/2023 Upper respiratory tract infection 03/17/2022 07/31/2023 Assessment & Plan (01/09/2023 4:06 PM TEACHER [employer]): Patient now is feeling much better in the past 18 hours he is using the albuterol inhaler with correct technique feeling much better he still having wheezing still having some shortness of breath. I have no additional changes to make. He is to follow-up pulmonary in the future at his request he has chronic components of dyspnea. Assessment & Plan (01/05/2023 9:29 AM TEACHER [employer]): Acute problem, present times about 3-4 days [...] 10/14/2021 Assessment & Plan (10/14/2021 2:31 PM TEACHER [employer]): Patient concerned about right leg swelling on [...] He was diagnosed with acute bronchitis in [place] and was given an antibiotic, steroid, and [...] 09/30/2019 Assessment & Plan (10/06/2018 6:12 PM TEACHER [employer]): Patient appears to have recovered from his his small-bowel obstructions not had any further problems since being discharged from hospital. Acute kidney injury 10/06/20 18 Encounters Date Type Department Care Team Description 06/02/2025 10:45 AM CDT Office Visit [facility] Sleep Medicine at [address] [place] [address] Roxanne Velasquez MD CHLOE (obstructive sleep apnea) (Primary Dx); Treatment-emergent central sleep apnea; Hypersomnia; Obesity, unspecified class, unspecified obesity type, unspecified whether serious comorbidity present 06/02/2025 Orders Only [facility] [address] [place] [address] Roxanne Velasquez MD CHLOE (obstructive sleep apnea) (Primary Dx) 06/02/2025 Results Follow-Up [facility] [id number] [facility] [address] [place] [address] Raysa Taylor MA NM MPI SPECT (Rest and/or Stress) Multiple Studies 06/01/2025 9:00 AM CDT Ancillary Procedure [facility] [id number] [facility] [address] [place] [address] Coronary artery disease involving nisqually coronary artery of nisqually heart without angina pectoris 05/18/2025 8:00 AM CDT Office Visit [facility] at [facility] [address] [place] [id number] Chepe Hinton MD Coronary artery disease involving nisqually coronary artery of nisqu[place] heart without angina pectoris (Primary Dx); Essential hypertension, benign; Mixed hyperlipidemia; Abdominal aortic aneurysm (AAA) without rupture, unspecified part 05/05/2025 10:30 AM CDT Lab [facility] [address] [place] [address] Essential hypertension, benign 05/05/2025 9:30 AM CDT Office Visit [facility] [address] [facility] [address] [place] [address] Star Singh MD Essential hypertension, benign (Primary Dx); Medicare annual wellness visit, subsequent; Mixed hyperlipidemia 04/27/2025 8:40 AM CDT Office Visit [facility] [id number] [facility] [address] [place] [address] Mili Cisneros MD S/P insertion of hypoglossal nerve stimulator (Primary Dx); CHLOE (obstructive sleep apnea) 04/14/2025 1:00 PM CDT Office Visit [facility] Sleep Medicine at [address] [place] [id number] Roxanne Velasquez MD CHLOE (obstructive sleep apnea) (Primary Dx); Treatment-emergent central sleep apnea; Hypersomnia; Obesity, unspecified class, unspecified obesity type, unspecified whether serious comorbidity present 03/23/2025 Results Follow-Up [facility] [address] [facility] [address] [place] [id number] Dixie Parra NP Surgical pathology 03/18/2025 Orders Only [facility] [address] [place] [address] Dixie Parra NP Skin neoplasm 03/17/2025 11:00 AM CDT Office Visit [facility] [address] [facility] [address] [place] [address] Dixie Parra NP Skin neoplasm (Primary Dx); Arthritis of both hands 03/16/2025 1:30 PM CDT Office Visit [facility] [address] [facility] [address] [place] [address] Daisy Garcia NP Chronic left-sided low back pain without sciatica (Primary Dx); Spinal stenosis of lumbar region without neurogenic claudication from Last 3 Months Immunizations Immunization Administration Dates Next Due COVID-19 mRNA (ALCOHOOT) 0.3 m L (30 mcg) vaccine (12 [...] nerve stimulator Medtronic Cataract Diverticulitis of colon [place] (hard of hearing) Does use hearing aid Wears glasses Abdominal aortic aneurysm without rupture Coronary artery disease group home current use of anticoagulant Irritable bowel syndrome [...] on file Legal Sex Male 11:56 PM [employer] Gender Identity Not on file Sexual Orientation Not on file Obstetrics History Last Filed Vital Signs Vital Sign Reading Time Taken Comments Blood Pressure 109/71 06/02/2025 10:51 AM CDT Pulse 79 06/02/2025 10:51 AM CDT Temperature 36.7 C (98 F) 05/05/2025 9:40 AM CDT Respiratory Rate 18 05/18/2025 8:06 AM CDT Oxygen Saturation 97% 06/02/2025 10: 51 AM CDT Inhaled Oxygen Concentration - - Weight 107.4 kg (236 lb 12.8 oz) 2024 10:51 AM CDT Height 177.8 cm (5' 10) 06/02/2025 10: 51 AM CDT Body Mass Index 33.98 06/02/2025 10:51 AM CDT Plan of Treatment Health Maintenance [...] Abdominal Aortic Aneurysm (A AA) Screen Completed 05/18/2025, 11/09/2023, 07/18/2023, Additional history exists Hepatitis B Screening Discontinued Goals Goal Patient Goal Type Associated Problems Recent Progress Patient-Stated? Author -[facility] Reyna Jimenez, RN Note: Patient will establish a comfort-function goal and identify the pain level that will allow the patient to perform desired activities and achieve an acceptable quality of life. Medical Devices Implanted Type Area Commissioning Editor Device Identifier Shelf Expiration Date Model / Serial / Lot MicroCHIPS Angio-Seal Vip 6fr Closere Device [id number] - [id number] Implanted:Qty: 1 on 12/04/2022 by Farooq Astudillo MD at [facility] MicroCHIPS 09/04/2023 [id number] / / [id number] Med[employer] Vectris 5mm 60cm 1x8 Electrode Mri Lead Neurostimulator [id number] - [id number] Implanted:Qty: 1 on 10/16/2023 by William Jay MD at [facility] Left: Back [employer] Inc 09/04/2027 [id number] / / [id number] Med[employer]onic Inc Vectris 5mm 60cm 1x8 Electrode Mri Lead Neurostimulator [id number] - [id number] Implanted:Qty: 1 on 10/16/2023 by William Jay MD at [facility] Left: Back [employer] 09/04/2027 [id number] / / [id number] Med[employer]onic Inc Envelope Absrb 2.7x2.5in Antibacterial Tyrx Medium Strl [id number] - [id number] Implanted:Qty: 1 on 10/16/2023 by William Jay MD at [facility] Left: Back [employer] Inc 07/07/2024 [id number] / / [id number] Med[employer]onic Inc Neurostimulator Implantable Chronic Pain Rs2 [id number] - [id number] - [id number] Implanted:Qty: 1 on 10/16/2023 by William Jay MD at [facility] Left: Back [employer] Inc 08/02/2024 [id number] / [id number] / [employer] Zilver Ptx 8mm 60mm 125cm Otw Drug Elute Delivery System [id number] - [id number] Implanted:Qty: 1 on 06/25/2024 at [facility] [employer] [id number] 10/16/2025 [id number] / / [id number] [employer] Ltd Device 6fr Closure Celt Acd Vascular Sterile Latex Free Disposable Carrie Kclt-06 - [id number] Implanted:Qty: 1 on 06/25/2024 at [facility] [employer]TD 01/15/2027 KCLT-06 / / [id number] [employer] Inspire Generator 3028 - [id number] - [id number] Implanted:Qty: 1 on 02/03/2025 by Mili Cisneros MD at [facility] Right: Chest [employer] 08/25/2027 3028 / [id number] / [employer] Inc Lead Neurostimulator Sleep Apnea Thoracic Permanent Respiratory Sensing Inspire 43cm 4340 - [id number] - [id number] Implanted:Qty: 1 on 02/03/2025 by Mili Cisneros MD at [facility] Right: Chest [employer] [id number] 09/08/2027 4340 / [id number] / [employer] Inc Inspire 3 Electrode Cuff Tunnel Christiano Lead Neurostimulator Sterile 4063 - [id number] - [id number] Implanted:Qty: 1 on 02/03/2025 by Mili Cisneros MD at [facility] Right: Chest [employer] [id number] 04/12/2027 4063 / [id number] / Procedures Procedure Name Priority Date/Time Associated Diagnosis Comments NM MPI SPECT (REST AND/OR STRESS) MULTIPLE STUDIES Schedule Routine, Read Routine (OP Routine) 06/01/2025 11:40 AM CDT Coronary artery disease involving [place] coronary artery of [place] heart without angina pectoris EGFR Routine 05/05/2025 10:38 AM CDT Essential hypertension, benign COMPREHENSIVE METABOLIC PANEL Routine 05/05/2025 10:38 AM CDT Essential hypertension, benign LIPID PANEL Routine 05/05/2025 10:38 AM CDT Essential hypertension, benign SURGICAL PATHOLOGY Routine 03/17/2025 12 :00 AM CDT Skin neoplasm CTA ABDOMINAL AORTA AND BILATERAL ILIOFEMORAL RUNOFF Schedule Routine, Read Routine (OP Routine) 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 Images from the original result were not included. Nuclear Vasodilator One Day Rest/Stress Test Requesting Provider: Chepe Hinton MD Supervising Provider: Micha Rutherford MD Interpreting Physician: Juan Jose Castillo MD Technologist: Dionne Hartley [facility] Pepe Cervantes 79 y.o. male (: 1945) HT: 70.5 Wt: 230 lb Hours since last meal/Caffeine: 14+ Activity Level: Low REASON FOR PERFORMING TEST: Pre-Op Clearance/CAd/Stents/Pacemaker Active Chest Pain: Absent Abnormal ECG: Absent Known CAD: Post PTCA RISK FACTORS: Hypertension: Yes Hypercholesterolemia: Yes Diabetes: Absent Smoking History: Former Tobacco User Family History of premature CAD: Absent Medication List: Current Outpatient Medications Medication Sig Dispense Refill acetaminophen (TYLENOL) 500 mg tablet Take 2 tablets (1,000 mg total) by mouth every 6 (six) hours as needed for pain or headaches 240 tablet 0 albuterol 2.5 mg /3 mL (0.083 %) nebulizer solution Take 3 mL (2.5 mg total) by nebulization every 4 (four) hours as needed for wheezing DX J45.909 360 mL 0 albuterol HFA (PROVENTIL HFA,VENTOLIN HFA,PROAIR HFA) 90 mcg/actuation inhaler Inhale 2 puffs every 6 (six) hours as needed for wheezing 1 each 2 albuterol-budesonide 90-80 mcg/actuation HFA aerosol inhaler Inhale 1 Inhalation as needed (as needed) 10 g 0 apixaban (Eliquis) 5 mg tablet TAKE 1 TABLET BY MOUTH TWICE A DAY 60 tablet 11 buPROPion XL (WELLBUTRIN XL) 300 mg 24 hr tablet TAKE 1 TABLET (300 MG TOTAL) BY MOUTH EVERY MORNING. 90 tablet 1 cholecalciferol (VITAMIN D-3) 2000 unit tablet Take 2 tablets (4,000 Units total) by mouth daily clopidogreL (PLAVIX) 75 mg tablet (Patient not taking: Reported on 05/18/2025) cyclobenzaprine (FLEXERIL) 10 mg tablet Take 1 tablet (10 mg total) by mouth daily as needed for muscle spasms 30 tablet 2 dicyclomine (BENTYL) 20 mg tablet TAKE 1 TABLET BY MOUTH EVERY DAY (Patient taking differently: Take 1 tablet (20 mg total) by mouth daily as needed) 90 tablet 1 docusate sodium (COLACE) 100 mg capsule Take 1 capsule (100 mg total) by mouth 2 (two) times a day as needed (use while taking narcotic medication to avoid opioid-induced constipation) (Patient not taking: Reported on 05/18/2025) 28 capsule 0 ezetimibe (ZETIA) 10 mg tablet TAKE 1 TABLET BY MOUTH EVERY DAY 90 tablet 3 fenofibrate nanocrystallized (TRICOR) 145 mg tablet TAKE 1 TABLET BY MOUTH EVERY DAY 90 tablet 3 fluticasone propionate (FLONASE) 50 mcg/actuation nasal spray Administer 2 sprays into each nostril daily 3 each 4 glucosamine-chondroitn sulf.Na 750-600 mg tablet take 2 daily. 0 0 irbesartan-hydrochlorothiazide (AVALIDE) 150-12.5 mg per tablet TAKE 1 TABLET BY MOUTH EVERY DAY 90 tablet 3 loratadine 10 mg capsule Take 1 capsule by mouth daily. nwszkzjedohy-wqay-tyedk acid (MULTI-YVONNE) 18-400 mg-mcg tablet take 1 tablet by oral route every day with food 0 0 oxyCODONE (ROXICODONE) 5 mg immediate release tablet Take 1 tablet (5 mg total) by mouth every 4 (four) hours as needed (Intolerable pain that is unresponsive to other medications) (Patient not taking: Reported on 05/18/2025) 12 tablet 0 polyethylene glycol (MIRALAX) 17 gram/dose bulk powder Take 17 g by mouth daily traMADoL (ULTRAM) 50 mg tablet Take 1 tablet (50 mg total) by mouth every 6 (six) hours as needed for pain (Patient not taking: Reported on 05/18/2025) 20 tablet 0 No current facility-administered medications for this visit. Resting EKG: V. Paced Blood Pressure Heart Rate Pretest 120/78 60 Injection 0.4 mg Lexiscan 2 min 135/92 71 3 min 4 min 132/93 71 5 min 6 min 129/95 67 Comments/ Symptoms: lightheaded Time of Nuclear Tracer: during peak exercise at the 42 sec jonathan Max HR: 107 HR Reactivity: 78% RESULTS: 1. Lexiscan vasodilator stress ECG negative for ischemia. 2. Lexiscan-induced side effects: lightheadedness 3. Heart Rate Reactivity: Normal 4. Induced arrhythmias noted: No. Myocardial Perfusion Imaging Rest/Stress/SPECT/Gated Imaging and Ejection Fraction Measurement Radiopharmaceuticals used: Tc-99m sestamibi IV(Lt Arm) 10.03 mCi (rest) and 37.91 mCi (stress) Technique: Standard myocardial perfusion images were obtained at least 30-40 minutes after resting intravenous injection of Tc-99m sestamibi IV. Subsequently, a pharmacological stress test was performed under the supervision of the bag filler, the results of which are above. The patient received 5ml Lexiscan (0.4mg Regadenoson) over 10-12 seconds followed by a 5ml saline flush and then Tc-99m sestamibi was injected intravenously followed by another 5ml saline flush. Standard myocardial images were obtained 30-45 minutes later. Findings: Image quality is technically adequate with no appreciable patient motion. There is a normal distribution of activity in the left ventricle myocardium on both rest and post-stress images. The computer estimated left ventricular ejection fraction is 68% (resting) and 79% (post-stress). Visual inspection of gated SPECT images confirm normal left ventricular volumes (124/25 ml), contractility and wall thickening. Visually confirmed ejection fraction is >50%. Opinion: 1. Left Ventricle Perfusion: Normal resting and stress images. Inferior wall diaphragmatic attenuation artifact. 2. Left Ventricle Function: Normal size and wall thickness and normal systolic function (post-stress ejection fraction is visually confirmed at >50%). Myocardial Perfusion Imaging has an overall predictive accuracy of 85-90%. The sensitivity of the test is significantly diminished with submaximal stress. us Chepe Hinton MD IM NM PROCEDURES Final Result * (ABNORMAL) eGFR (05/05/2025 10:38 AM CDT) [...] Singh MD LAB BLOOD ORDERABLES Final Result BORDY JOSHI ([place]) [facility] Department [place] [address] * (ABNORMAL) Lipid panel (05/05/2025 10:38 AM [...] last revised on 2018. Chol/HDL ratio 4 BRIANNA JOSHI ([place]) Blood 05/05/2025 10:3 8 AM CDT 05/05/2025 11:22 AM CDT us Star Singh MD LAB BLOOD ORDERABLES Final Result BRODY JOSHI ([place]) 1 [facility] Department [place] [address] * (ABNORMAL) Comprehensive metabolic panel (05/05/2025 10:38 [...] LAB BLOOD ORDERABLES Final Result BRODY JOSHI ([place]) [facility] [place] [address] * Surgical pathology (03/17/2025 12:00 AM CDT) Tissue (Skin, shave biopsy) 03/17/2025 03/18/2025 8:33 AM CDT Narrative [facility] - 03/19/2025 12:55 PM CDT EPIC results best viewed via link to PDF [facility] [address] [place] [address], [address], [place] [address] [email or web address] Note to Patients: This report may contain [...] Submitting Physician Information: Dixie Parra, ROBIN [address] [facility], Medical Office [address], [address] [place] [address], DERMATOPATHOLOGY REPORT RESULTS DIAGNOSIS: SKIN, RIGHT MEDIAL [...] ICD-9 A; ZSD.1646 ZSD.232 Clerical Data A; 96487 The characteristics of special, immunohistochemical, and immunofluorescence stains and in-situ hybridization tests performed by the [facility] were deemed acceptable in ongoing business quality assurance analyst measures and in compliance with regulations drawn from the Clinical Laboratory Improvement Act fw5147 (CLIA '88). Control reactions for all stains performed were deemed adequate and appropriate by a pathologist prior to evaluation of patient tissue. Some diagnoses were rendered with the assistance of laboratory-developed tests utilizing analyte-specific reagents; the performance characteristic of these tests were determined by [facility] and are not cleared or approved by the [place] Food an Drug administration. Laboratory developed test may only be performed in a facility that is certified by the [facility] as a high-complexity laboratory under CLIA '88. These tests are used for clinical purposes and are not investigational. 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 ATHEROSCLEROTIC CHANGES IN THE ABDOMINAL AORTA [...] LARGER ON THE RIGHT. Electronically signed by: Henry Duran 11/30/2022 4:02 PM TEACHER PUBLIC HEALTH EXAMINATION: CTA ABDOMINAL AORTA AND BILATERAL ILIOFEMORAL [...] Recently Relevant to Health Maintenance Insurance MEDICARE Member Subscriber Plan / Payer (Ef fective 2009-Present) Name:Pepe Cervantes Member ID:[id number] Relation to Subscriber:Self Name:Pepe Cervantes Subscriber ID:[id number] Payer ID:[id number] Group ID:Not on file Type:MEDICARE TRADITIONAL Address: [address] [address] [place] [address] MustHaveMenus MustHaveMenus MEDICARE MEDICARE MustHaveMenus MEDICARE MustHaveMenus Advance Directives For more information, please contact: [phone] * Full Code (Latest Code Status on [...] 9:33 AM 08/07/2018 1:33 PM Care Teams Certified Physician'S Assistant Relationship Specialty Start Date End Date Star Singh MD PCP - General 02/05/17 Chepe Hinton MD Consulting Physician Cardiology 07/19/18 Dada Morris MD [address] [place] [id number] Anesthesiologist Pain Management 10/13/22
--- OUTSIDE RECORDS SUMMARY | 2025-06-04 00:32 | XMS_ITS | Encounter Summary ---
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 Gender Identity Not on file Sexual Orientation [...] COVID: Suspected 01/05/2023 01/05/2023 01/05/2023 9:31 AM SOURCING ASSOCIATE COVID: Suspected 01/09/2023 01/09/2023 01/09/2023 2:34 PM SOURCING ASSOCIATE COVID: Suspected 10/25/2023 10/25/2023 10/25/2023 4:10 PM SOURCING ASSOCIATE documented as of this encounter Care Teams Youth Probation Officer Relationship Specialty Start Date End Date Star Singh MD PCP - General 02/05/17 Chepe Hinton MD Consulting Physician Cardiology 07/19/18 Dada Morris MD [address] [facility] [address] [address] Anesthesiologist Pain Management 10/13/22 documented as of this encounter
--- OUTSIDE RECORDS SUMMARY | 2025-06-04 00:32 | XMS_ITS | Clinical Summary ---
Author Organization [facility] Address [address] [place] [address] Care Team Providers Care Reimbursement Representative Name Role Phone Star Singh MD Primary Care Provider [phone] Source Comments [facility],non-owned Affiliates and Associated Physician Practices is amultiple site organization consisting of ambulatory clinics and hospital sitesin [place], [place], [place] and [place]. This disclosure is being madepursuant to the Care Everywhere program and may not contain all information available regarding this patient. 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
--- OUTSIDE RECORDS SUMMARY | 2025-06-04 00:32 | XMS_ITS | Encounter Summary ---
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
--- OUTSIDE RECORDS SUMMARY | 2025-06-04 00:33 | XMS_ITS ---
Author Organization [facility] Address [address] [place] [address] Care Team Providers Care Clamp Jig Assembler Name Role Phone Star Singh MD Primary Care Provider [phone] Chepe Hinton MD Unavailable [phone] Dada Morris MD Unavailable Active Problems Problem Noted Date Diagnosed Date Hyperplastic polyp of descending colon Assessment & Plan (12/29/2024 2:28 PM AERIAL CROP DUSTER): Colonoscopy November 19 tubular adenoma benign Class 2 severe obesity due t o excess calories with serious comorbidity in adult 09/14/2024 Assessment & Plan (09/14/2024 4:15 PM AERIAL CROP DUSTER): Patient no longer has a BMI 40 [...] 03/06/2024 Assessment & Plan (12/29/2024 2:37 PM AERIAL CROP DUSTER): Patient is aware of the that he qualifies for total knee he plans to get this done probably in the next 6 months. Patient walks with a cane because of knee pain. Myalgia, other site 01/30/2024 Pain in both testicles 01/09/2024 Assessment & Plan (01/09/2024 1:03 PM AERIAL CROP DUSTER): Recurrent pain in his testicles getting progressively worse. Is my 1st hearing of this. I am going to proceed in get an ultrasound of his testicle and refer to Urology Muscle spasm of left lower extremity 01/09/2024 Assessment & Plan (01/09/2024 1:02 PM AERIAL CROP DUSTER): Patient is having a cramping feeling posterior [...] 12/28/2023 Assessment & Plan (12/28/2023 9:53 AM AERIAL CROP DUSTER): Lesion consistent with sebaceous cyst noted to left occiputal area just above hairline. No acute signs of infection. Will likely resolve on it's own. Keep skin clean and dry, no not squeeze or pick at it. Weak 10/28/2023 Assessment & Plan (10/28/2023 7:32 PM AERIAL CROP DUSTER): Patient tested COVID as well as flu results were negative mi respiratory symptoms I suggest utilizing Zyrtec. No fever no chills Tylenol p.r.n.. 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 On recent visit Assessment & Plan (03/12/2023 [...] Recently diagnosed with pneumonia at [facility] and is improving Assessment & Plan (01/09/2023 4:05 PM AERIAL CROP DUSTER): Patient continues to have some shortness of breath despite aggressive cardiac therapy Silvia consult with Pulmonary which is very reasonable he has atrial fibrillation hypertension sleep apnea he is a very large man which all may be contributing factors to his progressive dyspnea CHLOE (obstructive sleep apnea) 01/09/2023 Assessment & Plan (12/29/2024 2:29 PM AERIAL CROP DUSTER): Patient is scheduled for hypoglossal inspire nerve stimulator implantation on 02/03/2025 Assessment & Plan (03/10/2024 9:36 AM CDT): Patient continues use CPAP and benefits followed by the sleep Clinic Assessment & Plan (01/09/2023 4:04 PM AERIAL CROP DUSTER): Patient uses CPAP machine for many years with benefits once he retired no longer worked he start using his CPAP machine. Having shortness of breath some fatigue he would like resume treatment for sleep apnea. Patient is 77 years old he is referred to sleep Clinic for further evaluation including asleep study. Paroxysmal atrial fibrillation 11/27/2022 Assessment & Plan (12/29/2024 2:35 PM AERIAL CROP DUSTER): Cardiac ablation completed December 18, 2024 Dr. Jean-Baptiste at [facility]. No complication with the procedure patient is feeling well. Assessment & Plan (07/31/2023 6:42 PM CDT): Has been in his last visit with Cardiology he will be referred to Dr. Jean-Baptiste at [facility] treatment for atrial fibrillation Assessment & Plan (12/01/2022 1:03 PM AERIAL CROP DUSTER): Recent atrial fibrillation managed by Cardiology he is now on Xarelto TIA (transient ischemic attack) 11/16/2022 Assessment & Plan (12/01/2022 12:44 PM AERIAL CROP DUSTER): No further symptoms of TIA /temporary vision change. This is thought to be secondary to recent onset of atrial fibrillation. Patient is now on Xarelto Assessment & Plan (11/16/2022 6:05 PM AERIAL CROP DUSTER): Patient recently had a TIA expressed in the form of loss of vision right eye for several minutes. 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 Monitor comes off on . Patient is [...] request Assessment & Plan (10/14/2021 2:29 PM AERIAL CROP DUSTER): 76-year-old gentleman who was given medication Viagra in the past he never tried it is now he would like to try consider using this I discussed with the side effects. Rx sent for tablets 11 refill Major depressive disorder with single episode Assessment & Plan (12/29/2024 2:36 PM AERIAL CROP DUSTER): Mood is excellent continue present therapy Wellbutrin 300 mg daily Assessment & Plan (09/14/2024 4:12 PM AERIAL CROP DUSTER): Patient's mood is excellent with medication no [...] He has been seeing a counselor at [facility] psychological services.. He has 3 relatives/daughters [...] 10/12/20 20 Degenerative lumbar spinal stenosis 10/12/2020 halfway current use of anticoagulant 0 Lumbar radiculopathy [...] 2019 Assessment & Plan (12/29/2024 2:24 PM AERIAL CROP DUSTER): Patient did see Nephrology at [facility]. Was advised that his renal results was consistent with his age and dx of 20+ years of hypertension. Patient EGFR was 52 on December 04, 2024 on September EGFR 33 no action indicated. Continue to control blood pressure Assessment & Plan (09/11/2024 12:54 PM AERIAL CROP DUSTER): Will refer this patient to nephrology orthopedic [...] 41 Assessment & Plan (09/12/2022 5:22 PM AERIAL CROP DUSTER): Non steroidal anti-inflammatory/meloxicam discontinued patient utilizing Tylenol [...] today Assessment & Plan (10/04/2020 6:15 PM AERIAL CROP DUSTER): Laboratory results from is almost 6 months [...] daily Assessment & Plan (09/14/2024 4:11 PM AERIAL CROP DUSTER): Blood pressure remains well controlled patient takes Avalide HCTZ 150/12.51 tablet daily tolerates the medications. Assessment & Plan (07/31/2023 6:42 PM CDT): Pressure well controlled patient is tolerating medications no change in therapy Assessment & Plan (12/01/2022 1:03 PM AERIAL CROP DUSTER): Blood pressure well control no change in [...] by Pulmonary for his chronic lung disease. Management Assistant for coronary artery disease in his [...] he has had his shingles vaccine at [facility]. This is not recorded in our records [...] months. Assessment & Plan (10/04/2020 6:14 PM AERIAL CROP DUSTER): Health risk assessment health maintenance reviewed in addressed. Patient aware of immunization recommendations. Patient continues in the care of Pain Clinic he recently had evaluation regarding is back per Neurosurgery recommendations continue physical therapy. Assessment & Plan (10/03/2019 5:06 PM AERIAL CROP DUSTER): Patient is a history and physical completed [...] 06/23/2019 Assessment & Plan (10/03/2019 5:02 PM AERIAL CROP DUSTER): Patient continues to have significant knee pain [...] 1st Assessment & Plan (09/12/2022 5:23 PM AERIAL CROP DUSTER): Patient continues with the pain clinic and benefits from the therapy. Assessment & Plan (10/03/2019 5:02 PM AERIAL CROP DUSTER): Patient's notice has knee pain gets worse [...] 08/21/2017 Assessment & Plan (12/29/2024 2:25 PM AERIAL CROP DUSTER): Blood pressure goal 130/84 patient is tolerating medications no symptoms referable to his hypertension continue Avalide 150/12.5 daily Assessment & Plan (01/30/2024 6:00 PM CDT): Blood pressure is acceptable patient is doing well no change in therapy Assessment & Plan (12/28/2023 9:53 AM AERIAL CROP DUSTER): BP stable in office today on current therapy. No acute findings on exam. Continue current regimen and low salt diet. Assessment & Plan (10/28/2023 7:32 PM AERIAL CROP DUSTER): Pressure is excellent continue present therapy Assessment & Plan (04/16/2023 5:31 PM CDT): Management Assistant notes reviewed. His back on a [...] range. Assessment & Plan (01/09/2023 4:09 PM AERIAL CROP DUSTER): Blood pressure reasonably control no change in therapy Assessment & Plan (09/12/2022 5:20 PM AERIAL CROP DUSTER): Hypertension remains very well controlled patient is [...] therapy. Assessment & Plan (10/03/2019 5:02 PM AERIAL CROP DUSTER): Blood pressure well controlled patient tolerating medications [...] Avalide. Assessment & Plan (10/06/2018 6:02 PM AERIAL CROP DUSTER): Blood pressure 148/80 on this visit blood [...] next regular appointment. Coronary artery disease involving northway coronar y artery 06/28/2017 Assessment & Plan (09/06/2021 12:13 PM CDT): Management Assistant notes reviewed Assessment & Plan (06/13/2021 11:39 AM CDT): Management Assistant notes reviewed. Patient remains asymptomatic with respect coronary artery disease. Assessment & Plan (03/09/2021 8:42 AM CDT): Estimated GFR remains stable BMP on this visit. Assessment & Plan (10/04/2020 6:14 PM AERIAL CROP DUSTER): Patient's keeping his current appointments with cardiology stable no new health problems identified with respect to cardiology. Assessment & Plan (03/30/2020 6:35 PM CDT): Patient is stable at this time he has a follow-up visit with Cardiology in the next 10-20 days. Lipid profile is requested today and BMP will be available high school mathematics teacher reviewed Assessment & Plan (10/03/2019 5:04 PM AERIAL CROP DUSTER): Patient free of chest pain no evidence [...] days. Assessment & Plan (10/06/2018 6:13 PM AERIAL CROP DUSTER): Coronary artery disease is unchanged. Continue current treatment regimen. Dietary sodium restriction. Weight loss. Regular aerobic exercise. Continue current medications. Cardiac status will be reassessed in 6 months. Patient sees high school mathematics teacher once a twice per year. Assessment & Plan (07/27/2018 6:40 PM CDT): Patient having biochemistry technologist of cardiac discomfort with chest pain shortness of breath with tightness. Will continues routine medications for his heart. Assessment & Plan (02/19/2018 10:12 AM CDT): . Patient's appointment Cardiology next week will give fasting lipid profile performed care to his high school mathematics teacher patient is asymptomatic at this time. Status post stent placement. Assessment & Plan (06/29/2017 10:23 AM CDT): Coronary artery disease is improving with treatment. Continue current treatment regimen. Regular aerobic exercise. Continue current medications. Cardiac status will be reassessed in 6 months. Patient had stent placement in the last 90 days at [facility]. Doing very well. He will follow up with high school mathematics teacher in next 3 months. He is on the medicine Effient. Irritable bowel syndrome 03/21/2014 Overview (02/09/2017): IBS (irritable bowel syndrome) Assessment & Plan (10/06/2018 6:04 PM AERIAL CROP DUSTER): Patient has not had any recent problems with irritable bowel in the past 12 months. Hyperlipidemia 03/21/2014 Overview (02/09/2017): Hyperlipidemia Assessment & Plan (05/05/2025 4:05 PM CDT): LDL 93 total cholesterol 174 continue Zetia 10 mg. Assessment & Plan (10/03/2019 5:03 PM AERIAL CROP DUSTER): Current lipid profile is very good no change in therapy patient is tolerating medications. Assessment & Plan (04/01/2019 9:46 AM CDT): Lipid profile excellent results HDL however is 39 a discuss the the patient he was concerned a regarding the meaning of this. History in getting injections of the cholesterol medicine referring to the medication Repatha which was discussed with his high school mathematics teacher the year ago.. His appointment Cardiology coming up in the near future. Assessment & Plan (10/06/2018 6:03 PM AERIAL CROP DUSTER): Patient's lipid profile up in within therapeutic [...] activities. Assessment & Plan (10/06/2018 6:11 PM AERIAL CROP DUSTER): Patient osteoarthritis seems to be doing better he does go to pain clinic for his back pain. He has been maintain on meloxicam 15 mg daily. His knee pain has improved Assessment & Plan (06/29/2017 10:24 AM CDT): Patient goes to pain clinic at [facility]. He has been treated Mobic/meloxicam several [...] & Plan (02/01/2023 6:45 PM CDT): Seen [facility] few days ago because of [...] 12/01/202201/09 Assessment & Plan (12/01/2022 1:04 PM AERIAL CROP DUSTER): Patient is stable doing well he feels well vitals excellent. Scheduled for excision of his 2nd on 12/05 2022. Will stop Xarelto this evening he is clear for surgery. He however cardiovascular clearance is still pending. Incisional hernia 10/02/2022 07/31/2023 [place] of toe 03/27/2022 01/09/2023 Upper respiratory tract infection 03/17/2022 07/31/2023 Assessment & Plan (01/09/2023 4:06 PM AERIAL CROP DUSTER): Patient now is feeling much better in the past 18 hours he is using the albuterol inhaler with correct technique feeling much better he still having wheezing still having some shortness of breath. I have no additional changes to make. He is to follow-up pulmonary in the future at his request he has chronic components of dyspnea. Assessment & Plan (01/05/2023 9:29 AM AERIAL CROP DUSTER): Acute problem, present times about 3-4 days [...] 10/14/2021 Assessment & Plan (10/14/2021 2:31 PM AERIAL CROP DUSTER): Patient concerned about right leg swelling on [...] He was diagnosed with acute bronchitis in [place] and was given an antibiotic, steroid, and [...] 09/30/2019 Assessment & Plan (10/06/2018 6:12 PM AERIAL CROP DUSTER): Patient appears to have recovered from his his small-bowel obstructions not had any further problems since being discharged from hospital. Acute kidney injury 10/06/20 18
--- OUTSIDE RECORDS SUMMARY | 2025-06-04 00:33 | XMS_ITS | Encounter Summary ---
Author Organization [facility] Address [address] [place] [address] Care Team Providers Care Music Teacher Name Role Phone Star Singh MD Primary Care Provider [phone] Chepe Hinton MD Unavailable [phone] Dada Morris MD Unavailable Encounter Details Date Type Department Care Team (Late st Contact Info) Description 06/02/2025 Results Follow-Up [place] Operations Research Director [address] [place] [id number] Raysa Taylor MA [place] [facility] SPECT (Rest and/or Stress) Multiple Studies Social History Tobacco Use Types Packs/Day Years Used Date Smoking Tobacco: Former Cigarettes 3 15 1 3 - 1977 Smokeless Tobacco: Never Alcohol Use [...] on file Legal Sex Male 11:56 PM BAG BAILER Gender Identity Not on file Sexual Orientation [...] on filedocumented in this encounter Care Teams Music Teacher Relationship Specialty Start Date End Date Star Singh MD PCP - General 02/05/17 Chepe Hinton MD Consulting Physician Cardiology 07/19/18 Dada Morris MD [address] [place] [id number] Anesthesiologist Pain Management 10/13/22 documented as of this encounter
--- OUTSIDE RECORDS SUMMARY | 2025-06-04 00:33 | XMS_ITS | Clinical Summary ---
Author Organization [facility] Address [address] [place] [address] Phone Care Team Providers Care Car Clerk Pullman Name Role Phone Star Singh MD Primary Care Provider [phone] Allergies Active Allergy Reactions Criticality Noted Date [...] Health Behavioral Health On track(2020 11:09 AM STAVE BOLT EQUALIZER) Yes Colt Locke LCSW Note: I want to be able to have less guilt and more acceptance of my situation with my , within the next six months Goal Reviewed today with: patient Readiness to change: Ready to change Department associated with goal: [facility] Steps to achieve goal: Patient counseled on caring for the caregiver. during his 30-45 min individual therapy sessions, 1-2 times per month Patient counseled on recognizing and challenging unrealistic guilt during his 30-45 min individual therapy sessions, 1-2 times per month Behavioral Health Behavioral Health On track(2020 11:09 AM STAVE BOLT EQUALIZER) No Colt Locke LCSW Note: Goal: Patient will be able to report improve mood/adjustment to spouse's prison placement and their changed relationship, to an acceptable level, within the next six months Goal Reviewed today with: patient Readiness to change: Ready to change Department associated with goal: [facility] Steps to achieve goal: Patient counseled on heathy self-care, including importance of a healthy daily routine during his 30-45 min individual therapy sessions, 1-2 times per month Patient counseled on importance of exercise and socialization during his 30-45 min individual therapy sessions, 1-2 times per month Insurance MEDICARE [facility] INS & FIN wine sales representative Advance Directives * Full Code (Latest Code Status on File) Date Activated Date Inactivated Comments 10/13/2019 11:31 PM 10/16/2019 1:56 PM CPR-Full T reatment: FULL ARREST: Attempt Resuscitation/CPR wit intubation and mechanical ventilation. PRE-ARREST: Use entire range of life support measures to stabilize the patient. Care Teams Car Clerk Pullman Relationship Specialty Start Date End Date Star Singh MD [address] [place] [place] [address] PCP - General Internal Medicine 10/13/19
--- OUTSIDE RECORDS SUMMARY | 2025-06-04 00:33 | XMS_ITS | Clinical Summary ---
Author Organization [facility] Address [address] [place] [address] Phone Care Team Providers Care Home Care And Home Health Aides Teacher Name Role Phone Star Singh MD Primary Care Provider [phone] Allergies Active Allergy Reactions Criticality Noted Date Comments Pltglvc-Hwf-Thf Reductase Inhibitors Unknown 01/09/2023 Medications irbesartan (AVAPRO) [...] on file Legal Sex Male 1:15 PM FITTING SUPERVISOR Gender Identity Not on file Sexual [...] Discontinued Insurance MEDICARE PART A AND B OOYYO Care Teams Home Care And Home Health Aides Teacher Relationship Specialty Start Date End Date Star Singh MD [address] [place] [id number] PCP - General Internal Medicine 09/24/20
--- OUTSIDE RECORDS SUMMARY | 2025-06-04 00:33 | XMS_ITS | Referral Summary ---
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 Name Role Phone Star Singh MD Primary Care Provider [phone] Chepe Hinton MD Unavailable [phone] Dada Morris MD Unavailable [phone] Encounters Date Type Department Care Team Description 06/02/2025 Orders Only [facility] [address] [place] [address] [address] [place] [address] Roxanne Velasquez MD CHLOE (obstructive sleep apnea) (Primary Dx) 06/02/2025 Results Follow-Up [place] [facility] [address] [place] [id number] Raysa Taylor MA NM MPI SPECT (Rest and/or Stress) Multiple Studies 06/02/2025 10:45 AM CDT Office Visit [facility] Sleep Medicine at [address] [place] [address] Roxanne Velasquez MD CHLOE (obstructive sleep apnea) (Primary Dx); Treatment-emergent central sleep apnea; Hypersomnia; Obesity, unspecified class, unspecified obesity type, unspecified whether serious comorbidity present 06/01/2025 9:00 AM CDT Ancillary Procedure [place] [facility] [id number] [place] [address] [address] [place] [address] Coronary artery disease involving venetie coronary artery of venetie heart without angina pectoris 05/18/2025 8:00 AM CDT Office Visit [place] [facility] at [facility] [address] [facility] [address] [place] [id number] Chepe Hinton MD Coronary artery disease involving venetie coronary artery of venetie heart without angina pectoris (Primary Dx); Essential hypertension, benign; Mixed hyperlipidemia; Abdominal aortic aneurysm (AAA) without rupture, unspecified part 05/05/2025 10:30 AM CDT Lab [facility] [address] [place] [address] Essential hypertension, benign 05/05/2025 9:30 AM CDT Office Visit [facility] Medical [facility] [address] [facility] [address] [place] [address] Star Singh MD Essential hypertension, benign (Primary Dx); Medicare annual wellness visit, subsequent; Mixed hyperlipidemia 04/27/2025 8:40 AM CDT Office Visit [facility]) [facility] [id number] [place] [address] Office [address] [place] [address] Mili Cisneros MD S/P insertion of hypoglossal nerve stimulator (Primary Dx); CHLOE (obstructive sleep apnea) 04/14/2025 1:00 PM CDT Office Visit [facility] Sleep [facility] at [address] [place] [address] Roxanne Velasquez MD CHLOE (obstructive sleep apnea) (Primary Dx); Treatment-emergent central sleep apnea; Hypersomnia; Obesity, unspecified class, unspecified obesity type, unspecified whether serious comorbidity present 03/23/2025 Results Follow-Up [facility] Surgery [address] [place] [address] [address] [place] [address] Dixie Parra NP Surgical pathology 03/18/2025 Orders Only [facility] [address] [place] [address] Dixie Parra NP Skin neoplasm 03/17/2025 11:00 AM CDT Office Visit [facility] Surgery [address] [facility] [address] [place] [address] Dixie Parra NP Skin neoplasm (Primary Dx); Arthritis of both hands 03/16/2025 1:30 PM CDT Office Visit [facility] [place] [facility] [address] [facility] [address] [place] [address] Daisy Garcia NP Chronic left-sided low back pain without sciatica (Primary Dx); Spinal stenosis of lumbar region without neurogenic claudication from Last 3 Months Allergies Active Allergy Reactions Criticality Noted Date Comments Atorvastatin Other (See comments) Low Muscles lock up Sulfamethoxazole-Trimeth oprim Stomach upset Low 04/03/2023 Pravastatin Other (See comments) Low Muscles lock up Rosuvastatin Other (See comments) Low Muscles lock up Rmkagyj-Fck-Nuo Reductase Inhibitors Other (See comments) Low Muscles lock up Sulfa (Sulfonamide Antibiotics) Other (See comments) Low 04/16/2023 Stomach pain Medications glucosamine-chondro itn sulf.Na 750-600 mg tablet take 2 daily. 0 0 014 Active kxtcrcapibmw-ilnh-r olic acid (MULTI-YVONNE) 18-400 mg-mcg tablet take [...] colon Assessment & Plan (12/29/2024 2:28 PM RX SPECIALIST): Colonoscopy November 19 tubular adenoma benign Class 2 severe obesity due t o excess calories with serious comorbidity in adult 09/14/2024 Assessment & Plan (09/14/2024 4:15 PM RX SPECIALIST): Patient no longer has a BMI 40 [...] 03/06/2024 Assessment & Plan (12/29/2024 2:37 PM RX SPECIALIST): Patient is aware of the that he qualifies for total knee he plans to get this done probably in the next 6 months. Patient walks with a cane because of knee pain. Myalgia, other site 01/30/2024 Pain in both testicles 01/09/2024 Assessment & Plan (01/09/2024 1:03 PM RX SPECIALIST): Recurrent pain in his testicles getting progressively worse. Is my 1st hearing of this. I am going to proceed in get an ultrasound of his testicle and refer to Urology Muscle spasm of left lower extremity 01/09/2024 Assessment & Plan (01/09/2024 1:02 PM RX SPECIALIST): Patient is having a cramping feeling posterior [...] 12/28/2023 Assessment & Plan (12/28/2023 9:53 AM RX SPECIALIST): Lesion consistent with sebaceous cyst noted to left occiputal area just above hairline. No acute signs of infection. Will likely resolve on it's own. Keep skin clean and dry, no not squeeze or pick at it. Weak 10/28/2023 Assessment & Plan (10/28/2023 7:32 PM RX SPECIALIST): Patient tested COVID as well as flu results were negative mi respiratory symptoms I suggest utilizing Zyrtec. No fever no chills Tylenol p.r.n.. 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 On recent visit Assessment & Plan [...] with Pulmonary. Recently diagnosed with pneumonia at [facility] and is improving Assessment & Plan (01/09/2023 4:05 PM RX SPECIALIST): Patient continues to have some shortness of breath despite aggressive cardiac therapy Silvia consult with Pulmonary which is very reasonable he has atrial fibrillation hypertension sleep apnea he is a very large man which all may be contributing factors to his progressive dyspnea CHLOE (obstructive sleep apnea) 01/09/2023 Assessment & Plan (12/29/2024 2:29 PM RX SPECIALIST): Patient is scheduled for hypoglossal inspire nerve stimulator implantation on 02/03/2025 Assessment & Plan (03/10/2024 9:36 AM CDT): Patient continues use CPAP and benefits followed by the sleep Clinic Assessment & Plan (01/09/2023 4:04 PM RX SPECIALIST): Patient uses CPAP machine for many years with benefits once he retired no longer worked he start using his CPAP machine. Having shortness of breath some fatigue he would like resume treatment for sleep apnea. Patient is 77 years old he is referred to sleep Clinic for further evaluation including asleep study. Paroxysmal atrial fibrillation 11/27/2022 Assessment & Plan (12/29/2024 2:35 PM RX SPECIALIST): Cardiac ablation completed December 18, 2024 Dr. Jean-Baptiste at [facility]. No complication with the procedure patient is feeling well. Assessment & Plan (07/31/2023 6:42 PM CDT): Has been in his last visit with Cardiology he will be referred to Dr. Jean-Baptiste at [facility] for [facility] treatment for atrial fibrillation Assessment & Plan (12/01/2022 1:03 PM RX SPECIALIST): Recent atrial fibrillation managed by Cardiology he is now on Xarelto TIA (transient ischemic attack) 11/16/2022 Assessment & Plan (12/01/2022 12:44 PM RX SPECIALIST): No further symptoms of TIA /temporary vision change. This is thought to be secondary to recent onset of atrial fibrillation. Patient is now on Xarelto Assessment & Plan (11/16/2022 6:05 PM RX SPECIALIST): Patient recently had a TIA expressed in the form of loss of vision right eye for several minutes. He did see his coil tester 1st exam was benign he followed up with Cardiology who now has him on a 2 week medical social consultant. Monitor comes off on . Patient is [...] request Assessment & Plan (10/14/2021 2:29 PM RX SPECIALIST): 76-year-old gentleman who was given medication Viagra in the past he never tried it is now he would like to try consider using this I discussed with the side effects. Rx sent for tablets 11 refill Major depressive disorder with single episode Assessment & Plan (12/29/2024 2:36 PM RX SPECIALIST): Mood is excellent continue present therapy Wellbutrin 300 mg daily Assessment & Plan (09/14/2024 4:12 PM RX SPECIALIST): Patient's mood is excellent with medication no [...] He has been seeing a counselor at [facility] psychological services.. 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 Was advised that his renal results was consistent with his age and dx of 20+ years of hypertension. Patient EGFR was 52 on December 04, 2024 on September,023 EGFR 33 no action indicated. Continue to control blood pressure Assessment & Plan (09/11/2024 12:54 PM RX SPECIALIST): Will refer this patient to nephrology orthopedic [...] 41 Assessment & Plan (09/12/2022 5:22 PM RX SPECIALIST): Non steroidal anti-inflammatory/meloxicam discontinued patient utilizing Tylenol [...] today Assessment & Plan (10/04/2020 6:15 PM RX SPECIALIST): Laboratory results from is almost 6 months [...] daily Assessment & Plan (09/14/2024 4:11 PM RX SPECIALIST): Blood pressure remains well controlled patient takes Avalide HCTZ 150/12.51 tablet daily tolerates the medications. Assessment & Plan (07/31/2023 6:42 PM CDT): Pressure well controlled patient is tolerating medications no change in therapy Assessment & Plan (12/01/2022 1:03 PM RX SPECIALIST): Blood pressure well control no change in [...] by Pulmonary for his chronic lung disease. Quiller Hand for coronary artery disease in his very [...] he has had his shingles vaccine at [facility]. This is not recorded [...] months. Assessment & Plan (10/04/2020 6:14 PM RX SPECIALIST): Health risk assessment health maintenance reviewed in addressed. Patient aware of immunization recommendations. Patient continues in the care of Pain Clinic he recently had evaluation regarding is back per Neurosurgery recommendations continue physical therapy. Assessment & Plan (10/03/2019 5:06 PM RX SPECIALIST): Patient is a history and physical completed [...] 06/23/2019 Assessment & Plan (10/03/2019 5:02 PM RX SPECIALIST): Patient continues to have significant knee pain [...] 1st Assessment & Plan (09/12/2022 5:23 PM RX SPECIALIST): Patient continues with the pain clinic and benefits from the therapy. Assessment & Plan (10/03/2019 5:02 PM RX SPECIALIST): Patient's notice has knee pain gets worse [...] 08/21/2017 Assessment & Plan (12/29/2024 2:25 PM RX SPECIALIST): Blood pressure goal 130/84 patient is tolerating medications no symptoms referable to his hypertension continue Avalide 150/12.5 daily Assessment & Plan (01/30/2024 6:00 PM CDT): Blood pressure is acceptable patient is doing well no change in therapy Assessment & Plan (12/28/2023 9:53 AM RX SPECIALIST): BP stable in office today on current therapy. No acute findings on exam. Continue current regimen and low salt diet. Assessment & Plan (10/28/2023 7:32 PM RX SPECIALIST): Pressure is excellent continue present therapy Assessment & Plan (04/16/2023 5:31 PM CDT): Quiller Hand notes reviewed. His back on a diuretic [...] range. Assessment & Plan (01/09/2023 4:09 PM RX SPECIALIST): Blood pressure reasonably control no change in therapy Assessment & Plan (09/12/2022 5:20 PM RX SPECIALIST): Hypertension remains very well controlled patient is [...] therapy. Assessment & Plan (10/03/2019 5:02 PM RX SPECIALIST): Blood pressure well controlled patient tolerating medications [...] Avalide. Assessment & Plan (10/06/2018 6:02 PM RX SPECIALIST): Blood pressure 148/80 on this visit blood [...] next regular appointment. Coronary artery disease involving venetie coronar y artery 06/28/2017 Assessment & Plan (09/06/2021 12:13 PM CDT): Quiller Hand notes reviewed Assessment & Plan (06/13/2021 11:39 AM CDT): Quiller Hand notes reviewed. Patient remains asymptomatic with respect coronary artery disease. Assessment & Plan (03/09/2021 8:42 AM CDT): Estimated GFR remains stable BMP on this visit. Assessment & Plan (10/04/2020 6:14 PM RX SPECIALIST): Patient's keeping his current appointments with cardiology stable no new health problems identified with respect to cardiology. Assessment & Plan (03/30/2020 6:35 PM CDT): Patient is stable at this time he has a follow-up visit with Cardiology in the next 10-20 days. Lipid profile is requested today and BMP will be available solar process engineer reviewed Assessment & Plan (10/03/2019 5:04 PM RX SPECIALIST): Patient free of chest pain no evidence [...] days. Assessment & Plan (10/06/2018 6:13 PM RX SPECIALIST): Coronary artery disease is unchanged. Continue current treatment regimen. Dietary sodium restriction. Weight loss. Regular aerobic exercise. Continue current medications. Cardiac status will be reassessed in 6 months. Patient sees solar process engineer once a twice per year. Assessment & Plan (07/27/2018 6:40 PM CDT): Patient having radiation therapy technologist of cardiac discomfort with chest pain shortness of breath with tightness. Will continues routine medications for his heart. Assessment & Plan (02/19/2018 10:12 AM CDT): . Patient's appointment Cardiology next week will give fasting lipid profile performed care to his solar process engineer patient is asymptomatic at this time. Status post stent placement. Assessment & Plan (06/29/2017 10:23 AM CDT): Coronary artery disease is improving with treatment. Continue current treatment regimen. Regular aerobic exercise. Continue current medications. Cardiac status will be reassessed in 6 months. Patient had stent placement in the last 90 days at [facility]. Doing very well. He will follow up with solar process engineer in next 3 months. He is on the medicine Effient. Irritable bowel syndrome 03/21/2014 Overview (02/09/2017): IBS (irritable bowel syndrome) Assessment & Plan (10/06/2018 6:04 PM RX SPECIALIST): Patient has not had any recent problems with irritable bowel in the past 12 months. Hyperlipidemia 03/21/2014 Overview (02/09/2017): Hyperlipidemia Assessment & Plan (05/05/2025 4:05 PM CDT): LDL 93 total cholesterol 174 continue Zetia 10 mg. Assessment & Plan (10/03/2019 5:03 PM RX SPECIALIST): Current lipid profile is very good no change in therapy patient is tolerating medications. Assessment & Plan (04/01/2019 9:46 AM CDT): Lipid profile excellent results HDL however is 39 a discuss the the patient he was concerned a regarding the meaning of this. History in getting injections of the cholesterol medicine referring to the medication Repatha which was discussed with his solar process engineer the year ago.. His appointment Cardiology coming up in the near future. Assessment & Plan (10/06/2018 6:03 PM RX SPECIALIST): Patient's lipid profile up in within therapeutic [...] activities. Assessment & Plan (10/06/2018 6:11 PM RX SPECIALIST): Patient osteoarthritis seems to be doing better he does go to pain clinic for his back pain. He has been maintain on meloxicam 15 mg daily. His knee pain has improved Assessment & Plan (06/29/2017 10:24 AM CDT): Patient goes to pain clinic at [facility]. He has been treated Mobic/meloxicam several [...] & Plan (02/01/2023 6:45 PM CDT): [facility] few days ago because of [...] 12/01/202201/09 Assessment & Plan (12/01/2022 1:04 PM RX SPECIALIST): Patient is stable doing well he feels well vitals excellent. Scheduled for excision of his 2nd on 12/05 2022. Will stop Xarelto this evening he is clear for surgery. He however cardiovascular clearance is still pending. Incisional hernia 10/02/2022 07/31/2023 [place] of toe 03/27/2022 01/09/2023 Upper respiratory tract infection 03/17/2022 07/31/2023 Assessment & Plan (01/09/2023 4:06 PM RX SPECIALIST): Patient now is feeling much better in the past 18 hours he is using the albuterol inhaler with correct technique feeling much better he still having wheezing still having some shortness of breath. I have no additional changes to make. He is to follow-up pulmonary in the future at his request he has chronic components of dyspnea. Assessment & Plan (01/05/2023 9:29 AM RX SPECIALIST): Acute problem, present times about 3-4 days [...] 10/14/2021 Assessment & Plan (10/14/2021 2:31 PM RX SPECIALIST): Patient concerned about right leg swelling on [...] He was diagnosed with acute bronchitis in [place] and was given an antibiotic, steroid, and [...] 09/30/2019 Assessment & Plan (10/06/2018 6:12 PM RX SPECIALIST): Patient appears to have recovered from his his small-bowel obstructions not had any further problems since being discharged from hospital. Acute kidney injury 10/06/20 18 Immunizations Immunization Administration Dates Next Due COVID-19 mRNA (Orlebar Brown) 0.3 m L (30 mcg) vaccine (12 [...] on file Legal Sex Male 11:56 PM RX SPECIALIST Gender Identity Not on file Sexual Orientation [...] 06/02/2025 10:51 AM CDT Plan of Treatment Not on file Goals Goal Patient Goal Type Associated Problems Recent Progress Patient-Stated? Author [facility] Reyna Jimenez RN Note: Patient will establish a comfort-function goal and identify the pain level that will allow the patient to perform desired activities and achieve an acceptable quality of life. Medical Devices Implanted Type Area Freezer Tunnel Operator Device Identifier Shelf Expiration Date Model / Serial / Lot SWYF Angio-Seal Vip 6fr Closere Device [id number] - [id number] Implanted:Qty: 1 on 12/04/2022 by Farooq Astudillo MD at [facility] SWYF 09/04/2023 [id number] / / [id number] Medtronic Inc Vectris 5mm 60cm 1x8 Electrode Mri Lead Neurostimulator [id number] - [id number] Implanted:Qty: 1 on 10/16/2023 by William Jay MD at [facility] Left: Back Med[employer]onic Inc 09/04/2027 [id number] / / [id number] Med[employer]onic Inc Vectris 5mm 60cm 1x8 Electrode Mri Lead Neurostimulator [id number] - [id number] Implanted:Qty: 1 on 10/16/2023 by William Jay MD at [facility] Left: Back Med[employer]onic Inc 09/04/2027 [id number] / / [id number] Medtronic Inc Envelope Absrb 2.7x2.5in Antibacterial Tyrx Medium Strl [id number] - [id number] Implanted:Qty: 1 on 10/16/2023 by William Jay MD at [facility] Left: Back Med[employer]onic Inc 07/07/2024 [id number] / / [id number] Medtronic Inc Neurostimulator Implantable Chronic Pain Rs2 92384 - [id number] - [id number] Implanted:Qty: 1 on 10/16/2023 by William Jay MD at [facility] Left: Back Medtronic Inc 08/02/2024 [id number] / [id number] / [employer] Zilver Ptx 8mm 60mm 125cm Otw Drug Elute Delivery System [id number] - [id number] Implanted:Qty: 1 on 06/25/2024 at [facility] [employer] [id number] 10/16/2025 [id number] / / [id number] [employer] Device 6fr Closure Celt Acd Vascular Sterile Latex Free Disposable Carrie Kclt-06 - [id number] Implanted:Qty: 1 on 06/25/2024 at [facility] [employer] 01/15/2027 KCLT-06 / / [id number] [employer] Inspire Generator 3028 - [id number] - [id number] Implanted:Qty: 1 on 02/03/2025 by Mili Cisneros MD at [facility] Right: Chest [employer] 08/25/2027 3028 / [id number] / [employer] Lead Neurostimulator Sleep Apnea Thoracic Permanent Respiratory Sensing Inspire 43cm 4340 - [id number] - [id number] Implanted:Qty: 1 on 02/03/2025 by Mili Cisneros MD at [facility] Right: Chest [employer] [id number] 09/08/2027 4340 / [id number] / [employer] Inspire 3 Electrode Cuff Tunnel Christiano Lead Neurostimulator Sterile 4063 - [id number] - [id number] Implanted:Qty: 1 on 02/03/2025 by Mili Cisneros MD at [facility] Right: Chest [employer] [id number] 04/12/2027 4063 / [id number] / Procedures Procedure Name Priority Date/Time Associated Diagnosis Comments NM MPI SPECT (REST AND/OR STRESS) MULTIPLE STUDIES Schedule Routine, Read Routine (OP Routine) 06/01/2025 11:40 AM CDT Coronary artery disease involving venetie coronary artery of venetie heart without angina pectoris EGFR Routine 05/05/2025 10:38 AM CDT Essential hypertension, benign COMPREHENSIVE METABOLIC PANEL Routine 05/05/2025 10:38 AM CDT Essential hypertension, benign LIPID PANEL Routine 05/05/2025 10:38 AM CDT Essential hypertension, benign SURGICAL PATHOLOGY Routine 03/17/2025 12 :00 AM CDT Skin neoplasm CTA ABDOMINAL AORTA AND BILATERAL ILIOFEMORAL RUNOFF Schedule Routine, Read Routine (OP Routine) 11/30/2022 3:51 PM RX SPECIALIST PAD (peripheral artery disease) from Last 3 [...] Juan Jose Castillo MD Technologist: Dionne Hartley [facility] Pepe Cervantes 79 y.o. male (: 1945) [...] capsule Take 1 capsule by mouth daily. mcnwggqbwymx-tjmx-pfdpf acid (MULTI-YVONNE) 18-400 mg-mcg tablet take 1 [...] was performed under the supervision of the solar process engineer, the results of which are above. The [...] test is significantly diminished with submaximal stress. Chepe Hinton MD IM NM PROCEDURES Final [...] LAB BLOOD ORDERABLES Final Result [facility] 1 [facility] Department [place] [address] * (ABNORMAL) Lipid panel (05/05/2025 10:38 AM [...] mg/dL High: >160 mg/dL Calculated using the Kapoor LDL-C estimating equation. This equation was implemented [...] on 2024. Non-HDL Cholesterol 134 mg/dL [facility] ([facility]) Comment: Interpretive Data Ages < or [...] ORDERABLES Final Result [facility] ([facility]) 1 [facility] Department [place] [address] * (ABNORMAL) Comprehensive metabolic panel (05/05/2025 10:38 [...] ORDERABLES Final Result [facility] ([facility] 1 [facility] Department [place] [address] * Surgical pathology (03/17/2025 12:00 AM CDT) Tissue (Skin, shave biopsy) 03/17/2025 03/18/2025 8:33 AM CDT Narrative [facility] - 03/19/2025 12:55 PM CDT EPIC results best viewed via link to PDF [facility] [address] [place] [address] [address], [place] [address] [email or web address] Note to Patients: [...] REPORTED: 03/19/2025 Submitting Physician Information: Dixie Parra, [address], Medical Office Building [address], [address] [place] [address], DERMATOPATHOLOGY REPORT RESULTS DIAGNOSIS: SKIN, RIGHT MEDIAL [...] ICD-9 A; ZSD.1646 ZSD.232 Clerical Data A; [id number] The characteristics of special, immunohistochemical, and immunofluorescence stains and in-situ hybridization tests performed by the [facility] were deemed acceptable in ongoing clinical quality assurance specialist measures and in compliance with regulations drawn from the Clinical Laboratory Improvement Act xs0138 (CLIA '88). Control reactions for all stains performed were deemed adequate and appropriate by a pathologist prior to evaluation of patient tissue. Some diagnoses were rendered with the assistance of laboratory-developed tests utilizing analyte-specific reagents; the performance characteristic of these tests were determined by [facility] and are not cleared or approved by the [place] Food an Drug administration. Laboratory developed test may only be performed in a facility that is certified by the [facility] as a high-complexity laboratory under CLIA '88. These tests are used for clinical purposes and are not investigational. Dixie Parra NP LAB PATHOLOGY ORD ERABLES Final Result [facility] [address] [place] [id number] * CTA Abdominal Aorta And Bilateral Iliofemoral Runoff (11/30/2022 3:51 PM RX SPECIALIST) Anatomical Region Laterality Modality Body Bilateral Computed Tomogra phy 11/30/2022 4:02 PM RX SPECIALIST Impressions 11/30/2022 4:02 PM RX SPECIALIST 1. ATHEROSCLEROTIC CHANGES IN THE ABDOMINAL AORTA [...] Uziel Roger M.D. Narrative 11/30/2022 4:02 PM RX SPECIALIST EXAMINATION: CTA ABDOMINAL AORTA AND BILATERAL ILIOFEMORAL [...] Recently Relevant to Health Maintenance Insurance [place]IC[place] [address] MEDICARE MEDICARE [employer] MEDICARE [employer] Advance Directives For more information, please contact: [phone] * Full Code (Latest Code Status on [...] 9:33 AM 08/07/2018 1:33 PM Care Teams Foam Rubber Fabricator Relationship Specialty Start Date End Date Star Snigh MD PCP - General 02/05/17 Chepe Hinton MD Consulting Physician Cardiology 07/19/18 Dada Morris MD [address] [place] [address] DR DUVALL [address] [place] [id number] Anesthesiologist Pain Management 10/13/22
--- OUTSIDE RECORDS SUMMARY | 2025-06-04 00:33 | XMS_ITS | Encounter Summary ---
Author Organization [facility] Address [address] [address] Care Team Providers Care Hotel Associate Name Role Phone Star Singh MD Primary Care Provider [phone] Chepe Hinton MD Unavailable [phone] Lizy Cai RN Unavailable [phone] Dada Morris MD Unavailable Encounter Details Date Type Department Care Team (Late st Contact Info) Description 03/13/2017 Orders Only [facility] ProviderJuan MD [address] [place] [address] Social History Tobacco Use Types Packs/Day Years Used Date Smoking Tobacco: Some Days Cigarettes Last attempted to quit: 11/05/1979 Alcohol Use Standard Drinks/Week Comments Yes 0 (1 standard drink = 0.6 oz pur e alcohol) Sex and Gender Information Value Date Recorded Sex Assigned at Not on file Legal Sex Male 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 Gender Identity Not on file Sexual Orientation [...] COVID: Suspected 01/05/2023 01/05/2023 01/05/2023 9:31 AM CIGARETTE AND FILTER CHIEF INSPECTOR COVID: Suspected 01/09/2023 01/09/2023 01/09/2023 2:34 PM CIGARETTE AND FILTER CHIEF INSPECTOR COVID: Suspected 10/25/2023 10/25/2023 10/25/2023 4:10 PM CIGARETTE AND FILTER CHIEF INSPECTOR documented as of this encounter Care Teams Hotel Associate Relationship Specialty Start Date End Date Star Singh MD PCP - General 02/05/17 Chepe Hinton MD Consulting Physician Cardiology 07/19/18 Lizy Cai, RN [address] [place] [address] [place] [address] Pump Rebuilder 07/22/18 08/28/18 Dada Morris MD [address] [place] [address] DR DUVALL [address] [place], [place] [id number] Anesthesiologist Pain Management 10/13/22 documented as of this encounter
--- OUTSIDE RECORDS SUMMARY | 2025-06-04 00:33 | XMS_ITS | Encounter Summary ---
Author Organization [facility] Address [address] [facility] [place] [address] Phone Care Team Providers Care Sanitor Name Role Phone Star Singh MD Primary Care Provider [phone] Encounter Details Date Type Department Care Team (Late st Contact Info) Description 06/16/2021 Lab Requisition [facility] Services [address] [place] [address] Uziel Cifuentes MD [address] [place] [address] Encounter for screening for malignant neoplasm of [...] Health Behavioral Health On track(2020 11:09 AM SEWING MACHINE BOBBIN WINDER) Yes Colt Locke LCSW Note: I want to be able to have less guilt and more acceptance of my situation with my , within the next six months Goal Reviewed today with: patient Readiness to change: Ready to change Department associated with goal: [facility] Steps to achieve goal: Patient counseled on caring for the caregiver. during his 30-45 min individual therapy sessions, 1-2 times per month Patient counseled on recognizing and challenging unrealistic guilt during his 30-45 min individual therapy sessions, 1-2 times per month Behavioral Health Behavioral Health On track(2020 11:09 AM SEWING MACHINE BOBBIN WINDER) No Colt Locke LCSW Note: Goal: Patient will be able to report improve mood/adjustment to spouse's [place] [facility] placement and their changed relationship, to an acceptable level, within the next six months Goal Reviewed today with: patient Readiness to change: Ready to change Department associated with goal: [facility] Steps to [...] 1.06 <=4.00 ng/mL 06/16/2021 6:01 PM CDT [facility] Blood Venipuncture / Unknown 06/16/2021 4:00 PM CDT 06/16/2021 5:31 PM CDT Narrative [facility] - 06/16/2021 6:01 PM CDT PSA NOTE: The PSA value should be used in conjunction with information available from clinical evaluation and other diagnostic procedures. us Uziel Cifuentes MD CHEMISTRY ORDERABLES Fi nal Result [facility] [facility] [place] [address] documented in this encounter Visit Diagnoses Diagnosis [...] documented as of this encounter Care Teams Sanitor Relationship Specialty Start Date End Date Star Singh MD [address] [place] [address] PCP - General Internal Medicine 10/13/19 documented as of this encounter
[2025-06-04] MEDS: ACETAMINOPHEN 500 MG TABLET 1000 MG PO (06:15)
[2025-06-04] MEDS: LACTATED RINGERS 1,000 ML 30 ML IV CONT ×2 (06:20→09:47)
--- NOTE | 2025-06-04 06:59 | WPDANESEPPF ---
Anes - Initial Pre Proc Eval Procedure: Operation Date: 06/04/25 07:30 Proposed Procedures p Right Custom Total Knee Arthroplasty - Tony Wilkinson MD Date/Time: 06/04/25 06:59 Surgeon: Tony Wilkinson MD Pre Op Diagnosis: Prim O A Rt Knee Patient Data Age: 79 Gender: M Height: 1.79 m Weight: 106.4 kg Last Vital Signs Temp 37.0 C 05/13/25 14:57 Pulse 74 05/13/25 14:57 Resp 18 05/13/25 14:57 BP 115/67 05/13/25 14:57 Pulse Ox 98 05/13/25 14:57 O2 Del Method Room Air 05/13/25 14:57 Allergies Allergy/AdvReac Type Severity Reaction Status Date / Time Umhymbs-KIZ-FsS Reductase Allergy Intermediate Muscle Pain Verified 06/04/25 06:48 Inhibitor (Mzhglqg-Uhy-Wzm Reductase Inhibitor) Sulfa (Sulfonamide Allergy Unknown Unknown Verified 06/04/25 06:48 Antibiotics) Home Medications ?Medication ?Instructions ?Recorded ?Confirmed ?Type dicyclomine 20 mg tablet 20 mg PO PRN 10/09/19 05/19/25 History ezetimibe 10 mg tablet (Zetia) 10 mg PO DAILY 10/09/19 06/04/25 History fenofibrate nanocrystallized 145 145 mg PO DAILY 10/09/19 06/04/25 History mg tablet glucosamine HCl 750 mg tablet 750 mg PO DAILY 10/09/19 06/04/25 History irbesartan 150 0.5 tablet PO DAILY 10/09/19 06/04/25 History mg-hydrochlorothiazide 12.5 mg tablet loratadine 10 mg tablet 10 mg PO DAILY 10/09/19 06/04/25 History apixaban 5 mg tablet (Eliquis) 5 mg PO BID 03/21/24 06/04/25 History bupropion HCl 300 mg 24 hr tablet, 300 mg PO DAILY 11/25/24 06/04/25 History extended release cholecalciferol (vitamin D3) 125 125 mcg PO DAILY 05/13/25 06/04/25 History mcg (5,000 unit) capsule cyclobenzaprine 10 mg tablet 10 mg PO PRN 05/13/25 05/19/25 History multivitamin (Multiple Vitamins 1 tablet PO DAILY 05/13/25 06/04/25 History tablet) Laboratory Tests 06/04/25 06:14 Blood Type Pending Antibody Screen Pending Patient hx anesthesia problems: none Family hx anesthesia problems: none Results Review: All pre-operative results and documents have been reviewed as part of the pre-operative evaluation. [facility] Past Medical History Medical History Hypertension Depression TIA (transient ischemic attack) Erectile dysfunction CHLOE (obstructive sleep apnea) Asthma Primary osteoarthritis of right hip Osteoarthritis of both knees Surgical History Surgical History History of implanted electronic device Inspire Device for Sleep apnea Scheduled for 02/03/25 History of cardiac ablation for atrial fibrillation Scheduled for 12/18/24 History of permanent cardiac pacemaker placement (~11/2022) For A-fib S/P placement of nerve stimulator (~11/2022) History of heart artery stent (~05/22/17) History of cataract extraction (~1994) History of hernia repair History of colon resection (~2010) Family History Family History Father Carcinoma of colon Sibling Family history of lung cancer Social History Social History Smoking status: Former smoker Tobacco type: cigarettes and cigars Do You Feel Safe in your Home?: Yes Lack of Transportation: No Lack of Food: Never True Current Housing: I Have Housing Concerned About Future Housing: No Difficulty Paying Gas/Electric Bills: No Difficulty Paying for Meds: No Currently Unemployed: No Education: High School Diploma/GED Difficulty w/ Childcare or Family Care: No Anes - Eval Final PreProcedure Day of Procedure 06/04/25 06:59 Patient weight: obese Heart: regular rate and rhythm Lungs: clear to auscultation Airway: Mallampati scale class II Neurological: alert and oriented Last oral intake: >/= 8 hours ASA classification: IV Emergent: no Anesthetic plan: proceed Anesthesia type and monitoring: general LMA and standard monitoring Results Review: All pre-operative results and documents have been reviewed as part of the pre-operative evaluation. Informed Consent: The patient's anesthetic plan and its attendant risks and benefits were discussed with the patient/family/POA. Questions were solicited and answers provided to the satisfaction of the patient/family/POA.
--- NOTE | 2025-06-04 07:12 | WPDHPUPDATE1 ---
History and Physical Update Update Date/Time: 06/04/25 07:12 History and Physical has been reviewed, including an updated exam of the patient. There are NO changes in the patient's condition. Risks, benefits, and alternatives have been discussed and questions answered. Patient agrees to proceed with procedure.
[2025-06-04] MEDS: TRANEXAMIC ACID 1,000MG/ISO100 1,000 MG/100 ML BAG 200 MG IVPB (07:15)
[2025-06-04] MEDS: ceFAZolin 2 GM in SODIUM CHLORIDE 0.9% IV 50 ML 100 ML IVPB (07:30)
[2025-06-04] MEDS: SODIUM CHLORIDE 0.9% IV 37.7 ML, MORPHINE SULFATE INJ (*CRX) 2 MG, ROPivacaine HCL 1% 2... INFILTRATE (08:13)
[2025-06-04] MEDS: TRANEXAMIC ACID 1,000 MG/10 ML AMPUL 1000 MG IV PUSH (09:28)
--- NOTE | 2025-06-04 09:36 | W.PM.PROC2 ---
Procedure Note - Detailed Date of Procedure 06/04/25 Pre-op Diagnosis Right knee degenerative arthritis. Post-op Diagnosis Same Procedure Performed Custom total knee arthroplasty, right. Surgeon Tony Wilkinson MD Anesthesia General Findings Mixed varus/ valgus. Excellent bone quality. Tight soft tissues. +4 tibia resection. No significant releases. Description of Procedure Preoperative antibiotics were given. The limb was prepped and draped in the usual sterile fashion with a well-padded tourniquet high on the thigh. The limb was exsanguinated and the tourniquet inflated to 300 mmHg. A longitudinal incision was created just medial to the patella. A trivector approach to the knee was performed. Arthrotomy was taken down through the joint capsule. No significant releases were initially taken. The femur was exposed and the F1 jig was applied. The coring tool was used to remove the cartilage for the F2 jig to sit flush with the bone. The jig was pinned and the distal cut carefully taken. Caliper measurements confirmed appropriate bony resections according to the preoperative templated plan. The F4 cutting jig for the femur was applied, at the standard rotation. The AP and anterior chamfer cuts were taken. The F5 jig was applied and the posterior chamfer cuts were taken. The tibia was prepared using the T1 jig, after removing cartilage for the jig contact points. Proper alignment was checked with the alignment gavin. The tibia was cut using the T1u guide. Gap balancing was performed. Gap measurements were taken and the knee was trialed. Excellent alignment and soft tissue balancing was confirmed. The posterior cruciate ligament was recessed along the proximal tibia. Lateral patellar facetectomy performed. Meniscal remnants were removed. The trial components were assembled. Excellent range of motion and proper soft tissue balancing were confirmed throughout the full range of motion. Patellar tracking was excellent. The knee was copiously irrigated periodically throughout the procedure. The real implants were cemented into position. Excess cement was carefully removed. The wound was closed in layers with interrupted #1 Vicryl suture, 2-0 strata fix suture, 0 strata fix suture, 2-0 strata fix suture. Steri-Strips placed on the skin with the knee flexed. Sterile bulky dressing applied. The patient was brought to the recovery room in stable condition. There were no complications. Implants Conformis Custom total knee arthroplasty. Cemented. Cruciate retaining. 7A insert. Estimated Blood Loss 20 Drains No Complications No immediate complications Condition Stable Disposition PACU [facility] Billing Surgery - Charge Forward: Surgery Billing
[2025-06-04] MEDS: fentaNYL CITRATE INJ (*CRX) 100 MCG/2 ML VIAL 25 MCG IV PUSH ×4 (10:20→10:45)
[2025-06-04] MEDS: ONDANSETRON INJ 4 MG/2 ML VIAL IV PUSH ×3 (10:20→20:49)
[2025-06-04] MEDS: oxyCODONE/ACETAMINOPHEN (*CRX) 10-325 MG TABLET 1 TAB PO ×2 (11:42→17:23)
--- NOTE | 2025-06-04 11:55 | ADMGEN ---
This patient, Chepe Cervantes, was admitted to [facility] Surg Room 309-01. Patient/family oriented to hospital policies and general routines including ID bracelet, bed and alarms, visiting hours, pain management, procedures, bathroom and other care routines, personal items, smoking policy, room service/diet, and visiting hours. Information on how to activate the Rapid Response Team has been discussed. Patient/Family are encouraged to report perceived risks to care and to ask questions if they do not understand what they are told or what they should do.
--- NOTE | 2025-06-04 13:13 | P.CONIM_ITS ---
Assessment and Plan Assessment and plan (1) Status post total knee replacement, right: Code(s): Z96.651 - Presence of right artificial knee joint Status: Acute Assessment and Plan: Status post total knee arthroplasty Orthopedics manage Pain management by Orthopedics Aspirin Postop antibiotics (2) Benign hypertension with chronic kidney disease: Code(s): I12.9 - Hypertensive chronic kidney disease with stage 1 through stage 4 chronic kidney disease, or unspecified chronic kidney disease Status: Acute Assessment and Plan: BMP in the morning (3) Hypertension: Code(s): I10 - Essential (primary) hypertension Status: Acute Assessment and Plan: Continue hydrochlorothiazide (4) Depression: Code(s): F32.A - Depression, unspecified Status: Acute Assessment and Plan: Continual Butrans HPI Date of Consult Consult date: 06/04/25 Requesting Physician: Tony Wilkinson MD Primary Care Provider: Star Singh, Consult Narrative Reason for consult: Medical management Narrative: Chepe Cervantes is a 79 year old male with history of right knee osteoarthritis presents the hospital for a planned total knee arthroplasty by Orthopedics. Patient was seen after OR. Patient states that he has some postop nausea however it is improved with Zofran. He states that his pain is controlled the knee is having no issues after surgery. Review of Systems Review of Systems: 12 systems were reviewed and are negativ e except for as per HPI. [facility] Past Medical History Medical History (Updated 06/04/25 @ 22:02 by Sona Merida, JOHNY) Hypertension Depression TIA (transient ischemic attack) Erectile dysfunction CHLOE (obstructive sleep apnea) Asthma Primary osteoarthritis of right hip Osteoarthritis of both knees Surgical History Surgical History (Updated 06/04/25 @ 09:40 by Tony Wilkinson MD) Status post total knee replacement, right History of implanted electronic device Inspire Device for Sleep apnea Scheduled for 02/03/25 History of cardiac ablation for atrial fibrillation Scheduled for 12/18/24 History of permanent cardiac pacemaker placement (~11/2022) For A-fib S/P placement of nerve stimulator (~11/2022) History of heart artery stent (~05/22/17) History of cataract extraction (~1994) History of hernia repair History of colon resection (~2010) Family History Family History Father Carcinoma of colon Sibling Family history of lung cancer Social History Social History Smoking packs per day: 3 Smoking cigarettes per day: 60.0 Years smoked: 20 Smoking pack-years: 60.00 Smoking status: Former smoker Tobacco type: cigarettes and cigars Smoking end date: 11/05/74 Additional smoking assessment comments: DENIES ANY FORM OF TOBACCO USE Alcohol intake: current Drinks per week: 2 Substance use: current Substance use type: marijuana Last use: HS 06/03 Do You Feel Safe in your Home?: Yes Lack of Transportation: No Lack of Food: Never True Current Housing: I Have Housing Concerned About Future Housing: No Difficulty Paying Gas/Electric Bills: No Difficulty Paying for Meds: No Currently Unemployed: No Education: Decline to Answer Difficulty w/ Childcare or Family Care: No Living arrangements: with family Spiritual care concerns: No Meds Home Medications and Allergies Home Medications ?Medication ?Instructions ?Recorded ?Confirmed ?Type dicyclomine 20 mg tablet 20 mg PO PRN 10/09/19 05/19/25 History ezetimibe 10 mg tablet (Zetia) 10 mg PO DAILY 10/09/19 06/04/25 History fenofibrate nanocrystallized 145 145 mg PO DAILY 10/09/19 06/04/25 History mg tablet glucosamine HCl 750 mg tablet 750 mg PO DAILY 10/09/19 06/04/25 History irbesartan 150 0.5 tablet PO DAILY 10/09/19 06/04/25 History mg-hydrochlorothiazide 12.5 mg tablet loratadine 10 mg tablet 10 mg PO DAILY 10/09/19 06/04/25 History apixaban 5 mg tablet (Eliquis) 5 mg PO BID 03/21/24 06/04/25 History bupropion HCl 300 mg 24 hr tablet, 300 mg PO DAILY 11/25/24 06/04/25 History extended release cholecalciferol (vitamin D3) 125 125 mcg PO DAILY 05/13/25 06/04/25 History mcg (5,000 unit) capsule cyclobenzaprine 10 mg tablet 10 mg PO PRN 05/13/25 05/19/25 History multivitamin (Multiple Vitamins 1 tablet PO DAILY 05/13/25 06/04/25 History tablet) aspirin 81 mg tablet,delayed 81 mg PO DAILY #28 tabs 06/04/25 Rx release (Enteric Coated Aspirin) oxycodone-acetaminophen 5 mg-325 1 - 2 tablet PO Q6H PRN pain #30 06/04/25 Rx mg tablet tabs prednisone 5 mg tablet 5 mg PO DAILY #21 tabs 06/04/25 Rx Allergies Allergy/AdvReac Type Severity Reaction Status Date / Time Artzoxy-GPZ-NwG Reductase Allergy Intermediate Muscle Pain Verified 06/04/25 12:04 Inhibitor (Fkgctsu-Vfy-Jhq Reductase Inhibitor) Sulfa (Sulfonamide Allergy Unknown Unknown Verified 06/04/25 12:04 Antibiotics) Vital Signs Vital Signs - 24 hr 06/04/25 06:11 06/04/25 09:47 06/04/25 10:00 Temperature 97.5 F L 98.2 F Pulse Rate 62 65 64 Respiratory Rate 18 12 11 L Blood Pressure 131/70 139/85 149/88 H Pulse Oximetry 97 98 98 Oxygen Delivery Room Air Simple Face Mask Simple Face Mask Oxygen Flow Rate 8 8 06/04/25 10:15 06/04/25 10:30 06/04/25 10:45 Temperature Pulse Rate 65 63 68 Respiratory Rate 10 L 10 L 10 L Blood Pressure 156/78 H 128/62 138/77 Pulse Oximetry 94 97 98 Oxygen Delivery Nasal Cannula Nasal Cannula Nasal Cannula Oxygen Flow Rate 2 2 2 06/04/25 11:00 06/04/25 11:10 06/04/25 11:56 Temperature 97.1 F L 96.8 F L Pulse Rate 65 65 66 Respiratory Rate 10 L 12 16 Blood Pressure 130/78 135/86 139/72 Pulse Oximetry 97 97 100 Oxygen Delivery Nasal Cannula Nasal Cannula Oxygen Flow Rate 2 2 06/04/25 12:32 Temperature Pulse Rate Respiratory Rate Blood Pressure Pulse Oximetry 100 Oxygen Delivery Nasal Cannula Oxygen Flow Rate 2 Exam Narrative: General: well appearing, appears stated age. HEENT: normocephalic, atraumatic. Mucous membranes moist. EOMI, PERRLA, bilateral sclera anicteric, no conjunctival injection. Neck supple without JVD, lymphadenopathy, or bruit. Respiratory: clear to ascultation bilaterally. No rales/rhonic/wheezes. Cardiovascular: Regular rate and rhythm, normal S1-S2 upon ascultation. No murmurs, rubs, or clicks. PMI is nondisplaced, capillary refill less than 3 second. Abdomen: Soft, round, no pulsatile masses, nondistended and nontender. No reboun d, no guarding. No CVA tenderness, no hepatosplenomegaly. Bowel sounds present to all four quadrants. No high pitch or tinkling sounds, resonant to percussion. Extremities: No cyanosis, clubbing, or edema present. Pulses are palpable 2/2. Right knee surgical wrap in place clean dry intact Neuro: Alert and orientated x 4. PERRLA. Cranial nerves 2-12 intact without focal deficit. Skin: Warm, dry, and intact, without rash, erythema, or lesion. Psych: pleasant, cooperative, normal speech, normal affect, no hallucinations, no dysarthia Quality VTE Prophylaxis VTE prophylaxis: mechanical ordered Hospitalist MIPS Advance Care Plan I have confirmed that the patient's Advanced Care Plan is present, code status is documented, or surrogate decision maker is listed in patient medical record.: Yes Medication Reconciliation I have utilized all available resources to obtain, update and review the patients current medications (includes all prescriptions, OTC, herbals, cannabis, and nutritional supplements).: Yes
[2025-06-04] MEDS: ceFAZolin 2 GM/D5W 50 ML 2 GM/50 ML BAG IVPB ×2 (16:05→22:05)
[2025-06-04] MEDS: ASPIRIN 81 MG ENTERIC TABLET PO (17:22)
[2025-06-04] MEDS: SENNA/DOCUSATE SODIUM TABLET 2 TAB PO (17:22)
[2025-06-05 04:56] VITALS: BP 125/71; PULSE 69; RESP 20; TEMP 36.3; O2SAT 96
[2025-06-05] MEDS: oxyCODONE/ACETAMINOPHEN (*CRX) 5-325 MG TABLET 1 TABLET PO (06:05)
[2025-06-05] MEDS: ceFAZolin 2 GM/D5W 50 ML 2 GM/50 ML BAG IVPB (06:05)
[2025-06-05 06:17] LABS: Hematocrit 36.9 % (42.0-52.0); Hemoglobin 11.5 g/dL (14.0-18.0); Immature Granulocyte Percent A 0.4 % (0-0.5); Lymphocytes Absolute Auto 0.96 K/mm3 (0.9-3.2); Mean Corpuscular HGB Conc 31.2 g/dl (32-36); Mean Corpuscular Hemoglobin 29.3 pg (26-34); Mean Corpuscular Volume 93.9 fl (80-100); Nucleated Red Blood Cells Absolute Auto 0.000 K/mm3 (0.0-0.012); Nucleated Red Blood Cells Perc 0.0 % (0.0-0.2); Platelet Count Result 128 k/mm3 (150-375); Red Blood Count 3.93 M/mm3 (4.6-6.20); White Blood Count 10.3 K/mm3 (4.5-10.0)
[2025-06-05 07:08] LABS: Anion Gap 5 mmol/L (4-12); Blood Urea Nitrogen 33 mg/dL (9-20); Calcium 9.0 mg/dL (8.4-10.2); Carbon Dioxide 28 mmol/L (22-30); Chloride 105 mmol/L (98-107); Estimated CRCL calculation 40 ml/min; Estimated Glomerular Filt Rate 41; Glucose 111 mg/dL (65-110); Potassium 4.4 mmol/L (3.4-5.0); Sodium 138 mmol/L (137-145)
[2025-06-05 08:00] VITALS: O2SAT 96
[2025-06-05] MEDS: buPROPion HCL XL (24 HR) 150 MG TABCR 300 MG PO (08:25)
[2025-06-05] MEDS: MULTIVITAMINS THERAPEUTIC TAB (*BKC) 1 TABLET PO (08:25)
[2025-06-05] MEDS: SENNA/DOCUSATE SODIUM TABLET 2 TAB PO (08:25)
[2025-06-05] MEDS: FENOFIBRATE NANOCRYSTALLIZED 145 MG TABLET PO (08:25)
[2025-06-05] MEDS: ASPIRIN 81 MG ENTERIC TABLET PO (08:26)
[2025-06-05] MEDS: LORATADINE 10 MG TABLET PO (08:26)
[2025-06-05] MEDS: hydroCHLOROthiazide 6.25 MG TABLET PO (08:26)
[2025-06-05] MEDS: EZETIMIBE 10 MG TABLET PO (08:26)
[2025-06-05] MEDS: CHOLECALCIFEROL (VITAMIN D3) 125 MCG (5,000 UNITS) TABLET PO (08:26)
[2025-06-05 08:56] VITALS: BP 135/55; PULSE 72; RESP 18; TEMP 36.3; O2SAT 100
--- NOTE | 2025-06-05 10:08 | P.PNIM_ITS ---
Progress Note: A&P Assessment and Plan (1) Degenerative joint disease of right knee: Qualifiers: Osteoarthritis type: primary Qualified Code(s): M17.11 - Unilateral primary osteoarthritis, right knee Code(s): M17.11 - Unilateral primary osteoarthritis, right knee Status: Acute Plan (1) Status post total knee replacement, right: Code(s): Z96.651 - Presence of right artificial knee joint Status: Acute Assessment and Plan: Status post total knee arthroplasty Orthopedics manage Pain management by Orthopedics Aspirin Postop antibiotics Patient has leukocytosis, but patient is afebrile, no sign infection (2) Benign hypertension with chronic kidney disease: Code(s): I12.9 - Hypertensive chronic kidney disease with stage 1 through stage 4 chronic kidney disease, or unspecified chronic kidney disease Status: Acute Assessment and Plan: Baseline 1.76 April 13, 2025 Creatinine trending down 1.64 (3) Hypertension: Code(s): I10 - Essential (primary) hypertension Status: Acute Assessment and Plan: Continue hydrochlorothiazide (4) Depression: Code(s): F32.A - Depression, unspecified Status: Acute Assessment and Plan: Continual [place] Patient is okay to be discharged from medical point feel Subjective Date/time seen: 06/05/25 10:08 Interval history: Patient is afebrile, blood pressure stable, Pain is tolerable, denies chest pain shortness shortness breath, abdomen pain, nausea vomiting Labs reviewed, mild leukocytosis Exam Narrative: General: well appearing, appears stated age. HEENT: normocephalic, atraumatic. Mucous membranes moist. EOMI, PERRLA, bilateral sclera anicteric, no conjunctival injection. Neck supple without JVD, lymphadenopathy, or bruit. Respiratory: clear to ascultation bilaterally. No rales/rhonic/wheezes. Cardiovascular: Regular rate and rhythm, normal S1-S2 upon ascultation. No murmurs, rubs, or clicks. PMI is nondisplaced, capillary refill less than [address] Abdomen: Soft, round, no pulsatile masses, nondistended and nontender. No rebound, no guarding. No CVA tenderness, no hepatosplenomegaly. Bowel sounds present to all four quadrants. No high pitch or tinkling sounds, resonant to percussion. Extremities: No cyanosis, clubbing, or edema present. Pulses are palpable 2/2. Right knee surgical wrap in place clean dry intact Neuro: Alert and orientated x 4. PERRLA. Cranial nerves 2-12 intact without focal deficit. Skin: Warm, dry, and intact, without rash, erythema, or lesion. Psych: pleasant, cooperative, normal speech, normal affect, no hallucinations, no dysarthia Objective Data Vital Signs Vital Signs: Vital Signs - 24 hr 06/04/25 10:15 06/04/25 10:30 06/04/25 10:45 Temperature Pulse Rate 65 63 68 Respiratory Rate 10 L 10 L 10 L Blood Pressure 156/78 H 128/62 138/77 Pulse Oximetry 94 97 98 Oxygen Delivery Nasal Cannula Nasal Cannula Nasal Cannula Oxygen Flow Rate 2 2 2 06/04/25 11:00 06/04/25 11:10 06/04/25 11:45 Temperature 97.1 F L 97.5 F L Pulse Rate 65 65 66 Respiratory Rate 10 L 12 18 Blood Pressure 130/78 135/86 133/72 Pulse Oximetry 97 97 96 Oxygen Delivery Nasal Cannula Nasal Cannula Oxygen Flow Rate 2 2 06/04/25 11:56 06/04/25 12:30 06/04/25 12:32 Temperature 96.8 F L 97.7 F Pulse Rate 66 68 Respiratory Rate 16 18 Blood Pressure 139/72 148/82 H Pulse Oximetry 100 97 100 Oxygen Delivery Nasal Cannula Oxygen Flow Rate 2 06/04/25 13:30 06/04/25 14:02 06/04/25 16:56 Temperature 97.6 F 97.9 F Pulse Rate 66 75 Respiratory Rate 18 18 Blood Pressure 135/68 139/68 Pulse Oximetry 100 98 Oxygen Delivery Room Air Oxygen Flow Rate 06/04/25 20:00 06/04/25 20:56 06/04/25 21:41 Temperature 97.9 F Pulse Rate 71 Respiratory Rate 14 Blood Pressure 128/64 Pulse Oximetry 93 92 Oxygen Delivery Room Air Room Air Oxygen Flow Rate 06/05/25 04:56 06/05/25 08:56 Temperature 97.4 F L 97.3 F L Pulse Rate 69 72 Respiratory Rate 20 18 Blood Pressure 125/71 135/55 L Pulse Oximetry 96 100 Oxygen Delivery Oxygen Flow Rate Intake/Output Intake/Output: Intake & Output 06/02/25 06/03/25 06/04/25 06/05/25 23:59 23:59 23:59 23:59 Intake Total 1630 120 Balance 1630 120 Meds/Results Medications: Active Medications Generic Name Dose Route Start Last Admin Trade Name Freq PRN Reason Stop Dose Admin Acetaminophen 500 mg 06/04/25 11:11 Acetaminophen 500 Mg Tablet PO Q6H PRN Pain Rated 1-3 Aspirin 81 mg 06/04/25 17:00 06/05/25 08:26 Aspirin 81 Mg Enteric Tablet PO 81 mg BID CINTHIA Administration Bupropion HCl 300 mg 06/05/25 09:00 06/05/25 08:25 Bupropion Hcl Xl (24 Hr) 150 Mg Tabcr PO 300 mg DAILY CINTHIA Administration Cyclobenzaprine HCl 10 mg 06/04/25 11:11 Cyclobenzaprine Hcl 10 Mg Tablet PO Q8H PRN Spasms Diphenhydramine HCl 25 mg 06/04/25 11:11 Diphenhydramine Hcl Inj 50 Mg/Ml Vial IV PUSH Q6H PRN Itching Ezetimibe 10 mg 06/05/25 09:00 06/05/25 08:26 Ezetimibe 10 Mg Tablet PO 10 mg DAILY CINTHIA Administration Fenofibrate 145 mg 06/05/25 09:00 06/05/25 08:25 Fenofibrate Nanocrystallized 145 Mg Tablet PO 145 mg DAILY CINTHIA Administration Hydrochlorothiazide 6.25 mg 06/05/25 09:00 06/05/25 08:26 Hydrochlorothiazide 6.25 Mg Tablet PO 6.25 mg DAILY CINTHIA Administration Hydromorphone HCl 1 mg 06/04/25 11:22 Hydromorphone Hcl Inj (*Crx) 2 Mg/Ml Vial IV PUSH Q2H PRN Breakthrough Pain Rated 7-10 or NPO Hydromorphone HCl 0.5 mg 06/04/25 11:22 Hydromorphone Hcl Inj (*Crx) 2 Mg/Ml Vial IV PUSH Q2H PRN Breakthrough Pain Rated 4-6 or NPO Ibuprofen 800 mg in 200 mls @ 400 mls/hr 06/04/25 11:11 Caldolor 800 Mg/200 Ml IVPB Q6H PRN Breakthrough Pain Rated 1-3 or NPO Irbesartan 75 mg 06/05/25 09:00 Irbesartan 75 Mg Tablet PO 07/05/25 08:59 DAILY CINTHIA Loratadine 10 mg 06/05/25 09:00 06/05/25 08:26 Loratadine 10 Mg Tablet PO 10 mg DAILY CINTHIA Administration Multivitamins Therapeutic 1 tablet 06/05/25 09:00 06/05/25 08:25 Multivitamins Therapeutic Tab (*Bkc) PO 1 tablet DAILY CINTHIA Administration Naloxone HCl 0.1 mg 06/04/25 11:11 Naloxone Hcl 0.4 Mg/Ml Vial IV PUSH Q2M PRN Opiate Reversal Ondansetron HCl 4 mg 06/04/25 11:11 06/04/25 20:49 Ondansetron Inj 4 Mg/2 Ml Vial IV PUSH 4 mg Q4H PRN Administration Nausea And Vomiting Oxycodone/Acetaminophen 1 tablet 06/04/25 11:11 06/05/25 06:05 Oxycodone/Acetaminophen (*Crx) 5-325 Mg Tablet PO 1 tablet Q4H PRN Administration Pain Rated 4-6 Oxycodone/Acetaminophen 1 tab 06/04/25 11:11 06/04/25 17:23 Oxycodone/Acetaminophen (*Crx) 10-325 Mg Tablet PO 1 tab Q6H PRN Administration Pain Rated 7-10 Polyethylene Glycol 17 gm 06/05/25 09:00 06/05/25 08:26 Polyethylene Glycol 3350 17 Gm Powd.Pack PO 17 gm QAM CINTHIA Administration Prednisone 5 mg 06/05/25 08:00 06/05/25 08:26 Prednisone 5 Mg Tablet PO 5 mg DAILY@0800 CINTHIA Administration Senna/Docusate Sodium 2 tab 06/04/25 17:00 06/05/25 08:25 Senna/Docusate Sodium Tablet PO 2 tab BID CINTHIA Administration Vitamin D 125 mcg 06/05/25 09:00 06/05/25 08:26 Cholecalciferol (Vitamin D3) 125 Mcg (5,000 Units) Tablet PO 125 mcg DAILY CINTHIA Administration Radiology Results: ITS Impressions Knee X-Ray 06/04/25 10:18 IMPRESSION: 1. Recent right total knee arthroplasty. Labs Labs: Laboratory Results - last 24 hr 06/05/25 05:54 WBC 10.3 H RBC 3.93 L Hgb 11.5 L Hct 36.9 L MCV 93.9 MCH 29.3 MCHC 31.2 L RDW 13.9 Plt Count 128 L MPV 9.7 Immature Gran % (Auto) 0.4 Neut % (Auto) 79.4 H Lymph % (Auto) 9.3 L [place] % (Auto) 10.5 H Eos % (Auto) 0.2 Baso % (Auto) 0.2 Lymph # (Auto) 0.96 [place] # (Auto) 1.1 H Eos # (Auto) 0.0 Baso # (Auto) 0.0 Abs Immat Gran (auto) 0.04 H Absolute Neuts (auto) 8.2 H Absolute Nucleated RBC 0.000 Nucleated RBC % 0.0 Sodium 138 Potassium 4.4 Chloride 105 Carbon Dioxide 28 Anion Gap 5 BUN 33 H Creatinine 1.64 H Estim Creat Clear Calc 40 Estimated GFR 41 L Glucose 111 H Calcium 9.0
[2025-06-05] MEDS: oxyCODONE/ACETAMINOPHEN (*CRX) 10-325 MG TABLET 1 TAB PO (10:26)
[2025-06-05] MEDS: IRBESARTAN 75 MG TABLET PO (11:00)
== END 2025-06-05 12:05 | disposition home or self-care (01) ==
LOC: ANHSURGERY 09:38 → ANH3MEDSUR 11:13
PROVIDERS: PCP Internal Medicine; Visit Provider Orthopaedic Surgery
PROC: (CPT 27447; principal; 2025-06-04 07:30)
DX: M17.11 Unilateral primary osteoarthritis, right knee (principal); I12.9 Hypertensive chronic kidney disease with stage 1 through stage 4 chronic kidney disease, or unspecified chronic kidney disease; N18.9 Chronic kidney disease, unspecified; F32.A Depression, unspecified; Z87.891 Personal history of nicotine dependence; E66.9 Obesity, unspecified; Z68.33 Body mass index [BMI] 33.0-33.9, adult
CPT/HCPCS: 27447; 36415; 73560; 80048; 85025; 86850; 86900; 86901; 97110; 97116; 97161; 97165; 97530; 97535; J0690; A9270; C1713; C1776; J0166; J1100; J1885; J2003; J2270; J2405; J2704; J2795; J3010; J7120; J7512